=== PATIENT | male | born 1970 | race Caucasian/White ===

== ENCOUNTER 2020-01-19 15:29 | Outpatient (CLI) | payer OTHER, SELFPAY | END 2020-01-19 15:30 | disposition home or self-care (01) | LOC: CHSLAB 15:35 | PROVIDERS: PCP Internal Medicine; Visit Provider Specialist | DX: L01.00 Impetigo, unspecified (principal) | CPT/HCPCS: 87070; 87075; 87077; 87186; 87205 ==

== ENCOUNTER 2021-04-04 08:35 | Outpatient (CLI) | payer OTHER, SELFPAY ==
--- NOTE | ~2021-04-04 | NM_ITS ---
EXAMINATION: NM hepatobiliary w pharm DATE: 04/04/2021 10:43 INDICATION: Right upper quadrant abdominal pain COMPARISON: None. TECHNIQUE: 6 mCi Tc-99m mebrofenin (Choletec) was administered intravenously. Scintigraphic images o f the abdomen were obtained for one hour. 2.16 mcg sincalide (Kinevac) was administered by slow intra venous infusion, and imaging was continued for 30 minutes. Gallbladder ejection fraction was calculat ed by the technologist. FINDINGS: There is normal clearance of radiotracer from the blood pool. There is homogeneous tracer uptake by t he liver. Activity progresses to the gallbladder and bowel. The gallbladder ejection fraction (GBEF) is 7% (normal 10-90%, but most patient with gallbladder dysfunction have GBEF < 35% which does overl ap with the normal range). IMPRESSION: 1. Decreased gallbladder ejection fraction of 7% consistent with gallbladder dysfunction or chronic cholecystitis in the appropriate clinical setting. Reviewed, dictated and finalized at location A. IMPRESSION: 1. Decreased gallbladder ejection fraction of 7% consistent with gallbladder d ysfunction or chronic cholecystitis in the appropriate clinical setting.
== END 2021-04-04 08:36 | disposition home or self-care (01) ==
LOC: CHSIMG 08:36
PROVIDERS: PCP Internal Medicine; Visit Provider Internal Medicine
DX: R10.11 Right upper quadrant pain (principal)
CPT/HCPCS: 78227; A9537; J2805

== ENCOUNTER 2022-01-09 13:28 | Outpatient (CLI) | payer OTHER, SELFPAY ==
--- NOTE | 2022-01-09 13:34 | ECG_ITS ---
Measurements Intervals [place] Rate: 75 P: 41 WA: 171 QRS: -47 QRSD: 106 T: 47 QT: 357 QTc: 399 Interpretive Statements SINUS RHYTHM LEFT ANTERIOR FASCICULAR BLOCK BASELINE ARTIFACT- I, III, AVR, AVL, AVF ABNORMAL ECG Electronically Signed On 01-09-2022 14:13:23 CONSTRUCTION TRADES CONTRACTOR by Myles Hernandez D.O.
[2022-01-09 14:37] LABS: Alanine Aminotransferase 62 U/L (4-50); Albumin Level 4.4 g/dL (3.5-5.1); Alkaline Phosphatase 105 U/L (38-126); Amylase 62 U/L (30-110); Aspartate Amino Transferase 41 U/L (17-59); Bilirubin,Total 0.4 mg/dL (0.2-1.3); Lipase 54 U/L (23-300)
== END 2022-01-09 13:29 | disposition home or self-care (01) ==
PROVIDERS: PCP Internal Medicine; Visit Provider Surgery
DX: K82.8 Other specified diseases of gallbladder (principal); E78.5 Hyperlipidemia, unspecified; Z01.818 Encounter for other preprocedural examination; I44.4 Left anterior fascicular block
CPT/HCPCS: 36415; 80076; 82150; 83690; 86850; 86900; 86901; 93005

== ENCOUNTER 2022-01-12 00:59 | Day surgery (SDC) | payer OTHER, SELFPAY ==
[2022-01-04 11:50] VITALS: BMI 33.5
--- NOTE | 2022-01-04 11:59 | PC.NURSE ---
Report to the Outpatient Waiting Room, entrance under the green pavilion located off [facility], at time 10:00 on date 01/12/22. OR Time: 12:00. - You will be asked a series of questions to screen for COVID 19 for your protection. - A mask is required within the hospital. - No visitors are allowed at this time. Preoperative COVID Testing Requirements: No COVID Test needed if: (proof is required; if not received patient will have Rapid Test prior to entry) - Patient has received COVID Vaccine at least 14 days prior to procedure date or - Patient has positive COVID test result within last 90 days of surgery date. COVID Test needed if above criteria is not met Patients may have clear liquids (water, carbonated beverages, clear teas, apple juice) until 3 hours prior to surgery (9:00) with a maximum of 20 ounces. - No food from midnight until time of surgery Take the following medications with a SIP of water the morning of surgery: NONE Medications to discontinue per physician: VITAMINS/SUPPLEMENTS Date to take last dose: 01/08/22 Please no make-up, nail canadian, hairspray, perfume, deodorant, or body powder the day of surgery. No jewelry (including any body piercings) or valuables the day of surgery, leave them at home. Please take a shower or bath the night before, or the morning of, surgery with an antibacterial soap. Wear comfortable, loose fitting clothing. HIBICLENS SHOWER - Jewelry must be removed prior to entering the operating room. Rings and piercings that are not removed may be cut off. - The hospital will not accept responsibility for valuables. - Please leave all valuables, including medications, at home the day of surgery. If you are going home after surgery, a licensed truck driver heavy must drive you home. - NO public transportation without another adult. - We recommend that an adult stay with you for 24 hours following discharge. - We also recommend that you do not drive, make important decision, drink alcoholic beverages, or take any drugs that were not prescribed by your health care provider for at least 24 hours after your discharge time. Follow any additional instructions given to you from your surgeon. Telephone instructions given to CORONA WAN and asked if any additional questions and then verbalized understanding. Patient advised to call surgeon office or pre surgery nurse liaison [phone] if any additional questions.
[2022-01-12] VITALS (8 sets, daily range): BP systolic 132–154; BP diastolic 63–79; PULSE 60–90; RESP 12–19; TEMP 36.5–36.8; O2SAT 97–100
[2022-01-12] MEDS: LACTATED RINGERS 1,000 ML 30 ML IV CONT ×2 (10:30→13:22)
[2022-01-12] MEDS: ACETAMINOPHEN 500 MG TABLET 1000 MG PO (10:45)
[2022-01-12] MEDS: KETOROLAC 15 MG/ML VIAL (*BKC) IV PUSH (10:46)
--- NOTE | 2022-01-12 11:32 | WPDANESEPPF ---
Anes - Initial Pre Proc Eval Procedure: Operation Date: 01/12/22 12:00 Proposed Procedures p Laparoscopic Cholecystectomy, Possible Open - Quincy Negron DO Date/Time: 01/12/22 11:32 Surgeon: Quincy Negron DO Pre Op Diagnosis: biliary dyskinesia, epigastric abdominal pain Patient Data Age: 51 Gender: M Height: 1.8 m Weight: 108.86 kg Allergies Allergy/AdvReac Type Severity Reaction Status Date / Time No Known Allergies Allergy Verified 01/04/22 11:48 Home Medications Medication Instructions Recorded Confirmed Type atorvastatin 40 mg tablet 40 mg PO DAILY 04/12/21 01/04/22 History multivitamin 1 tablet PO DAILY 01/04/22 01/04/22 History pantoprazole 40 mg PO QAM 01/04/22 01/04/22 History Patient hx anesthesia problems: none Family hx anesthesia problems: none Results Review: All pre-operative results and documents have been reviewed as part of the pre-operative evaluation. 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 Informed Consent: The patient's anesthetic plan and its attendant risks and benefits were discussed with the patient/family/POA. Questions were solicited and answers provided to the satisfaction of the patient/family/POA.
--- NOTE | 2022-01-12 11:43 | WPDHPUPDATE1 ---
History and Physical Update Update Date/Time: 01/12/22 11:43 History and Physical has been reviewed, including an updated exam of the patient. There are NO changes in the patient's condition. Risks, benefits, and alternatives have been discussed and questions answered. Patient agrees to proceed with procedure.
--- NOTE | 2022-01-12 11:43 | PM.IMHP ---
H&P: HPI History of Present Illness Date/Time: 01/12/22 11:43 Chief Complaint: Biliary dyskinesia Narrative: 51 yo man presents for lap aida. He reports no changes since last seen in office. Review of Systems Review of Systems: All systems reviewed & are unremarkable except as noted in HPI and below Constitutional: Constitutional: Denies chills, Denies fever(s), Denies headache(s) and Denies weight loss Eyes: Eyes: Denies change in vision ENT: Denies dizziness, Denies headache(s), Denies neck mass and Denies throat swelling Cardiovascular: Cardiovascular: Denies chest pain, Denies lightheadedness and Denies dyspnea Respiratory: Respiratory: Denies cough, Denies dyspnea and Denies wheezing Gastrointestinal: Gastrointestinal: Denies abdominal pain, Denies change in bowel habits, Denies nausea and Denies vomiting Genitourinary: Genitourinary: Denies hematuria and Denies dysuria Musculoskeletal: Musculoskeletal: Reports as per HPI Integumentary/Breasts: Skin/Breast: Reports as per HPI Neurologic: Denies dizziness and Denies headache(s) Allergic/Immunologic: Allergic/Immunologic: Denies throat swelling and Denies wheezing [facility] Past Medical History Medical History Anxiety Asthma Otto esophagus Hiatal hernia High cholesterol Surgical History Surgical History History of esophagogastroduodenoscopy (EGD) Family History Family History Father Lung cancer Grandparent , age 90 Cerebrovascular accident Social History Social History Smoking status: Never smoker Alcohol intake: current Alcohol use details: VERY RARE Substance use: never Substance use type: does not use Living arrangements: with family 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 Spiritual care concerns: No Meds Home Medications and Allergies Home Medications Medication Instructions Recorded Confirmed Type atorvastatin 40 mg tablet 40 mg PO DAILY 04/12/21 01/12/22 History multivitamin 1 tablet PO DAILY 01/04/22 01/12/22 History pantoprazole 40 mg PO QAM 02/03/22 02/11/22 History Allergies Allergy/AdvReac Type Severity Reaction Status Date / Time No Known Allergies Allergy Verified 01/04/22 11:48 Vital Signs Vital Signs - 24 hr 01/12/22 10:30 Temperature 36.8 C Pulse Rate 72 Respiratory Rate 16 Blood Pressure 154/77 H Pulse Oximetry 98 Exam Const: General: no acute distress and alert Orientation/consciousness: patient oriented x3 HENMT: Head: normocephalic and atraumatic Ears: hearing grossly normal bilaterally General nose exam: Normal nares present Mouth: Yes Normal oral and palatal mucosa present Eyes: Periorbital: periorbital findings normal Sclera: sclerae normal EOM: EOMs intact bilaterally Neck: Neck: normal visual inspection, no lymphadenopathy and trachea midline Chest: Chest palpation & inspection: normal inspection of the chest Resp: Effort & Inspection: normal respiratory effort Auscultation: clear to auscultation bilaterally Cardio: Jugular venous distension: no JVD Rate: regular rate Rhythm: regular rhythm Heart sounds: S1 normal heart sound present and S2 normal heart sound present Peripheral pulses: Peripheral pulses 2+ throughout GI: Inspection: normal to inspection GI Palp: Yes Soft to palpation, No Tenderness to palpation present (GI), No Guarding due to palpation present (GI) and No Rebound tenderness present Percussion: Yes normal to percussion Auscultation: normal bowel sounds : General: Yes no CVA tenderness Back/Spine/Pelvis: Back: no CVA tenderness Neuro: General: patient oriented x3, no focal motor deficits and CN's II-XI intact bilaterally Cognition (Neuro): normal cognition Speech: normal speech Motor
[2022-01-12] MEDS: ceFAZolin 2 GM/D5W 50 ML 2 GM/50 ML BAG IVPB (12:28)
[2022-01-12] MEDS: BUPIVACAINE/EPINEPHRINE 0.5% 30 ML VIAL INFILTRATE (12:51)
--- NOTE | 2022-01-12 13:13 | W.PM.PROC2 ---
Procedure Note - Detailed Date of Procedure 01/12/22 Pre-op Diagnosis biliary dyskinesia, epigastric abdominal pain Post-op Diagnosis other (Cholelithiasis) Procedure Performed Laparoscopic Cholecystectomy Surgeon Quincy Negron DO Anesthesia general and local (0.5% bupivacaine) Indications This is a 51-year-old man who presented with episodes of epigastric abdominal pain that have been ongoing for about 8-10 months. He initially had a gallbladder ultrasound in [place] in March 2021 which was normal. He then had a HIDA scan in April 2021 which showed a decreased gallbladder ejection fraction of 7%. Discussions were made with the patient about his treatment options and decision was made to proceed with laparoscopic cholecystectomy, possible open. Findings Laparoscopic cholecystectomy was performed the patient had a few pericholecystic adhesions but otherwise the gallbladder appeared normal in size. The cystic duct was normal size as well. There was about a 1 cm gallstone within the gallbladder. The gallbladder was removed and sent to lab for pathology. I inspected region on the patient's right upper abdomen that he thought was a possible abdominal hernia. There was no evidence of hernia on the abdominal wall in the right upper quadrant. Description of Procedure Procedure as well as risks, benefits, and alternatives were discussed with patient. Written consent was obtained and placed in chart prior to procedure. The patient was brought back to surgical suite. Patient was placed in supine position on operating table. Time-out was done to confirm patient and procedure. Patient was then intubated by the anesthesia department. Abdomen was prepped and draped in sterile fashion using chlorhexidine prep. 0.5% bupivacaine with epinephrine was infiltrated at each site of incision. A 5 millimeter incision was made near the umbilicus, and a 5 millimeter Optiview trocar was advanced through the abdominal layers under direct visualization. Once inside the abdominal cavity, carbon dioxide was insufflated to create a pneumoperitoneum. The camera was inserted and the abdomen was inspected. No immediate abnormalities were identified. The patient was placed in reverse Trendelenburg position and rotated slightly to the left. An 11 millimeter incision was made in the subxiphoid region, and an 11 millimeter trocar was inserted under direct visualization. Two 5 millimeter incisions were made in the right upper quadrant, and two 5 millimeter trocars were inserted under direct visualization. The gallbladder was identified and grasped at the fundus and retracted superiorly. It was then grasped at the infundibulum retracted laterally. Careful dissection around the neck of the gallbladder was performed using blunt dissection with a [place] grasper and hook electrocautery. The cystic duct was identified, and a window was created behind it. The cystic artery was also identified and a window was created behind it. The critical view of safety was identified, visualizing the cystic duct running directly into the neck of the gallbladder, and the cystic artery running directly into the wall of the gallbladder. A 5 millimeter clip support architect was then used to place 2 clips proximally and 1 clip distally on both the cystic duct and cystic artery. They were then both transected using endoscopic scissors. Once safely away from the jay jay hepatitis, the gallbladder was dissected free from the liver bed using hook electrocautery. Hemostasis was achieved along the way. The gallbladder was removed completely and then removed through the subxiphoid port. The liver bed was then inspected. Hemostasis appeared adequate, and our clips appeared secure. The area was gently irrigated with sterile saline. No other abnormalities were seen. The patient was flattened out in bed, and 1 final inspection was made around the abdominal cavity. The subxiphoid port was removed, and a Arden colunga
[2022-01-12] MEDS: oxyCODONE HCL (*CRX) 5 MG TAB IR PO (14:21)
== END 2022-01-12 15:03 | disposition home or self-care (01) ==
PROVIDERS: PCP Internal Medicine; Visit Provider Surgery
PROC: 0FT44ZZ Resection of Gallbladder, Percutaneous Endoscopic Approach (ICD-10-PCS; CPT 47562; principal; 2022-01-12 12:00)
DX: K80.10 Calculus of gallbladder with chronic cholecystitis without obstruction (principal); E78.00 Pure hypercholesterolemia, unspecified; E66.9 Obesity, unspecified; Z68.33 Body mass index [BMI] 33.0-33.9, adult
CPT/HCPCS: 47562; 36415; 80076; 82150; 83690; 86850; 86900; 86901; 88304; 93005; A9270; J0330; J0690; J1100; J1885; J2250; J2405; J2704; J2710; J3010; J7030; J7120

== ENCOUNTER 2022-09-10 15:02 | Outpatient (CLI) | payer OTHER, SELFPAY ==
--- NOTE | ~2022-09-10 | XR_ITS ---
EXAMINATION:XR_[id number] DATE: 09/10/2022 15:21 INDICATION: Neck pain TECHNIQUE: AP, lateral, and odontoid views of the cervical spine are provided. COMPARISON: None FINDINGS: Alignment is normal. The odontoid is intact. No fracture is identified. The vertebral body heights are normal. There is moderate loss of intervertebral disc space height at C6-7 and C7-T1. Sma ll degenerative osteophytes project from the anterior endplates of multiple vertebral bodies. There i s [id number]-[id number] facet and uncovertebral joint osteoarthritis. Prevertebral soft tissues are normal . IMPRESSION: 1. Mild to moderate cervical spondylosis without acute findings. Reviewed, dictated and finalized at location A.
--- NOTE | ~2022-09-10 | XR_ITS ---
EXAMINATION: XR chest 2V DATE: 09/10/2022 15:21 INDICATION: Chronic cough with both chest pain and dyspnea on exertion. TECHNIQUE: frontal and lateral views of the chest were obtained. COMPARISON: Chest radiograph dated 11/23/2014 FINDINGS: Couple unchanged small calcified nodules in the left upper lung zone. The lungs remain otherwise gigi r with no focal airspace opacities, pulmonary edema, pleural effusion or pneumothorax. The cardiomedi astinal silhouette is normal. Mild thoracolumbar spondylosis. Cholecystectomy clips in the right uppe r quadrant. IMPRESSION: 1. No acute cardiopulmonary disease. Reviewed, dictated and finalized at location B.
== END 2022-09-10 15:03 | disposition home or self-care (01) ==
LOC: CHSIMG 15:05
PROVIDERS: PCP Internal Medicine; Visit Provider Internal Medicine
DX: M54.2 Cervicalgia (principal); R05.3 Chronic cough; R13.10 Dysphagia, unspecified; E01.0 Iodine-deficiency related diffuse (endemic) goiter
CPT/HCPCS: 71046; 72040

== ENCOUNTER 2022-09-18 13:37 | Outpatient (CLI) | payer OTHER, SELFPAY ==
--- NOTE | ~2022-09-18 | US_ITS ---
EXAMINATION: US soft tissue head and neck DATE: 09/18/2022 15:16 INDICATION: Neck pain. Thyromegaly. Dysphagia. TECHNIQUE: Multiple ultrasound images of the thyroid were obtained. COMPARISON: None. FINDINGS: The right thyroid lobe measures 4.5 x 1.6 x 1.9 cm. The left thyroid lobe measures 5.3 x 2.2 x 1.8 c m. In the left thyroid lobe, there is an 11 mm solid, isoechoic, wider than tall nodule with ill-def ined margin without echogenic foci (TI-RADS TR3). There are normal lymph nodes in the neck bilaterall y. IMPRESSION: 1. Small thyroid nodule, likely not clinically significant. No follow-up is needed. Reviewed, dictated and finalized at location B. IMPRESSION: 1. Small thyroid nodule, likely not clinically significant. No follow-up is nee ded.
== END 2022-09-18 13:38 | disposition home or self-care (01) ==
LOC: CHSIMG 13:38
PROVIDERS: PCP Internal Medicine; Visit Provider Internal Medicine
DX: M54.2 Cervicalgia (principal); R13.10 Dysphagia, unspecified; E01.0 Iodine-deficiency related diffuse (endemic) goiter
CPT/HCPCS: 76536

== ENCOUNTER 2022-10-06 06:54 | Outpatient (CLI) | payer OTHER, SELFPAY ==
--- NOTE | ~2022-10-06 | MR_ITS ---
EXAMINATION: MR cervical spine wo con DATE: 10/06/2022 07:47 INDICATION: Cervical radiculopathy. TECHNIQUE: Magnetic resonance imaging (MRI) of the cervical spine was performed without intravenous c ontrast. Sequences included sagittal T2-weighted FSE, sagittal T2-weighted FS FSE, sagittal T1-weight ed FSE, axial MERGE, and axial T2-weighted FSE. COMPARISON: Cervical spine radiographs 09/10/2022 FINDINGS: Bone alignment is normal. Vertebral body heights are normal. There is mildly decreased disc height at C3-C4 and C6-C7. The spinal cord signal intensity is normal. The following disc levels are specifically discussed: C2-C3: The disc does not extend beyond the endplate margin. There is no uncovertebral joint osteoarth ritis. There is no facet joint osteoarthritis. There is no neural foraminal stenosis. There is no neto tral canal stenosis. C3-C4: The disc is bulging. There is mild right and severe left uncovertebral joint osteoarthritis. T here is mild bilateral facet joint osteoarthritis. There is mild right and moderate left neural claudia inal stenosis. There is mild central canal stenosis. C4-C5: The disc does not extend beyond the endplate margin. There is mild right uncovertebral joint o steoarthritis. There is mild bilateral facet joint osteoarthritis. There is mild right neural foramin al stenosis. There is no central canal stenosis. C5-C6: The disc does not extend beyond the endplate margin. There is mild bilateral uncovertebral elvar nt osteoarthritis. There is no facet joint osteoarthritis. There is no neural foraminal stenosis. The re is no central canal stenosis. C6-C7: The disc is bulging. There is severe right and moderate left uncovertebral joint osteoarthriti s. There is no facet joint osteoarthritis. There is moderate right and mild left neural foraminal cm nosis. There is mild central canal stenosis. C7-T1: The disc does not extend beyond the endplate margin. There is no uncovertebral joint osteoarth ritis. There is mild right and severe left facet joint osteoarthritis. There is mild bilateral neural foraminal stenosis. There is no central canal stenosis. IMPRESSION: 1. Moderate cervical spondylosis. Reviewed, dictated and finalized at location A. BERRY GROWER
== END 2022-10-06 06:55 | disposition home or self-care (01) ==
LOC: CHSIMG 06:55
PROVIDERS: PCP Internal Medicine; Visit Provider Internal Medicine
DX: M54.12 Radiculopathy, cervical region (principal)
CPT/HCPCS: 72141

== ENCOUNTER 2022-10-12 10:16 | Outpatient (CLI) | payer OTHER, SELFPAY ==
--- NOTE | 2022-10-12 13:31 | NIOX ---
Niox Report PFT: FeNO Evaluation (NIOX) Start: 10/12/22 13:29 Freq: Status: Active Protocol: Activity Type Activity Date Activity User E-sign Co-sign Detail Recorded Client Recorded Date Recorded By Document 10/12/22 13:29 FRANKLYN [id number] 10/12/22 13:31 FRANKLYN 10/12/22 13:29 NIOX Evaluation [NIOX Measurement] -FeNO Measurement Equals (ppb) 25 [NIOX Evaluation] -Level of Airway Inflammation Intermediate ( 25-50) [Comments] -NIOX Comments Patient followed directions well and completed in one try. [Charges] -NIOX Measurement Charges Yes
== END 2022-10-12 10:17 | disposition home or self-care (01) ==
LOC: CHSCARD 10:18
PROVIDERS: PCP Internal Medicine; Visit Provider Internal Medicine
DX: R05.9 Cough, unspecified (principal); M54.2 Cervicalgia; R13.10 Dysphagia, unspecified; E01.0 Iodine-deficiency related diffuse (endemic) goiter
CPT/HCPCS: 94060; 94726; 94729; 95012

== ENCOUNTER 2022-11-06 15:23 | Outpatient (CLI) | payer OTHER, SELFPAY ==
--- NOTE | ~2022-11-06 | XR_ITS ---
EXAMINATION: XR chest 2V 11/06/2022 15:51 INDICATION: Hemoptysis PROCEDURE: 2 view chest COMPARISON: Comparison to multiple prior studies sequentially, with oldest reviewed study dated 10/02. FINDINGS: The lungs are clear. The cardiomediastinal silhouette is within normal limits. There are no pleural effusions. There is no pneumothorax suspected. IMPRESSION: 1: NO ACUTE CARDIOPULMONARY DISEASE. Reviewed, dictated and finalized at location A. HER LEARNING DISABLED
[2022-11-06 15:48] LABS: Basophils Absolute Auto 0.06 K/mm3 (0.00-0.10); Basophils Percent Auto 0.5 % (0.0-1.0); Eosinophils Percent Auto 1.6 % (1.0-6.0); Hematocrit 43.8 % (40.0-54.0); Hemoglobin 14.7 g/dL (14.0-18.0); Immature Granulocyte Absolute 0.28 K/mm3 (0.00-0.00); Immature Granulocyte Percent A 2.3 % (0.0-0.0); Lymphocytes Absolute Auto 2.95 K/mm3 (1.10-4.50); Lymphocytes Percent Auto 23.8 % (18.0-42.0); Mean Corpuscular HGB Conc 33.6 g/dL (32.0-36.0); Mean Corpuscular Hemoglobin 28.3 pg (27.0-31.0); Mean Corpuscular Volume 84.2 fL (78.0-102.0); Mean Platelet Volume 8.8 fl (8.7-11.0); Monocytes Absolute Auto 0.75 K/mm3 (0.10-0.90); Monocytes Percent Auto 6.1 % (2.0-11.0); Neutrophils Absolute Auto 8.2 K/mm3 (1.7-7.2); Neutrophils Percent Auto 65.7 % (50.0-70.0); Platelet Count Result 442 K/mm3 (150-420); Red Cell Distribution Width 11.7 % (11.6-14.4); White Blood Count 12.4 K/mm3 (4.8-10.8)
[2022-11-06 16:14] LABS: Alanine Aminotransferase 81 U/L (16-63); Albumin Level 3.9 g/dL (3.4-5.0); Alkaline Phosphatase 132 U/L (46-116); Anion Gap 8 mmol/L (8-16); Aspartate Amino Transferase 28 U/L (15-37); Bilirubin,Total 0.5 mg/dL (0.00-1.00); Blood Urea Nitrogen 13 mg/dL (7-18); Carbon Dioxide 31 mmol/L (21-32); Chloride 103 mmol/L (98-108); Estimated Glomerular Filt Rate > 60; Glucose 111 mg/dL (70-99); Osmolality Calculated 295 mOsm/kg (285-295); Potassium 4.2 mmol/L (3.5-5.1); Sodium 142 mmol/L (136-145); Total Protein 7.9 g/dL (6.4-8.2)
== END 2022-11-06 15:24 | disposition home or self-care (01) ==
LOC: CHSLAB 15:25
PROVIDERS: PCP Internal Medicine; Visit Provider Internal Medicine
DX: R05.9 Cough, unspecified (principal)
CPT/HCPCS: 36415; 71046; 80053; 85025

== ENCOUNTER 2022-11-15 15:56 | Outpatient (CLI) | payer OTHER, SELFPAY ==
[2022-11-15 16:44] LABS: Alanine Aminotransferase 108 U/L (16-63); Albumin Level 3.9 g/dL (3.4-5.0); Alkaline Phosphatase 122 U/L (46-116); Anion Gap 7 mmol/L (8-16); Aspartate Amino Transferase 38 U/L (15-37); Bilirubin,Total 0.4 mg/dL (0.00-1.00); Blood Urea Nitrogen 11 mg/dL (7-18); Calcium 8.7 mg/dL (8.5-10.1); Carbon Dioxide 30 mmol/L (21-32); Chloride 103 mmol/L (98-108); Estimated Glomerular Filt Rate > 60; Glucose 93 mg/dL (70-99); Osmolality Calculated 289 mOsm/kg (285-295); Potassium 4.2 mmol/L (3.5-5.1); Sodium 140 mmol/L (136-145)
[2022-11-21 19:33] LABS: Hepatitis A Antibody IgM Nonreactive; Hepatitis B Core Antibody Nonreactive (Nonreactive); Hepatitis B Surface Antigen Nonreactive (Nonreactive); Hepatitis C Signal to Cutoff 0.02 ratio (<1.00); Hepatitis C Virus Antibody Nonreactive (Nonreactive)
== END 2022-11-15 15:57 | disposition home or self-care (01) ==
LOC: CHSLAB 15:58
PROVIDERS: PCP Internal Medicine; Visit Provider Internal Medicine
DX: R94.5 Abnormal results of liver function studies (principal)
CPT/HCPCS: 36415; 80053; 80074

== ENCOUNTER 2022-11-27 07:33 | Outpatient (CLI) | payer OTHER, SELFPAY ==
--- NOTE | ~2022-11-27 | US_ITS ---
Limited Abdominal Sonogram: Real-time sonographic imaging of the right upper quadrant was performed. Clinical History: Elevated liver enzymes Findings: The liver appears mildly heterogeneous/echogenic, no evidence of mass lesion or bile duct dilatation. Main portal vein demonstrates normal direction of flow. The gallbladder is absent, compat ible prior cholecystectomy. The common bile duct measures 4 mm. The pancreas is largely obscured by bowel gas shadowing. Impression: Probable fatty infiltration of liver. Status post cholecystectomy. Reviewed, dictated and finalized at location . 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 Status post cholecystectomy.
== END 2022-11-27 07:34 | disposition home or self-care (01) ==
LOC: CHSIMG 07:35
PROVIDERS: PCP Internal Medicine; Visit Provider Internal Medicine
DX: R74.01 Elevation of levels of liver transaminase levels (principal); Z90.49 Acquired absence of other specified parts of digestive tract
CPT/HCPCS: 76705

== ENCOUNTER 2023-01-30 05:58 | Day surgery (SDC) | payer OTHER, SELFPAY ==
[2022-11-27 11:32] VITALS: BMI 34.4
[2023-01-21 13:23] VITALS: BMI 33.5
--- NOTE | 2023-01-29 15:06 | P.PNAN_ITS ---
Anes - Initial Pre Proc Eval Procedure: Operation Date: 01/30/23 07:30 Proposed Procedures p Screening Colonoscopy - Quincy Negron DO Date/Time: 01/29/23 15:06 Surgeon: Quincy Negron DO Pre Op Diagnosis: Neoplasm Screening Patient Data Age: 52 Gender: M Height: 1.8 m Weight: 109 kg Allergies Allergy/AdvReac Type Severity Reaction Status Date / Time No Known Allergies Allergy Verified 01/30/23 06:27 Home Medications Medication Instructions Recorded Confirmed Type atorvastatin 40 mg tablet 40 mg PO DAILY 04/12/21 01/30/23 History multivitamin 1 tablet PO DAILY 01/04/22 01/30/23 History pantoprazole 40 mg tablet,delayed 40 mg PO QAM 01/04/22 01/30/23 History release Patient hx anesthesia problems: none Family hx anesthesia problems: none Results Review: All pre-operative results and documents have been reviewed as part of the pre- operative evaluation. 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 Informed Consent: The patient's anesthetic plan and its attendant risks and benefits were discussed with the patient/family/POA. Questions were solicited and answers provided to the satisfaction of the patient/family/POA.
[2023-01-30 06:25] VITALS: BP 136/83; PULSE 81; RESP 20; TEMP 36.7; O2SAT 95
[2023-01-30] MEDS: LACTATED RINGERS 1,000 ML 150 ML IV CONT (06:35)
--- NOTE | 2023-01-30 07:26 | PM.IMHP ---
H&P: HPI History of Present Illness Date/Time: 01/30/23 07:26 Chief Complaint: Screening for CRC Narrative: 52 yo man presents for colonoscopy. Denies any bleeding. Grandparent had colon cancer but no first degree relatives. Review of Systems Review of Systems: All systems reviewed & are unremarkable except as noted in HPI and below Constitutional: Constitutional: Denies chills, Denies fever(s), Denies headache(s) and Denies weight loss Eyes: Eyes: Denies change in vision ENT: Denies dizziness, Denies headache(s), Denies neck mass and Denies throat swelling Cardiovascular: Cardiovascular: Denies chest pain, Denies lightheadedness and Denies dyspnea Respiratory: Respiratory: Denies cough, Denies dyspnea and Denies wheezing Gastrointestinal: Gastrointestinal: Denies abdominal pain, Denies change in bowel habits, Denies nausea and Denies vomiting Genitourinary: Genitourinary: Denies hematuria and Denies dysuria Musculoskeletal: Musculoskeletal: Reports as per HPI Integumentary/Breasts: Skin/Breast: Reports as per HPI Neurologic: Denies dizziness and Denies headache(s) Allergic/Immunologic: Allergic/Immunologic: Denies throat swelling and Denies wheezing PMF Past Medical History Medical History Anxiety Asthma Otto esophagus Hiatal hernia High cholesterol Surgical History Surgical History History of esophagogastroduodenoscopy (EGD) Family History Family History Father Lung cancer Grandparent , age 90 Cerebrovascular accident Social History Social History Smoking status: Never smoker Alcohol intake: current Alcohol use details: VERY RARE Substance use: never Substance use type: does not use Living arrangements: with family Occupation/Education: occupation 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 Spiritual care concerns: No Meds Home Medications and Allergies Home Medications Medication Instructions Recorded Confirmed Type atorvastatin 40 mg tablet 40 mg PO DAILY 04/12/21 01/30/23 History multivitamin 1 tablet PO DAILY 01/04/22 01/30/23 History pantoprazole 40 mg tablet,delayed 40 mg PO QA 01/04/22 01/30/23 History release Allergies Allergy/AdvReac Type Severity Reaction Status Date / Time No Known Allergies Allergy Verified 01/30/23 06:27 Vital Signs Vital Signs - 24 hr 01/30/23 06:25 Temperature 36.7 C Pulse Rate 81 Respiratory Rate 20 Blood Pressure 136/83 Pulse Oximetry 95 Oxygen Delivery Room Air Exam Const: General: no acute distress and alert Orientation/consciousness: patient oriented x3 HENMT: Head: normocephalic and atraumatic Ears: hearing grossly normal bilaterally Face/Nose/Sinus: Normal nares present Mouth: Yes Normal oral and palatal mucosa present Eyes: Periorbital: periorbital findings normal Sclera: sclerae normal EOM: EOMs intact bilaterally Neck: Neck: normal visual inspection, no lymphadenopathy and trachea midline Chest: Chest palpation & inspection: normal inspection of the chest Resp: Effort & Inspection: normal respiratory effort Auscultation: clear to auscultation bilaterally Cardio: Jugular venous distension: no JVD Rate: regular rate Rhythm: regular rhythm Heart sounds: S1 normal heart sound present and S2 normal heart sound present Peripheral pulses: Peripheral pulses 2+ throughout GI: Inspection: normal to inspection GI Palp: Yes Soft to palpation, No Tenderness to palpation present (GI), No Guarding due to palpation present (GI) and No Rebound tenderness present Percussion: Yes normal to percussion Auscultation: normal bowel sounds : General: Yes no CVA tenderness Back/Spine/Pelvis: Back: no CVA tenderness Neuro: General: patient o
[2023-01-30 07:53] VITALS: BP 109/70; PULSE 71; RESP 17
[2023-01-30 08:03] VITALS: BP 120/74; PULSE 68; RESP 17; O2SAT 96
--- NOTE | 2023-01-30 11:37 | WPDANESPN ---
Anes - Prog Note Post-Op Date/Time: 01/30/23 11:37 Cardiovascular status: normal Respiratory status: normal Airway patency: baseline Mental status: baseline Post-Op hydration status: normal Vital Signs: Last Vital Signs Temp 36.7 C 01/30/23 06:25 Pulse 68 01/30/23 08:03 Resp 17 01/30/23 08:03 BP 120/74 01/30/23 08:03 Pulse Ox 96 01/30/23 08:03 O2 Del Method Room Air 01/30/23 08:03 Pain Score (VAS): 0 I/O: Intake & Output 01/29/23 01/30/23 01/30/23 23:59 07:59 15:59 Intake Total 300 Balance 300 Post-procedural complaints: none Patient Feedback: Patient satisfied with anesthetic care. Other Findings: Patient vital signs back to baseline. Patient denies nausea and vomiting. Patient's pain under control. Patient OK for discharge.
== END 2023-01-30 08:25 | disposition home or self-care (01) ==
PROVIDERS: PCP Internal Medicine; Visit Provider Surgery
PROC: 0DJD8ZZ Inspection of Lower Intestinal Tract, Via Natural or Artificial Opening Endoscopic (ICD-10-PCS; CPT 45378; principal; 2023-01-30 07:30)
DX: Z12.11 Encounter for screening for malignant neoplasm of colon (principal)
CPT/HCPCS: 45385

== ENCOUNTER 2023-01-30 09:00 | Outpatient (NON) | payer OTHER, SELFPAY | END 2023-01-30 09:01 | disposition home or self-care (01) | LOC: ANHLAB 01-31 09:24 | PROVIDERS: PCP Internal Medicine; Visit Provider Surgery | DX: Z12.11 Encounter for screening for malignant neoplasm of colon (principal) | CPT/HCPCS: 88305 ==

== ENCOUNTER 2023-11-15 11:39 | Outpatient (CLI) | payer OTHER, SELFPAY ==
--- NOTE | ~2023-11-15 | XR_ITS ---
EXAMINATION: XR ribs RT 2V INDICATION: Right rib pain TECHNIQUE: 3 views of the right ribs were obtained. COMPARISON: 11/06/2022 FINDINGS: The visualized lungs are clear. No pleural effusion or pneumothorax. The cardiomediastinal silhouette is normal. Surgical clips in the right upper quadrant are likely from prior cholecystectom y. No displaced rib fracture is identified. IMPRESSION: 1. No acute cardiopulmonary abnormality or evidence of displaced rib fracture. Reviewed, dictated and finalized at location B. [employer]
== END 2023-11-15 11:40 | disposition home or self-care (01) ==
LOC: CHSIMG 11:42
PROVIDERS: PCP Internal Medicine; Visit Provider Internal Medicine
DX: R07.81 Pleurodynia (principal)
CPT/HCPCS: 71100

== ENCOUNTER 2024-07-17 14:24 | Outpatient (CLI) | payer OTHER, SELFPAY ==
--- NOTE | ~2024-07-17 | XR_ITS ---
XR shoulder RT min 2V Ordering provider: Amaury Bonner MD History: . Boxing injury, Rt. shoulder pain x1 mo . Comparison: None. FINDINGS: BONES: No acute fracture or dislocation. JOINT SPACES: The acromioclavicular joint is normal. The glenohumeral joint is normal. SOFT TISSUES: Normal. IMPRESSION: No acute osseous abnormality right shoulder. Reviewed, dictated and finalized at location A.
== END 2024-07-17 14:25 | disposition home or self-care (01) ==
LOC: CHSIMG 14:25
PROVIDERS: PCP Internal Medicine; Visit Provider Internal Medicine
DX: M25.511 Pain in right shoulder (principal)
CPT/HCPCS: 73030

== ENCOUNTER 2024-07-23 08:25 | Outpatient (CLI) | payer OTHER, SELFPAY ==
--- NOTE | ~2024-07-23 | MR_ITS ---
EXAMINATION: MR shoulder RT wo con DATE: 07/23/2024 09:15 INDICATION: Right shoulder pain TECHNIQUE: Magnetic resonance imaging (MRI) of the right shoulder was performed without intravenous c ontrast. Sequences included axial PD-weighted FS FSE, coronal oblique PD-weighted FS FSE, coronal obl ique T2-weighted FS FSE, sagittal PD-weighted FS FSE, and sagittal T1-weighted SE. COMPARISON: None. FINDINGS: Coracoacromial arch: The acromion undersurface is curved in morphology (type II). The coracoacromial ligament is normal. M ild acromioclavicular osteoarthritis. Rotator cuff: Mild supraspinatus and infraspinatus tendinopathy. There is a severe articular sided near full-thickn ess tear which extends 1.5 cm AP along the articular side of the superior facet footplate of the supr aspinatus tendon. A small portion the tear extends to near the bursal surface of the tendon. Teres mi nor and subscapularis tendons are normal. Normal rotator cuff muscle bulk and signal. Biceps tendon, glenoid labrum and glenohumeral cartilage: Long head of the biceps tendon is normal. Glenoid labrum is normal. Glenohumeral cartilage is normal. Fluid: Physiologic amount of fluid in the glenohumeral joint and biceps tendon sheath. No loose osteochondr al bodies. Small amount of fluid in the subacromial/subdeltoid bursa consistent with mild bursitis. Bones: Normal marrow signal with no edema, fracture or abnormal marrow replacing process. IMPRESSION: 1. Mild supraspinatus infraspinatus tendinopathy with articular sided tear along the superior facet f ootplate of the distal supraspinatus tendon, a small portion of which appears near full thickness. 2. Mild subacromial/subdeltoid bursitis. Reviewed, dictated and finalized at location A. IMPRESSION: 1. Mild supraspinatus infraspinatus tendinopathy with articular sided tear tiara g the superior facet footplate of the distal supraspinatus tendon, a small port ion of which appears near full thickness. 2. Mild subacromial/subdeltoid bursitis.
== END 2024-07-23 08:26 | disposition home or self-care (01) ==
LOC: CHSIMG 08:26
PROVIDERS: PCP Internal Medicine; Visit Provider Internal Medicine
DX: M25.511 Pain in right shoulder (principal); S46.811A Strain of other muscles, fascia and tendons at shoulder and upper arm level, right arm, initial encounter; M75.51 Bursitis of right shoulder
CPT/HCPCS: 73221

== ENCOUNTER 2024-10-05 15:52 | Outpatient (RCR) | payer OTHER, SELFPAY ==
--- NOTE | 2024-10-05 17:08 | PTOPEVAL1 ---
Assessment and note entered by David Merino Evaluation Information Assessment Status Evaluation Diagnosis s/p Onset 09/29/24 Subjective Information Pt. reports that he underwent surgery on 09/29/24. He initially injured the right shoulder exercising on a heavy bag. He states that he has been giving exercise to perform at home. He is using a TENS unit at home to relieve pain. He states that sleep is difficult and he has to sleep with pillow stacked. He states that he is taking pain medication only at night to sleep. He reports that he is right hand dominant. He states that he works at [employer] and will transfer therapy there once cleared to drive. He states that his goal is to gain normal use of the right u.e. Reported Pain Level Pain Score 4: Self Report Assessment PT Clinical Summary Pt. is a 54 year old male who enters the clinic 5 days s/p right shoulder arthroscopy with biceps tenodesis. He is currently limited to passive movement at the shoulder and elbow on this date. He currently presents with generalized u.e. weakness and right shoulder stiffness. Continued skilled PT is indicated in order to improve these areas to allow for normal right u.e. use. Anticipate pt. transferring his care upon returning to driving to a facility next to his work. Plan of Care Interventions Electrical Stimulation,Hot Pack/Cold Pack,Manual Therapy,Neuro Re-education,Patient/Caregiver Educati,Therapeutic Activities,Therapeutic Exercise PT Services Indicated Yes Treatment Frequency and 1-2x/week x 6 visits Duration These treatments will address the objective and functional deficits as defined above. The patient will be advanced safely and appropriately in order for the patient to progress towards his/her prior level of function. Additional exercises will be introduced and as well as a comprehensive home exercise program upon discharge, if needed, ?to ensure carryover of functional gains achieved in the clinic. This treatment plan has been reviewed and agreement upon by the patient.
--- NOTE | 2024-10-05 17:09 | OPREHPOC ---
Outpatient Therapy Plan of Care This is a Multidisciplinary Plan of Care that may contain components documented by all disciplines (PT, OT, and ST.) PT Problem 1 PT Problem #1 Knowledge Deficit PT Goal 1 Goal / Goal Update Pt. and will be independent with a HEP addressing mobility gnosticism. Target Visit 2 PT Problem 2 PT Problem #2 Impaired Range of Motion PT Goal 1 Goal / Goal Update Pt. will present with 150 degrees passive right shoulder flexion, 80 degrees passive right shoulder ER and 70 degrees passive right shoulder IR Target Visit 6 PT Problem 3 PT Problem #3 Impaired Strength PT Goal 1 Goal / Goal Update Pt. will be appropriate to advance to active ROM and demonstrate 3/5 gross right u.e. strength Pt. will be appropriate to return to driving. Target Visit 6
[2024-10-22 13:00] VITALS: BP_SYST 100
--- NOTE | 2024-10-22 13:56 | OPREHPOC ---
Outpatient Therapy Plan of Care This is a Multidisciplinary Plan of Care that may contain components documented by all disciplines (PT, OT, and ST.) PT Problem 1 PT Problem #1 Knowledge Deficit PT Goal 1 Goal / Goal Update Pt. and will be independent with a HEP addressing mobility anabaptism. Target Visit 2 Progress Met PT Problem 2 PT Problem #2 Impaired Range of Motion PT Goal 1 Goal / Goal Update Pt. will present with 150 degrees passive right shoulder flexion, 80 degrees passive right shoulder ER and 70 degrees passive right shoulder IR Target Visit 6 Progress Not Met PT Goal 2 Goal / Goal Update Continue Target Visit 8 PT Problem 3 PT Problem #3 Impaired Strength PT Goal 1 Goal / Goal Update Pt. will be appropriate to advance to active ROM and demonstrate 3/5 gross right u.e. strength - not met Pt. will be appropriate to return to driving. - met Target Visit 6 Progress Partially Met PT Goal 2 Goal / Goal Update Continue Target Visit 8
--- NOTE | 2024-10-22 13:56 | PTOPPROG ---
Assessment and note entered by Raiza Rea, PT Evaluation Information Assessment Status Progress Diagnosis s/p R shoulder arthroscopy ICD-10 Condition Codes (PT) M25.511 Other ICD-10 Condition Codes ( Z98.890 PT) Onset 09/29/24 Subjective Information Mp George reports his right shoulder is doing well overall for having surgery 3 weeks ago. He is noting mild pain intermittently. He is trying without sling today for the first time. The patient is planning to transfer his PT care to [facility] because he works there but he is not able to start with them until 11/04/24 so he would like to continue PT here next week. Assessment PT Clinical Summary Mp George has completed 6 skilled PT visits following a right shoulder arthroscopy for a biceps tenodesis performed on 09/29/24. He is reporting trying no sling today for the first time . He plans to transfer his PT care to [facility] where he works but is unable to start with them until 11/04/24 so he would like to continue with us next week. He is demonstrating improved right shoulder PROM. He continues to have limitations in right shoulder active assisted and active ROM and strength training has not been initiated yet due to his post op status. He will continue to benefit from skilled PT to continue to address these limitations until he can transfer his care closer to his work. Plan of Care Interventions Electrical Stimulation,Hot Pack/Cold Pack,Patient/ Caregiver Educati,Therapeutic Exercise PT Services Indicated Yes Treatment Frequency and 2 times a week for 2 visits Duration These treatments will address the objective and functional deficits as defined above. The patient will be advanced safely and appropriately in order for the patient to progress towards his/her prior level of function. Additional exercises will be introduced and as well as a comprehensive home exercise program upon discharge, if needed, ?to ensure carryover of functional gains achieved in the clinic. This treatment plan has been reviewed and agreement upon by the patient.
--- NOTE | 2024-10-28 13:53 | OPREHPOC ---
Outpatient Therapy Plan of Care This is a Multidisciplinary Plan of Care that may contain components documented by all disciplines (PT, OT, and ST.) PT Problem 1 PT Problem #1 Knowledge Deficit PT Goal 1 Goal / Goal Update Pt. and will be independent with a HEP addressing mobility quaker. Target Visit 2 Progress Met PT Problem 2 PT Problem #2 Impaired Range of Motion PT Goal 1 Goal / Goal Update Pt. will present with 150 degrees passive right shoulder flexion, 80 degrees passive right shoulder ER and 70 degrees passive right shoulder IR Target Visit 6 Progress Not Met PT Goal 2 Goal / Goal Update Continue Target Visit 8 Progress Partially Met PT Problem 3 PT Problem #3 Impaired Strength PT Goal 1 Goal / Goal Update Pt. will be appropriate to advance to active ROM and demonstrate 3/5 gross right u.e. strength - met Pt. will be appropriate to return to driving. - met Target Visit 6 Progress Met PT Goal 2 Goal / Goal Update Continue Target Visit 8 Progress Met
--- NOTE | 2024-10-28 13:53 | PTOPDC ---
Assessment and note entered by Raiza Rea, PT Evaluation Information Assessment Status Discharge Diagnosis s/p R shoulder arthroscopy ICD-10 Condition Codes (PT) M25.511 Other ICD-10 Condition Codes ( Z98.890 PT) Onset 09/29/24 Subjective Information Mp George reports his right shoulder is doing well. He notes minimal pain most of the time . He is planning to switch his PT care to [facility], where he works, next week. Reported Pain Level Pain Score 2: Self Report Pain Score 3: Self Report Assessment PT Clinical Summary Mp George has completed 8 skilled PT visits following a right shoulder arthroscopy performed on 09/29/24. He is reporting minimal pain but still is avoiding use of the right UE. He has been able to return to driving without difficulty and transitioned out of the sling last week. He was progressed to active assisted and active ROM last week as well. He is not able to perform strengthening at this time. He demonstrates improved right shoulder active and passive ROM. He continues to have deficits in AROM and strength of the right shoulder leading to decreased ability to perform ADLs and lifting with the right UE. He will be discharged from skilled PT at this facility and is transferring his care to his place of employment. Plan of Care PT Services Indicated No
== END 2024-10-28 14:04 | disposition home or self-care (01) ==
LOC: CHSPT 15:52
PROVIDERS: Visit Provider Orthopaedic Surgery
DX: Z98.890 Other specified postprocedural states (principal); M25.511 Pain in right shoulder
CPT/HCPCS: 97014; 97110; 97161; G0283

== ENCOUNTER 2024-11-16 09:14 | Outpatient (CLI) | payer OTHER, SELFPAY ==
--- NOTE | 2024-11-16 09:24 | EST_ITS ---
Patient Info Name: Mp George Age: 54 years : 1970 Gender: Male Ht: 71 in Wt: 240 lbs BSA: 2.37 m2 HR: 77 bpm BP: 119 / 88 mmHg Heart Rhythm: Sinus Rhythm Technical Quality: Good Exam Date: 11/16/2024 10:47 AM Exam Location: Echo Lab Patient Status: Outpatient Admit Date: 11/16/2024 Staff Ordering Physician: Amaury Bonner MD Attending Provider: Amaury Bonner MD Exam Type: CA stress test treadmill w NM Study Info A treadmill exercise stress test was performed. History/Risk Factors Dyslipidemia: Yes Summary 1. 1. Negative Anthony exercise stress test for ischemic ST changes by ECG criteria. 2. 2. Good functional capacity, achieving 10 METs of workload. 3. 3. Hypertensive response to exercise. 4. 4. Appropriate HR response to exercise. 5. 5. Appropriate HR recovery at 1 minute post exercise. 6. 6. Nuclear scan to follow and will be reported separately. Please correlate with it. Protocol: Anthony Stress ECG Details Stage: REST Duration (min): 1 min : 36 sec Speed (mph): 0.0 Grade (%): 0 HR (bpm): 76 SBP (mmHg): 119 DBP (mmHg): 88 METS: --- Stage: REST Duration (min): 6 min : 2 sec Speed (mph): 0.0 Grade (%): 0 HR (bpm): 76 SBP (mmHg): 119 DBP (mmHg): 88 METS: --- Stage: STAGE 1 Duration (min): 1 min : 0 sec Speed (mph): 1.7 Grade (%): 10 HR (bpm): 96 SBP (mmHg): 119 DBP (mmHg): 88 METS: --- Stage: STAGE 1 Duration (min): 2 min : 0 sec Speed (mph): 1.7 Grade (%): 10 HR (bpm): 98 SBP (mmHg): 119 DBP (mmHg): 88 METS: --- Stage: STAGE 1 Duration (min): 3 min : 0 sec Speed (mph): 1.7 Grade (%): 10 HR (bpm): 100 SBP (mmHg): 159 DBP (mmHg): 63 METS: --- Stage: STAGE 2 Duration (min): 1 min : 0 sec Speed (mph): 2.5 Grade (%): 12 HR (bpm): 112 SBP (mmHg): 159 DBP (mmHg): 63 METS: --- Stage: STAGE 2 Duration (min): 2 min : 0 sec Speed (mph): 2.5 Grade (%): 12 HR (bpm): 115 SBP (mmHg): 159 DBP (mmHg): 63 METS: --- Stage: STAGE 2 Duration (min): 3 min : 0 sec Speed (mph): 2.5 Grade (%): 12 HR (bpm): 116 SBP (mmHg): 177 DBP (mmHg): 65 METS: --- Stage: STAGE 3 Duration (min): 1 min : 0 sec Speed (mph): 3.4 Grade (%): 14 HR (bpm): 136 SBP (mmHg): 177 DBP (mmHg): 65 METS: --- Stage: STAGE 3 Duration (min): 2 min : 0 sec Speed (mph): 3.4 Grade (%): 14 HR (bpm): 144 SBP (mmHg): 177 DBP (mmHg): 65 METS: --- Stage: STAGE 3 Duration (min): 3 min : 0 sec Speed (mph): 3.4 Grade (%): 14 HR (bpm): 149 SBP (mmHg): 214 DBP (mmHg): 79 METS: --- Stage: STAGE 3 Duration (min): 3 min : 30 sec Speed (mph): 3.4 Grade (%): 14 HR (bpm): 150 SBP (mmHg): 214 DBP (mmHg): 79 METS: --- Stage: RECOVERY Duration (min): 0 min : 29 sec Speed (mph): 1.5 Grade (%): 0 HR (bpm): 135 SBP (mmHg): 214 DBP (mmHg): 79 METS: --- Stage: RECOVERY Duration (min): 1 min : 29 sec Speed (mph): 0.0 Grade (%): 0 HR (bpm): 102 SBP (mmHg): 214 DBP (mmHg): 79 METS: --- Stage: RECOVERY Duration (min): 2 min : 29 sec Speed (mph): 0.0 Grade (%): 0 HR (bpm): 99 SBP (mmHg): 188 DBP (mmHg): 63 METS: --- Stage: RECOVERY Duration (min): 3 min : 29 sec Speed (mph): 0.0 Grade (%): 0 HR (bpm): 92 SBP (mmHg): 188 DBP (mmHg): 63 METS: --- Stage: RECOVERY Duration (min): 4 min : 29 sec Speed (mph): 0.0 Grade (%): 0 HR (bpm): 99 SBP (mmHg): 166 DBP (mmHg): 62 METS: --- Stage: RECOVERY Duration (min): 5 min : 29 sec Speed (mph): 0.0 Grade (%): 0 HR (bpm): 98 SBP (mmHg): 166 DBP (mmHg): 62 METS: --- Stage: RECOVERY Duration (min): 5 min : 43 sec Speed (mph): 0.0 Grade (%): 0 HR (bpm): 96 SBP (mmHg): 166 DBP (mmHg): 62 METS: --- Rest HR: 76 bpm Peak HR: 151 bpm Rest Sys BP: 119 mmHg Peak Sys BP: 214 mmHg Max Pred HR: 167 bpm % Max Pred HR: 90 % Target HR: 142 bpm Max RPP: 32,314 bpm*mmHg Ken Score: 1 Target HR Summary: Patient's target heart rate was achieved BP Response: Patient exhibited a hypertensive response with stress Termination Reason: Fatigue Cardiac Symptoms: None Max ST Seg Deviation: 2 mm Total Time: 9 min : 30 sec Rest Garcia BP: 88 mmHg Peak Garcia BP: 79 mmHg Angina Score: None Total METS: 10.3 Resting ECG Sinus rhythm with left anterior fascicular block. Stress ECG No abnormal ST/T wave changes with exercise. Arrhythmias Frequent PVCs. Report Signatures
--- NOTE | 2024-11-16 14:20 | WPDCARIOSTRE ---
Nuclear Stress Test INDICATIONS Indications: Abnormal EKG PROCEDURE Procedure Performed: Myocardial Perf Spect-Multi Procedure: Patient exercised on a standard Anthony protocol and at peak HR was injected with 32.9 mCi of cardiolyte. Multiple tomographic images were obtained. These are of suboptimal quality. There is evidence of large size, severe apical perfusion defect, moderate size, moderate severity septal and inferior perfusion defects with stress imaging. A separate resting images were obtained after patient was injected with 10.1 mCi of cardiolyte. Multiple tomographic images were obtained. These are of suboptimal quality. There is evidence of large size, severe apical perfusion defect, moderate size, moderate severity septal and inferior perfusion defects with rest imaging. CONCLUSION Conclusion: 1. Myocardial perfusion imaging demonstrating a fixed large size apical, moderate size septal and inferior perfusion defects suggestive of diaphragmatic and attenuation perfusion defects. 2. No evidence of reversible ischemia. 3. Left ventriculogram demonstrates normal measured ejection fraction of 57% with no wall motion abnormalities. 4. TID score 0.84 is normal.
--- OUTSIDE RECORDS SUMMARY | 2024-11-23 03:06 | XMS_ITS | Encounter Summary ---
Author Organization [facility] Address [address] [place] [address]. [place], [place] [id number] [place] [id number] Care Team Providers Care Quality Process Engineer Name Role Phone Amaury Bonner MD Primary Care Provider Reason for Referral * (Routine) - Closed Specialty Diagnoses / Procedures Referred By Jaquelin frazier Referred To Contact Procedures FOREIGN BODY REMOVAL Gomez Avina DO Phone: tel: fax: Referral ID Status Reason Start Date Expiration Date Visits Re quested Visits Authorized [id number] Closed 04/16/2022 05/17/2023 1 1 Reason for Visit * Reason Comments Fish Hook Removal Encounter Details Date Type Department Care Team (Late st Contact Info) Description 04/13/2022 8:18 PM CDT - 04/13/2022 9:38 PM CDT Emergency [facility] [address] [place] [address] [place] [address] Gomez Avina DO [address] [place] [address] Fish Hook Removal Discharge Disposition: Home or Self Care (Routine Discharge) Social History Tobacco Use Types Packs/Day Years Used Date Smoking Tobacco: Never Smokeless Tobacco: Never Alcohol Use Standard Drinks/Week Comments Yes 0 (1 standard drink = 0.6 oz pur e alcohol) rarely Sex and Gender Information Value Date Recorded Sex Assigned at Not on file 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 No / Unsure 04/13/2022 8:21 PM CDT documented as of this encounter Last Filed Vital Signs Vital Sign Reading Time Taken Comments Blood Pressure 149/72 04/13/2022 8:22 PM CDT Pulse 81 04/13/2022 8:22 PM CDT Temperature 36.7 ??C (98.1 ??F) 04/13/2022 8:22 PM CD T Respiratory Rate 16 04/13/2022 8:22 PM CDT Oxygen Saturation 100% 04/13/2022 8:22 PM CDT Inhaled Oxygen Concentration - - Weight 104.3 kg (230 lb) 04/13/2022 8:22 PM CDT Height 180.3 cm (5' 11 ) 04/13/2022 8:22 PM CDT Body Mass Index 32.08 04/13/2022 8:22 PM CDT documented in this encounter Functional Status * RETIRED Are you deaf or do you have serious difficulty hearing Answer Date of Assessment Author Status No 03/22/2021 4:13 AM CDT Activ e * RETIRED Are you blind or do you have serious difficulty seeing, even when wearing glasses? Answer Date of Assessment Author Status No 03/22/2021 4:13 AM CDT Activ e * Do you have serious difficulty walking or climbing stairs? Answer Date of Assessment Author Status No 03/22/2021 4:13 AM CDT Michaelle Martinez RN Active * Do you have difficulty dressing or bathing? Answer Date of Assessment Author Status No 03/22/2021 4:13 AM CDT Michaelle Martinez RN Active * Because of a physical, mental, or emotional condition, do you have difficulty doing errands alone such as visiting a doctor's office or shopping? Answer Date of Assessment Author Status No 03/22/2021 4:13 AM CDT Michaelle Martinez RN Active documented as of this encounter Mental Status * Because of a physical, mental, or emotional condition, do you have serious difficulty concentrating, remembering, or making decisions? Answer Entry Date Author Status No 03/22/2021 4:13 AM CDT Michaelle Martinez RN Active documented in this encounter Discharge Instructions * Discharge Instructions* Gomez Avina DO - 04/13/2022 9:31 PM CDT Remove bandages when you go to bed tonight. Return to the emergency department or follow-up with your primary care physician if the area begins to turn red, has pus drainage, or becomes swollen. * Attachments The following attachments cannot be sent through Care Everywhere. 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 tdap greater than 10 years * Gomez Avina DO - 04/13/2022 8:17 PM CDTAssociated Order(s): Foreign Body Chief Complaint Chief Complaint Patient presents with ??? Fish Hook Removal History of Present Illness 51-year-old male presents emergency department complaining of a catching a fishhook in his right knee. Patient states that he had been fishing and accidentally caught both ends of a double treble hook in the skin of his right knee. Patient reports that his last tetanus shot was greater than 10 years ago. 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 Asthma ??? Otto esophagus ??? HLD (hyperlipidemia) ??? Plaque psoriasis PAST SURGICAL HISTORY: Past Surgical History: Procedure Laterality Date ??? NONE FAMILY HISTORY: Family History Problem Relation Name Age of Onset ??? Lung Cancer Father ??? Cancer Brother bone ??? Alzheimers Maternal Grandmother ??? Cancer Maternal Grandmother rectal ??? Cancer Paternal Uncle bone SOCIAL HISTORY: Social History Tobacco Use ??? Smoking status: Never Smoker ??? Smokeless tobacco: Never Used Substance Use Topics ??? Alcohol use: Yes Comment: rarely ??? Drug use: Not Currently Review of Systems Review of Systems All other systems reviewed and are negative. Physical Exam Filed Vitals: 04/13/222021 BP: (!) 149/72 Pulse: 81 Resp: 16 Temp: 98.1 ??F (36.7 ??C) TempSrc: Oral SpO2: 100% Weight: 104.3 kg (230 lb) Height: 5' 11 (1.803 m) Physical Exam Vitals and nursing note reviewed. Constitutional: General: He is not in acute distress. Appearance: He is well-developed. He is not diaphoretic. HENT: Head: Normocephalic and atraumatic. Eyes: Conjunctiva/sclera: Conjunctivae normal. Pulmonary: Effort: Pulmonary effort is normal. No respiratory distress. Breath sounds: Normal breath sounds. Skin: Comments: Single barbs of 2 treble hooks at either end of the lower embedded in the skin overlying the right patella Neurological: Mental Status: He is alert and oriented to person, place, and time. Psychiatric: Behavior: Behavior normal. Thought Content: Thought content normal. Judgment: Judgment normal. Diagnostic Studies / Procedures ELECTROCARDIOGRAMS: No results found for this visit on 04/13/22. LABORATORY STUDIES: No results found for this visit on 04/13/22. IMAGING STUDIES No orders to display Foreign Body Date/Time: 04/16/2022 6:33 AM Performed by: Gomez Avina DO Authorized by: Gomez Avina DO Consent: Consent obtained: Verbal Consent given by: Patient Risks discussed: Bleeding, pain, incomplete removal and poor cosmetic result Alternatives discussed: No treatment Location: Location: Leg Leg location: R knee Depth: Intradermal Tendon involvement: None Pre-procedure details: Imaging: None Neurovascular status: intact Anesthesia (see MAR for exact dosages): Anesthesia method: Local infiltration Local anesthetic: Lidocaine 2% WITH epi Procedure type: Procedure complexity: Simple Procedure details: Scalpel size: 11 Incision length: 0.5 Localization method: Visualized Dissection of underlying tissues: no Bloodless field: yes Removal mechanism: Forceps Foreign bodies recovered: 2 Description: 2 treble hooks Intact foreign body removal: yes Post-procedure details: Neurovascular status: intact Confirmation: No additional foreign bodies on visualization Skin closure: None Dressing: Antibiotic ointment and non-adherent dressing Patient tolerance of procedure: Tolerated well, no immediate complications ED Course / Medical Decision Making MDM Number of Diagnoses or Management Options Fish hook in knee: new and does not require workup Risk of Complications, Morbidity, and/or Mortality Presenting problems: moderate Diagnostic procedures: minimal Management options: minimal Patient Progress Patient progress: improved Clinical Impression Fish hook in knee (Primary) Disposition: Discharge Gomez Avina DO 04/16/22 0635 documented in this encounter Plan of Treatment Not on file documented as of this encounter Procedures Procedure Name Priority Date/Time Associated Diagnosis Comments FOREIGN BODY REMOVAL Routine 04/16/2022 6:33 AM CDT documented in this encounter Results * Foreign Body (04/16/2022 6:33 AM CDT) Narrative Gomez Avina DO - 04/16/2022 6:33 AM CDT Gomez Avina DO ? 04/16/2022 ??6:35 AM Foreign Body Date/Time: 04/16/2022 6:33 AM Performed by: Gomez Avina DO Authorized by: Gomez Avina DO Consent: ??Consent obtained: ??Verbal ??Consent given by: ??Patient ??Risks discussed: ??Bleeding, pain, incomplete removal and poor cosmetic result ??Alternatives discussed: ??No treatment Location: ??Location: ??Leg ??Leg location: ??R knee ??Depth: ??Intradermal ??Tendon involvement: ??None Pre-procedure details: ??Imaging: ??None ??Neurovascular status: intact ?? Anesthesia (see MAR for exact dosages): ??Anesthesia method: ??Local infiltration ??Local anesthetic: ??Lidocaine 2% WITH epi Procedure type: ??Procedure complexity: ??Simple Procedure details: ??Scalpel size: ??11 ??Incision length: ??0.5 ??Localization method: ??Visualized ??Dissection of underlying tissues: no ?Bloodless field: yes ?Removal mechanism: ??Forceps ??Foreign bodies recovered: ??2 ??Description: ??2 treble hooks ??Intact foreign body removal: yes ?? Post-procedure details: ??Neurovascular status: intact ?Confirmation: ??No additional foreign bodies on visualization ??Skin closure: ??None ??Dressing: ??Antibiotic ointment and non-adherent dressing ??Patient tolerance of procedure: ??Tolerated well, no immediate complications Gomez Avina DO PROCEDURE/MINOR SURGICAL ORDERAB LES Final Result documented in this encounter Visit Diagnoses Diagnosis Fish hook in knee- Primary documented in this encounter Administered Medications Inactive Administered Medications - up to 3 most recent administrations Medication Order MAR Action Action Date Dose Rate Site lidocaine-EPINEPHrine 2 %-1:[id number] injection 20 mL 20 mL, Intradermal, Once, 1 dose, On Sat04/13/22 at 2044 Given 04/13/2022 9:37 PM CDT 20 mLs Right Knee documented in this encounter Active and Recently Administered Medications Times are shown in CDT. Scheduled Medication Order 04/11/2022 04/12/2022 04/13/2022 lidocaine-EPINEPHrine 2 %-1:[id number] injection 20 mL (COMPLETED) 20 mL, Intradermal, Once, 1 dose, On Sat04/13/22 at 2044 2136 (Given - Provid er: Vi Carrero RN) documented in this encounter Care Teams Quality Process Engineer Relationship Specialty Start Date End Date Amaury Bonner MD [address] [place] [address] PCP - General INTERNAL MEDICINE 03/22/21 documented as of this encounter
--- OUTSIDE RECORDS SUMMARY | 2024-11-23 03:06 | XMS_ITS | Encounter Summary ---
Author Organization [facility] Address [address] [place] [address]. 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 Name Role Phone Eryn Tellez MD Primary Care Provider [phone] Reason for Referral * Imaging (Routine) - Closed Specialty Diagnoses / Procedures Referred By Contac t Referred To Contact RADIOLOGY Diagnoses Right upper quadrant abdominal pain Procedures US ABD LIMITED Parul Talley ANP-BC [facility] [place] [address] Phone: tel: fax: Referral ID Status Reason Start Date Expiration Date Visits Re quested Visits Authorized [id number] Closed 03/22/2021 04/21/2022 1 1 * (Routine) - Closed Specialty Diagnoses / Procedures Referred By Jaquelin t Referred To Contact Procedures Treadmill Only Stress Test Parul Talley ANP-BC [address] [place] [address] Phone: tel: fax: Referral ID Status Reason Start Date Expiration Date Visits Re quested Visits Authorized [id number] Closed 03/22/2021 04/21/2022 1 1 Reason for Visit * Reason Comments Chest Pain Abdominal Pain * Auth/Cert Specialty Diagnoses / Procedures Referred By Contac t Referred To Contact Diagnoses Unstable angina (CMS/HCC HHS/HCC) Angina at rest (CMS/HCC) Chest pain in adult Unstable angina (CMS/HCC) Referral ID Status Reason Start Date Expiration Date Visits Re quested Visits Authorized [id number] 1 1 Encounter Details Date Type Department Care Team (Late st Contact Info) Description 03/22/2021 12:50 AM CDT - 03/22/2021 1:30 PM CDT [facility] [address] [place] [address] Zeinab Woodson MD [address] [id number] Anitra Jalloh MD [address] [place] [address] Chest Pain; Abdominal Pain Discharge Disposition: Home or Self Care (Routine Discharge) Social History Tobacco Use Types Packs/Day Years Used Date Smoking Tobacco: Never Smokeless Tobacco: Never Alcohol Use Standard Drinks/Week Comments Yes 0 (1 standard drink = 0.6 oz pur e alcohol) rarely Sex and Gender Information Value Date Recorded Sex Assigned at Not on file Legal Sex Male 11:12 PM COUNTER FORMER Gender Identity Not on file Sexual Orientation Not on file 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 No / Unsure 03/22/2021 12:46 AM CDT documented as of this encounter Last Filed Vital Signs Vital Sign Reading Time Taken Comments Blood Pressure 134/77 03/22/2021 3:57 AM CDT Pulse 68 03/22/2021 3:57 AM CDT Temperature 36.3 ??C (97.4 ??F) 03/22/2021 3:57 AM CD T Respiratory Rate 20 03/22/2021 3:57 AM CDT Oxygen Saturation 99% 03/22/2021 3:57 AM CDT Inhaled Oxygen Concentration - - Weight 108 kg (238 lb 3.2 oz) 03/22/2021 3:57 AM CDT Height 180.3 cm (5' 11 ) 03/22/2021 3:57 AM CDT Body Mass Index 33.22 03/22/2021 3:57 AM CDT documented in this encounter Functional Status * Question Answer Date of Assessment Author Status Do you have serious difficulty walking or climbing stairs? No 03/22/2021 4:13 AM Michaelle Torres RN Active * Question Answer Date of Assessment Author Status Do you have difficulty dressing or bathing? No 03/22/2021 4:13 AM Alexsander Torres RN Active Because of a physical, mental, or emotional condition, do you have difficulty doing errands alone such as visiting a doctor's office or shopping? No 03/22/2021 4:13 AM Michaelle Torres RN Active * RETIRED Are you deaf or do you have serious difficulty hearing Answer Date of Assessment Author Status No 03/22/2021 4:13 AM JOCET Activ e * RETIRED Are you blind or do you have serious difficulty seeing, even when wearing glasses? Answer Date of Assessment Author Status No 03/22/2021 4:13 AM JC Activ e * Do you have serious difficulty walking or climbing stairs? Answer Date of Assessment Author Status No 03/22/2021 4:13 AM Michaelle Torres RN Active * Do you have difficulty dressing or bathing? Answer Date of Assessment Author Status No 03/22/2021 4:13 AM Michaelle Torres RN Active * Because of a physical, mental, or emotional condition, do you have difficulty doing errands alone such as visiting a doctor's office or shopping? Answer Date of Assessment Author Status No 03/22/2021 4:13 AM Michaelle Torres RN Active documented as of this encounter Mental Status * Question Answer Entry Date Author Status Because of a physical, mental, or emotional condition, do you have serious difficulty concentrating, remembering, or making decisions? No 03/22/2021 4:13 AM Alexsander Torres RN Active * Because of a physical, mental, or emotional condition, do you have serious difficulty concentrating, remembering, or making decisions? Answer Entry Date Author Status No 03/22/2021 4:13 AM Michaelle Torres RN Active documented in this encounter Discharge Summaries * CARLIE Parr-TABATHA - 03/22/2021 12:55 PM CDT Physician Discharge Summary Patient ID: Mp Wan. male. 1970. Admit date: 03/22/2021 12:50 AM Discharge date and time: 03/22/21 Admitting Physician: Anitra Jalloh MD Primary Care Physician: ERYN TELLEZ MD Attending Provider: Anitra Jalloh MD Discharge Physician: Dr. Jalloh/PARUL TALLEY [facility]- Primary Diagnoses: Abdominal pain Secondary Diagnosis: Admission Condition: good Discharged Condition: Stable Code Status: Full Code Indication for Admission: Chief Complaint Patient presents with ??? Chest Pain ??? Abdominal Pain Reason for hospitalization: chest pain r/o Hospital Course: Mp Wan was admitted on 03/22/2021 12:50 AM for complaints of upper abdominal pain associated with vomiting last night. He came to the ER for further evaluation. Cardiac enzymes were negative x3 sets. He underwent a regular treadmill test which was negative for ischemia, no ST changes, anddid reach maximum heart rate. Would plan for an outpatient right upper quadrant ultrasound to follow any gallbladder issues despite normal liver enzymes and pancreatic enzymes. Patient did not have any further pain after 2 AM this morning and is ready for discharge Consults: none Significant Diagnostic Studies: Radiology Results (Last 30 days) 03/22/21 0144 XR CHEST PORTABLE Final result Impression: IMPRESSION: No radiographic evidence of active disease of the chest. Referred By: ZEINAB WOODSON Interpreted By: Oscar Melendrez MD, 03/22/2021 1:45 AM Vital Signs at Discharge: Filed Vitals: 03/22/21 0058 03/22/21 0131 03/22/21 0145 03/22/21 0357 BP: 104/83 (!) 136/99 (!) 154/112 134/77 Pulse: 107 82 78 68 Resp: 18 15 20 Temp: 98.2 ??F (36.8 ??C) 97.4 ??F (36.3 ??C) TempSrc: Temporal Tympanic SpO2: 100% 100% 99% 99% Weight: 104.3 kg (230 lb) 108 kg (238 lb 3.2 oz) Height: 5' 10 (1.778 m) 5' 11 (1.803 m) Last labs past 24 hours: Recent Results (from the past 24 hour(s)) CBC W/DIFF AUTOMATED Collection Time: 03/22/21 1:42 AM Result Value Ref Range WBC 12.0 (H) 4.5 - 10.8 x10'3/uL RBC 5.42 4.50 - 6.10 x10'6/uL HGB 14.9 13.0 - 18.0 G/DL HCT 46.4 37.0 - 52.0 % MCV 85.6 78.0 - 100.0 FL MCH 27.5 27.0 - 31.0 PG MCHC 32.1 (L) 33.0 - 36.0 G/DL RDW 12.7 11.5 - 14.5 % PLT 378 (H) 150 - 350 x10'3/uL MPV 10.2 7.4 - 10.4 FL Differential Comment NORMAL REFERENCE RANGE NOT ESTABLISHED FOR THE PROPORTIONAL LEUKOCYTE DIFFERENTIAL. SEG NEUTROPHILS 70.1 % LYMPHOCYTES 19.3 % MONOCYTES 6.2 % EOSINOPHILS 2.8 % BASOPHILS 0.7 % IMMATURE GRANS 0.9 % NRBC 0.0 % ABS. NEUTROPHILS 8.43 (H) 1.60 - 8.30 x10'3/uL ABS. LYMPHOCYTES 2.32 0.80 - 4.70 x10'3/uL ABS. MONOCYTES 0.74 0.00 - 1.50 x10'3/uL ABS. EOSINOPHILS 0.34 0.00 - 0.40 x10'3/uL ABS. BASOPHILS 0.09 0.00 - 0.20 x10'3/uL ABS. IMMATURE GRANULOCYTES 0.11 (H) 0.00 - 0.03 x10'3/uL ABS. NUCLEATED RBC'S 0.00 0.00 x10'3/uL PROTIME/INR, VENOUS Collection Time: 03/22/21 1:42 AM Result Value Ref Range Protime 12.6 (H) 9.4 - 12.5 SEC INR 1.1 0.9 - 1.1 D-DIMER, QUANTITATIVE Collection Time: 03/22/21 1:42 AM Result Value Ref Range D-DIMER <215 0 - 500 ng[FEU]/mL COMPREHENSIVE METABOLIC PANEL Collection Time: 03/22/21 1:42 AM Result Value Ref Range SODIUM 139 136 - 145 MMOL/L POTASSIUM 4.2 3.5 - 5.1 MMOL/L CHLORIDE S/P/B 105 98 - 107 MMOL/L CO2 28.8 21.0 - 32.0 MMOL/L GLUCOSE 135 (H) 70 - 99 MG/DL BUN 15 6 - 24 MG/DL CREATININE S/P/B 1.22 0.70 - 1.30 MG/DL CALCIUM 9.3 8.4 - 10.5 MG/DL BILIRUBIN TOTAL S/P/B 0.2 0.2 - 1.0 MG/DL ALKALINE PHOSPHATASE S/P/B 90 45 - 115 U/L AST 22 15 - 37 U/L ALT 49 16 - 63 U/L TOTAL PROTEIN S/P/B 7.2 6.4 - 8.2 G/DL ALBUMIN S/P/B 3.7 3.4 - 5.0 G/DL ANION GAP 5.2 5.0 - 15.0 MMOL/L OSMOLALITY (CALC) 291 MOSM/KG eGFR Non-Afr. Amer. 69 (L) >89 ML/MIN/1.73 M2 eGFR Afr. Amer. 80 (L) >89 ML/MIN/1.73 M2 GFR NOTES GFR REFERENCES: TROPONIN, QUANT Collection Time: 03/22/21 1:42 AM Result Value Ref Range TROPONIN I <0.017 0.000 - 0.056 ng/mL. CKMB,(MB FRACTION ONLY) Collection Time: 03/22/21 1:42 AM Result Value Ref Range CK-MB 1.8 0.0 - 3.6 NG/ML LIPASE Collection Time: 03/22/21 1:42 AM Result Value Ref Range LIPASE 109 73 - 393 UNITS/L AMYLASE Collection Time: 03/22/21 1:42 AM Result Value Ref Range AMYLASE S/P/B 41 25 - 115 UNITS/L MAGNESIUM Collection Time: 03/22/21 1:42 AM Result Value Ref Range MAGNESIUM 2.1 1.8 - 2.4 MG/DL C-REACTIVE PROTEIN Collection Time: 03/22/21 1:42 AM Result Value Ref Range C-REACTIVE PROTEIN 0.17 <0.30 mg/dL PRO-BRAIN NATRIURETIC PEPTIDE Collection Time: 03/22/21 1:42 AM Result Value Ref Range Pro-B TYPE NATRIURETIC PEPTIDE 5 <125 PG/ML TROPONIN, QUANT Collection Time: 03/22/21 4:05 AM Result Value Ref Range TROPONIN I <0.017 0.000 - 0.056 ng/mL. TROPONIN, QUANT Collection Time: 03/22/21 9:25 AM Result Value Ref Range TROPONIN I <0.017 0.000 - 0.056 ng/mL. Discharge Medications: Medication List You have not been prescribed any medications. Medications Discontinued during this hospitalization: Disposition: discharged to home Durable Medical Equipment Needed: Patient Instructions: Activity: activity as tolerated Diet: regular diet Wound Care: none needed Follow-up appointments: Follow-up with PCP in 1 week Findings that require further workup: Jose pain Followup Lab Orders: RUQ Time Spent on Discharge Less than 30 minutes Signed: KENYA PARR Cosigned by Anitra Jalloh MD at 03/24/2021 8:18 AM CDT Associated attestation - Anitra Jalloh MD - 03/24/2021 8:18 AM CDT I, ANITRA JALLOH MD, performed an examination of the patient on the day of discharge and discussed the discharge plans and disposition with the Advanced Practice Provider (BAM). I reviewed the BAM's note and agree with the findings and discharge plan of care, except as I have documented. documented in this encounter Discharge Instructions * Discharge Instructions* Nereyda Phelps RN - 03/22/2021 1:00 PM CDT Images from the original note were not included. Patient Education Angina Discharge Instructions About this topic Angina happens when the heart muscle does not get the right amount of oxygen- rich blood, most oftendue to blood vessels in your heart being blocked. Angina is a sign of heart disease. It most often does not cause long lasting damage to your heart muscle. Angina can cause chest pain that may feel like tightness and pressure. You may also have pain or pressure in your arm, shoulder, back, or jaw. Women often have more pain in the upper body than men. Some people do not have any pain at all, but feel short of breath, weak, sweaty, or sick. The signs often ease with rest. What care is needed at home? ?? Ask your doctor what you need to do when you go home. Make sure you ask questions if you do not understand what the doctor says. This way you will know what you need to do. ?? If you smoke or use tobacco, stop. ?? Rest when you feel pain. ?? Learn to manage stress in your life. ?? Talk with your doctor about a safe exercise program. ?? If you have high blood pressure you may want to buy a blood pressure monitor. This allows you tocheck your blood pressure at home. Ask your doctor or pharmacist about which monitor to buy. Keep arecord of the readings. Ask for help if you need it to learn how to use the monitor. ?? Know the signs of your angina. Stop your activity when you have signs. ?? Talk with your doctor about when you can go back to your normal activities like work or sex. What follow-up care is needed? ?? Your doctor may ask you to make visits to the office to check on your progress. Be sure to keep these visits. ?? Your doctor may order a heart rehab program for you after you leave the hospital. This is an important part of your care. Share your discharge information with the rehab staff so they can plan a program to help you recover. Let your doctor know if you need help finding a program. What drugs may be needed? ?? Your doctor may start you on drugs, such as: ? Nitroglycerin patches that you will take each day ? Nitroglycerin pills to carry with you to take when you have angina ? Long-acting nitroglycerin pills ? Blood thinners ? Beta-blockers or calcium channel blockers, which slow your heart and help protect it from angina. ?? If you are to take nitroglycerin pills with angina, place one pill under your tongue and rest. If the pain has not eased in 5 minutes, take one more pill under your tongue and call emergency services. If the pain does not ease after another 3 to 5 minutes, take a third pill under your tongue. Drink a sip of water to wet your mouth if it is too dry to let the pills break down. ?? If nitroglycerin pills have been ordered, always carry some with you and make sure they are not out of date. They need to be replaced 6 to 12 months after opening the bottle. Keep them in their original bottle and at room temperature. The pill should burn or tingle when you put it under your tongue. If it does not, it may need to be replaced. ?? Talk with your doctor about taking an aspirin each day. Aspirin can help thin the blood and prevent a clot from forming. ?? Talk with your doctor about drugs that will help control other health problems like high blood sugar, high blood pressure, or high cholesterol. ?? Do not take drugs like sildenafil, tadalafil, vardenafil, and some herbals if you are taking anyform of nitroglycerin. They may cause a very low drop in your blood pressure. ?? Check with your doctor before you take drugs like ibuprofen, naproxen, vitamins, or hormone replacement therapy. ?? Take all drugs as ordered by your doctor. If a drug makes you sick, talk with your doctor beforestopping it. What changes to diet are needed? ?? Eat a healthy diet. ?? Limit salt in your diet. ?? If you weigh too much, talk to your doctor or dietitian about changing your diet to lose weight. What problems could happen? If not treated, some types of angina may lead to a heart attack or other serious heart problems. What can be done to prevent this health problem? ?? Eat smaller meals more often. Eat healthy meals. ?? Stay active. Rest often during exercise. ?? Keep a healthy weight. ?? Avoid stress. ?? Avoid doing things that cause your angina. ?? Stop smoking. When do I need to call the doctor? Activate the emergency medical system right away if you have signs of a heart attack. Call 911 in the [place] or [place]. The sooner treatment begins, the better your chances for recovery. Call for emergency help right away if you have: ?? Signs of heart attack: ? Chest pain ? Trouble breathing ? Fast heartbeat ? Feeling dizzy ?? Change in the pattern of your signs, such as pain more often, pain when at rest, pain lasts longer ?? Taken nitroglycerin and still have pain Call your doctor if you have: ?? Feeling very weak ?? Feelings of passing out ?? Very bad headache ?? Upset stomach or throwing up ?? Numbness in your arm ?? Swelling in your ankles that does not go away ?? Problems with any of the drugs you are taking Teach Back: Helping You Understand The Teach Back Method helps you understand the information we are giving you. After you talk with the staff, tell them in your own words what you learned. This helps to make sure the staff has described each thing clearly. It also helps to explain things that may have been confusing. Before going home, make sure you can do these: ?? I can tell you about my condition. ?? I can tell you when I can go back to my normal activities. ?? I can tell you what I will do if I have signs of a heart attack. Where can I learn more? [employer] https://familydoctor.org/condition/angina/ NHS Choices http://www.nhs.uk/conditions/angina/pages/introduction.aspx Last Reviewed Date 2020-07-19 Consumer Information Use and Disclaimer This information is not specific medical advice and does not replace information you receive from your health care provider. This is only a brief summary of general information. It does NOT include all information about conditions, illnesses, injuries, tests, procedures, treatments, therapies, discharge instructions or life-style choices that may apply to you. You must talk with your health care provider for complete information about your health and treatment options. This information should not be used to decide whether or not to accept your health care provider???s advice, instructions or recommendations. Only your health care provider has the knowledge and training to provide advice that is right for you. Copyright Copyright ?? 2020 [employer]. and its affiliates and/or licensors. All rights reserved. documented in this encounter Progress Notes * Melody Mary - 03/22/2021 12:08 PM CDT Patient was present in the room with his . Patient will return home at discharge. He is independent at home. He does not use any DME's. He is able to care for himself. He will discharge later today. His will transport home. No discharge needs at this time. SW will continue to follow. 03/22/21 1207 Referral Data Referral Reason Discharge Planning Source of Information Patient Patient Information Primary Caregiver Self Baseline ADL's Functional Status Independent Living Arrangements Spouse/significant other Type of Residence Private residence Ambulation Assistance No Bathing/Grooming Assistance No Dressing Assistance No Behavior Oriented;Cooperative Communication Talks;Understands speaking;Understands [place] Socioeconomic Needs Caregiver Needed No At Risk of Abuse or Neglect No Adequate Resources Yes Psychological Needs: Mental health concerns No Suspected Drug or Alcohol Abuse No Inappropriate Patient/Family Behaviors No Difficult Adjustment to Diagnosis No Recent Hospitalization Recent Hospitalization within 30 days No Anticipated Discharge Needs Change in Living Arrangements No In-Home Care or Equipment No Vocational and/or Role Loss No Inability to Complete ADL's No Anticipated DC Plan Living Arrangements Spouse/significant other Support Systems Spouse/significant other Type of Residence Private residence Assistance Needed No Patient expects to be discharged to: Home Psychosocial Needs With Indication for Social Work Consult Diagnosis/prognosis resulting in poor adjustment or coping with illness No Diagnosis/prognosis with anticipated outcome of major lifestyle changes, including change in senior care living environment No Family concerns/conflicts No Inadequate social and/or financial supports No Abuse and/or neglect of elder, adult or child No Psychiatric and/or substance abuse issues affecting current hospitalization No Homelessness with lack of safe discharge environment No Need for guardianship petition No [place] Only - Criminal Background check [place] only - Is patient going to long-term? No * Michaelle Martinez RN - 03/22/2021 5:29 AM CDT No complaints of pain. documented in this encounter H&P Notes * CARLIE Parr-BC - 03/22/2021 8:56 AM CDT Admission History and Physical History Primary Care Provider: ERYN TELLEZ MD Admitting Provider: Anitra Jalloh MD Attending Provider: Anitra Jalloh MD Admission date: 03/22/2021 12:50 AM Mp Wan is a 50-year-old male with a history of Otto's esophagus and hyperlipidemia who presented to the ER with complaints of upper abdominal pain. He states pain started when he was sitting on the couch at home in his upper abdomen and radiated to his back. Pain persisted for approximately 2 hours and he decided to come to the ER for further evaluation. He felt like his back was being crushed he did vomit on 2 different occasions last night. He denies any shortness of breath or chest discomfort associated with episode. He was given nitroglycerin which did not improve his pain. He did not have any other radiation symptoms into his neck, back, jaw, or arms. Pain resolved approximately 2 AM and has not returned. He currently denies any nausea. He did have a bowel movement yesterday which was typical of color and consistency. He did noteat any foods he normally does not eat but may have had more junk food than usual yesterday. Past Medical History: Diagnosis Date ??? Asthma ??? Otto esophagus ??? HLD (hyperlipidemia) ??? Plaque psoriasis Past Surgical History: Procedure Laterality Date ??? NONE Social History Tobacco Use ??? Smoking status: Never Smoker ??? Smokeless tobacco: Never Used Substance Use Topics ??? Alcohol use: Yes Comment: rarely ??? Drug use: Not Currently Family History Problem Relation Name Age of Onset ??? Lung Cancer Father ??? Cancer Brother bone ??? Alzheimers Maternal Grandmother ??? Cancer Maternal Grandmother rectal ??? Cancer Paternal Uncle bone Prior to Admission medications Not on File acetaminophen No Known Allergies ROS 10 point ROS negative except otherwise specified in HPI Physical Exam Filed Vitals: 03/22/21 0058 03/22/21 0131 03/22/21 0145 03/22/21 0357 BP: 104/83 (!) 136/99 (!) 154/112 134/77 Pulse: 107 82 78 68 Resp: 18 15 20 Temp: 98.2 ??F (36.8 ??C) 97.4 ??F (36.3 ??C) TempSrc: Temporal Tympanic SpO2: 100% 100% 99% 99% Weight: 104.3 kg (230 lb) 108 kg (238 lb 3.2 oz) Height: 5' 10 (1.778 m) 5' 11 (1.803 m) Physical Exam Recent Labs Lab 03/22/21 0142 WBC 12.0* RBC 5.42 HGB 14.9 HCT 46.4 MCV 85.6 MCH 27.5 MCHC 32.1* PLT 378* RDW 12.7 MPV 10.2 NEUC 8.43* LYMC 2.32 MONOC 0.74 EOSC 0.34 BASOC 0.09 Recent Labs Lab 03/22/21 014 NA 139 K 4.2 CL 105 CO2 28.8 AGAP 5.2 BUN 15 CR 1.22 GFRNON 69* GFR 80* GLU 135* CA 9.3 TP 7.2 ALB 3.7 TBIL 0.2 ALKP 90 AST 22 ALT 49 Recent Labs Lab 03/22/21 014 INR 1.1 Recent Labs Lab 03/22/21 0142 03/22/21 0405 TROP <0.017 <0.017 Recent Labs Lab 03/22/21141 NA 139 K 4.2 CL 105 CO2 28.8 BUN 15 CR 1.22 CA 9.3 GLU 135* AGAP 5.2 TP 7.2 ALB 3.7 ALT 49 WBC 12.0* HGB 14.9 PLT 378* No results found for this or any previous visit. No results found for this visit on 03/22/21 (from the past 840 hour(s)). No results found for this visit on 03/22/21 (from the past 840 hour(s)). No results found. Assessment Principal Problem: Unstable angina (CMS/HCC) SNOMED CT(R): PREINFARCTION SYNDROME Active Problems: Abdominal pain SNOMED CT(R): ABDOMINAL PAIN Nausea & vomiting SNOMED CT(R): NAUSEA AND VOMITING Plan #Upper abdominal pain ?? EKG unremarkable for any acute issues ?? Troponin negative x2, third set to be drawn at 10 AM ?? Atypical symptoms ?? No family history or personal history of hypertension or coronary artery disease ?? We will schedule regular treadmill test today ?? Nitroglycerin did not help symptoms #Nausea/vomiting ?? Amylase/lipase/liver enzymes normal ?? Symptoms have resolved ?? Unsure of cause possibly food related KENYA PARR Cosigned by Anitra Jalloh MD at 03/22/2021 10:35 AM CDT Associated attestation - Anitra Jalloh MD - 03/22/2021 10:35 AM CDT I, ANITRA JALLOH MD, performed a History and Physical examination of the patient and discussed the management with the Advanced Practice Provider (BAM). I reviewed the BAM's note and agree with the findings and plan of care, except as I have documented. documented in this encounter ED Notes * Jie Velez RN - 03/22/2021 3:47 AM CDT Report called to terri Maxwell going to room 304 * Zeinab Woodson MD - 03/22/2021 1:24 AM CDT Chief Complaint Chief Complaint Patient presents with ??? Chest Pain ??? Abdominal Pain History of Present Illness This is a 50-year-old male without significant history who is states 2 hours ago he started with a left-sided chest pain, that seems to be moving to the back and felt like a knot in the back. No shortness of breath. He took some [id number]-[id number] pain medications that did not change the symptoms. Hedenies similar complaints in the past. He denies radiation of the chest pain to the upper extremities. Or to the neck. Medical History ALLERGIES: No Known Allergies MEDICATIONS: Prior to Admission medications Not on File PAST MEDICAL HISTORY: Past Medical History: Diagnosis Date ??? Otto esophagus ??? HLD (hyperlipidemia) PAST SURGICAL HISTORY: History reviewed. No pertinent surgical history. FAMILY HISTORY: No family history on file. SOCIAL HISTORY: Social History Tobacco Use ??? Smoking status: Never Smoker ??? Smokeless tobacco: Never Used Substance Use Topics ??? Alcohol use: Yes Comment: rarely ??? Drug use: Not Currently Review of Systems Review of Systems All other systems reviewed and are negative. Physical Exam Filed Vitals: 03/22/21 0058 03/22/21 0131 03/22/21 0145 BP: 104/83 (!) 136/99 (!) 154/112 Pulse: 107 82 78 Resp: 18 15 Temp: 98.2 ??F (36.8 ??C) TempSrc: Temporal SpO2: 100% 100% 99% Weight: 104.3 kg (230 lb) Height: 5' 10 (1.778 m) Physical Exam Vitals signs and nursing note reviewed. Constitutional: Appearance: Normal appearance. HENT: Head: Normocephalic and atraumatic. Nose: Nose normal. Eyes: Pupils: Pupils are equal, round, and reactive to light. Neck: Musculoskeletal: Normal range of motion and neck supple. Cardiovascular: Rate and Rhythm: Normal rate and regular rhythm. Pulses: Normal pulses. Heart sounds: Normal heart sounds. Pulmonary: Effort: Pulmonary effort is normal. Breath sounds: Normal breath sounds. Abdominal: General: Abdomen is flat. Bowel sounds are normal. Palpations: Abdomen is soft. Musculoskeletal: Normal range of motion. Skin: General: Skin is warm. Neurological: General: No focal deficit present. Mental Status: He is alert and oriented to person, place, and time. Mental status is at baseline. Psychiatric: Mood and Affect: Mood normal. Diagnostic Studies / Procedures ELECTROCARDIOGRAMS: No results found for this visit on 03/22/21. LABORATORY STUDIES: Results for orders placed or performed during the hospital encounter of 03/22/21 CBC W/DIFF AUTOMATED Result Value Ref Range WBC 12.0 (H) 4.5 - 10.8 x10'3/uL RBC 5.42 4.50 - 6.10 x10'6/uL HGB 14.9 13.0 - 18.0 G/DL HCT 46.4 37.0 - 52.0 % MCV 85.6 78.0 - 100.0 FL MCH 27.5 27.0 - 31.0 PG MCHC 32.1 (L) 33.0 - 36.0 G/DL RDW 12.7 11.5 - 14.5 % PLT 378 (H) 150 - 350 x10'3/uL MPV 10.2 7.4 - 10.4 FL Differential Comment NORMAL REFERENCE RANGE NOT ESTABLISHED FOR THE PROPORTIONAL LEUKOCYTE DIFFERENTIAL. SEG NEUTROPHILS 70.1 % LYMPHOCYTES 19.3 % MONOCYTES 6.2 % EOSINOPHILS 2.8 % BASOPHILS 0.7 % IMMATURE GRANS 0.9 % NRBC 0.0 % ABS. NEUTROPHILS 8.43 (H) 1.60 - 8.30 x10'3/uL ABS. LYMPHOCYTES 2.32 0.80 - 4.70 x10'3/uL ABS. MONOCYTES 0.74 0.00 - 1.50 x10'3/uL ABS. EOSINOPHILS 0.34 0.00 - 0.40 x10'3/uL ABS. BASOPHILS 0.09 0.00 - 0.20 x10'3/uL ABS. IMMATURE GRANULOCYTES 0.11 (H) 0.00 - 0.03 x10'3/uL ABS. NUCLEATED RBC'S 0.00 0.00 x10'3/uL PROTIME/INR, VENOUS Result Value Ref Range Protime 12.6 (H) 9.4 - 12.5 SEC INR 1.1 0.9 - 1.1 D-DIMER, QUANTITATIVE Result Value Ref Range D-DIMER <215 0 - 500 ng[FEU]/mL COMPREHENSIVE METABOLIC PANEL Result Value Ref Range SODIUM 139 136 - 145 MMOL/L POTASSIUM 4.2 3.5 - 5.1 MMOL/L CHLORIDE S/P/B 105 98 - 107 MMOL/L CO2 28.8 21.0 - 32.0 MMOL/L GLUCOSE 135 (H) 70 - 99 MG/DL BUN 15 6 - 24 MG/DL CREATININE S/P/B 1.22 0.70 - 1.30 MG/DL CALCIUM 9.3 8.4 - 10.5 MG/DL BILIRUBIN TOTAL S/P/B 0.2 0.2 - 1.0 MG/DL ALKALINE PHOSPHATASE S/P/B 90 45 - 115 U/L AST 22 15 - 37 U/L ALT 49 16 - 63 U/L TOTAL PROTEIN S/P/B 7.2 6.4 - 8.2 G/DL ALBUMIN S/P/B 3.7 3.4 - 5.0 G/DL ANION GAP 5.2 5.0 - 15.0 MMOL/L OSMOLALITY (CALC) 291 MOSM/KG eGFR Non-Afr. Amer. 69 (L) >89 ML/MIN/1.73 M2 eGFR Afr. Amer. 80 (L) >89 ML/MIN/1.73 M2 GFR NOTES GFR REFERENCES: TROPONIN, QUANT Result Value Ref Range TROPONIN I <0.017 0.000 - 0.056 ng/mL. CKMB,(MB FRACTION ONLY) Result Value Ref Range CK-MB 1.8 0.0 - 3.6 NG/ML LIPASE Result Value Ref Range LIPASE 109 73 - 393 UNITS/L AMYLASE Result Value Ref Range AMYLASE S/P/B 41 25 - 115 UNITS/L MAGNESIUM Result Value Ref Range MAGNESIUM 2.1 1.8 - 2.4 MG/DL C-REACTIVE PROTEIN Result Value Ref Range C-REACTIVE PROTEIN 0.17 <0.30 mg/dL PRO-BRAIN NATRIURETIC PEPTIDE Result Value Ref Range Pro-B TYPE NATRIURETIC PEPTIDE 5 <125 PG/ML IMAGING STUDIES XR CHEST PORTABLE Final Result by User, [id number] (03/22 014) Examination: Chest radiograph Exam time: 03/22/2021 1:33 AM Clinical history: Chest pain Comparison: None Technique: One view of the chest obtained. Findings: Lungs are adequately inflated and clear. No pneumothorax or pleural effusions evident. The cardiac silhouette, mediastinal contours, and pulmonary vessels appear within normal limits. No acute osseous abnormality. IMPRESSION: No radiographic evidence of active disease of the chest. Referred By: ZEINAB WOODSON Interpreted By: Oscar Melendrez MD, 03/22/2021 1:45 AM ED Course / Medical Decision Making MDM Number of Diagnoses or Management Options Angina at rest (CMS/HCC): Chest pain in adult: Diagnosis management comments: 50-year-old male who came with midsternal chest pain radiated to hisback, no reproducible not atypical. Had first troponin negative. Resolved chest pain after putting nitro patch. The patient is chest pain-free at this moment,, however it is concerning his symptoms of 50 typical chest pain. Patient will be admitted on observation to rule out acute OH and possible may have a stress test in the morning. The patient was agreeable and the case was discussed with Dr. Jalloh. Clinical Impression Chest pain in adult (Primary) Angina at rest (CMS/HCC) Disposition: Admit Zeinab Woodson MD 03/22/21 0336 documented in this encounter Plan of Treatment Not on file documented as of this encounter Procedures Procedure Name Priority Date/Time Associated Diagnosis Comments TROPONIN, QUANT TIMED 03/22/2021 9:25 AM CDT STRESS TEST ONLY, EXERCISE Routine 03/22/2021 8:42 AM CDT TROPONIN, QUANT TIMED 03/22/2021 4:05 AM CDT XR CHEST PORTABLE STAT 03/22/2021 1:4 4 AM CDT PRO-BRAIN NATRIURETIC PEPTIDE STAT 03/22/2021 1:42 AM CDT PROTHROMBIN TIME, VENOUS STAT 03/22/2021 1:42 AM CDT COMPREHENSIVE METABOLIC PANEL STAT 03/22/2021 1:42 AM CDT D-DIMER, QUANTITATIVE STAT 03/22/2021 1:42 AM CDT CKMB(MB FRACTION ONLY) STAT 1:42 AM CDT C-REACTIVE PROTEIN STAT 03/22/2021 1: 42 AM CDT CBC W/DIFF AUTOMATED STAT 03/22/2021 1:42 AM CDT TROPONIN, QUANT STAT 03/22/2021 1:42 AM CDT AMYLASE STAT 03/22/2021 1:42 AM CDT MAGNESIUM STAT 03/22/2021 1:42 AM CDT LIPASE STAT 03/22/2021 1:42 AM CDT ECG 12-LEAD STAT 03/22/2021 12:55 AM CDT documented in this encounter Results * US ABD LIMITED (03/28/2021 7:47 AM CDT) Anatomical Region Laterality Modality Abdomen Ultrasound 03/28/2021 10:3 8 AM CDT Impressions 03/28/2021 10:42 AM CDT IMPRESSION: Borderline thickening of the gallbladder wall and slight dilatation of the proximal common bile duct. No evidence of cholelithiasis. Possible slight fatty infiltration of the liver. Referred By: PARUL TALLEY Interpreted By: Peng Mancia MD, 03/28/2021 10:38 AM Narrative 03/28/2021 10:42 AM CDT 03/28/2021, 7:03 AM. HISTORY: Abdominal pain and vomiting. EXAM: Ultrasound imaging of the gallbladder and right upper quadrant of the abdomen utilizing grayscale and color Doppler spectral analysis imaging techniques. No comparison. FINDINGS: Gallbladder is well demonstrated. No echogenic material within the gallbladder and no evidence of cholelithiasis. The gallbladder wall measures 2.7 mm in thickness, borderline thickening. No pericholecystic fluid collection. Common hepatic to common bile duct measures 7 mm in diameter, suggesting slight dilatation. No echogenic material in the imaged portion of the common bile duct. No dilatation of the intrahepatic biliary radicals. No mass or enlargement of the liver. The liver and may have slightly increased parenchymal echogenic pattern compared to the upper pole the right kidney which may indicate mild fatty infiltration of the liver. Normal direction blood flow in nondistended hepatic and portal veins on Doppler color imaging. Imaged portion of the right kidney appears normal. Procedure Note Peng Mnacia MD - 03/28/2021 03/28/2021, 7:03 AM. HISTORY: Abdominal pain and vomiting. EXAM: Ultrasound imaging of the gallbladder and right upper quadrant ofthe abdomen utilizing grayscale and color Doppler spectral analysis imaging techniques. No comparison. FINDINGS: Gallbladder is well demonstrated. No echogenic material within the gallbladder and no evidence of cholelithiasis. The gallbladder wall measures 2.7 mm in thickness, borderline thickening. No pericholecystic fluid collection. Common hepatic to common bile duct measures 7 mm in diameter, suggesting slight dilatation. No echogenic material in theimaged portion of the common bile duct. No dilatation of the intrahepaticbiliary radicals. No mass or enlargement of the liver. The liver and may have slightly increased parenchymal echogenic pattern compared to the upperpole the right kidney which may indicate mild fatty infiltration of theliver. Normal direction blood flow in nondistended hepatic and portal veins on Doppler color imaging. Imaged portion of the right kidney appearsnormal. IMPRESSION: Borderline thickening of the gallbladder wall and slight dilatation ofthe proximal common bile duct. No evidence of cholelithiasis. Possibleslight fatty infiltration of the liver. Referred By: PARUL TALLEY Interpreted By: Peng Mancia MD, 03/28/2021 10:38 AM Parul Talley [facility]- ULTRASOUND Final Res ult * TROPONIN, QUANT (03/22/2021 9:25 AM CDT) TROPONIN I <0.017 0.000 - 0.056 ng/mL. 03/22/2021 9:50 AM CDT [facility] Comment: ALTHOUGH VALUES OVER 0.056 ARE CONSIDERED ABNORMAL AND REPRESENT MYOCARDIAL DAMAGE,A CUTOFF OF 0.600 HAS BEEN RECOMMENDED REPRESENTING ACUTE MYOCARDIAL INFARCTION. 03/22/2021 9:25 AM CDT Zeinab Woodson MD LABORATORY Final Result Performing Organization Address City/[facility]/ZIP Co de Phone Number [facility] [address] [place] [address], [place] [phone] * TROPONIN, QUANT (03/22/2021 4:05 AM CDT) TROPONIN I <0.017 0.000 - 0.056 ng/mL. 03/22/2021 4:35 AM CDT [facility] Comment: ALTHOUGH VALUES OVER 0.056 ARE CONSIDERED ABNORMAL AND REPRESENT MYOCARDIAL DAMAGE,A CUTOFF OF 0.600 HAS BEEN RECOMMENDED REPRESENTING ACUTE MYOCARDIAL INFARCTION. 03/22/2021 4:05 AM CDT us Zeinab Woodson MD LABORATORY Final Result Performing Organization Address City/[facility]/ZIP Co de Phone Number [facility] [address] [place] [phone], * XR CHEST PORTABLE (03/22/2021 1:44 AM CDT) Anatomical Region Laterality Modality Chest Radiographic Fany ging 03/22/2021 1:45 AM CDT Impressions 03/22/2021 1:45 AM CDT IMPRESSION: No radiographic evidence of active disease of the chest. Referred By: ZEINAB WOODSON Interpreted By: Oscar Melendrez MD, 03/22/2021 1:45 AM Narrative 03/22/2021 1:45 AM CDT Examination: Chest radiograph Exam time: 03/22/2021 1:33 AM Clinical history: Chest pain Comparison: None Technique: ??One view of the chest obtained. Findings: Lungs are adequately inflated and clear. No pneumothorax or pleural effusions evident. The cardiac silhouette, mediastinal contours, and pulmonary vessels appear within normal limits. No acute osseous abnormality. ?? Procedure Note Oscar Melendrez MD - 03/22/2021 Examination: Chest radiograph Exam time: 03/22/2021 1:33 AM Clinical history: Chest pain Comparison: None Technique: One view of the chest obtained. Findings: Lungs are adequately inflated and clear. No pneumothorax or pleural effusions evident. The cardiac silhouette, mediastinal contours, and pulmonary vessels appear within normal limits. No acute osseous abnormality. IMPRESSION: No radiographic evidence of active disease of the chest. Referred By: ZEINAB WOODSON Interpreted By: Oscar Melendrez MD, 03/22/2021 1:45 AM Zeinab Woodson MD GENERAL IMAGING Final Result * PRO-BRAIN NATRIURETIC PEPTIDE (03/22/2021 1:42 AM CDT) PRO-B TYPE NATRIURETIC PEPTIDE 5 <125 PG/ML 03/22/2021 2:13 AM CDT [facility] Comment: CUT POINTS ESTABLISHED BY INTERNATIONAL COLL[employer] ON NT PROBNP (ICON) STUDY (2006). AGE INDEPENDENT: <300 PG/ML HAS A 99% NEGATIVE PREDICTIVE VALUE FOR EXCLUDING ACUTE CHF <50 YEARS: >450 PG/ML IS CONSISTENT WITH ACUTE CHF 50-75 YEARS: >900 PG/ML IS CONSISTENT WITH ACUTE CHF >75 YEARS: >1800 PG/ML IS CONSISTENT WITH ACUTE CHF IN PATIENTS WITH RENAL INSUFFICIENCY (GFR <60), >1200 PG/ML YIELDS A DIAGNOSTIC SENSITIVITY AND SPECIFICITY OF 89% AND 72% FOR ACUTE CHF. 03/22/2021 1:42 AM CDT us Zeinab Woodson MD LABORATORY Final Result [facility] [address] [place] [address], * C-REACTIVE PROTEIN (03/22/2021 1:42 AM CDT) C-REACTIVE PROTEIN 0.17 <0.30 mg/dL 03/22/2021 2:13 AM CDT [facility] 03/22/2021 1:42 AM CDT us Zeinab Woodson MD LABORATORY Final Result Performing Organization Address City/[facility]/ZIP Co de Phone Number [facility] [address] [place] [address], * MAGNESIUM (03/22/2021 1:42 AM CDT) MAGNESIUM 2.1 1.8 - 2.4 MG/DL 03/22/2021 2:13 AM CDT [facility] 03/22/2021 1:42 AM CDT us Zeinab Woodson MD LABORATORY Final Result Performing Organization Address City/[facility]/ZIP Co de Phone Number [facility] [address] [place] [phone], * AMYLASE (03/22/2021 1:42 AM CDT) AMYLASE S/P/B 41 25 - 115 UNITS/L 03/22/2021 2:13 AM CDT [facility] 03/22/2021 1:42 AM CDT us Zeinab Woodson MD LABORATORY Final Result Performing Organization Address City/[facility]/ZIP Co de Phone Number [facility] [address] [place] [address], * LIPASE (03/22/2021 1:42 AM CDT) LIPASE 109 73 - 393 UNITS/L 03/22/2021 2:13 AM CDT [facility] 03/22/2021 1:42 AM CDT us Zeinab Woodson MD LABORATORY Final Result Performing Organization Address [facility] Co de Phone Number [facility] [address] [place] [phone], * CKMB,(MB FRACTION ONLY) (03/22/2021 1:42 AM CDT) CK-MB 1.8 0.0 - 3.6 NG/ML 03/22/2021 2:16 AM CDT [facility] 03/22/2021 1:42 AM CDT us Zeinab Woodson MD LABORATORY Final Result Performing Organization Address City/[facility]/ZIP Co de Phone Number [facility] [address] [place] [address], * TROPONIN, QUANT (03/22/2021 1:42 AM CDT) TROPONIN I <0.017 0.000 - 0.056 ng/mL. 03/22/2021 2:13 AM CDT [facility] Comment: ALTHOUGH VALUES OVER 0.056 ARE CONSIDERED ABNORMAL AND REPRESENT MYOCARDIAL DAMAGE,A CUTOFF OF 0.600 HAS BEEN RECOMMENDED REPRESENTING ACUTE MYOCARDIAL INFARCTION. 03/22/2021 1:42 AM CDT Zeinab Woodson MD LABORATORY Final Result [facility] [address] [place] [address], * (ABNORMAL) COMPREHENSIVE METABOLIC PANEL (03/22/2021 1:42 AM CDT) SODIUM S/P/B 139 136 - 145 MMOL/L 03/22/2021 2:13 AM CDT [facility] POTASSIUM S/P/B 4.2 3.5 - 5.1 MMOL/L 03/22/2021 2:13 AM CDT [facility] CHLORIDE S/P/B 105 98 - 107 MMOL/L 03/22/2021 2:13 AM CDT [facility] CO2 28.8 21.0 - 32.0 MMOL/L 03/22/2021 2:13 AM CDT [facility] GLUCOSE 135(H) 70 - 99 MG/DL 03/22/2021 2:13 AM CDT [facility] Comment: FASTING GLUCOSE 100 TO 125 MG/DL IS CONSISTENT WITH IMPAIRED FASTING GLUCOSE. FASTING GLUCOSE >125 MG/DL IS CONSISTENT WITH DIABETES. RANDOM GLUCOSE >200 MG/DL WITH HYPERGLYCEMIC SYMPTOMS IS CONSISTENT WITH DIABETES. PER ADA GUIDELINES BUN 15 6 - 24 MG/DL 03/22/2021 2:13 AM CDT [facility] CREATININE S/P/B 1.22 0.70 - 1.30 MG/DL 03/22/2021 2:13 AM CDT [facility] CALCIUM S/P/B 9.3 8.4 - 10.5 MG/DL 03/22/2021 2:13 AM CDT [facility] BILIRUBIN TOTAL S/P/B 0.2 0.2 - 1.0 MG/DL 03/22/2021 2:13 AM CDT [facility] Comment: THIS ASSAY IS NOT RECOMMENDED FOR PATIENTS UNDERGOING TREATMENT WITH ELTROMBOPAG DUE TO THE POTENTIAL FOR FALSELY ELEVATED RESULTS. ALKALINE PHOSPHATASE S/P/B 90 45 - 115 U/L 03/22/2021 2:13 AM CDT [facility] AST 22 15 - 37 U/L 03/22/2021 2:13 AM CDT [facility] ALT 49 16 - 63 U/L 03/22/2021 2:13 AM CDT [facility] TOTAL PROTEIN S/P/B 7.2 6.4 - 8.2 G/DL 03/22/2021 2:13 AM CDT [facility] ALBUMIN S/P/B 3.7 3.4 - 5.0 G/DL 03/22/2021 2:13 AM CDT [facility] ANION GAP 5.2 5.0 - 15.0 MMOL/L 03/22/2021 2:13 AM CDT [facility] OSMOLALITY (CALC) 291 MOSM/KG 021 2:13 AM T [facility] Comment:REFERENCE RANGE NOT ESTABLISHED EGFR NON-AFR. AMER. 69(L) >89 ML/MIN/1. 73 M2 03/22/2021 2:13 AM T [facility] EGFR AFR. AMER. 80(L) >89 ML/MIN/1. 73 M2 03/22/2021 2:13 AM T [facility] GFR NOTES GFR REFERENCE S: 03/22/2021 2:13 AM T [facility] Comment: THE ESTIMATED GFR IS CALCULATED USING THE 2009 CKD-EPI EQUATION. THE FOLLOWING CATEGORIES FOR GRADING RENAL FUNCTION ARE RECOMMENDED BY THE INTERNATIONAL SOCIETY OF NEPHROLOGY (KDIGO 2012 CLINICAL PRACTICE GUIDELINE). G1,NORMAL OR HIGH: >89 ml/min/1.73 m2 G2,MILDLY DECREASED: 60-89 ml/min/1.73 m2 G3A,MILDLY TO MODERATELY DECREASED: 45-59 ml/min/1.73 m2 G3B,MODERATELY TO SEVERELY DECREASED: 30-44 ml/min/1.73 m2 G4,SEVERELY DECREASED: 15-29 ml/min/1.73 m2 G5,KIDNEY FAILURE: <15 ml/min/1.73 m2 03/22/2021 1:42 AM CDT us Zeinab Woodson MD LABORATORY Final Result Performing Organization Address City/[facility]/ZIP Co de Phone Number [facility] [address] [place] [address], * D-DIMER, QUANTITATIVE (03/22/2021 1:42 AM CDT) D-DIMER <215 0 - 500 ng{FEU}/mL 03/22/2021 2:00 AM CDT [facility] Comment: D-Dimer values less than or equal to 500 ng/mL FEU have a negative predictive value of >95% for exclusion of deep vein thrombosis and pulmonary embolism. In patients over 50 (who tend to have higher normal baseline D-Dimer values), recent studies suggest age-adjusted D-Dimer cutoff values (calculated as: age [years] x 10 ng/mL) result in equivalent outcomes and no additional false negative findings. 03/22/2021 1:42 AM CDT Zeinab Woodson MD LABORATORY Final Result Performing Organization Address [facility]/ZIP Co de Phone Number [facility] [place] [address], * (ABNORMAL) PROTIME/INR, VENOUS (03/22/2021 1:42 AM CDT) PROTIME 12.6(H) 9.4 - 12.5 SEC 03/22/2021 2:00 AM CDT [facility] INR 1.1 0.9 - 1.1 03/22/2021 2:00 AM CDT [facility] 03/22/2021 1:42 AM CDT us Zeinab Woodson MD LABORATORY Final Result [facility] [address] [place] [address], * (ABNORMAL) CBC W/DIFF AUTOMATED (03/22/2021 1:42 AM CDT) WBC 12.0(H) 4.5 - 10.8 x10'3/uL 03/22/2021 1:49 AM CDT [facility] RBC 5.42 4.50 - 6.10 x10'6/uL 03/22/2021 1:49 AM CDT [facility] HGB 14.9 13.0 - 18.0 G/DL 03/22/2021 1:49 AM CDT [facility] HCT 46.4 37.0 - 52.0 % 03/22/2021 1:49 AM CDT [facility] MCV 85.6 78.0 - 100.0 FL 03/22/2021 1:49 AM CDT [facility] MCH 27.5 27.0 - 31.0 PG 03/22/2021 1:49 AM CDT [facility] MCHC 32.1(L) 33.0 - 36.0 G/DL 03/22/2021 1:49 AM CDT [facility] RDW 12.7 11.5 - 14.5 % 03/22/2021 1:49 AM CDT [facility] PLT 378(H) 150 - 350 x10'3/uL 03/22/2021 1:49 AM CDT [facility] MPV 10.2 7.4 - 10.4 FL 03/22/2021 1:49 AM CDT [facility] DIFFERENTIAL COMMENT NORMAL REFERENCE RANGE NOT ESTABLISHED FOR THE PROPORTIONAL LEUKOCYTE DIFFERENTIAL. 03/22/2021 1:49 AM CDT [facility] SEG NEUTROPHILS 70.1 % 1:49 AM CDT [facility] LYMPHOCYTES 19.3 % 03/22/2021 1:49 AM CDT [facility] MONOCYTES 6.2 % 03/22/2021 1:49 AM CDT [facility] EOSINOPHILS 2.8 % 03/22/2021 1:49 AM CDT [facility] BASOPHILS 0.7 % 03/22/2021 1:49 AM CDT [facility] IMMATURE GRANS % 0.9 % 03/22/20 1:49 AM CDT [facility] NRBC 0.0 % 03/22/2021 1:49 AM CDT [facility] ABS. NEUTROPHILS 8.43(H) 1.60 - 8.30 x10'3/uL 03/22/2021 1:49 AM CDT [facility] ABS. LYMPHOCYTES 2.32 0.80 - 4.70 x10'3/uL 03/22/2021 1:49 AM CDT [facility] ABS. MONOCYTES 0.74 0.00 - 1.50 x10'3/uL 03/22/2021 1:49 AM CDT [facility] ABS. EOSINOPHILS 0.34 0.00 - 0.40 x10'3/uL 03/22/2021 1:49 AM CDT [facility] ABS. BASOPHILS 0.09 0.00 - 0.20 x10'3/uL 03/22/2021 1:49 AM CDT [facility] ABS. IMMATURE GRANULOCYTES 0.11(H) 0.00 - 0.03 x10'3/uL 03/22/2021 1:49 AM CDT [facility] ABS. NUCLEATED RBC'S 0.00 0.00 x10'3/uL 03/22/2021 1:49 AM CDT [facility] 03/22/2021 1:42 AM CDT Zeinab Woodson MD LABORATORY Final Result [facility] [address] [place] [address], * ECG 12 lead (03/22/2021 12:55 AM CDT) 03/22/2021 12:5 5 AM CDT Narrative [facility] - 03/23/2021 4:16 PM CDT ? [facility] ?[address] [place], [place] ??[address] ? Test Date: ?2021-03-22 Pat Name: ? MP WAN ?Department: ? Room: ? 304 Gender: ? Male ? [employer]: ?? : ?1970 ? Requested By: ZEINAB WOODSON Order Number: [id number] ? Reading MD: ?? Vanesa Perkins ? Measurements Intervals ?[place] ? Rate: ? 75 ? P: ?40 ME: ? 174 ?QRS: ?-44 QRSD: ? 109 ?T: ?43 QT: ? 369 ? QTc: ?414 ? Interpretive Statements SINUS RHYTHM LEFT AXIS DEVIATION ??[QRS AXIS < -30] Procedure Note Vanesa Perkins MD - 03/23/[address] [place] [address] Test Date: 2021-03-22 Pat Name: MP WAN Department: Room: [facility] Gender: Male [employer]: : 1970 Requested By: ZEINAB WOODSON Order Number: [id number] Reading MD: Vanesa Perkins Measurements Intervals [place] Rate: 75 P: 40 ME: 174 QRS: -44 QRSD: 109 T: 43 QT: 369 QTc: 414 Interpretive Statements SINUS RHYTHM LEFT AXIS DEVIATION [QRS AXIS < -30] Zeinab Woodson MD ECG ORDERABLES Final Result [facility] documented in this encounter Visit Diagnoses Diagnosis Unstable angina (CMS/HCC HHS/HCC)- Primary Intermediate coronary syndrome Chest pain in adult Angina at rest (CMS/HCC) Other and unspecified angina pectoris Right upper quadrant abdominal pain Abdominal pain, right upper quadrant Abdominal pain Abdominal pain, unspecified site Nausea & vomiting Nausea with vomiting Right upper quadrant abdominal pain Abdominal pain, right upper quadrant documented in this encounter Admitting Diagnoses Diagnosis Unstable angina (CMS/HCC HHS/HCC) Intermediate coronary syndrome documented in this encounter Administered Medications Inactive Administered Medications - up to 3 most recent administrations Medication Order MAR Action Action Date Dose Rate Site acetaminophen (TYLENOL) tablet 650 mg 650 mg, Oral, Every 4 hours PRN, Mild pain (Scale 1 - 3), Starting on Sat03/22/21 at 0854, Until Sat03/22/21 at 1636, Maximum dose of acetaminophen is 4000 mg from all sources in 24 hours. Given 03/22/2021 9:07 AM CDT 650 mg aspirin chewable tablet 324 mg 324 mg, Oral, Once, 1 dose, On Sat03/22/21 at 0115 Given 03/22/2021 1:30 AM CDT 324 mg ketorolac (TORADOL) injection 30 mg 30 mg, Intravenous, Once, 1 dose, On Sat03/22/21 at 0215, For IV administration, give over 15 seconds. Given 03/22/2021 2:24 AM CDT 30 mg nitroglycerin (NITRO-BID) 2 % ointment OINT 1 inch 1 inch, Topical, Administer over 6 Hours, Once, 1 dose, On Sat03/22/21 at 0200 Patch Applied 03/22/2021 2:23 AM CDT 1 inch nitroglycerin (NITROSTAT) SL tablet 0.4 mg 0.4 mg, Sublingual, Once, 1 dose, On Sat03/22/21 at 0115 Given 03/22/2021 1:42 AM CDT 0.4 mg sodium chloride 0.9% bolus infusion SOLN 1,000 mL 1,000 mL, Intravenous, Administer over 15 Minutes, Once, 1 dose, On Sat03/22/21 at 0200 New Bag 03/22/2021 2:24 AM CDT 1,000 mLs documented in this encounter Active and Recently Administered Medications Times are shown in CDT. Scheduled Medication Order 03/20/2021 03/21/2021 03/22/2021 aspirin chewable tablet 324 mg (COMPLETED) 324 mg, Oral, Once, 1 dose, On Sat03/22/21 at 0115 0130 (Given - Provid er: Latasha Hernandez RN) ketorolac (TORADOL) injection 30 mg (COMPLETED) 30 mg, Intravenous, Once, 1 dose, On Sat03/22/21 at 0215, For IV administration, give over 15 seconds. 0224 (Given - Provid er: Latasha Hernandez RN) nitroglycerin (NITRO-BID) 2 % ointment OINT 1 inch (COMPLETED) 1 inch, Topical, Administer over 6 Hours, Once, 1 dose, On Sat03/22/21 at 0200 0223 (Patch Applied - Provider: Latasha Hernandez RN)0830 (Patch Removed - Provider: Nereyda Phelps RN) nitroglycerin (NITROSTAT) SL tablet 0.4 mg (COMPLETED) 0.4 mg, Sublingual, Once, 1 dose, On Sat03/22/21 at 0115 0142 (Given - Provid er: Latasha Hernandez RN) sodium chloride 0.9% bolus infusion SOLN 1,000 mL (COMPLETED) 1,000 mL, Intravenous, Administer over 15 Minutes, Once, 1 dose, On Sat03/22/21 at 0200 0224 (New Bag - Prov ider: Latasha Hernandez RN)0340 (Infusion Stop Time - Provider: Latasha Hernandez RN) PRN Medication Order 03/20/2021 03/21/2021 03/22/2021 acetaminophen (TYLENOL) tablet 650 mg 650 mg, Oral, Every 4 hours PRN, Mild pain (Scale 1 - 3), Starting on Sat03/22/21 at 0854, Until Sat03/22/21 at 1636, Maximum dose of acetaminophen is 4000 mg from all sources in 24 hours. 0907 (Given - Provid er: Nereyda Phelps RN) documented in this encounter Care Teams Manufacturing Engineer Assembly Relationship Specialty Start Date End Date Eryn Tellez MD [address] [place] [address] PCP - General INTERNAL MEDICINE 03/22/21 documented as of this encounter
--- OUTSIDE RECORDS SUMMARY | 2024-11-23 03:06 | XMS_ITS | Encounter Summary ---
Author Organization [facility] Address [address] [place] [address]. [place] [address] [place] [address] Care Team Providers Care Dial Lathe Operator Name Role Phone Unavailable Primary Care Provider Unavailabl e Encounter Details Date Type Department Care Team (Late st Contact Info) Description 07/08/2015 Abstract [facility] Multis[facility]ty [facility] - [place] [address] [place] [id number] Shaina Cristina MD [address] [facility] [address] [place] [address] Social History Tobacco Use Types Packs/Day Years Used Date Smoking Tobacco: Never Assessed Sex and Gender Information Value Date Recorded Sex Assigned at Not on file 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
--- OUTSIDE RECORDS SUMMARY | 2024-11-23 03:06 | XMS_ITS | Encounter Summary ---
Author Organization [facility] Address [address] [place] [address]. 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 No / Unsure 04/13/2022 8:21 PM CDT documented as of this encounter Functional Status * RETIRED Are [...] Torres RN Active documented in this encounter Plan of Treatment Not on file documented as of this encounter Visit Diagnoses Not on filedocumented in this encounter Care Teams Profile Trimmer Relationship Specialty Start Date End Date Amaury Bonner MD [address] [place] [address] PCP - General INTERNAL MEDICINE 03/22/21 documented as of this encounter
--- OUTSIDE RECORDS SUMMARY | 2024-11-23 03:06 | XMS_ITS | Encounter Summary ---
Author Organization [facility] Address [address] [place] [address]. [place], [place] [address] [place] [address] Care Team Providers Care Sharepoint Analyst Name Role Phone Amaury Bonner MD Primary Care Provider [phone] Reason for Referral * Imaging (Routine) - Closed Specialty Diagnoses / Procedures Referred By Contac t Referred To Contact RADIOLOGY Diagnoses Right upper quadrant abdominal pain Procedures US ABD LIMITED Parul Ramirez ANP-BC [facility] [place] [address] Phone: tel: fax: Referral ID Status Reason Start Date Expiration Date Visits Re quested Visits Authorized [id number] Closed 03/22/2021 04/21/2022 1 1 Reason for Visit * Imaging (Routine) - Closed Specialty Diagnoses / Procedures Referred By Contac t Referred To Contact RADIOLOGY Diagnoses Right upper quadrant abdominal pain Procedures US ABD LIMITED Parul Ramirez ANP-BC [facility] [place] [address] Phone: tel: fax: Referral ID Status Reason Start Date Expiration Date Visits Re quested Visits Authorized [id number] Closed 03/22/2021 04/21/2022 1 1 Encounter Details Date Type Department Care Team (Late st Contact Info) Description 03/28/2021 6:42 AM CDT - 03/28/2021 11:59 PM CDT Hospital Encounter 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 No / Unsure 03/28/2021 6:40 AM CDT documented as of this encounter Functional [...] Date Author Status No 03/22/2021 4:13 AM JOCET Michaelle Martinez RN Active documented in this encounter Plan of Treatment Not on file documented as of this encounter Procedures Procedure Name Priority Date/Time Associated Diagnosis Comments US ABD LIMITED Routine 03/28/2021 7:47 AM CDT Right upper quadrant abdominal pain documented in this encounter Results * US ABD LIMITED (03/28/2021 7:47 AM CDT) Anatomical Region Laterality Modality Abdomen Ultrasound 03/28/2021 10:3 8 AM CDT Impressions 03/28/2021 10:42 AM CDT IMPRESSION: Borderline thickening of the gallbladder wall and slight dilatation of the proximal common bile duct. No evidence of cholelithiasis. Possible slight fatty infiltration of the liver. Referred By: PARUL RAMIREZ Interpreted By: Peng Mancia MD, 03/28/2021 10:38 [...] right kidney appears normal. Procedure Note Peng Mancia MD - 03/28/2021 03/28/2021, 7:03 AM. HISTORY: [...] infiltration of the liver. Referred By: PARUL RAMIREZ Interpreted By: Peng Mancia MD, 03/28/2021 10:38 AM us Parul Ramirez ANP- ULTRASOUND Final Res ult documented in this encounter Visit Diagnoses Diagnosis Right upper quadrant abdominal pain Abdominal pain, right upper quadrant documented in this encounter Care Teams Sharepoint Analyst Relationship Specialty Start Date End Date Amaury Bonner MD [address] [place] [phone] PCP - General INTERNAL MEDICINE 03/22/21 documented as of this encounter
--- OUTSIDE RECORDS SUMMARY | 2024-11-23 03:06 | XMS_ITS | Encounter Summary ---
Author Organization [facility] Address [address] [place] [address]. 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
--- OUTSIDE RECORDS SUMMARY | 2024-11-23 03:06 | XMS_ITS | Clinical Summary ---
Author Organization [facility] Address [address] [place] [address]. [place], [place] [address] [place] [address] Care Team Providers Care Xray Tech Name Role Phone Amaury Bonner MD Primary Care Provider [phone] Allergies No known active allergies Medications No known medications Active Problems No known active problems Resolved Problems Problem Noted Date Diagnosed Date Resolved Date Unstable angina ([facility]) 03/22/2021 03/22/2021 Abdominal pain 03/22/2021 03/22/2021 Nausea & vomiting 03/22/2021 03/22/2021 Immunizations Name Administration Dates Next Due Tdap (Boostrix) 04/13/2022 Family History Medical History Relation Comments Cancer Brother bone Lung Cancer Father Alzheimers Maternal Grandmother Cancer Maternal Grandmother rectal Cancer Paternal Uncle bone Relation Status Comments Brother Father Alive Maternal Grandmother Mother Alive Paternal Uncle Social History Tobacco Use Types Packs/Day Years Used Date Smoking Tobacco: Never Smokeless Tobacco: Never Alcohol Use Standard Drinks/Week Comments Yes 0 (1 standard drink = 0.6 oz pur e alcohol) rarely Sex and Gender Information Value Date Recorded Sex Assigned at Not on file 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 Gender Identity Not on file Sexual Orientation Not on file 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 on file Last Filed Vital Signs Vital Sign Reading [...] Mass Index 32.08 04/13/2022 8:22 PM CDT Plan of Treatment Health Maintenance Due Date Last Done Comments Colorectal Cancer Screening Colonoscopy (10 Years) 1971 Annual Physical 1974 Hepatitis C 1989 Hepatitis B Vaccines (1 of 3 - 19+ 3-dose series) 1990 Zoster Vaccines (1 of 2) 2021 COVID-19 Vaccine (2 - 2023-2 5 season) 2024 02/24/2021 Influenza Adult (#1) 2024 DTaP, Tdap and Td Vaccines ( 2 - Td or Tdap) 04/13/2032 04/13/2022 Meningococcal Vaccine Aged Out No mandeep yfn eligible based on patient's age to complete this topic Pneumococcal Vaccine: Pediat rics (0 to 5 Years) and At-Risk Patients (6 to 64 Years) Aged Out No longer eligi ble based on patient's age to complete this topic RSV Immunizations Under 20 Months Aged Out No longer eligible based on patient's age to complete this topic Insurance [facility] Advance Directives * Full Code (Latest Code Status on File) Date Activated Date Inactivated Comments 03/22/2021 3:59 AM 03/22/2021 4:36 PM Care Teams Xray Tech Relationship Specialty Start Date End Date Amaury Bonner MD [address] [place] [address] PCP - General INTERNAL MEDICINE 03/22/21
--- OUTSIDE RECORDS SUMMARY | 2024-11-23 03:06 | XMS_ITS | Encounter Summary ---
Author Organization [facility] Address [address] [place] [address]. 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 No 03/22/2021 4:13 AM CDT Michaelle Martinez RN Active * Question Answer Date of Assessment Author Status Do you have difficulty dressing or bathing? No 03/22/2021 4:13 AM JOCET Alexsander Martinez RN Active Because of a physical, mental, or emotional condition, do you have difficulty doing errands alone such as visiting a doctor's office or shopping? No 03/22/2021 4:13 AM JOCET Michaelle Martinez RN Active * RETIRED Are you deaf [...] Author Status No 03/22/2021 4:13 AM Michaelle oTrres RN Active * Because of a physical, [...] on filedocumented in this encounter Care Teams Special Delivery Messenger Relationship Specialty Start Date End Date Amaury Bonner MD [address] [place] [address] PCP - General INTERNAL MEDICINE 03/22/21 documented as of this encounter
--- OUTSIDE RECORDS SUMMARY | 2024-11-23 03:06 | XMS_ITS | Encounter Summary ---
Author Organization [facility] Address [address] [place] [address]. [place] [address] [place] [address] Care Team Providers Care Instruments Sales Representative Name Role Phone Unavailable Primary Care Provider Unavailabl e Encounter Details Date Type Department Care Team (Late st Contact Info) Description 12/22/2013 Abstract [facility] Neurology [address] [place] [address] Julian Aguero MD [address] [facility] [place], [place] [id number] Armando Wheeler MD [address] [facility] [address] [place] [address] Social History Tobacco Use Types Packs/Day Years Used Date Smoking Tobacco: Never Assessed Sex and Gender Information Value Date Recorded Sex Assigned at Not on file 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
--- OUTSIDE RECORDS SUMMARY | 2024-11-23 03:09 | XMS_ITS | Encounter Summary ---
Author Organization [facility] Address [address] [place] [address] Phone Care Team Providers Care Account Supervisor Name Role Phone Amaury Bonner MD Primary Care Provider [phone] Cady Urena Unavailable [phone] Reason for Visit * Reason Comments PT Treatment * Consultation (Routine) - Authorized Specialty Diagnoses / Procedures Referred By Contjames t Referred To Contact Physical Therapy Diagnoses S/P right rotator cuff repair Right shoulder pain, unspecified chronicity Cady Urena PA [address] [place] [address] Phone: tel: fax: [facility] (All Locations) Referral ID Status Reason Start Date Expiration Date Visits Requested Visits Authorized [id number] Authorized Evaluate and Treat 10/19/2024 10/19/2025 24 24 Encounter Details Date Type Department Care Team (Late st Contact Info) Description 11/11/2024 8:30 AM SEAFOOD AND SERVICE MEAT MANAGER Therapy [facility] Physical Therapy [address] [facility] 1st Floor [address] [place] [address] Sadi Caba, DPZain [address] [address] [address] [place] [address] S/P right rotator cuff repair (Primary Dx); Right shoulder pain, unspecified chronicity Social History Tobacco Use Types Packs/Day Years Used Date Smoking Tobacco: Never Smokeless Tobacco: Never Alcohol Use Standard Drinks/Week Comments Yes 0 (1 standard drink = 0.6 oz pur e alcohol) rarely AUDIT-C Answer Date Recorded Q1: How often do you have a drink containing alc ohol? Monthly or less 09/29/2024 Q2: How many drinks containi ng alcohol do you have on a typical day when you are drinking? 1 or 2 09/29/2024 Frequency of Binge Drinking Not on file 09/02 Personal Safety Answer Date Recorded Have you ever been in or are you currently in a harmful physical or emotional relationship or is someone making you feel afraid or unsafe? Denies 09/29/2024 Sex and Gender Information Value Date Recorded Sex Assigned at Not on file Legal Sex Male 7:48 PM SEAFOOD AND SERVICE MEAT MANAGER Gender Identity Male 06/02/2024 7:40 AM CDT Sexual Orientation Straight 06/02/2024 7: 40 AM CDT documented as of this encounter Progress Notes * aSdi Caba, DPT - 11/11/2024 8:30 AM CST Physical Therapy Visit PT Daily Treatment Note 11/11/2024 [facility] 1970 ICD-10-CM 1. S/P right rotator cuff repair Z98.890 2. Right shoulder pain, unspecified chronicity M25.511 @PTVISITINFO@ Last PT Progress note: Patient was pre-screened in [facility] prior to entering clinic space and passed. Passed screening determines patient has no current fever, cough, SOB, loss of sense of taste or sense of smell, body aches, or sore throat. Patient has not been exposed to anyone suspected of having COVID-19 in the past 14days. Subjective: He states on Saturday night he was walking down the steps and slipped. He reached to grab the banister with the R arm and went down two steps. He did not feel any pop in the R shoulder. Pain is 4/10.He will see his MD tomorrow. He states he has been trying to do his exercises and has a little morepain and less ROM. He is using the TENs machine daily. Pain:4/10 in Pain 3/10 out HEP compliance Objective: Involved Side: right Dominant Side: right Date of surgery: 09/29/2025 Type of surgery: R RC repair supraspinatus, biceps tenodesis Precautions: limited duty, only computer work, no lifting, wean out of sling Right shoulder arthroscopy distal claviculectomy including distal articular surface, decompression of subacromial space with partial acromioplasty with coracoacromial release, rotator cuff repair andbiceps tenodesis ADDITIONAL INSTRUCTIONS: EXERCISES: Active range of motion elbow, wrist, and hand Furniture Servicer strengthening Shoulder pendulums PHASE II: (Weeks 1-6) GOALS: Early passive range of motion SLING: Discontinue abduction pillow at 5 weeks post-op Discontinue sling at 6 weeks post-op Delayed Protocol extend an additional 2 weeks EXERCISES: Education on scapular postion and posture PASSIVE range of motion shoulder ONLY, keep arm at or above midline Pendulums Supine elevation in the scapular plane = 140?? ER to tolerance with the arm at the side = 40?? ABD = max 60-80?? without rotation NO IR/behind the back Furniture Servicer strengthening NO CARLEY/Canes until week 6 No resisted motions of the shoulder until 8 weeks post-op Heat before PT and ice after PT PHASE III: (Weeks 6-12) GOALS: Progress to AROM Initiate strengthening EXERCISES: Initiate IR AAROM progressing to AROM as tolerated PROM lightly at end ranges Initiate scapular strengthening, PRE's for large muscle groups (pecs, lats), rhythmic stabiliations Begin strengthening/resisted motions at 8 weeks (Progress SLOWLY) Initiate rotator cuff isometrics submax with the arm at side at 8 weeks (progress to light resistance bands and light resisted movement) UBE Heat before PT and ice after PT Treatment Provided: Gentle PROM shoulder flexion, abduction, ER Gentle inferior glides gr. II oscillatory Review HEP Pendulum exercises Continue with AAROM as tolerated. HEP to include ice to R shoulder. Assessment: Pt presents with good response to therapy overall. He is sore in the R shoulder in the supraspinatus region and superior lateral shoulder. He tweaked the R arm significantly with a slip down 2 steps.I do not see a noticeable Angelo deformity or bruising today. He denies feeling any pop in the joint at time of injury or any noticeable swelling. He did well today with PROM of R shoulder without any flare of pain. He will see MD tomorrow for further assessment. His previous PT in [place] was a little more aggressive with exercises and had started him on shoulder pulleys. He appears to overall be doing well but he is worried after the fall on the steps that occurred 4 days ago. Plan:Continue PT per POC to progress toward goals per patient tolerance Time-Based Code Calculator Minutes for Manual Therapy (67669):: 30 minutes Minutes for Neuro Re-Ed (70295): : 10 minutes Timed Code Treatment Minutes:: 40 minutes Total treatment time 40 min. (8:30-9:10 am) Sadi Caba DPT, COMT OOD AND SERVICE MEAT MANAGER documented in this encounter Plan of Treatment Not on file documented as of this encounter Visit Diagnoses Diagnosis S/P right rotator cuff repair- Primary Right shoulder pain, unspecified chronicity documented in this encounter Care Teams Account Supervisor Relationship Specialty Start Date End Date Amaury Bonner MD [address] [place] [address] PCP - General 02/27/08 Cady Urena PA [address] [place] [address] DR JAMES [address] [place] [address] Physician Cap Machine Operator Orthopedic Surgery 09/29/24 documented as of this encounter
--- OUTSIDE RECORDS SUMMARY | 2024-11-23 03:09 | XMS_ITS | Encounter Summary ---
Author Organization [facility] Address [address] [place] [address] Phone Care Team Providers Care Beef Cattle Farm Manager Name Role Phone Amaury Bonner MD Primary Care Provider [phone] Cady Urena Unavailable [phone] Encounter Details Date Type Department Care Team (Late st Contact Info) Description 11/05/2024 Plan of Care Documentation [facility] Physical Therapy [address] [facility] 1st [address] [place] [address] Social History Tobacco Use Types Packs/Day Years [...] on file Legal Sex Male 7:48 PM HAIR STYLIST Gender Identity Male 06/02/2024 7:40 AM CDT Sexual Orientation Straight 06/02/2024 7: 40 AM CDT documented as of this encounter Plan of Treatment Not on file documented as of this encounter Visit Diagnoses Not on filedocumented in this encounter Care Teams Beef Cattle Farm Manager Relationship Specialty Start Date End Date Amaury Bonner MD [address] [place] [address] PCP - General 02/27/08 Cady Urena PA [address] [place] [address] [address], [place] [address] Physician Roper Operator Orthopedic Surgery 09/29/24 documented as of this encounter
--- OUTSIDE RECORDS SUMMARY | 2024-11-23 03:09 | XMS_ITS | Encounter Summary ---
Author Organization [facility] Address [address] [place] [address] Phone Care Team Providers Care Rod Buster Helper Name Role Phone Amaury Bonner MD Primary Care Provider + [phone] Cady Urena Unavailable Reason for Visit * Reason Comments PT Treatment * Consultation (Routine) - Authorized Specialty Diagnoses / Procedures Referred By Contjames t Referred To Contact Physical Therapy Diagnoses S/P right rotator cuff repair Right shoulder pain, unspecified chronicity Cady Urena PA [address] [place] [address] Phone: tel: fax: [facility] (All Locations) Referral ID Status Reason Start Date Expiration Date Visits Requested Visits Authorized [id number] Authorized Evaluate and Treat 10/19/2024 10/19/2025 24 24 Encounter Details Date Type Department Care Team (Late st Contact Info) Description 11/13/2024 11:00 AM SECURITIES AND REAL ESTATE DIRECTOR Therapy 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 S/P right rotator cuff repair Z98.890 2. Right shoulder pain, unspecified chronicity M25.511 @PTVISITINFO@ Last PT Progress note: Patient was pre-screened in [facility] prior to entering clinic space and passed. Passed screening determines patient has no current fever, cough, SOB, loss of sense of taste or sense of smell, body aches, or sore throat. Patient has not been exposed to anyone suspected of having COVID-19 in the past 14days. Subjective: Pt saw his referring provider yesterday. Based on the exam, an MRI is being scheduled (currently hasn't been scheduled) to determine if there's a bicep and/or rotator cuff tear. Due to this, pt states that he is discouraged. He was informed that referring provider approved performing cane exercises, AAROM and AROM exercises, etc unilt the MRI is scheduled and further information is acquired Pain:0/10 in Pain 0/10 out HEP compliance Objective: Involved Side: right [...] range of motion elbow, wrist, and hand Voip Network Engineer strengthening Shoulder pendulums PHASE II: (Weeks 1-6) [...] 60-80?? without rotation NO IR/behind the back Voip Network Engineer strengthening NO CARLEY/Canes until week 6 No [...] PT and ice after PT Treatment Provided: Done Today HEP Activity Parameters Comments X x Supine AAROM shoulder flexion with wand Mild/moderate discomfort, 5 sec hold, 2x10 reps 2x/day X x Supine AAROM shoulder LR (40 deg abd) Mild/moderate discomfort, 5 sec hold, 2x10 reps 2x/day x Pulleys flexion and scaption 15-20 repetitions, 2x/day x PROM shoulder flexion x PROM shoulder scaption x PROM shoulder LR (40 deg abd) PROM shoulder MR (40 deg abd) Gentle PROM shoulder flexion, abduction, ER Gentle inferior glides gr. II oscillatory Review HEP Pendulum exercises Continue with AAROM as tolerated. HEP to include ice to R shoulder. Assessment: Pt presents with good response to therapy overall. Continuied with PROM/AAROM exercises due to updates from patient on potential involvement for injury to the supraspinatus and biceps musculature/tendons. Will reach out to referring provider to determine appropriate course of Physical Therapy in subsequent session. Pt tolerated PROM/AAROM exercises well, with no increases in pain. Will reassess upon subsequent visit. Plan:Continue PT per POC to progress toward goals per patient tolerance Time-Based Code Calculator Minutes for Ther Ex/Ther Procedure (89278):: 25 minutes Minutes for Manual Therapy (92706):: 15 minutes Timed Code Treatment Minutes:: 40 minutes Total Treatment Time: 45 Visit Start Time: 1100 Visit Stop Time: 114 Ryland Farris DPT RITIES AND REAL ESTATE DIRECTOR documented in this encounter Plan of Treatment Not on file documented as of this encounter Visit Diagnoses Diagnosis S/P right rotator cuff repair- Primary Right shoulder pain, unspecified chronicity documented in this encounter Care Teams Rod Buster Helper Relationship Specialty Start Date End Date Amaury Bonner MD [address] [place] [address] PCP - General 02/27/08 Cady Urena PA [address] [place] [address] [address], [place] [address] Physician Retail Key Holder Orthopedic Surgery 09/29/24 documented as of this encounter
--- OUTSIDE RECORDS SUMMARY | 2024-11-23 03:09 | XMS_ITS | Encounter Summary ---
Author Organization [facility] Healthcare Address [address] [place] [address] Care Team Providers Care Laboratory Sampler Name Role Phone Amaury Bonner MD Primary Care Provider + [phone] Cady Urena Unavailable [phone] Encounter Details Date Type Department Care Team (Late st Contact Info) Description 11/13/2024 Telephone [facility] Medical Group Orthopedic and Sports Medicine [address] [place] [phone] Cady Urena PA [address] [place] [address] [address] [place] [address] Social History Tobacco Use Types Packs/Day Years [...] on file 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 Patient stated he is going to keep his appointment with beck E TEACHER documented in this encounter Plan of Treatment Not on file documented as of this encounter Visit Diagnoses Not on filedocumented in this encounter Care Teams Laboratory Sampler Relationship Specialty Start Date End Date Amaury Bonner MD [address] [place] [address] PCP - General 02/27/08 Cady Urena PA [address] [place] [address] DR [address] [place] [address] Physician Supervisor Diagnostic Orthopedic Surgery 09/29/24 documented as of this encounter
--- OUTSIDE RECORDS SUMMARY | 2024-11-23 03:09 | XMS_ITS | Encounter Summary ---
Author Organization [facility] Address [address] [place] [address] Care Team Providers Care Car Ferry Captain Name Role Phone Amaury Bonner MD Primary Care Provider + [phone] Cady Urena Unavailable [phone] Reason for Referral * Diagnostic Imaging (Routine) - Authorized Specialty Diagnoses / Procedures Referred By Jaquelin frazier Referred To Contact Diagnoses Traumatic complete tear of right rotator cuff, initial encounter S/P right rotator cuff repair Procedures Injection Shoulder Right Arthro Only Cady Urena PA [address] [facility] [place] [address] Phone: tel: fax: External Order Referral ID Status Reason Start Date Expiration Date V isits Requested Visits Authorized [id number] Authorized 11/13/2024 12/13/2025 1 1 [facility] COORDINATOR * MRI/CAT/PET Scan (Routine) - Authorized Specialty Diagnoses / Procedures Referred By Jaquelin frazier Referred To Contact Diagnoses Traumatic complete tear of right rotator cuff, initial encounter S/P right rotator cuff repair Procedures MRI Shoulder Arthrogram Right W Contrast Cady Urena PA [address] [facility] [place] [address] Phone: tel: fax: External Order Referral ID Status Reason Start Date Expiration Date V isits Requested Visits Authorized [id number] Authorized 11/13/2024 12/13/2025 1 1 [facility] CENTER COORDINATOR Encounter Details Date Type Department Care Team (Late st Contact Info) Description 11/13/2024 Orders Only [facility] Medical Group Orthopedic and Sports Medicine [address] [place] [id number] Cady Urena PA [address] [place] [address] [address] [place] [address] Traumatic complete tear of right rotator cuff, initial encounter (Primary Dx); S/P right rotator cuff repair Social History Tobacco Use Types Packs/Day Years [...] on file Legal Sex Male 7:48 PM COMMUNITY CENTER COORDINATOR Gender Identity Male 06/02/2024 7:40 AM CDT Sexual Orientation Straight 06/02/2024 7: 40 AM CDT documented as of this encounter Plan of Treatment Scheduled Orders Name Type Priority Associated Diagnoses Orde r Schedule MRI Shoulder Arthrogram Right W Contrast Imaging Schedule Routine, Read Routine (OP Routine) Traumatic complete tear of right rotator cuff, initial encounter S/P right rotator cuff repair Expected: 11/13/2024, Expires: 11/13/2025 Injection Shoulder Right Arthro Only Imaging Schedule Routine, Read Routine (OP Routine) Traumatic complete tear of right rotator cuff, initial encounter S/P right rotator cuff repair Expected: 11/13/2024, Expires: 11/13/2025 documented as of this encounter Visit Diagnoses Diagnosis Traumatic complete tear of right rotator cuff, initial encounter- Primary S/P right rotator cuff repair documented in this encounter Care Teams Car Ferry Captain Relationship Specialty Start Date End Date Amaury Bonner MD [address] [place] [address] PCP - General 02/27/08 Cady Urena PA [address] [place] [address] DR [address] [place] [address] Physician Evp Head Of [employer] Experience Strategy Orthopedic Surgery 09/29/24 documented as of this encounter
--- OUTSIDE RECORDS SUMMARY | 2024-11-23 03:09 | XMS_ITS | Encounter Summary ---
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 Gender Identity Male 06/02/2024 7:40 AM CDT Sexual Orientation Straight 06/02/2024 7: 40 AM CDT documented as of this encounter Plan of Treatment Not on file documented as of this encounter Procedures Procedure Name Priority Date/Time Associated Diagnosis Comments SCAN - OTHER ORDERS 11/13/2024 documented in this encounter Results * SCAN - OTHER ORDERS (11/13/2024) us Provider Scanning Final Result documented in this encounter Visit Diagnoses Not on filedocumented in this encounter Care Teams Security Tester Relationship Specialty Start Date End Date Amaury Bonner MD [address] [place] [address] PCP - General 02/27/08 Cady Urena PA [address] [place] [address] [address] [place] [address] Physician Languages And Literature Instructor Orthopedic Surgery 09/29/24 documented as of this encounter
--- OUTSIDE RECORDS SUMMARY | 2024-11-23 03:09 | XMS_ITS | Encounter Summary ---
Author Organization [facility] Address [address] [place] [address] Phone Care Team Providers Care Pot Room Tapper Name Role Phone Amaury Bonner MD Primary Care Provider [phone] Cady Urena Unavailable [phone] Reason for Visit * Reason Onset Date Comments Scheduling 11/16/2024 Encounter Details Date Type Department Care Team (Late st Contact Info) Description 11/16/[address] 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 Higuera. He is dealing with a possible torn rotator cuff s/p surgery (repeat) and has a f/u appt with his surgeon coming up. He will let us know what he decides to do. He also states that he is due for a screening colonoscopy and will have his report faxed over from his last procedure for our records. He will call back with how he wishes to proceed. ----- Message from Nurse Jemima Shukla sent at 11/02/2024 7:56 AM FARM MANAGER ----- Regarding: FW: Repeat egd 3 years VK ----- Message ----- From: Jemima Hinkle RN Sent: 11/02/2024 12:00 AM FARM MANAGER To: [facility] Pool Subject: Repeat egd 3 years VK Derick Higuera MD Reyes Genere, Juan Pablo, MD; Jemima Hinkle RN Cc: Ashlee Naranjo RN Thanks, Repeat egd 3 years MANAGER MANAGER documented in this encounter Plan of Treatment Not on file documented as of this encounter Visit Diagnoses Not on filedocumented in this encounter Care Teams Pot Room Tapper Relationship Specialty Start Date End Date Amaury Bonner MD [address] [place] [address] PCP - General 02/27/08 Cady Urena PA [address] [place] [address] [place] [address] Physician Hack Saw Operator Orthopedic Surgery 09/29/24 documented as of this encounter
--- OUTSIDE RECORDS SUMMARY | 2024-11-23 03:09 | XMS_ITS | Encounter Summary ---
Author Organization [facility] Healthcare Address [address] [place] [address] Care Team Providers Care Stage Producer Name Role Phone Amaury Bonner MD Primary Care Provider + [phone] Cady Urena Unavailable [phone] Encounter Details Date Type Department Care Team (Late st Contact Info) Description 11/12/2024 9:40 AM LABOR RELATIONS OFFICER Ancillary Procedure [facility] Medical Group Imaging at [address] [address] Social History Tobacco Use Types Packs/Day Years [...] on file Legal Sex Male 7:48 PM LABOR RELATIONS OFFICER Gender Identity Male 06/02/2024 7:40 AM CDT Sexual Orientation Straight 06/02/2024 7: 40 AM CDT documented as of this encounter Plan of Treatment Not on file documented as of this encounter Procedures Procedure Name Priority Date/Time Associated Diagnosis Comments XR SHOULDER RIGHT 2 OR MORE VIEWS Schedule Routine, Read Routine (OP Routine) 11/12/2024 9:46 AM LABOR RELATIONS OFFICER Traumatic complete tear of right rotator cuff, initial encounter S/P right rotator cuff repair documented in this encounter Results * XR Shoulder Right 4 Views (11/12/2024 9:46 AM LABOR RELATIONS OFFICER) Anatomical Region Laterality Modality Upper Extremities, Shoulder Right Digi misbah Radiography Narrative 11/17/2024 8:59 AM LABOR RELATIONS OFFICER X-rays of the right shoulder are viewed and interpreted in clinic today and demonstrate no fracture, subluxation or destructive lesions. ??Status post subacromial decompression and distal clavicle excision changes noted. [facility] IM[facility] XR PROCEDURES Final Result documented in this encounter Visit Diagnoses Not on filedocumented in this encounter Care Teams Stage Producer Relationship Specialty Start Date End Date Amaury Bonner MD [address] [place] [address] PCP - General 02/27/08 Cady Urena PA [address] [place] [address] [address], [place] [address] Physician Director Of Engineering Orthopedic Surgery 09/29/24 documented as of this encounter
--- OUTSIDE RECORDS SUMMARY | 2024-11-23 03:09 | XMS_ITS | Referral Summary ---
Author Organization [facility] [address] Address [address] [place] [address] Care Team Providers Care Hand Candle Dipper Name Role Phone Amaury Bonner MD Primary Care Provider + [phone] Cady Urena Unavailable [phone] Encounters Date Type Department Care Team Description 11/20/2024 11:00 AM MOLDER MACHINE Therapy [facility] Physical Therapy [address] 1st [address] [place] [address] Ryland Farris DPT S/P right rotator cuff repair (Primary Dx); Right shoulder pain, unspecified chronicity 11/16/2024 Telephone [facility] Gastroenterology [address] [place] [address] Medical Office Building [address], [address] [place] [address] Jemima Hinkle RN Scheduling 11/13/2024 Telephone [facility] Orthopedic and Sports Medicine [address] [place] [phone] Cady Urena PA 11/13/2024 Orders Only [facility] Health Information Management [address] [place] [address] Scanning, Provider 11/13/2024 Orders Only [facility] Medical [facility] Orthopedic and Sports Medicine [address] [place] [phone] Cady Urena PA Traumatic complete tear of right rotator cuff, initial encounter (Primary Dx); S/P right rotator cuff repair 11/13/2024 11:00 AM MOLDER MACHINE Therapy [facility] Physical Therapy [address] [place] [address] Floor [address] [place] [phone] Ryland Farris DPT S/P right rotator cuff repair (Primary Dx); Right shoulder pain, unspecified chronicity 11/12/2024 9:40 AM MOLDER MACHINE Ancillary Procedure [facility] at [address] [phone] 11/12/2024 8:45 AM MOLDER MACHINE Office Visit [facility] Orthopedic and Sports Medicine [address] [place] [phone] Cady Urena PA Traumatic complete tear of right rotator cuff, initial encounter (Primary Dx); S/P right rotator cuff repair 11/11/2024 8:30 AM MOLDER MACHINE Therapy [facility] Physical [address] Floor [address] [place] [phone] Sadi Caba DPT S/P right rotator cuff repair (Primary Dx); Right shoulder pain, unspecified chronicity 11/05/2024 Plan of Care Documentation [facility] Physical Therapy [address] [place] [address] Floor [address] [place] [phone] 11/04/2024 8:30 AM MOLDER MACHINE Therapy [facility] Physical [address] Floor [address] [place] [phone] Sadi Caba DPT S/P right rotator cuff repair (Primary Dx); Right shoulder pain, unspecified chronicity 10/28/2024 Telephone [facility] Orthopedics and Sports Medicine [address] [place] [phone] Marilou Reagan MA 10/19/2024 Orders Only [facility] Orthopedics and Sports Medicine [address] [place] [phone] Cady Urena PA S/P right rotator cuff repair (Primary Dx); Right shoulder pain, unspecified chronicity 10/15/2024 Orders Only [facility] Orthopedics and Sports Medicine [address] [place] [address] [address] [place] [address] Alexander Burden MD S/P right rotator cuff repair (Primary Dx) 10/15/2024 Telephone [facility] Orthopedics and Sports Medicine [address] [place] [address] [address] [place] [address] Alexander Burden MD 10/13/2024 9:15 AM MOLDER MACHINE Office Visit [facility] Orthopedic and Sports Medicine [address] [place] [phone] Cady Urena PA S/P right rotator cuff repair (Primary Dx) 10/02/2024 Telephone [facility] Orthopedics and Sports Medicine [address] [place] [address] [address] [place] [address] Alexander Burden MD RTW Note 09/30/2024 Telephone [facility] Orthopedics and Sports Medicine [address] [place] [address] [address] [place] [address] Haider Burrows, ATC 09/29/2024 10:40 AM CDT - 09/29/2024 12:50 PM CDT Surgery [facility] Operating Room [address] [place] [address] Alexander Burden MD Right shoulder arthroscopy distal claviculectomy including distal articular surface, decompression of subacromial space with partial acromioplasty with coracoacromial release, rotator cuff repair and biceps tenodesis 09/29/2024 10:12 AM CDT Anesthesia Event [facility] [address] [place] [address] Diego Vela MD 09/29/2024 8:03 AM CDT - 09/29/2024 3:24 PM CDT Hospital Encounter [facility] Operating [facility] [address] [place] [address] Alexander Burden MD Biceps tendinitis on right (Primary Dx); Arthritis of right acromioclavicular joint; Traumatic tear of right rotator cuff, initial encounter Discharge Disposition: Discharge to home or self care 09/24/2024 Orders Only [facility] Orthopedics and Sports Medicine [address] [facility] [address] [place] [address] Alexander Burden MD Traumatic complete tear of right rotator cuff, initial encounter (Primary Dx); Arthritis of right acromioclavicular joint; Biceps tendinitis of right upper extremity 09/18/2024 Telephone [facility] Orthopedic and Sports Medicine [address] [place] [phone] Alexander Burden MD Surgical Clearance 09/18/2024 8:50 AM CDT Ancillary Procedure [facility] at [address] [phone] Right shoulder pain, unspecified chronicity 09/18/2024 Orders Only [facility] Orthopedic [facility] Sports Medicine [address] [place] [phone] Alexander Burden MD Right shoulder pain, unspecified chronicity (Primary Dx); S/P arthroscopy of right shoulder 09/18/2024 8:45 AM CDT Office Visit [facility] Orthopedic and Sports Medicine [address] [place] [phone] Alexander Burden MD Traumatic complete tear of right rotator cuff, initial encounter (Primary Dx); Right shoulder pain, unspecified chronicity; Arthritis of right acromioclavicular joint; Biceps tendinitis of right upper extremity from Last 3 Months Allergies No known active allergies Medications atorvastatin (LIPITOR) 40 mg tablet Take 1 tablet (40 mg total) by mouth daily [address] (PROTONIX) 40 mg EC tablet TAKE 1 TABLET (40 MG TOTAL) BY MOUTH DAILY 90 tablet 3 3 Active clonazePAM (KlonoPIN) 1 mg tablet Take 1 tablet (1 mg total) by mouth nightly 4 Active ascorbic acid (VITAMIN C) 500 mg tablet,chewable Take 1 tablet/chew tab (500 mg total) by mouth 2 (two) times a day 60 tablet/chew tab 4 Active cholecalciferol (VITAMIN D-3) 2000 unit capsule Take 1 capsule (2,000 Units total) by mouth daily 30 capsule 4 Active ondansetron (ZOFRAN) 4 mg tabletIndicatio ns:Prevention of Post-Operative Nausea and Vomiting Take 1 tablet (4 mg total) by mouth every 6 (six) hours as needed for nausea or vomiting 30 tablet 1 4 Active oxyCODONE-aceta minophen (PERCOCET) 5-325 mg per tabletIndicatio ns:Pain Take 1-2 tablets by mouth every 4 (four) hours as needed for pain 33 tablet 4 Active senna-docusate (PERICOLACE) 8.6-50 mg Take 1 tablet by mouth 2 (two) times a day as needed for constipation 30 tablet 1 4 Active Active Problems Problem Noted Date Diagnosed Date Traumatic tear of right rotator cuff, initial en counter 09/23/2024 Arthritis of right acromioclavicular joint 09/23 Biceps tendinitis on right 09/23/2024 Anxiety disorder 05/26/2024 Overview (06/09/2024): To help me and be able to sleep when my is at work. Assessment & Plan (06/24/2024 2:24 PM CDT): Pt will decrease his symptoms of anxiety by at least 50 percent and improve his relationship with others by learning at least 3-4 new CBT and DBT skills by the end of the 16 sessions or sooner. Assessment & Plan (06/09/2024 5:13 PM CDT): Pt will decrease his symptoms of anxiety by at least 50 percent and improve his relationship with others by learning at least 3-4 new CBT and DBT skills by the end of the 16 sessions or sooner. Dysphagia 12/05/2021 Overview (12/05/2021): Added automatically from request for surgery [id number] Gastroesophageal reflux disease without esophagi tis 09/01/2019 Overview (09/01/2019): Added automatically from request for surgery [id number] Gastroesophageal reflux disease 10/13/2013 Otto's esophagus 10/13/2013 Social History Tobacco Use Types Packs/Day Years [...] on file Legal Sex Male 7:48 PM MOLDER MACHINE Gender Identity Male 06/02/2024 7:40 AM CDT Sexual Orientation Straight 06/02/2024 7: 40 AM CDT Last Filed Vital Signs Vital Sign Reading Time Taken Comments Blood Pressure 125/84 11/12/2024 8:50 AM MOLDER MACHINE Pulse 56 11/12/2024 8:50 AM MOLDER MACHINE Temperature 36.2 ??C (97.1 ??F) 09/29/2024 3:09 PM CD T Respiratory Rate 16 09/29/2024 3:09 PM CDT Oxygen Saturation 98% 09/29/2024 3:09 PM CDT Inhaled Oxygen Concentration - - Weight 109.3 kg (241 lb) 11/12/2024 8:50 AM MOLDER MACHINE Height 180.3 cm (5' 11 ) 11/12/2024 8:50 AM MOLDER MACHINE Body Mass Index 33.61 11/12/2024 8:50 AM MOLDER MACHINE Plan of Treatment Not on file Medical Devices Implanted Type Area Bar Pointer Device Identifier Shelf Expiration Date Model / Serial / Lot [employer] Suture [place] Double Loaded Knotless Fibertak 2.6mm Ar-[id number] - [id number] Implanted:Qty : 1 on 09/29/2024 by Alexander Burden MD at [facility] Right: Shoulder [employer] [id number] 05/31/2028 AR-[id number] / / [id number] [employer] Swivelock C 4.75mm 19.1mm Closed Eyelet Vent [place] Suture Ar-2324bcc - [id number] Implanted:Qty : 1 on 09/29/2024 by Alexander Burden MD at [facility] Right: Shoulder [employer] 05/31/2028 AR-[id number] / / [id number] [employer] Swivelock C 4.75mm 19.1mm Closed Eyelet Vent [place] Suture Ar-2324bcc - [id number] Implanted:Qty : 1 on 09/29/2024 by Alexander Burden MD at [facility] Right: Shoulder [employer] 03/31/2028 AR-[id number] / / [id number] Procedures Procedure Name Priority Date/Time Associated Diagnosis Comments SCAN - OTHER ORDERS 11/13/2024 XR SHOULDER RIGHT 2 OR MORE VIEWS Schedule Routine, Read Routine (OP Routine) 11/12/2024 9:46 AM MOLDER MACHINE Traumatic complete tear of right rotator cuff, initial encounter S/P right rotator cuff repair [place] AN ELECTIVE ENDOTRACHEAL AIRWAY Routine 09/29/2024 10:41 AM CDT ARTHROSCOPY SHOULDER 09/29/2024 9:52 AM CDT Traumatic tear of right rotator cuff, initial encounter Arthritis of right acromioclavicular joint Biceps tendinitis on right Special Needs on q pain pump, tenodesis--arthroscopy equipment, Daniel/Nephew vapor, Breg Sling Shot 2 Sling with abduction pillow, NMES, Daniel/Nephew anchors, Spider, Arthrex anchors, beach chair, polar care, biceps tenodesis set Arthrex on hold, Arthroflex graft on h old ANESTHESIA PERIPHERAL BLOCK Routine 09/29/2024 9:24 AM CDT XR SHOULDER RIGHT 2 OR MORE VIEWS Schedule Routine, Read Routine (OP Routine) 09/18/2024 8:49 AM CDT Right shoulder pain, unspecified chronicity from Last 3 Months Results * SCAN - OTHER ORDERS (11/13/2024) us Provider Scanning Final Result * XR Shoulder Right 4 Views (11/12/2024 9:46 AM MOLDER MACHINE) Anatomical Region Laterality Modality Upper Extremities, Shoulder Right Digi misbah Radiography Narrative 11/17/2024 8:59 AM MOLDER MACHINE X-rays of the right shoulder are viewed and interpreted in clinic today and demonstrate no fracture, subluxation or destructive lesions. ??Status post subacromial decompression and distal clavicle excision changes noted. Cady FOX IMG XR PROCEDURES Final Result * [place] AN ELECTIVE ENDOTRACHEAL AIRWAY (09/29/2024 10:41 AM CDT) Narrative Rosa Braun CRNA - 09/29/2024 10:41 AM CDT Rosa Braun CRNA ? 09/29/2024 10:41 AM Airway Patient location: OR Urgency: elective Indications for airway management: anesthesia Difficult airway: no Staff: Placed by: TOUR COUNSELOR: Rosa Braun CRNA Emergent airway documentation: Risks and benefits discussed: yes Consent obtained: yes Consent given by: patient Airway prep: Preoxygenated: yes Mask difficulty assessment: 1 - vent by mask Spontaneous ventilation during airway: absent Sedation level during airway: GA Final airway details: Final airway type: endotracheal airway Tube type: ETT ETT size: 7.0 mm Cuffed: yes Technique used for successful ETT placement: direct laryngoscopy Insertion site: oral Blade type: Valdez Blade size: 2 Cormack-Lehane (direct): grade I - full view of glottis Cuff volume: 6 mL Cuff inflated with: air ETT to lips: 22 cm Placement verified by: auscultation and CO2 detection Airway secured with: silk tape Number of attempts: 1 us Diego Vela MD ANESTHESIA ORDERABLES Daija l Result * BW IP ANE LDA PERIPHERAL NERVE CATHETER (09/29/2024 9:24 AM CDT) Narrative Diego Vela MD - 09/29/2024 9:24 AM CDT Diego Vela MD ? 09/29/2024 ??9:27 AM Peripheral Block Patient location during procedure: block room End time: 09/29/2024 9:15 AM Reason for block: post-op pain management per surgeon request Ultrasound image in chart or stored: yes Block type: catheter continuous infusion Laterality: right Block type: brachial plexus - interscalene Staff: Placed by: Anesthesiologist: Diego Vela MD Procedure prep: Preprocedure checklist: patient identified, procedure contraindications assessed, site marked, procedure consent, surgical consent, IV checked, risks, benefits and alternatives discussed, monitors and equipment checked and timeout performed Patient position: sitting Procedure performed while patient: sedate with meaningful contact Monitoring: ECG, oximetry and blood pressure Supplemental O2: nasal cannula Prep solution: chlorhexidine/alcohol PPE: provider hat/mask, sterile gloves, sterile drape and sterile probe cover and gel Skin infiltrated with lidocaine 1%: yes Peripheral nerve block: Technique: ultrasound guided Needle type: insulated and Tuohy Needle gauge: 18 G Needle length: 100 mm Injection assessment: injection made incrementally with constant monitoring, local visualized surrounding nerve on ultrasound, negative aspiration for heme, no paresthesias noted and see flowsheet for medication details Catheter: Catheter type: 20g non-stimulating catheter Needle depth at target: 6 cm Catheter depth at skin: 6 cm Catheter placement details: catheter position confirmed by ultrasound, no aspiration of heme, steri-strips, dermal adhesive and occlusive dressing applied Assessment: Block success: complete Events: patient tolerated procedure well with no complications Additional comments: 20 ml of 0.5% Bupivacaine with epi injected in divided doses through the needle and catheter around right brachial plexus in the inter scalene space. Diego Vela MD ANESTHESIA ORDERABLES Daija l Result * XR Shoulder Right 2 or More Views (09/18/2024 8:49 AM CDT) Anatomical Region Laterality Modality Upper Extremities, Shoulder Right Digi misbah Radiography Narrative 09/18/2024 9:09 AM CDT Fur view shoulder shows no fracture subluxation dislocation mild AC arthritis mild type 2 acromionX-ray of the shoulder are viewed and interpreted in clinic today. Axillary view demonstrate no fracture subluxation or dislocation. Alexander Burden MD IMG XR PROCEDURES Final Resu lt from Last 3 Months [id number] [employer] [id number] [place] [address] [place] [address] Advance Directives For more information, please contact: [phone] * Full Code (Latest Code Status on File) Date Activated Date Inactivated Comments 10/02/2019 12:10 PM 10/02/2019 5:23 PM Care Teams Hand Candle Dipper Relationship Specialty Start Date End Date Amaury Bonner MD [address] [place] [address] PCP - General 02/27/08 Cady Urena PA [address] [place] [address] DR JAMES [address] [place] [id number] Physician Director Acute Orthopedic Surgery 09/29/24
--- OUTSIDE RECORDS SUMMARY | 2024-11-23 03:09 | XMS_ITS | Clinical Summary ---
Author Organization [facility] Medical [facility] 2 Address [address] [facility] [place] [address] Care Team Providers Care Claims Adjuster Supervisor Name Role Phone Amaury Bonner MD Primary Care Provider + [phone] Cady Urena Unavailable [phone] Allergies No known active allergies Medications atorvastatin [...] hours as needed for pain 33 tablet Active senna-docusate (PERICOLACE) 8.6-50 mg Take 1 tablet by mouth 2 (two) times a day as needed for constipation 30 tablet 1 Active Active Problems Problem Noted Date Diagnosed [...] (12/05/2021): Added automatically from request for surgery [id number] Gastroesophageal reflux disease without esophagi tis 09/01/2019 Overview (09/01/2019): Added automatically from request for surgery [id number] Gastroesophageal reflux disease 10/13/2013 Otto's esophagus 10/13/2013 Encounters Date Type Department Care Team Description 11/20/2024 11:00 AM CO FOUNDER AND CTO Therapy [facility] Physical Therapy [address] Floor [address] [facility] [place] [address] Ryland Farris, DPT S/P right rotator cuff repair (Primary Dx); Right shoulder pain, unspecified chronicity 11/16/2024 Telephone [facility] Gastroenterology [address] [facility] Medical Office Building 4, [address] [place] [address] Jemima Hinkle, RN Scheduling 11/13/2024 11:00 AM CO FOUNDER AND CTO Therapy [facility] Physical Therapy [address] [facility] 1st Floor [address] [place] [phone] Ryland Farris, CARITOT S/P right rotator cuff repair (Primary Dx); Right shoulder pain, unspecified chronicity 11/13/2024 Telephone [facility] Orthopedic and Sports Medicine [address] [place] [phone] Cady Urena PA 11/13/2024 Orders Only [facility] Health Information Management 1 [place] [address] Scanning, Provider 11/13/2024 Orders Only [facility] Orthopedic and Sports Medicine [address] [place] [phone] Cady Urena PA Traumatic complete tear of right rotator cuff, initial encounter (Primary Dx); S/P right rotator cuff repair 11/12/2024 9:40 AM CO FOUNDER AND CTO Ancillary Procedure [facility] Imaging at [address] [address] 11/12/2024 8:45 AM CO FOUNDER AND CTO Office Visit [facility] Orthopedic [facility] Sports Medicine [address] [place] [phone] Cady Urena PA Traumatic complete tear of right rotator cuff, initial encounter (Primary Dx); S/P right rotator cuff repair 11/11/2024 8:30 AM CO FOUNDER AND CTO Therapy [facility] Physical Therapy [address] [facility] 1st Floor [address] [place] [phone] Sadi Caba DPT S/P right rotator cuff repair (Primary Dx); Right shoulder pain, unspecified chronicity 11/05/2024 Plan of Care Documentation [facility] Physical Therapy [address] [place] [address] 1st Floor [address] [place] [address] 11/04/2024 8:30 AM CO FOUNDER AND CTO Therapy [facility] Physical Therapy [address] [place] [address] Sadi Caba DPT S/P right rotator cuff repair (Primary Dx); Right shoulder pain, unspecified chronicity 10/28/2024 Telephone [facility] Orthopedics and Sports Medicine [address] [place] [address] [address] [place] [phone] Marilou Reagan MA 10/19/2024 Orders Only [facility] Orthopedics and Sports Medicine [address] [place] [address] [address] [place] [phone] Cady Urena PA S/P right rotator cuff repair (Primary Dx); Right shoulder pain, unspecified chronicity 10/15/2024 Orders Only [facility] Orthopedics and Sports Medicine [address] [place] [address] [address] [place] [phone] Alexander Burden MD S/P right rotator cuff repair (Primary Dx) 10/15/2024 Telephone [facility] and Sports Medicine [address] [place] [address] [address] [place] [address] Alexander Burden MD 10/13/2024 9:15 AM CO FOUNDER AND CTO Office Visit [facility] Orthopedic and Sports Medicine [address] [place] [phone] Cady Urena PA S/P right rotator cuff repair (Primary Dx) 10/02/2024 Telephone [facility] Sports Medicine [address] [place] [address] [address] [place] [address] Alexander uBrden MD RTW Note 09/30/2024 Telephone [facility] Sports Medicine [address] [place] [address] [address] [place] [phone] Haider Burrows, ATC 09/29/2024 10:40 AM CDT - 09/29/2024 12:50 PM CDT Surgery [facility] Operating Room 1 [place] [address] Alexander Burden MD Right shoulder arthroscopy distal claviculectomy including distal articular surface, decompression of subacromial space with partial acromioplasty with coracoacromial release, rotator cuff repair and biceps tenodesis 09/29/2024 10:12 AM CDT Anesthesia Event [facility] Operating Room 1 [place] [address] Diego Vela MD 09/29/2024 8:03 AM CDT - 09/29/2024 3:24 PM CDT Hospital Encounter [facility] Operating Room 1 [place] [address] Alexander Burden MD Biceps tendinitis on right (Primary Dx); Arthritis of right acromioclavicular joint; Traumatic tear of right rotator cuff, initial encounter Discharge Disposition: Discharge to home or self care 09/24/2024 Orders Only [facility] Orth[facility]ics and Sports Medicine [address] [facility] [address] [place] [address] Alexander Burden MD Traumatic complete tear of right rotator cuff, initial encounter (Primary Dx); Arthritis of right acromioclavicular joint; Biceps tendinitis of right upper extremity 09/18/2024 8:50 AM CDT Ancillary Procedure [facility] Medical [facility] Imaging at [address] [phone] Right shoulder pain, unspecified chronicity 09/18/2024 8:45 AM CDT Office Visit [facility] Orthopedic [facility] Sports Medicine [address] [place] [phone] Alexander Burden MD Traumatic complete tear of right rotator cuff, initial encounter (Primary Dx); Right shoulder pain, unspecified chronicity; Arthritis of right acromioclavicular joint; Biceps tendinitis of right upper extremity 09/18/2024 Telephone [facility] Medicine [address] [place] [phone] Alexander Burden MD Surgical Clearance 09/18/2024 Orders Only [facility] Medical [facility] Orthopedic and Sports Medicine [address] [place] [phone] Alexander Burden MD Right shoulder pain, unspecified chronicity (Primary Dx); S/P arthroscopy of right shoulder from Last 3 Months Surgical History Surgery Date Site/Laterality Comments TOOTH EXTRACTION CHOLECYSTECTOMY Medical History Medical History Date Comments HTN (hypertension) Eczema Asthma GERD (gastroesophageal reflux disease) HLD (hyperlipidemia) RLS (restless legs syndrome) Social History Tobacco Use Types Packs/Day Years [...] on file Legal Sex Male 7:48 PM CO FOUNDER AND CTO Gender Identity Male 06/02/2024 7:40 AM CDT Sexual Orientation Straight 06/02/2024 7: 40 AM CDT Obstetrics History Last Filed Vital Signs Vital Sign Reading Time Taken Comments Blood Pressure 125/84 11/12/2024 8:50 AM CO FOUNDER AND CTO Pulse 56 11/12/2024 8:50 AM CO FOUNDER AND CTO Temperature 36.2 ??C (97.1 ??F) 09/29/2024 3:09 PM CD T Respiratory Rate 16 09/29/2024 3:09 PM CDT Oxygen Saturation 98% 09/29/2024 3:09 PM CDT Inhaled Oxygen Concentration - - Weight 109.3 kg (241 lb) 11/12/2024 8:50 AM CO FOUNDER AND CTO Height 180.3 cm (5' 11 ) 11/12/2024 8:50 AM CO FOUNDER AND CTO Body Mass Index 33.61 11/12/2024 8:50 AM CO FOUNDER AND CTO Plan of Treatment Health Maintenance Due Date Last Done Comments Colon Cancer Screening-Colonoscopy 1971 Depression Screening 1971 Hepatitis C Screening 1971 Prostate Cancer Screening-PSA 1971 Hepatitis B Screening 1989 Regular Well Visit/Exam 18-64 1989 Covid-19 Vaccine (3 - 2023-2 5 season) 2024 03/24/2021, 02/24/2021 DTaP/Tdap/Td Vaccine (4 - Td or Tdap) 04/13/2032 04/13/2022, 12/01/2018, 09/22/2007 Pneumococcal vaccine <65 Aged Out 12/21/2021 No longer eligible based on patient's age to complete this topic Zoster Vaccine Completed 07/10/2022, 12/21/2021 Influenza Vaccine Completed 09/18/2024, 08/14/2017 Medical Devices Implanted Type Area Equipment Maintenance Tech Device Identifier Shelf Expiration Date Model / Serial / Lot [employer] Suture Esmond Double Loaded Knotless Fibertak 2.6mm Ar-3632sp - [id number] Implanted:Qty : 1 on 09/29/2024 by Alexander Burden MD at [facility] Right: Shoulder [employer] [id number] 05/31/2028 AR-[id number] / / [id number] [employer] Swivelock C 4.75mm 19.1mm Closed Eyelet Vent Esmond Suture Ar-2324bcc - [id number] Implanted:Qty : 1 on 09/29/2024 by Alexander Burden MD at [facility] Right: Shoulder [employer] 05/31/2028 AR-[id number] / / [id number] [employer] Swivelock C 4.75mm 19.1mm Closed Eyelet Vent Esmond Suture Ar-2324bcc - [id number] Implanted:Qty : 1 on 09/29/2024 by Alexander Burden MD at [facility] Right: Shoulder [employer] 03/31/2028 AR-2324BCC / / [id number] Procedures Procedure Name Priority Date/Time Associated Diagnosis Comments SCAN - OTHER ORDERS 11/13/2024 XR SHOULDER RIGHT 2 OR MORE VIEWS Schedule Routine, Read Routine (OP Routine) 11/12/2024 9:46 AM CO FOUNDER AND CTO Traumatic complete tear of right rotator cuff, initial encounter S/P right rotator cuff repair MI AN ELECTIVE ENDOTRACHEAL AIRWAY Routine 09/29/2024 10:41 [...] Results * SCAN - OTHER ORDERS (11/13/2024) Provider Scanning Final Result * XR Shoulder Right 4 Views (11/12/2024 9:46 AM CO FOUNDER AND CTO) Anatomical Region Laterality Modality Upper Extremities, Shoulder Right Digi misbah Radiography Narrative 11/17/2024 8:59 AM CO FOUNDER AND CTO X-rays of the right shoulder are viewed and interpreted in clinic today and demonstrate no fracture, subluxation or destructive lesions. ??Status post subacromial decompression and distal clavicle excision changes noted. Cady FOX IMG XR PROCEDURES Final Result * MI AN ELECTIVE ENDOTRACHEAL AIRWAY (09/29/2024 10:41 AM CDT) Narrative Rosa Braun CRNA - 09/29/2024 10:41 AM CDT Rosa Braun CRNA ? 09/29/2024 10:41 AM Airway Patient location: OR Urgency: elective Indications for airway management: anesthesia Difficult airway: no Staff: Placed by: DEGREASING SOLUTION RECLAIMER: Rosa Braun CRNA Emergent airway documentation: Risks [...] Resu lt from Last 3 Months Insurance [id number] [place] [address] EMPLOYEES [employer] CHOICE PLUS [employer] Advance Directives For more information, please contact: [phone] * Full Code (Latest Code Status on File) Date Activated Date Inactivated Comments 10/02/2019 12:10 PM 10/02/2019 5:23 PM Care Teams Claims Adjuster Supervisor Relationship Specialty Start Date End Date Amaury Bonner MD [address] [place] [address] PCP - General 02/27/08 Cady Urena PA [address] [place] [address] [place] [address] Physician Manufacturing Management Associate Orthopedic Surgery 09/29/24
--- OUTSIDE RECORDS SUMMARY | 2024-11-23 03:09 | XMS_ITS | Encounter Summary ---
Author Organization [facility] Healthcare Address [address] [place] [address] Care Team Providers Care Floor Tech Name Role Phone Amaury Bonner MD Primary Care Provider + [phone] Cady Urena Unavailable [phone] Reason for Visit * Reason Comments Post-op Encounter Details Date Type Department Care Team (Late st Contact Info) Description 11/12/2024 8:45 AM REGIONAL SALES ENGINEER Office Visit [facility] Orthopedic and Sports Medicine [address] [place] [phone] Cady Urena PA [address] [place] [address] [address] [place] [address] Traumatic complete tear of right rotator cuff, [...] on file Legal Sex Male 7:48 PM REGIONAL SALES ENGINEER Gender Identity Male 06/02/2024 7:40 AM CDT Sexual Orientation Straight 06/02/2024 7: 40 AM CDT documented as of this encounter Last Filed Vital Signs Vital Sign Reading Time Taken Comments Blood Pressure 125/84 11/12/2024 8:50 AM REGIONAL SALES ENGINEER Pulse 56 11/12/2024 8:50 AM REGIONAL SALES ENGINEER Temperature - - Respiratory Rate - - Oxygen Saturation - - Inhaled Oxygen Concentration - - Weight 109.3 kg (241 lb) 11/12/2024 8:50 AM REGIONAL SALES ENGINEER Height 180.3 cm (5' 11 ) 11/12/2024 8:50 AM REGIONAL SALES ENGINEER Body Mass Index 33.61 11/12/2024 8:50 AM REGIONAL SALES ENGINEER documented in this encounter Progress Notes * Cady Urena PA - 11/12/2024 8:45 AM CST Images from the original note were not included. Post-Op Visit Note HPI: Patient is 6 weeks s/p right shoulder arthroscopy with subacromial decompression, distal clavicle excision, biceps tenodesis, and full thickness rotator cuff repair. Pain is well controlled. Patient is currently taking OTC prn for pain. They report compliance with sling and HEP/activity recommendati ons. Patient notes he was doing well, until he recently slipped and fell down the steps. Notes he fell on the right side and had tweaked the arm when this happened, however this has since been improving. Of note, His PT was unfortunately accelerated early on. His initial therapy location did not receive the updated protocol, which had noted that there was a full-thickness repair done, secondary to intraoperative finding of full- thickness rotator cuff tear. Patient states he had expressed this to his treating therapist, but they had advised him to go ahead and discontinue his sling at 3 weeks, which he did. Vital signs: height is 180.3 cm (5' 11 ) and weight is 109.3 kg (241 lb). His blood pressure is 125/84 and his pulse is 56. Exam: Well approximated healing post operative portal holes. No erythema, draining, or signs of infection present. Neurovascular status is intact. Full AROM of elbow, wrist and hand. AROM: 80 flexion/scaption with compensation Angelo deformity noted right biceps. XR Shoulder Right 4 Views X-rays of the right shoulder are viewed and interpreted in clinic today and demonstrate no fracture, subluxation or destructive lesions. Status post subacromial decompression and distal clavicle excision changes noted. Assessment: Diagnosis Plan 1. Traumatic complete tear of right rotator cuff, initial encounter XR Shoulder Right 4 Views 2. S/P right rotator cuff repair XR Shoulder Right 4 Views Plan: Procedure, medications and post operative expectations reviewed with patient I discussed and reviewed with the patient in detail. In his more recent episode of falling, he had has obvious clinical signs of rupture of his tenodesis and I am also concerned about his rotator cuff. I am getting an MR arthrogram for confirmation. As far as his PT, We can go ahead and progress to the next phase to see if his strength and function improves. If he only partially tore his repair, we will likely continue with physical therapy for awhile to see what kind of strength and function we can achieve. We will follow up upon completion of the MR arthrogram. If repeat tear is noted I will have him seeDrEmory Burden. Questions were answered. Patient expressed full understanding and agreement of plan. Cady Urena PA-C Cosigned by Alexander Burden MD at 11/17/2024 11:17 AM REGIONAL SALES ENGINEER ONAL SALES ENGINEER ONAL SALES ENGINEER documented in this encounter Plan of Treatment Not on file documented as of this encounter Procedures Procedure Name Priority Date/Time Associated Diagnosis Comments XR SHOULDER RIGHT 2 OR MORE VIEWS Schedule Routine, Read Routine (OP Routine) 11/12/2024 9:46 AM REGIONAL SALES ENGINEER Traumatic complete tear of right rotator cuff, initial encounter S/P right rotator cuff repair documented in this encounter Results * XR Shoulder Right 4 Views (11/12/2024 9:46 AM REGIONAL SALES ENGINEER) Anatomical Region Laterality Modality Upper Extremities, Shoulder Right Digi misbah Radiography Narrative 11/17/2024 8:59 AM REGIONAL SALES ENGINEER X-rays of the right shoulder are viewed and interpreted in clinic today and demonstrate no fracture, subluxation or destructive lesions. ??Status post subacromial decompression and distal clavicle excision changes noted. Cady FOX IMG XR PROCEDURES Final Result documented in this encounter Visit Diagnoses Diagnosis Traumatic complete tear of right rotator cuff, initial encounter- Primary S/P right rotator cuff repair documented in this encounter Care Teams Floor Tech Relationship Specialty Start Date End Date Amaury Bonner MD [address] [place] [address] PCP - General 02/27/08 Cady Urena PA [address] [place] [address] DR JAMES [address] [place] [address] Physician Ld Teacher Orthopedic Surgery 09/29/24 documented as of this encounter
--- OUTSIDE RECORDS SUMMARY | 2024-11-23 03:10 | XMS_ITS | Encounter Summary ---
Author Organization [facility] Healthcare Address [address] [place] [address] Care Team Providers Care Auction Block Clerk Name Role Phone Amaury Bonner MD Primary Care Provider + [phone] Cady Urena PA Unavailable [phone] Reason for Referral * Consultation (Routine) - Canceled Specialty Diagnoses / Procedures Referred By Contac t Referred To Contact Physical Therapy Diagnoses S/P right rotator cuff repair Alexander Burden MD [address] [place] [address] DR MARY Power [address] [address] Phone: tel: fax: [facility] (All Locations) Referral ID Status Reason Start Date Expiration Date V isits Requested Visits Authorized [id number] Canceled Evaluate and Treat 10/15/2024 11/14/2025 24 24 Question Answer PTRFR PT Evaluate and Treat Therapy options discussed with patient? Yes Location provided for therapy services is: Patient requested/Patient preferred Please select the performing region: [facility] (All Locations) [[id number]] # of visits: 24 Comments [facility] Physical Therapy-[address] [facility] ROTATOR CUFF REPAIR REHABILITATION PROTOCOL Procedure details: Surgery Date: 09/29/2024 2-3 times per week for 6-12 weeks; Please call patient to schedule start date the week of 10/26/24 Please evaluate and treat according to the following protocol: ADDITIONAL INSTRUCTIONS: For all PT reports that require a signature-please fax to [phone] PHASE I: (Weeks 0-1) GOALS: Protect rotator cuff repair Control pain and swelling SLING: Sling immobilization with abduction pillow at all times except for bathing and exercises WEIGHT BEARING: Non-weight bearing EXERCISES: Active range of motion elbow, wrist, and hand Building Supervisor strengthening Shoulder pendulums PHASE II: (Weeks 1-6) [...] 60-80?? without rotation NO IR/behind the back Building Supervisor strengthening NO CARLEY/Canes until week 6 No [...] before PT and ice after PT PHASE IV: (Mos 3- Month 12) GOALS: Progress strengthening Return to sport progression EXERCISES: Advance to full ROM as tolerated with passive stretching at end ranges Advance strengthening as tolerated Resistance bands - light weights (1-5 lbs.)8-12 reps/2-3 sets for rotator cuff, deltoid, and scapular stabilizers May advance scapular strength, biceps, triceps and initiate close chain activities Limit strengthening to 3x/week to avoid cuff tendinitis Begin eccentrically resisted motions, plyometrics (weighted ball toss), and proprioception (body blade) Begin sports related rehab at 4 1/2 months, including advanced conditioning Return to throwing at 6 months Collision sports at 9 months Maximal medical improvement is usually at 10 to 12 months Alexander Burden MD RTISING TRAFFIC MANAGER Encounter Details Date Type Department Care Team (Late st Contact Info) Description 10/15/[address] [facility] Medical Group Orthopedics and Sports Medicine [address] [facility] [address] [place] [phone] Alexander Burden MD [address] [place] [address] [address] [place] [address] S/P right rotator cuff repair (Primary Dx) Social History Tobacco Use Types Packs/Day Years [...] on file Legal Sex Male 7:48 PM ADVERTISING TRAFFIC MANAGER Gender Identity Male 06/02/2024 7:40 AM CDT Sexual Orientation Straight 06/02/2024 7: 40 AM CDT documented as of this encounter Plan of Treatment Scheduled Referrals Name Type Priority Associated Diagnoses Order Schedule Ambulatory referral order to Physical Therapy - Outpatient Referral Routine S/P right rotator cuff repair Expected: 10/29/2024 (Approximate), Expires: 10/15/2025 documented as of this encounter Visit Diagnoses Diagnosis S/P right rotator cuff repair- Primary documented in this encounter Care Teams Auction Block Clerk Relationship Specialty Start Date End Date Amaury Bonner MD [address] [place] [address] PCP - General 02/27/08 Cady Urena PA [address] [facility] [address] [place] [address] Physician Roustabout Hand Orthopedic Surgery 09/29/24 documented as of this encounter
--- OUTSIDE RECORDS SUMMARY | 2024-11-23 03:10 | XMS_ITS | Encounter Summary ---
Author Organization [facility] Healthcare Address [address] [place] [address] Care Team Providers Care Pharmacognosy Teacher Name Role Phone Amaury Bonner MD Primary Care Provider [phone] Reason for Referral * Consultation (Routine) - Pending Review Specialty Diagnoses / Procedures Referred By Jaquelin t Referred To Contact Physical Therapy Diagnoses S/P arthroscopy of right shoulder Alexander Burden MD [address] [place] [address] DR MARY Power [address] [address] Phone: tel: fax: [facility] [address] [place] [phone] Phone: tel: fax: Referral ID Status Reason Start Date Expiration Date Visits Requested Visits Authorized [id number] Pending Review Evaluate and Treat 10/18/2025 18 18 Question Answer PTRFR PT Evaluate and Treat Therapy options discussed with patient? Yes Location provided for therapy services is: Patient requested/Patient preferred Please select the performing region: External Order [171] To loc/pos [facility] [[id number]] # of visits: 18 Comments [facility]. Mp George 1970 DOS: 09/29/2024 2-3 times per week for 6 weeks Please call patient to schedule first post-op appointment for 5-7 days after surgery. Additional Notes: For first 2 weeks, please progress Shoulder PROM as tolerated during initial phase. Patient may progress through AAROM and AROM following first 2 weeks post-operative at therapist discretion and as patient can tolerate. BICEPS TENODESIS PROTOCOL Phase I - Passive Range of Motion Phase (starts approximately post op weeks 1-2) Goals: Minimize shoulder pain and inflammatory response Achieve gradual orthodoxy of passive range of motion (PROM) Enhance/ensure adequate scapular function Precautions/Patient Education: No active range of motion (AROM) of the elbow No excessive external rotation range of motion (ROM) / stretching. Stop when you feel the first end feel. Use of a sling to minimize activity of biceps Andrea wrap upper forearm as needed for swelling control No lifting of objects with operative shoulder Keep incisions clean and dry No friction massage to the proximal biceps tendon / tenodesis site Patient education regarding limited use of upper extremity despite the potential lack of or minimal pain or other symptoms Activity: Shoulder pendulum hang exercise PROM elbow flexion/extension and forearm supination/pronation AROM wrist/hand Begin shoulder PROM all planes to tolerance / do not force any painful motion Scapular retraction and clock exrcises for scapula mobility progressed to scapular isometric exercises Ball squeezes Sleep with sling as needed supporting operative shoulder, place a towel under the elbow to prevent shoulder hyperextension Frequent cryotherapy for pain and inflammation Patient education regarding postural awareness, joint protection, positioning, hygiene, etc. 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 Phase II - Active Range of Motion Phase (starts approximately post op week 4) Goals: Minimize shoulder pain and inflammatory response Achieve gradual orthodoxy of AROM Begin light waist level functional activities Wean out of sling by the end of the 2-3 postoperative week Precautions: One pound (1lb) weight restriction with upper extremity No friction massage to the proximal biceps tendon / tenodesis site Activity: Progress shoulder PROM to active assisted range of motion (AAROM) and AROM all planes to tolerance Active elbow flexion/extension and forearm supination/pronation (no resistance) Cross body adduction stretch Side lying internal rotation stretch (sleeper stretch) Continued Cryotherapy for pain and inflammation Continued patient education: posture, joint protection, positioning, hygiene, etc. Phase III - Strengthening Phase (starts approximately post op week 6-8) Goals: Normalize strength, endurance, neuromuscular control Return to chest level full functional activities Precautions: Five pound (5lb) weight restriction with upper extremity Do not perform strengthening or functional activities in a given plane until the patient has near full ROM and strength in that plane of movement Activity: Continue A/PROM of shoulder and elbow as needed/indicated Initiate biceps curls with light resistance, progress as tolerated Initiate resisted supination/pronation Begin rhythmic stabilization drills External rotation (ER) / internal rotation (IR) in the scapular plane Flexion/extension and abduction/adduction at various angles of elevation Initiate balanced strengthening program Exercises should be progressive in terms of muscle demand / intensity, shoulder elevation, and stress on the anterior joint capsule Initiate full can scapular plan raises with good mechanics Initiate IR/ER strengthening using exercise tubing at 30 degrees of abduction (use towel roll) Initiate prone rowing Push up plus (wall, counter, knees on the floor, floor) Cross body diagonals with resistive tubing Continued cryotherapy for pain and inflammation as needed Phase IV - Advanced Strengthening Phase (starts approximately post op week 10) Goals: Continue stretching and PROM as needed/indicated Maintain full non-painful AROM Return to full strenuous work activities Return to full recreational activities Precautions: Avoid excessive anterior capsule stress With weight lifting, avoid press and wide powder compounder bench press Activity: Continue all exercises listed above Progress isotonic strengthening if patient demonstrates no compensatory strategies, is not painful, and has no residual soreness Strengthening overhead if ROM and strength below 90 degree elevation is good Continue shoulder stretching and strengthening at least four times per week Progressive return to upper extremity weight lifting program emphasizing the larger, primary upper extremity muscles (deltoid, latissimus dorsi, pectoralis major) May initiate pre injury level activities / vigorous sports if appropriate / cleared by MD Encounter Details Date Type Department Care Team (Late st Contact Info) Description 09/18/2024 Orders Only [facility] Medical Group Orthopedic and Sports Medicine [address] [place] [phone] Alexander Burden MD [address] [place] [address] DR [address]NA[address] [address] Right shoulder pain, unspecified chronicity (Primary Dx); S/P arthroscopy of right shoulder Social History Tobacco Use Types Packs/Day Years Used Date Smoking Tobacco: Never Smokeless Tobacco: Never Alcohol Use Standard Drinks/Week Comments Yes 0 (1 standard drink = 0.6 oz pur e alcohol) rarely AUDIT-C Answer Date Recorded Q1: How often do you have a drink containing alc ohol? Monthly or less 12/26/2021 Q2: How many drinks containi ng alcohol do you have on a typical day when you are drinking? 1 or 2 12/26/2021 Q3: How often do you have si x or more drinks on one occasion? 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 Gender Identity Male 06/02/2024 7:40 AM CDT Sexual Orientation Straight 06/02/2024 7: 40 AM CDT documented as of this encounter Plan of Treatment Scheduled Referrals Name Type Priority Associated Diagnoses Orde r Schedule Ambulatory referral order to Physical Therapy - Outpatient Referral Routine S/P arthroscopy of right shoulder Expected: 10/02/2024 (Approximate), Expires: 09/18/2025 documented as of this encounter Visit Diagnoses Diagnosis Right shoulder pain, unspecified chronicity- Primary S/P arthroscopy of right shoulder documented in this encounter Care Teams Pharmacognosy Teacher Relationship Specialty Start Date End Date Amaury Bonner MD [address] [place] [address] PCP - General 02/27/08 documented as of this encounter
--- OUTSIDE RECORDS SUMMARY | 2024-11-23 03:10 | XMS_ITS | Encounter Summary ---
Author Organization [facility] Healthcare Address [address] [place] [address] Care Team Providers Care Inspector And Hand Packager Name Role Phone Amaury Bonner MD Primary Care Provider + [phone] Cady Urena Unavailable [phone] Reason for Visit * Reason Onset Date Comments RTW Note 10/02/2024 Encounter Details Date Type Department Care Team (Late st Contact Info) Description 10/02/2024 Telephone [facility] Medical Group Orthopedics and Sports Medicine [address] [facility] [address] [place] [address] Alexander Burden MD [address] [place] [address] [facility] [address] [place] [address] RTW Note Social History Tobacco Use Types Packs/Day Years [...] on file 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 D CARE GIVER * Telephone Encounter - Sugar Giang - 10/06/2024 9:16 AM CST Patient called to say that his work note needs the date of 10/05/24 and that he can work 4 hrs at a time. D CARE GIVER * Telephone Encounter - Wendy Lomax ATC - 10/02/2024 2:06 PM CDT Letter generated and made available via [employer]. Pt informed via [employer]. 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 He said he spoke with Dr Burden about it & would like to go back to work. Please call patient when letter is completed. He would like to RtW next week, if possible. [phone] documented in this encounter Plan of Treatment Not on file documented as of this encounter Visit Diagnoses Not on filedocumented in this encounter Care Teams Inspector And Hand Packager Relationship Specialty Start Date End Date Amaury Bonner MD [address] [place] [address] PCP - General 02/27/08 Cady Urena PA [address] [place] [address] DR JAMES [address] [place], [place] [address], [place] [address] Physician [facility] [employer] [facility] Orthopedic Surgery 09/29/24 documented as of this encounter
--- OUTSIDE RECORDS SUMMARY | 2024-11-23 03:10 | XMS_ITS | Encounter Summary ---
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 Gender Identity Male 06/02/2024 7:40 AM CDT Sexual Orientation Straight 06/02/2024 7: 40 AM CDT documented as of this encounter Plan of Treatment Not on file documented as of this encounter Procedures Procedure Name Priority Date/Time Associated Diagnosis Comments XR SHOULDER RIGHT 2 OR MORE VIEWS Schedule Routine, Read Routine (OP Routine) 09/18/2024 8:49 AM CDT Right shoulder pain, unspecified chronicity documented in this encounter Results * XR Shoulder Right 2 or More [...] MD IMG XR PROCEDURES Final Resu lt documented in this encounter Visit Diagnoses Diagnosis Right shoulder pain, unspecified chronicity documented in this encounter Care Teams Account Classification Clerk Relationship Specialty Start Date End Date Amaury Bonner MD [address] [place] [address] PCP - General 02/27/08 documented as of this encounter
--- OUTSIDE RECORDS SUMMARY | 2024-11-23 03:10 | XMS_ITS | Encounter Summary ---
Author Organization [facility] Healthcare Address [address] [place] [address] Care Team Providers Care Houseperson Name Role Phone Amaury Bonner MD Primary Care Provider + [phone] Cady Urena Unavailable [phone] Encounter Details Date Type Department Care Team (Late st Contact Info) Description 10/28/[address] [facility] Medical Group Orthopedics and Sports Medicine [address] [address] Marilou Reagan MA Social History Tobacco Use Types Packs/Day Years [...] on file Legal Sex Male 7:48 PM RDA Gender Identity Male 06/02/2024 7:40 AM CDT Sexual Orientation Straight 06/02/2024 7: 40 AM CDT documented as of this encounter Miscellaneous Notes * Telephone Encounter - Brooklyn Rodriguez MA - 10/28/2024 12:48 PM CST This has been sent through my chart * Telephone Encounter - Marilou Reagan MA - 10/28/2024 12:13 PM CST Patient called stating he needs work note to be in his my chart to retrieve. Thank you documented in this encounter Plan of Treatment Not on file documented as of this encounter Visit Diagnoses Not on filedocumented in this encounter Care Teams Houseperson Relationship Specialty Start Date End Date Amaury Bonner MD [address] [place] [address] PCP - General 02/27/08 Cady Urena PA [address] [place] [address] DR JAMES [address] [place] [address] Physician Heel Wheeler Orthopedic Surgery 09/29/24 documented as of this encounter
--- OUTSIDE RECORDS SUMMARY | 2024-11-23 03:10 | XMS_ITS | Encounter Summary ---
Author Organization [facility] Healthcare Address [address] [place] [address] Care Team Providers Care Commercial Sales Specialist Name Role Phone Amaury Bonner MD Primary Care Provider + [phone] Reason for Visit * Reason Comments Pain Encounter Details Date Type Department Care Team (Latest Contact Info) Description 09/18/2024 8:45 AM CDT Office Visit [facility] Medical Group Orthopedic and Sports Medicine [address] [place] [phone] Alexander Burden MD [address] [place] [address] DR HERNANDEZ [place] [id number] Traumatic complete tear of right rotator cuff, initial encounter (Primary Dx); Right shoulder pain, unspecified chronicity; Arthritis of right acromioclavicular joint; Biceps tendinitis of right upper extremity Social History Tobacco Use Types Packs/Day Years [...] on file 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 Gender Identity Male 06/02/2024 7:40 AM CDT Sexual Orientation Straight 06/02/2024 7: 40 AM CDT documented as of this encounter Last Filed Vital Signs Vital Sign Reading Time Taken Comments Blood Pressure 134/89 09/18/2024 8:48 AM CDT Pulse 79 09/18/2024 8:48 AM CDT Temperature - - Respiratory Rate - - Oxygen Saturation - - Inhaled Oxygen Concentration - - Weight 110.5 kg (243 lb 9.6 oz) 09/18/2024 8:48 AM CDT Height 184.2 cm (6' 0.5 ) 09/18/2024 8:48 AM CDT Body Mass Index 32.58 09/18/2024 8:48 AM CDT documented in this encounter Patient Instructions * Patient Instructions* Belle Cline MA - 09/18/2024 8:45 AM CDT Thank you for coming in today. Thomas , and I are thankful you have trusted us with your care,and hope that you receive EXCELLENT care today! Please do not hesitate to call if you have any questions or concerns at [phone] or send us a message via [employer]. You may receive a phone call or text asking about your care today and we would love to hear your input. We hope your visit was as exc ellent as possible and we look forward to continuing to provide you with excellent care. documented in this encounter Progress Notes * Alexander Burden MD - 09/18/2024 8:45 AM CDT Images from the original note were not included. NEW PATIENT VISIT Subjective CHIEF COMPLAINT He had concerns including Pain of the Right Shoulder. 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 . His pain is sharp and moderate. Bending his arm and lifting over shoulder makes it worse nothing makes it better his pain is unpredictable he has had exercise but no formal physical therapy had chiropractic ultrasound anti-inflammatories and a sling with no improvement his primary care physician ordered an MRI which showed a supraspinatus tendon tear he is here for surgical consultation Visitor Services Assistant completed by using M*Modal Fluency Direct speaking software, therefore, transcriptionvariances may occur. Pain Assessment Pain Assessment: 0-10 Pain Score: 6 Pain Location: Shoulder Pain Orientation: Right PAST MEDCIAL HISTORY He Past Medical History: Diagnosis Date Asthma Eczema GERD (gastroesophageal reflux disease) HTN (hypertension) PAST SURGICAL HISTORY He has a past surgical history that includes Tooth extraction. MEDICATIONS He has a current medication list which includes the following prescription(s): atorvastatin and pantoprazole ALLERGIES He has no known allergies. SOCIAL HISTORY He reports that he has never smoked. He has never used smokeless tobacco. He reports that he does not use drugs. Patient reports consuming alcoholic drinks monthly or less, with a daily consumption of drinks. Patient denies daily consumption of 6 or more alcoholic drinks at one occasion. FAMILY HISTORY His family history is not on file. REVIEW OF SYSTEMS Review of Systems Constitutional: Negative for activity change, appetite change, chills, fever and unexpected weight change. HENT: Negative for congestion, dental problem, ear pain, hearing loss, nosebleeds, tinnitus and voice change. Eyes: Negative for pain and visual disturbance. Respiratory: Negative for apnea, cough, chest tightness and shortness of breath. Cardiovascular: Negative for chest pain, palpitations and leg swelling. Gastrointestinal: Negative for blood in stool, constipation, diarrhea, nausea and vomiting. Endocrine: Negative for cold intolerance and heat intolerance. Genitourinary: Negative for difficulty urinating, hematuria and urgency. Skin: Negative for color change, rash and wound. Allergic/Immunologic: Negative for environmental allergies. Neurological: Negative for dizziness, syncope, numbness and headaches. Hematological: Negative for adenopathy. Does not bruise/bleed easily. Psychiatric/Behavioral: Negative for confusion. The patient is not nervous/anxious and is not hyperactive. Objective PHYSICAL EXAM BP 134/89 (BP Location: Right arm, Patient Position: Sitting) Pulse 79 Ht 184.2 cm (6' 0.5 ) Wt 110.5 kg (243 lb 9.6 oz) BMI 32.58 kg/m?? Right shoulder Inspection Erythema: absent Swelling: absent Skin temperature: normal AC joint deformity: present Surgical scar/wound: absent. Palpation Tenderness is present. The patient has tenderness in the lateral shoulder, acromioclavicular joint and biceps tendon area(s). Range of motion The patient has normal range of motion of the right shoulder. The patient has pain with range of motion of the right shoulder. Strength The patient has 5/5 strength throughout with exceptions as noted below. External rotation 4/5 Supraspinatus: 3/5 and painful Neurovascular The patient has normal vascular on the right side of his body. He has normal sensation on the right side of his body. Tests Belly press: negative Cross arm: positive Hawkin's test: positive Impingement signs: positive Amor's: positive Neer's: positive Speed's: positive Left shoulder The patient has normal inspection, palpation, range of motion, strength, and stability of the left shoulder. REVIEW OF X-RAYS/STUDIES/LABS XR Shoulder Right 2 or More Views Fur view shoulder shows no fracture subluxation dislocation mild AC arthritis mild type 2 acromionX-ray of the shoulder are viewed and interpreted in clinic today. Axillary view demonstrate no fracture subluxation or dislocation. Assessment/Plan Mp Cruz was seen today for pain. Diagnoses and all orders for this visit: Traumatic complete tear of right rotator cuff, initial encounter Right shoulder pain, unspecified chronicity - XR Shoulder Right 2 or More Views; Future Arthritis of right acromioclavicular joint Biceps tendinitis of right upper extremity Procedures PLAN I discussed the nature of the patient's condition in the clinic today. Patient demonstrates atrophyand weakness of the upper extremity and would benefit from home E stim device. We discussed arthroscopic rototor cuff repair, distal clavicle excision, with subacromial decompression, biceps tenodesis. Risks and benefits of the procedure were discussed the patient to include bleeding, infection, damage to surrounding structures including nerves and vessels, persistent stiffness, retear, and possible fracture. The patient understood these risks and agreed to proceed with surgery as described above and informed consent was established in the office today. ARTURO Santillan MD documented in this encounter Plan of Treatment Not on file documented as of this encounter Results * XR Shoulder Right [...] view demonstrate no fracture subluxation or dislocation. us Alexander Burden MD IMG XR PROCEDURES Final Resu lt documented in this encounter Visit Diagnoses Diagnosis Traumatic complete tear of right rotator cuff, initial encounter- Primary Right shoulder pain, unspecified chronicity Arthritis of right acromioclavicular joint Biceps tendinitis of right upper extremity Right shoulder pain, unspecified chronicity documented in this encounter Care Teams Commercial Sales Specialist Relationship Specialty Start Date End Date Amaury Bonner MD [address] [place] [address] PCP - General 02/27/08 documented as of this encounter
--- OUTSIDE RECORDS SUMMARY | 2024-11-23 03:10 | XMS_ITS | Encounter Summary ---
Author Organization [facility] Address [address] [place] [address] Phone Care Team Providers Care Correctional Classification Counselor Name Role Phone Amaury Bonner MD Primary Care Provider + [phone] Reason for Visit * Reason Comments Follow-up Psychotherapy Encounter Details Date Type Department Care Team (Late st Contact Info) Description 06/09/2024 12:00 PM CDT Telemedicine [facility] Department of Psychiatry 600 [facility] [address] [place] [address] Darlyn Blackwood LPC [address] [facility] [address] [place], [place] [id number] Anxiety disorder, unspecified type (Primary Dx) Social History Tobacco Use Types [...] on file 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 male who presented for a scheduled Bi-Weekly therapy session for anxiety related to his relationship. This is the patient's 2nd psychotherapy visit with the provider. This was a telemedicine visit with Mp George alone which took place via Real-time video connection ([employer], Zoom or similar). During the visit, I was located at home and the patient was located at home in the state [facility]. The patient visit started at 11:59 am and ended at 12:56 pm. The Patient has been informed that the visit may not be secure and acknowledged the information. After being given an opportunity to ask questions about and discuss this type of visit, they verbally consented to proceeding with the telephone/video visit and understand that this service replaces an office visit. Patient may also be referred to as Pt throughout this note. S:Patient Report/Update and Recent Stressors: Pt stated, Alright. We had one incident that sent me for a loop. Pt stated his aunt sent a drunken text to his but he didn't know who it was at the time. Pt stated the text said to meet at this bar. Pt reported his said she didn't know who it was. Pt reported he didn't believe her at first. Pt reported he had thoughts that his met someone. Pt stated, It just seemed like it was too close to home to be random. Pt reported it all goes back to his cheating on her with his co-worker that he kissed. Pt stated he now feels like his has reason to cheat on him and it seeking revenge . Pt stated he cheated due to lacking the support he needed at the time in the marriage. Pt st ated, It was almost like part of me wanted more attention. Pt reported his was home with [facility]. Pt stated he did have feelings for this other woman but he doesn't anymore. Pt stated he knewit wasn't what he had with his . Pt stated he has not gone to events that this co-worker will be at due to his not wanting him to. He stated now he wishes his would not go out with her f riends to bars or be out late due to his concerns. Pt stated his says she would never cheat onhim and that even if he dies she won't find anyone else. Pt stated it is hard for him to believe that. Mental Status Exam Orientation: appropriate for age, person, date, situation, and place General appearance and behavior: appears stated age, normal psychomotor activity, good eye contact,and cooperative Speech: appropriate for age and intelligible Flow of Thought: logical, sequential, and goal-directed Content of Thought: no auditory hallucinations, no visual hallucinations, no delusions, and no homicidal ideation, some ruminations related to his Mood: Anxious Affect: mood congruent and anxious Attention/Concentration: normal based on conversation/exam Memory: normal based on conversation/exam Insight: good Judgment: good Eye Contact: Maintained Eye Contact SI/HI: No SI/HI Interventions Provided During This Session: Therapist reviewed Pt's homework with him to write down any negative thoughts he had related to hiswife and what triggered it. Therapist provided empathetic listening. Therapist showed Pt how to complete a CBT thought record to challenge his negative thoughts. Therapist and Pt explored the underlying feelings of guilt that are associated with Pt's negative thoughts. Therapist encouraged Pt to practice the thought records. Plans for Homework and Next Session: Homework: practice thought records and complete questions related to guilt and forgiveness Next Session: two weeks Patient Response to Treatment: The patient's symptoms are unchanged since last session. Diagnosis Diagnosis Plan 1. Anxiety disorder, unspecified type Problem List Anxiety disorder - Primary Overview To help me and be able to sleep when my is at work. Current Assessment & Plan Pt will decrease his symptoms of anxiety by at least 50 percent and improve his relationship with others by learning at least 3-4 new CBT and DBT skills by the end of the 16 sessions or sooner. Date of Service: 06/09/2024 Start time: 11:59 am Stop time: 12:56 pm Total time: 57 minutes Darlyn Blackwood LPC documented in this encounter Miscellaneous Notes * Assessment & Plan Note - Darlyn Blackwood LPC - 06/09/2024 5:13 PM CDT Associated Problem(s): Anxiety disorder Pt will decrease his symptoms of anxiety by at least 50 percent and improve his relationship with others by learning at least 3-4 new CBT and DBT skills by the end of the 16 sessions or sooner. documented in this encounter Plan of Treatment Not on file documented as of this encounter Visit Diagnoses Diagnosis Anxiety disorder, unspecified type- Primary documented in this encounter Care Teams Correctional Classification Counselor Relationship Specialty Start Date End Date Amaury Bonner MD [address] [place] [address] PCP - General 02/27/08 documented as of this encounter
--- OUTSIDE RECORDS SUMMARY | 2024-11-23 03:10 | XMS_ITS | Encounter Summary ---
Author Organization [facility] Address [address] [place] [address] Phone Care Team Providers Care Spindle Carver Name Role Phone Amaury Bonner MD Primary Care Provider [phone] Reason for Visit * Reason Comments Initial Psychiatric Evaluation * Consultation (Routine) - Closed Specialty Diagnoses / Procedures Referred By Contac t Referred To Contact Diagnoses Therapy Referral, Self [facility] Department of Psychiatry [address] [address] Phone: tel: fax: Referral ID Status Reason Start Date Expiration Date V isits Requested Visits Authorized [id number] Closed Specialty Services Required 05/21/2024 11/20/2025 1 1 Encounter Details Date Type Department Care Team (Late st Contact Info) Description 05/26/2024 12:00 PM CDT Telemedicine [facility] Department of Psychiatry 600 [facility] [address] [place] [address] Darlyn Blackwood LPC [address] [facility] [address] [place] [address] Anxiety disorder, unspecified type (Primary Dx); Therapy Social History Tobacco Use Types Packs/Day Years [...] on file 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 male who presented for initial psychosocial diagnostic interview. Presenting Concerns Chief Complaint Patient presents with Initial Psychiatric Evaluation This was a telemedicine visit with Mp George alone which took place via Real-time video connection ([employer], [employer] or similar). During the visit, I was located at home and the patient was located at work in the state [facility]. The patient visit started at 12:18 pm and ended at 01:02 pm. The patient has been informed that the visit may not be secure and acknowledged the information. After being given an opportunity to ask questions about and discuss this type of visit, they verbally consented to proceeding with the telephone/video visit and understand that this service replaces an office visit. Patient presents for initial intake assessment reporting seeking services because, I have a huge trust issue and there was a situation coming up on Saturday that I had a hug problem with and it caused a rift with my and I. 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 He stated it started an emotional affair with her with a lot of texting and lunch dates. Pt reported the co-worker's found the texts and called Pt and it all came out. Pt reported he still works with this person. Pt reported he doesn't have any feelings for this woman anymore. Pt reported he worries about everything. He stated was so worried about mountain lions when he went hiking in [place] he carried a heavy stick. He stated he is over-prepared for everything. Pt reported he has been like this for a long time. Pt reported he worries when his is late that something bad happened to her. Pt reported his thinks he is trying to control her and she just chooses whatshe wants to do. Pt reported he didn't want her to go to a recent concert with her friends but she did anyway. He stated he didn't want her out late. He stated he doesn't trust her despite her not having cheated on him before. Pt stated, I don't think I trust anyone since Alexa (his ex-girlfriend). Pt reported he worries about his that travels a lot for work. Pt reported he worries about his daughter in college. He stated it affects his sleep. Pt reported he gets about 7 hours a sleep. He stated he wakes up around midnight a lot. Pt reported he was recently taking medication they gave him for sleep but he stopped taking it due to some side-effects. Pt reported his energy is good. Ptreported he works out and has lost 30 lbs recently. Pt reported he has an active job. Pt reported his appetite is good. Pt reported irritability. Pt reported his worry is hard to control and he pacesa lot. Pt reported a possible panic attack once at work a long time ago. Pt denied thoughts of worthlessness and hopelessness. Pt denied SI and HI. Mental Status Exam Appearance: within normal limits and well groomed Eye contact: within normal limits Orientation: person, place, date, and situation Psychomotor Activity: within normal limits Behavior: cooperative Affect: appropriate to topic Mood: anxious Speech:intelligible Verbal Expression: organized/goal oriented Thought Process: logical Thought Content: appropriate for age Hallucinations: none noted Attention/Concentration: appropriate for age Judgement: within normal limits for age Memory:within normal limits for age Insight: within normal limits for age Suicidal Ideation: denied Self-Harm Behaviors: denied Homicidal Ideation: denied Psychiatric History Pt reported he has never seen a therapist before. Pt reported he was put on Prozac through his PCP about 13 years ago when his grandmother passed. Pt denied psychiatric hospitalizations, denied suicide attempts, and denied self harm. Substance Use ETOH: denied current use, Marijuana: denied , and Nicotine: denied Medical History According to medical records, Mp's history is significant for: Patient Active Problem List Diagnosis Gastroesophageal reflux disease Otto's esophagus Gastroesophageal reflux disease without esophagitis Dysphagia Anxiety disorder Past Medical History: Diagnosis Date Asthma Eczema GERD (gastroesophageal reflux disease) HTN (hypertension) Current Outpatient Medications Medication Sig Dispense Refill atorvastatin (LIPITOR) [address] (PROTONIX) 40 mg EC tablet TAKE 1 TABLET (40 MG TOTAL) BY MOUTH DAILY 90 tablet 3 No current facility-administered medications for this visit. Social/Family History Social History Tobacco Use Smoking status: Never Smokeless tobacco: Never Substance and Sexual Activity Drug use: Never Sexual activity: Defer Alcohol Use: Not At Risk (12/26/2021) AUDIT-C Frequency of Alcohol Consumption: Monthly or less Average Number of Drinks: 1 or 2 Frequency of Binge Drinking: Never No family history on file. Living situation/Family Relationships Pt reported he was born and raised in [place]. He stated he has a younger brother by 2 years. Pt reported his brother lives in [place]. He stated the relationship is alright . Pt reported they go camping together sometimes. Pt reported his mom is living. Pt reported his dad two years ago due to lung cancer. He stated they had a good relationship. Pt reported he and his mom have a pretty good relationship. Pt reported she reaches out to him a lot to take care of her household tasks. Pt reported he is and has been for 28 years. Pt reported he lives in [place]. Pt reported he has 3 kids ages 20, 15, and 13. Pt reported the oldest daughter is in college in [place]. Family Mental Health History Pt denied. Education/Career Pt reported he was a C student and didn't care much. Pt reported he graduated high school and then went to a [employer] trade school for a couple years. 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 Hobbies/Social support Pt reported he likes to camp, fish, and travel. Pt reported they just got a camper. Pt reported he has a good friend that he used to work with. Pt reported he mostly spends time with his family. Trauma Pt reported a girlfriend of two years spent the night with someone else the night they broke up. Hestated it has caused him trust issues with his current . Spirituality Pt reported he is Anabaptist, but he is not practicing. Questionnaire Results: N/A Therapy Goals: Pt stated, To help me and be able to sleep when my is at work. Diagnosis Diagnosis Plan 1. Anxiety disorder, unspecified type 2. Therapy Ambulatory referral to Psychology Clinical Impressions/Recommendations Mp George is a 53 y.o. male who presented today for a diagnostic interview with symptoms ofAnxiety disorder, unspecified type. Pt is experiencing a lot of worry and distrust, especially withhis . This therapist recommends Pt return in two weeks for psychotherapy and begin writing downhis negative distrustful thoughts and what event triggered them. Psychotherapy Start/Stop Time Start time: 1218 Stop time: 1302 Total time: 44 Darlyn Blackwood LPC documented in this encounter Plan of Treatment Not on file documented as of this encounter Visit Diagnoses Diagnosis Anxiety disorder, unspecified type- Primary Therapy Unspecified rehabilitation procedure documented in this encounter Orders Outpatient Referral Count Last Ordered Date Fir st Ordered Date AMB REFERRAL TO PSYCHOLOGY 1 05/26/2024 documented in this encounter Care Teams Spindle Carver Relationship Specialty Start Date End Date Amaury Bonner MD [address] [place] [address] PCP - General 02/27/08 documented as of this encounter
--- OUTSIDE RECORDS SUMMARY | 2024-11-23 03:10 | XMS_ITS | Encounter Summary ---
Author Organization [facility] Healthcare Address [address] [place] [address] Care Team Providers Care Executive Administrative Asst Name Role Phone Amaury Bonner MD Primary Care Provider + [phone] Reason for Visit * Reason Onset Date Comments Scheduling Appointments 08/12/2024 Encounter Details Date Type Department Care Team (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 Burden to a sooner date. I attempted to contact patient and had to lvm. * Telephone Encounter - AdinCady clements - 08/17/2024 10:06 AM CDT Called patient left message to call the office to schedule * Telephone Encounter - Cady Oakley - 08/17/2024 8:08 AM CDT Mri uploaded, please review and advise scheduling. * Telephone Encounter - Laura Sin - 08/14/2024 3:20 PM CDT Called patient to inform him to send report over. Pt said if the doctor sent over a referral shouldn't we have that already. I told him that the ATC looked and could not find it. Please check the [place] office to see if we have the report/referral faxed there. PT said he would also contact and get the report faxed over * Telephone Encounter - Wendy Lomax ATC - 08/14/2024 11:19 AM CDT Disc uploaded. No report attached. Please contact pt to get report faxed to the office prior to review, unless I am missing it in the pt's chart. Thank you. * Telephone Encounter - Laura Sin - 08/13/2024 4:31 PM CDT Mri disc dropped off in edw placed in ortho foldler * Telephone Encounter - Sugar Giang - 08/12/2024 9:09 AM CDT Patient left voicemail stating he had a referral to be seen in ortho. I called him 08/12 9:00 am and pt stated that he has been dealing with rotator cuff pain for a whileand PCP ordered MRI. Pt has a tear in his right rotator cuff. He stated he can do his work without much difficulty, however, when his arm is bent for extended period of time, such as playing a video game, that is the most painful. Patient has a golf tournament he has waited all year for and a canoe trip at the end of the month. He wants to know if he is going to do more damage by participating in these activities while awaiting being seen. He had imaging done in [place] & will bring disk 08/13 to be uploaded & please forward to Dr uBrden's team for review. documented in this encounter Plan of Treatment Not on file documented as of this encounter Visit Diagnoses Not on filedocumented in this encounter Care Teams Executive Administrative Asst Relationship Specialty Start Date End Date Amaury Bonner MD [address] [place] [address] PCP - General 02/27/08 documented as of this encounter
--- OUTSIDE RECORDS SUMMARY | 2024-11-23 03:10 | XMS_ITS | Encounter Summary ---
Author Organization [facility] Healthcare Address [address] [place] [address] Care Team Providers Care Sales Associate Name Role Phone Amaury Bonner MD Primary Care Provider + [phone] Cady Urena Unavailable [phone] Reason for Referral * Consultation (Routine) - Authorized Specialty Diagnoses / Procedures Referred By Contac t Referred To Contact Physical Therapy Diagnoses S/P right rotator cuff repair Right shoulder pain, unspecified chronicity Cady Urena PA [address] [place] [address] [address] [place] [address] Phone: tel: fax: [facility] (All Locations) Referral ID Status Reason Start Date Expiration Date Visits Requested Visits Authorized [id number] Authorized Evaluate and Treat 10/19/2024 10/19/2025 24 24 Question Answer PTRFR PT Evaluate and Treat Therapy options discussed with patient? Yes Location provided for therapy services is: Patient requested/Patient preferred Please select the performing region: [facility] (All Locations) [167] # of visits: 24 Comments [facility] Physical Therapy-[id number] [facility] ROTATOR CUFF REPAIR REHABILITATION PROTOCOL Procedure details: Surgery Date: 09/29/2024 2-3 times per week for 6-12 weeks; Please call patient to schedule first post-op appointment for 5-7 days after surgery. Please evaluate and treat according to the following protocol: ADDITIONAL INSTRUCTIONS: For all PT reports that require a signature-please fax to [phone] PHASE I: (Weeks 0-1) GOALS: Protect rotator cuff repair Control pain and swelling SLING: Sling immobilization with abduction pillow at all times except for bathing and exercises WEIGHT BEARING: Non-weight bearing EXERCISES: Active range of motion elbow, wrist, and hand Chrome Polisher strengthening Shoulder pendulums PHASE II: (Weeks 1-6) [...] 60-80?? 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 Gender Identity Male 06/02/2024 7:40 AM CDT Sexual Orientation Straight 06/02/2024 7: 40 AM CDT documented as of this encounter Plan of Treatment Scheduled Referrals Name Type Priority Associated Diagnoses Orde r Schedule Ambulatory referral order to Physical Therapy - Outpatient Referral Routine S/P right rotator cuff repair Right shoulder pain, unspecified chronicity Expected: 11/02/2024 (Approximate), Expires: 10/19/2025 documented as of this encounter Visit Diagnoses Diagnosis S/P right rotator cuff repair- Primary Right shoulder pain, unspecified chronicity documented in this encounter Care Teams Sales Associate Relationship Specialty Start Date End Date Amaury Bonner MD [address] [place] [address] PCP - General 02/27/08 Cady Urena PA [address] [facility] [address], [place] [address] Physician Hydraulic Lift Driver Orthopedic Surgery 09/29/24 documented as of this encounter
--- OUTSIDE RECORDS SUMMARY | 2024-11-23 03:10 | XMS_ITS | Encounter Summary ---
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 He did say that he has been taking the Percocet as prescribed and was reminded to stay aheadof the pain and take the Percocet as directed. He reported his pain as rating 4/10 and reported he has been using the ice regularly. He was reminded of his post op appointment on 10/13/24 and reported he will be doing his PT at [facility]. He did not have any additional concerns or questions and was reminded if he did to contact our office. documented in this encounter Plan of Treatment Not on file documented as of this encounter Visit Diagnoses Not on filedocumented in this encounter Care Teams Licensed Electrician Relationship Specialty Start Date End Date Amaury Bonner MD [address] [place] [address] PCP - General 02/27/08 Cady Urena PA [address] [place] [address] [address] [place] [address] Physician Datapower Consultant Orthopedic Surgery 09/29/24 documented as of this encounter
--- OUTSIDE RECORDS SUMMARY | 2024-11-23 03:10 | XMS_ITS | Encounter Summary ---
Author Organization [facility] Address [address] [place] [address] Care Team Providers Care Control Room Supervisor Name Role Phone Amaury Bonner MD Primary Care Provider + [phone] Cady Urena Unavailable [phone] Reason for Visit * Auth/Cert (Routine) Specialty Diagnoses / Procedures Referred By Jaquelin t Referred To Contact Diagnoses Traumatic tear of right rotator cuff, initial encounter Arthritis of right acromioclavicular joint Biceps tendinitis on right Traumatic tear of right rotator cuff, initial encounter [S46.011A] Arthritis of right acromioclavicular joint [M19.011] Biceps tendinitis on right [M75.21] Procedures CO SURGICAL ARTHROSCOPY SHOULDER DSTL CLAVICULC CO SURGICAL ARTHROSCOPY HANNAH W/CORACOACRM LIGM RLS CO SURGICAL ARTHROSCOPY SHOULDER W/ROTATOR CUFF RPR CO SURGICAL ARTHROSCOPY SHOULDER BICEPS TENODESIS Right shoulder arthroscopy distal claviculectomy including distal articular surface, decompression of subacromial space with partial acromioplasty with coracoacromial release, rotator cuff repair and biceps tenodesis--arthroscopy equipment, Daniel/Nephew vapor, Breg Sling Shot 2 Sling with abduction pillow, NMES, Daniel/Nephew anchors, Spider, Arthrex anchors, beach chair, polar care, biceps tenodesis set Arthrex on hold, Arthroflex graft on hold Referral ID Status Reason Start Date Expiration Date Visits Re quested Visits Authorized [id number] 1 1 Encounter Details Date Type Department Care Team (Late st Contact Info) Description 09/29/2024 10:40 AM CDT - 09/29/2024 12:50 PM CDT Surgery [facility] Operating Room [address] [place] [address] Alexander Burden MD [address] [place] [address] DR HERNANDEZ B JAC[address] [place] [address] Right shoulder arthroscopy distal claviculectomy including distal articular surface, decompression of subacromial space with partial acromioplasty with coracoacromial release, rotator cuff repair and biceps tenodesis Surgery Details Date/Time Status Location OR Service Patient Class Case Class Case Type Trauma Case? 09/29/2024 10:40 AM Posted [facility] OPERATING [facility] OR Orthopaedics Outpatient Elective Panel 1 Procedure LRB Anes Op Region Wound Class Comments Right shoulder arthroscopy distal claviculectomy including distal articular surface, decompression of subacromial space with partial acromioplasty with coracoacromial release, rotator cuff repair and biceps tenodesis Right General with other Regional Shoulder Class I - Clean on q pain pump, tenodesis--arthros copy equipment, Daniel/Nephew vapor, Breg Sling Shot 2 Sling with abduction pillow, NMES, Daniel/Nephew anchors, Spider, Arthrex anchors, beach chair, polar care, biceps tenodesis set Arthrex on hold, Arthroflex graft on hold Surgeon Surgeon Role Service Panel Alexander Burden MD Primary Orthopaedics 1 Special Needs on q pain pump, tenodesis--arthroscopy equipment, Daniel/Nephew vapor, Breg Sling Shot 2 Sling with abduction pillow, NMES, Daniel/Nephew anchors, Spider, Arthrex anchors, beach chair, polar care, biceps tenodesis set Arthrex on hold, Arthroflex graft on h old documented in this encounter Social History Tobacco Use Types Packs/Day Years [...] on file 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 Gender Identity Male 06/02/2024 7:40 AM CDT Sexual Orientation Straight 06/02/2024 7: 40 AM CDT documented as of this encounter Last Filed Vital Signs Vital Sign Reading Time Taken Comments Blood Pressure 138/71 09/29/2024 12:50 PM CDT Pulse 80 09/29/2024 12:50 PM CDT Temperature 36.4 ??C (97.6 ??F) 09/29/2024 1 2:30 PM CDT Respiratory Rate 18 09/29/2024 12:5 0 PM CDT Oxygen Saturation 92% 09/29/2024 12: 50 PM CDT Inhaled Oxygen Concentration - - Weight 108.7 kg (239 lb 10.2 oz) 09/29/2024 8:16 AM CDT Height 180.3 cm (5' 11 ) 09/29/2024 8:16 AM CDT Body Mass Index 33.42 09/29/2024 8:16 AM CDT documented in this encounter Discharge Instructions * Attachments The following attachments cannot be sent through Care Everywhere. * General Anesthesia (Discharge Care) (Brazilian) * Peripheral Nerve Block (Discharge Care) (Brazilian) * Ascorbic Acid (Vitamin C) (By mouth) (Brazilian) * Cholecalciferol (By mouth) (Brazilian) * Ondansetron (By mouth, Into the mouth) (Brazilian) * Oxycodone/Acetaminophen (By mouth) (Brazilian) * Senna (By mouth) (Brazilian) documented in this encounter Medications at Time of Discharge ascorbic acid (VITAMIN C) 500 mg tablet,chewable Take 1 tablet/chew tab (500 mg total) by mouth 2 (two) times a day 60 tablet/chew tab 09/29/2024 atorvastatin (LIPITOR) 40 mg tablet Take 1 tablet (40 mg total) by mouth daily 12/19/2021 cholecalciferol (VITAMIN D-3) 2000 unit capsule Take 1 capsule (2,000 Units total) by mouth daily 30 capsule 09/29/2024 clonazePAM (KlonoPIN) 1 mg tablet Take 1 tablet (1 mg total) by mouth nightly 09/01/2024 ondansetron (ZOFRAN) 4 mg tabletIndication s:Prevention of Post-Operative Nausea and Vomiting Take 1 tablet (4 mg total) by mouth every 6 (six) hours as needed for nausea or vomiting 30 tablet 1 09/29/2024 oxyCODONE-acetam inophen (PERCOCET) 5-325 mg per tabletIndication s:Pain Take 1-2 tablets by mouth every 4 (four) hours as needed for pain 33 tablet 09/29/[address] (PROTONIX) 40 mg EC tablet TAKE 1 TABLET (40 MG TOTAL) BY MOUTH DAILY 90 tablet 3 10/30/2023 senna-docusate (PERICOLACE) 8.6-50 mg Take 1 tablet by mouth 2 (two) times a day as needed for constipation 30 tablet 1 09/29/2024 documented as of this encounter Ordered Prescriptions Prescription Sig Dispense Quantity Refills Last Filled Start Date End Date senna-docusate (PERICOLACE) 8.6-50 mg Take 1 tablet by mouth 2 (two) times a day as needed for constipation 30 tablet 1 09/29/2024 oxyCODONE-acetami nophen (PERCOCET) 5-325 mg per tabletIndications :Pain Take 1-2 tablets by mouth every 4 (four) hours as needed for pain 33 tablet 09/29/2024 ondansetron (ZOFRAN) 4 mg tabletIndications :Prevention of Post-Operative Nausea and Vomiting Take 1 tablet (4 mg total) by mouth every 6 (six) hours as needed for nausea or vomiting 30 tablet 1 09/29/2024 cholecalciferol (VITAMIN D-3) 2000 unit capsule Take 1 capsule (2,000 Units total) by mouth daily 30 capsule 09/29/2024 ascorbic acid (VITAMIN C) 500 mg tablet,chewable Take 1 tablet/chew tab (500 mg total) by mouth 2 (two) times a day 60 tablet/chew tab 09/29/2024 documented in this encounter Discharge Disposition Disposition Code Departure Means Destination Comment s Discharge to home or self care documented in this encounter H&P Notes * Alexander Burden MD - 09/29/2024 9:14 AM CDT I have reviewed the H&P, examined the patient, and endorse the findings as written. Plan of Care : Based on the above findings, I consider Mp George to be an acceptable risk for : Procedure(s): Right shoulder arthroscopy distal claviculectomy including distal articular surface, decompression of subacromial space with partial acromioplasty with coracoacromial release, rotator cuff repair andbiceps tenodesis--arthroscopy equipment, Daniel/Nephew vapor, Breg Sling Shot 2 Sling with abductionpillow, NMES, Daniel/Nephew anchors, Spider, Arthrex anchors, beach chair, polar care, biceps tenodesis set Arthrex on hold, Arthroflex graft on hold Source Note - Alexander Burden MD - 09/18/2024 8:45 AM [...] tear he is here for surgical consultation Latin Dancer completed by using M*Modal Fluency Direct speaking [...] includes the following prescription(s): atorvastatin and pantoprazole dr. BELLE He has no known allergies. SOCIAL HISTORY [...] ARTURO Santillan MD documented in this encounter Miscellaneous Notes * Op Note - Alexander Burden MD - 09/29/2024 11:03 AM CDT Images from the original note were not included. Operative Report SURGEON: Alexander Burden MD Campaign Manager: Irina Saldana RN Physician Director Biostatistics: German Pacheco PA Scrub: Jorge Duran RN Orientsabino Campaign Manager: Estephania Gaxiola RN FLOAT: Carri Valentine RN SURGICAL TEAM: Surgeons and Role: * Alexander Burden MD - Primary DATE OF SURGERY : 09/29/2024 PREOPERATIVE DIAGNOSIS: See preoperative H and P POSTOPERATIVE DIAGNOSIS: Post-op Diagnosis * Traumatic tear of right rotator cuff, initial encounter [S46.011A] * Arthritis of right acromioclavicular joint [M19.011] * Biceps tendinitis on right [M75.21] PROCEDURE: Right shoulder arthroscopy distal claviculectomy including distal articular surface, decompression of subacromial space with partial acromioplasty with coracoacromial release, rotator cuff repair andbiceps tenodesis (R) ANESTHESIA: General with other Regional IMPLANTS: Implant Name Type Inv. Item Serial No. Wireline Operator Lot No. LRB No. Used Action [employer] Suture [place] Double Loaded Knotless Fibertak 2.6mm [id number] - [id number] [employer]uture [place] Double Loaded Knotless Fibertak 2.6mm AR- 3632SP [employer] [id number] Right 1 Implanted [employer] Swivelock C 4.75mm 19.1mm Closed Eyelet Vent [place] Suture AR- [id number] - [id number] [employer] Swivelock C 4.75mm 19.1mm Closed Eyelet Vent [place] Suture [id number] [employer] [id number] Right 1 Implanted [employer] Swivelock C 4.75mm 19.1mm Closed Eyelet Vent [place] Suture AR- [id number] - [id number] [employer] Swivelock C 4.75mm 19.1mm Closed Eyelet Vent [place] Suture [id number] [employer] [id number] Right 1 Implanted Estimated Blood Loss: 10 mL Operation in detail: Patient taken the OR general anesthetic was performed. Patient placed in beach chair position alternatives well-padded arm placed in spider arm cabrera. the shoulder was cleaned prepped and draped in standard sterile technique standard time-out was performed operative strength about also marked properly. After time-out was performed bony landmarks were marked posterior capsule subacromial space injected with lidocaine with epi/ Diagnostic arthroscopy was performed using outside in technique anterior portals placed debrided the unstable labral tissue. Full-thickness rotator cuff tear was noted. Biceps was tenodesed patient cannula anteriorly 2 spinal needles shuttled a suture tape through thePDS cut the biceps debride the stump of the labrum went to subacromial space and tied this down complete the biceps tenodesis entered the subacromial space using outside in technique posterior lateral and lateral portals wereplaced debride the subacromial subdeltoid bursal tissue released the coracoacromial ligament and remove the soft tissue off the distal clavicle using standard cutting block technique converted the type 2 acromion to a type 1 acromion then excised approximately 10 mm distal clavicle . Prepared the greater tuberosity with the shaver and vapor placed 2 cannulas placed the arm at man's angle with an accessory portal a anchor was placed. 2 mattress sutures were placed in the supraspinatus tendon these were tied down and then 2 knotless lateral row anchor were used laterally fora double row rotator cuff repair. The arm was taken through range of motion the cuff and humerus moved as one unit. appropriate repair was obtained portals were closed in standard fashion needle counts sponge counts instrument countswere correct in the case Portals were closed in standard fashion dressings were placed and a sling and abduction pillow was placed. Patient will follow standard rotator cuff repair protocol. Latin Dancer completed by using [employer]*studdex Direct speaking software, therefore, transcriptionvariances may occur. Complications: None Condition on Discharge from the operating room was stable Alexander Burden MD Date: 09/29/2024 Time: 1:23 PM * Pre-Procedure Instructions - Kelly Steele RN - 09/23/2024 11:40 AM CDT We are pleased that you and your doctor have chosen [facility] for your surgery. We hope that the following information will help make your visit a pleasant one. Surgery Date: 09/29/2024 Surgery Department will call you on Saturday09-28-24 after 3 pm with your arrival time. Before your surgery: Notify your doctor of ANY change in your health such as a cold, sore throat, fever, any infection or a change in the problem for which you are having your surgery. Follow any instructions given to you by your doctor or surgeon. Check with your doctor if you need to STOP taking: Aspirin (ordered by your doctor) Plavix Coumadin One week before surgery STOP taking: All herbal supplements Aspirin (not ordered by your doctor) Aleve, Advil, Motrin, Ibuprofen, or other similar medications (Tylenol is okay). 24 hours before your surgery: No smoking or alcoholic drinks. Night before your surgery: Do not eat or drink anything after midnight. Follow surgeon's instructions for anti-bacterial shower night before and morning of surgery. Day of surgery: Do not swallow any water when you brush your teeth. ONLY take these pills with a tiny sip of water. Pre-Surgery Instructions: Medication Instructions atorvastatin (LIPITOR) 40 mg tablet Take morning of surgery clonazePAM (KlonoPIN) 1 mg tablet Take as prescribed pantoprazole DR (PROTONIX) 40 mg EC tablet Take morning of surgery Use no make-up, nail bengali, lotions, oils or powders on your skin. Wear comfortable clothes that will not be tight in the area of your surgery. Leave all valuables and jewelry (including all body piercing jewelry) at home. Please bring your a photo ID and insurance cards with you. Check in at the Registration Desk downstairs in the Ambulatory Surgery Department. You will come inthe main entrance and go down the wills until you see the [employer]/coffee shop, there will be elevators to the right, take those down to LL1. You will exist the elevators to the right and go down thehall and you will pass Medical Imaging on the left and we will be the next department on the right,you will see the sign above that says Ambulatory Surgery Department check-in. After your Outpatient Surgery: You must have a responsible adult to drive you home, you will not be allowed to drive or take a cabhome. We recommend you have someone stay with you for 24 hours after your surgery. What to bring if you are spending the night with us: Bring toiletry items such as: robe, slippers, toothbrush, toothpaste, brush or comb. Bring contact lens, hearing aids, glass cases and denture container if you use any of these items. The hospital will provide you with a gown. Questions or concerns: If you have any questions or concerns regarding your procedure, contact your surgeon as soon as possible. If you have questions regarding your Pre-Admission Testing, please call us. We can be reached at the number posted at the top of the page. documented in this encounter Plan of Treatment Not on file documented as of this encounter Procedures Procedure Name Priority Date/Time Associated Diagnosis Comments ARTHROSCOPY SHOULDER 09/29/2024 9:52 AM CDT Traumatic tear of right rotator cuff, initial encounter Arthritis of right acromioclavicular joint Biceps tendinitis on right Special Needs on q pain pump, tenodesis--arthroscopy equipment, Daniel/Nephew vapor, Breg Sling Shot 2 Sling with abduction pillow, NMES, Daniel/Nephew anchors, Spider, Arthrex anchors, beach chair, polar care, biceps tenodesis set Arthrex on hold, Arthroflex graft on h old documented in this encounter Visit Diagnoses Diagnosis Biceps tendinitis on right- Primary Biceps tendinitis on right Arthritis of right acromioclavicular joint Traumatic tear of right rotator cuff, initial encounter Traumatic tear of right rotator cuff, initial encounter Arthritis of right acromioclavicular joint Traumatic tear of right rotator cuff, initial encounter Arthritis of right acromioclavicular joint Biceps tendinitis on right documented in this encounter Admitting Diagnoses Diagnosis Traumatic tear of right rotator cuff, initial encounter Arthritis of right acromioclavicular joint Biceps tendinitis on right documented in this encounter Administered Medications Inactive Administered Medications - up to 3 most recent administrations Medication Order MAR Action Action Date Dose Rate Site acetaminophen (TYLENOL) tablet 1,000 mg 1,000 mg, oral, Once, On Sat09/29/24 at 0845, For 1 dose, Pre-Op, Indications: Pre-Emptive AnalgesiaIndications:Pre- Emptive Analgesia Given 09/29/2024 8:20 AM CDT 1,000 mg benzoyl peroxide 5 % external liquid topical, Once, On Sat09/29/24 at 0845, For 1 dose, Pre-Op, Apply to affected area: shoulder, Laterality: Right, Indications: Acne VulgarisIndications:Acne Vulgaris Given 09/29/2024 8:20 AM CDT BUPivacaine (PF) 0.125% (MARCAINE) in On-Q reservoir 640 mL 6 mL/hr, perineural, Continuous, Starting on Sat09/29/24 at 1330, Pre-Op, Do NOT squeeze the On-Q pump. Make sure tubing clamp is open. If the tubing appears kinked/crimped, massage area of tubing to facilitate flow. Make sure the dressing over the catheter site remains clean and dry. Do NOT remove remove dressing as this may dislodge the catheter. If wound drainage is present and/or dressing is not secure, reinforce and call MD. Do NOT tape over the in-line filter. This can affect flow rate. Do NOT use cold therapy or ice around the infuser. To be started during procedure., Catheter Site: Interscalene, Catheter Side: Right, Indications: Postoperative PainIndications:Postopera tive Pain New Bag 09/29/2024 1:32 PM CDT 6 mL/hr 6 mL/hr celecoxib (CeleBREX) capsule 200 mg 200 mg, oral, Once, On Sat09/29/24 at 0845, For 1 dose, Pre-Op, Indications: Pre-Emptive PainIndications:Pre-Empti ve Pain Given 09/29/2024 8:20 AM CDT 200 mg clindamycin (CLEOCIN) 900 mg/50 mL in dextrose 5% (premix) 900 mg 900 mg, intravenous, Once, On Sat09/29/24 at 0845, For 1 dose, Pre-Op, Indications: Prophylaxis, SurgicalIndications:Proph ylaxis, Surgical New Bag 09/29/2024 8:20 AM CDT 900 mg EPINEPHrine 3 mg in Lactated Ringer's (LR) 3,000 mL irrigation solution irrigation, Once, On Sat09/29/24 at 0845, For 1 dose, Intra-Op, Bag #1 Given 09/29/2024 11:05 AM CDT 3,000 mL Surgical Site EPINEPHrine 3 mg in Lactated Ringer's (LR) 3,000 mL irrigation solution irrigation, Once, On Sat09/29/24 at 0845, For 1 dose, Intra-Op, Bag #2 Given 09/29/2024 11:05 AM CDT 3,000 mL Surgical Site fat emulsion (INTRALIPID,LIPOSYN) 20 % infusion 100 mL 100 mL, intravenous, at 1,000 mL/hr, Administer over 6 Minutes, Once as needed, toxicity, Starting on Sat09/29/24 at 1400, For 1 dose, Phase I & Post-op Floor, Notify provider for signs of intravascular local anesthetic toxicity: metallic taste in mouth, ringing in ears, mouth/lip numbness or tingling, seizures, or cardiac arrhythmias. Administer per MD direction. Use 1.2 micron filter. fat emulsion (INTRALIPID,LIPOSYN) 20 % infusion 250 mL 250 mL, intravenous, at 750 mL/hr, Administer over 20 Minutes, Once as needed, toxicity, Starting on Sat09/29/24 at 1400, For 1 dose, Phase I & Post-op Floor, Administer per MD direction. Use 1.2 micron filter. Lactated Ringer's (LR) infusion 30 mL/hr, intravenous, Continuous, Starting on Sat09/29/24 at 0900, Pre-Op New Bag 09/29/2024 8:20 AM CDT 30 mL/hr 30 mL/hr Lactated Ringer's (LR) irrigation As needed, Starting on Sat09/29/24 at 1129, Intra-Op Given 09/29/2024 11:29 AM CDT 3,000 mL Surgical Site lidocaine EPINEPHrine (XYLOCAINE with EPI) 0.5 %-1:200,000 injection As needed, Starting on Sat09/29/24 at 1104, Intra-Op, Indications: Administration of Local AnesthesiaIndications:Adm inistration of Local Anesthesia Given 09/29/2024 11:04 AM CDT 19 mL Surgical Site oxyCODONE-acetaminophen (PERCOCET) 5-325 mg per tablet 1 tablet 1 tablet, oral, Once, On Sat09/29/24 at 1445, For 1 dose, Indications: PainIndications:Pain Given 09/29/2024 2:06 PM CDT 1 tablet documented in this encounter Historical Medications * This list may reflect changes made after this encounter. clonazePAM (KlonoPIN) 1 mg tablet Take 1 tablet (1 mg total) by mouth nightly 09/01/2024 added in this encounter Active and Recently Administered Medications Times are shown in CDT. Scheduled Medication Order 09/27/2024 09/28/2024 09/29/2024 acetaminophen (TYLENOL) tablet 1,000 mg (COMPLETED) 1,000 mg, oral, Once, On Sat09/29/24 at 0845, For 1 dose, Pre-Op, Indications: Pre-Emptive Analgesia 0820 (Given - Provid er: Seda Ferguson RN) benzoyl peroxide 5 % external liquid (COMPLETED) topical, Once, On Sat09/29/24 at 0845, For 1 dose, Pre-Op, Apply to affected area: shoulder, Laterality: Right, Indications: Acne Vulgaris 0820 (Given - Provid er: Seda Ferguson RN) ceFAZolin (ANCEF) 2,000 mg/20 mL in sterile water (premix) 2,000 mg (COMPLETED) 2,000 mg, intravenous, at 400 mL/hr, Administer over 3 Minutes, Once, On Sat09/29/24 at 0845, For 1 dose, Pre-Op, Administer within 60 minutes of incision., Indications: Prophylaxis, Surgical 1037 (Given - Provid er: Rosa Braun CRNA) celecoxib (CeleBREX) capsule 200 mg (COMPLETED) 200 mg, oral, Once, On Sat09/29/24 at 0845, For 1 dose, Pre-Op, Indications: Pre-Emptive Pain 0820 (Given - Provid er: Seda Ferguson RN) clindamycin (CLEOCIN) 900 mg/50 mL in dextrose 5% (premix) 900 mg (COMPLETED) 900 mg, intravenous, Once, On Sat09/29/24 at 0845, For 1 dose, Pre-Op, Indications: Prophylaxis, Surgical 0820 (New Bag - Prov ider: Seda Ferguson RN) EPINEPHrine 3 mg in Lactated Ringer's (LR) 3,000 mL irrigation solution (COMPLETED) irrigation, Once, On Sat09/29/24 at 0845, For 1 dose, Intra-Op, Bag #1 0845 (Due)1105 (Give n - Provider: Alexander Burden MD) EPINEPHrine 3 mg in Lactated Ringer's (LR) 3,000 mL irrigation solution (COMPLETED) irrigation, Once, On Sat09/29/24 at 0845, For 1 dose, Intra-Op, Bag #2 0845 (Due)1105 (Give n - Provider: Alexander Burden MD) oxyCODONE-acetaminophen (PERCOCET) 5-325 mg per tablet 1 tablet (COMPLETED) 1 tablet, oral, Once, On Sat09/29/24 at 1445, For 1 dose, Indications: Pain 1406 (Given - Provid er: Hanna Miranda RN) tranexamic acid (CYKLOKAPRON) 2,000 mg in sodium chloride 0.9% 100 mL (COMPLETED) 2,000 mg (rounded from 1,657.5 mg = 15 mg/kg ? 110.5 kg), intravenous, Once, On Sat09/29/24 at 0845, For 1 dose, Intra-Op, Administer at time of incision, Indications: Prophylaxis, Surgical 1031 (New Bag - Prov ider: Rosa Braun CRNA) Continuous Medication Order 09/27/2024 09/28/2024 09/29/2024 BUPivacaine (PF) 0.125% (MARCAINE) in On-Q reservoir 640 mL 6 mL/hr, perineural, Continuous, Starting on Sat09/29/24 at 1330, Pre-Op, Do NOT squeeze the On-Q pump. Make sure tubing clamp is open. If the tubing appears kinked/crimped, massage area of tubing to facilitate flow. Make sure the dressing over the catheter site remains clean and dry. Do NOT remove remove dressing as this may dislodge the catheter. If wound drainage is present and/or dressing is not secure, reinforce and call MD. Do NOT tape over the in-line filter. This can affect flow rate. Do NOT use cold therapy or ice around the infuser. To be started during procedure., Catheter Site: Interscalene, Catheter Side: Right, Indications: Postoperative Pain 1332 (New Bag - Prov ider: Juan Lindquist RN)1923 (Due: Stopped) Lactated Ringer's (LR) infusion 30 mL/hr, intravenous, Continuous, Starting on Sat09/29/24 at 0900, Pre-Op 0820 (New Bag - Prov ider: Seda Ferguson RN)1923 (Due: Stopped) PRN Medication Order 09/27/2024 09/28/2024 09/29/2024 fat emulsion (INTRALIPID,LIPOSYN) 20 % infusion 100 mL(Linked Group 1) 100 mL, intravenous, at 1,000 mL/hr, Administer over 6 Minutes, Once as needed, toxicity, Starting on Sat09/29/24 at 1400, For 1 dose, Phase I & Post-op Floor, Notify provider for signs of intravascular local anesthetic toxicity: metallic taste in mouth, ringing in ears, mouth/lip numbness or tingling, seizures, or cardiac arrhythmias. Administer per MD direction. Use 1.2 micron filter. fat emulsion (INTRALIPID,LIPOSYN) 20 % infusion 250 mL(Linked Group 1) 250 mL, intravenous, at 750 mL/hr, Administer over 20 Minutes, Once as needed, toxicity, Starting on Sat09/29/24 at 1400, For 1 dose, Phase I & Post-op Floor, Administer per MD direction. Use 1.2 micron filter. Lactated Ringer's (LR) irrigation (CANCELED) As needed, Starting on Sat09/29/24 at 1129, Intra-Op 1129 (Given - Provid er: Alexander Burden MD) lidocaine EPINEPHrine (XYLOCAINE with EPI) 0.5 %-1:200,000 injection (CANCELED) As needed, Starting on Sat09/29/24 at 1104, Intra-Op, Indications: Administration of Local Anesthesia 1104 (Given - Provid er: Alexander Burden MD) Linked Groups Order Group 1: fat emulsion (INTRALIPID,LIPOSYN) 20 % infusion 100 mLJump to med 100 mL, intravenous, at 1,000 mL/hr, Administer over 6 Minutes, Once as needed, toxicity, Starting on Sat09/29/24 at 1400, For 1 dose, Phase I & Post-op Floor, Notify provider for signs of intravascular local anesthetic toxicity: metallic taste in mouth, ringing in ears, mouth/lip numbness or tingling, seizures, or cardiac arrhythmias. Administer per MD direction. Use 1.2 micron filter. And fat emulsion (INTRALIPID,LIPOSYN) 20 % infusion 250 mLJump to med 250 mL, intravenous, at 750 mL/hr, Administer over 20 Minutes, Once as needed, toxicity, Starting on Sat09/29/24 at 1400, For 1 dose, Phase I & Post-op Floor, Administer per MD direction. Use 1.2 micron filter. documented in this encounter Orders Medications Ordered That Robles ht Not Have Been Administered Count Last Ordered Date First Ordered Date amisulpride (BARHEMSYS) injection 10 mg 1 1 BUPivacaine-EPINEPHrine (MAR JORGE with EPI) 0.5 %-1:200,000 preservative free injection - ADS Override Pull 1 09/29/2024 ceFAZolin (ANCEF) 2,000 mg/2 0 mL in sterile water (premix) 2,000 mg 1 09/29/2024 fat emulsion (INTRALIPID,LIP OSYN) 20 % infusion 100 mL 1 09/29/2024 fat emulsion (INTRALIPID,LIP OSYN) 20 % infusion 250 mL 1 09/29/2024 fentaNYL (SUBLIMAZE) 50 mcg/ mL preservative free injection - ADS Override Pull 1 09/29/2024 midazolam (VERSED) 2 mg/2 mL preservative free injection - ADS Override Pull 1 09/29/2024 naloxone (NARCAN) 0.4 mg/mL injection 0.04-0.4 mg 1 09/29/2024 tranexamic acid (CYKLOKAPRON ) 2,000 mg in sodium chloride 0.9% 100 mL 1 09/29/2024 Diet Count Last Ordered Date First Orde red Date ADULT DISCHARGE DIET 1 09/29/2024 Nursing Count Last Ordered Date First Orde red Date DISCHARGE ACTIVITY 5 09/29/2024 DISCHARGE CALL PROVIDER 5 09/29/2024 DISCHARGE DRESSING 2 09/29/2024 DISCHARGE INSTRUCTIONS 2 09/29/2024 FOLLOW UP WITH ESTABLISHED PROVIDER 1 09/29 Discharge Count Last Ordered Date First Orde red Date DISCHARGE PATIENT 1 09/29/2024 documented in this encounter Care Teams Control Room Supervisor Relationship Specialty Start Date End Date Amaury Bonner MD [address] [place] [address] PCP - General 02/27/08 Cady Urena PA [address] [place] [address] DR JAMES [address] [place] [address] Physician Director Biostatistics Orthopedic Surgery 09/29/24 documented as of this encounter
--- OUTSIDE RECORDS SUMMARY | 2024-11-23 03:10 | XMS_ITS | Encounter Summary ---
Author Organization [facility] Address [address] [place] [address] Phone Care Team Providers Care Chief Concierge Name Role Phone Amaury Bonner MD Primary Care Provider + [phone] Reason for Visit * Reason Comments Follow-up Psychotherapy Encounter Details Date Type Department Care Team (Late st Contact Info) Description 06/24/2024 1:00 PM CDT Telemedicine [facility] Department of Psychiatry [address] [facility] [address] [place] [address] Darlyn Blackwood LPC [address] [facility] [address] [place], [place] [id number] Anxiety disorder, unspecified type (Primary Dx) Social [...] on file 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 male who presented for a scheduled Bi-Weekly therapy session for anxiety and relationship issues. This is the patient's 3rd psychotherapy visit with the provider. This was a telemedicine visit with Mp George alone which took place via Real-time video connection ([employer], [email or web address] or similar). During the visit, I was located at home and the patient was located at home in the state [facility]. The patient visit started at 01:01 pm and ended at 02:02 pm. The Patient has been informed that [...] note. S:Patient Report/Update and Recent Stressors: Pt reported they got a puppy so he has been busy. He stated being busy helps him. Pt stated he did answer the questions sent about guilt. Pt stated anytime he has idle time and has time to think or if there is something on a TV show where someone is cheating he feels guilty. Pt reported when he is busy he doesn't feel guilty. Pt reported if guilt were trying to tell him something it would tell him he is a bad person. Pt reported it is an oppressive message. He stated it puts him down. Pt statedhe thinks the woman he kissed still has feelings for him. Pt stated guilt is mostly a negative feeling to him. Pt stated the other woman kissed him and that is all it took. He stated it wasn't pre-med itated. Pt reported he worries the same thing will happen with his . Pt reported the guilt makes him try to see what he is doing through her eyes. Pt stated his should be able to go out withother people, but he struggles to trust her. Pt stated he recognizes that the control pushes her away. He stated then he feels guilty about trying to control her and then he does a bunch of nice things for her. Mental Status Exam Orientation: appropriate for age, person, date, situation, and place General appearance and behavior: appears stated age, normal psychomotor activity, good eye contact,and cooperative Speech: appropriate for age and intelligible Flow of Thought: logical, sequential, and goal-directed Content of Thought: no auditory hallucinations, no visual hallucinations, no delusions, and no homicidal ideation Mood: Anxious Affect: mood congruent and anxious Attention/Concentration: normal based on conversation/exam Memory: normal based on conversation/exam Insight: good Judgment: good Eye Contact: Maintained Eye Contact SI/HI: No SI/HI Interventions Provided During This Session: Therapist reviewed the writing prompts sent on guilt. Therapist pointed out the illogic of his guilt and how the guilt is not doing much for him. Therapist stated some of the guilt he is feeling thatis in turn causing him to do nice things may be reinforcing for the relationship in some ways. Therapist encouraged Pt to call himself out every time he feels like he wants to control his and not let her go out and tell his . Therapist encouraged open dialogues with his where he says he is uncomfortable but will still try to deal with it. Plans for Homework and Next Session: Homework: tell his when he feels uncomfortable and let her go out anyway Next Session: three weeks Patient Response to Treatment: The patient's [...] 16 sessions or sooner. Date of Service: 06/24/2024 Patient visit Start time: 1301 and Stop time: 1402. Darlyn Blackwood LPC Staff Therapist [facility] Department of Psychiatry [facility] [address] [place] [address] documented in this encounter Miscellaneous Notes * Assessment & Plan Note - Darlyn Blackwood LPC - 06/24/2024 2:24 PM CDT Associated Problem(s): Anxiety disorder Pt [...] Primary documented in this encounter Care Teams Chief Concierge Relationship Specialty Start Date End Date Amaury Bonner MD [address] [place] [address] PCP - General 02/27/08 documented as of this encounter
--- OUTSIDE RECORDS SUMMARY | 2024-11-23 03:10 | XMS_ITS | Encounter Summary ---
Author Organization [facility] Address [address] [place] [address] Phone Care Team Providers Care System Administrator Name Role Phone Amaury Bonner MD Primary Care Provider + [phone] Cady Urena Unavailable [phone] Reason for Visit * Reason Comments PT Initial Eval * Consultation (Routine) - Authorized Specialty Diagnoses / Procedures Referred By Contjames t Referred To Contact Physical Therapy Diagnoses S/P right rotator cuff repair Right shoulder pain, unspecified chronicity Cady Urena PA [address] [place] [address] Phone: tel: fax: [facility] (All Locations) Referral ID Status Reason Start Date Expiration Date Visits Requested Visits Authorized [id number] Authorized Evaluate and Treat 10/19/2024 10/19/2025 24 24 Encounter Details Date Type Department Care Team (Late st Contact Info) Description 11/04/2024 8:30 AM HYDROBLASTER Therapy [facility] Physical Therapy [address] 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 male Cady Urena PA [address] [place] [address] DR JAMES [address] [place] [address] ICD-10-CM 1. S/P right rotator cuff repair Z98.890 Ambulatory referral order to Physical Therapy - 2. Right shoulder pain, unspecified chronicity M25.511 Ambulatory referral order to Physical Therapy - Date of Service: 11/04/2024 Subjective Involved Side: right Dominant Side: right Date [...] range of motion elbow, wrist, and hand Workforce Investment Act Career Manager strengthening Shoulder pendulums PHASE II: (Weeks 1-6) [...] 60-80?? without rotation NO IR/behind the back Workforce Investment Act Career Manager strengthening NO CARLEY/Canes until week 6 No [...] Heat before PT and ice after PT History of current complaint: He states that he injured the R shoulder with boxing. He has been doing the Videofropperet to box and then got into doing work on the heavy bag. He has lost 30lbs boxing andworking out and he has gained 10 lbs back since he stopped. He struck the heavy bag and did a R hook and felt an immediate snap with severe pain. He knew instantly that he severely injured the shoudler. He injured on May 23. He tried to manage with rest and with medication for the pain. He did not have surgery until 09/29/2024. He is now 5 weeks out. He is light duty at work. He is a side sleeper. He is sleeping well. He has been doing therapy with another PT group in [place]. He said that they told him that he could be out of the sling and do shoulder pulleys. 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 Now light duty. Living situation: Patient lives with family in a multiple story home with stairs to enter. Sports/Leisure/Fitness activities: boxing for exercise, walking, Goal(s): decrease pain, return to sport, improve ADL performance, return to work / improve functionat work, prevent recurrence, and avoid surgery Objective Appearance: downward rot, abducted, scapulae anterior tilt Scar Location Appearance Mobility Hypersensitive Comments Incisions healing well Normal Mild loss of motion noted at posterior incision No Healing well Edema: none Location: Palpation: NA Range of Motion Active Right Left Flexion 75 145 Abduction 60 155 Scaption Passive Right Left Flexion 130 150 Abduction 80 155 Scaption Lateral Rotation (90 abd) Lateral Rotation 40 50 Medial Rotation (90 abd) Medial Rotation Joint Mobility Right Left Posterior glide Anterior glide Inferior glide Long arm traction Patient-Reported Questionnaires: Quick DASH: Treatment Provided: Done Today HEP Activity Parameters Comments x Supine AAROM shoulder flexion Mild/moderate discomfort, 5 sec hold, 10 reps 2x/day x Supine AAROM shoulder LR (40 deg abd) Mild/moderate discomfort, 5 sec hold, 10 reps 2x/day x Pulleys flexion and scaption 15-20 repetitions, 2x/day x PROM shoulder flexion x PROM shoulder scaption x PROM shoulder LR (40 deg abd) PROM shoulder MR (40 deg abd) Patient was educated about the following activities: Arm support, Desk ergonomics, Direction susceptible to movement and movement correction, Home Exercise Program, Ice/cold as needed, Joint protection/support, Lifting, Pain relieving positions, Posture, Precautions, Sling, and Tissue stress reduction and support Assessment/Plan: Chief Complaint PT Initial Eval Patient is a 54 y.o. male with primary c/o R shoulder pain . Demonstrates R shoulder tissue impairment stage 1, s/p R RC repair and R biceps tenodesis. Contributing factors include post surgical, limited middle trap strength, lengthened mid traps, postural faults, scapula IR, scapulae DR and abduction, . Will benefit from PT for patient education, strengthening, stretching, ROM, HEP, taping PRN, modalities PRN, joint mobilizations, and functional mobility training. Excellent prognosis. Patient consented to treatment and plan. Short Term Goals: (2 weeks) Goal Description New Ongoing Partially Met Met Deferred The patient will be independent with current HEP. X The patient demonstrate AAROM shoulder flexion to 140 degrees.. X The patient will demonstrate demonstrate AAROM shoulder scaption to 140 degrees. X The patient will demonstrate AAROM shoulder LR (40 deg abd) to 70 degrees. X The patient will report pain at worst to 2/10.. X Tool And Production Planner Goals: (6 weeks) Goal Description New Ongoing Partially Met Met Deferred The patient will demonstrate R=L AROM shoulder flexion and abduction. X The patient will demonstrate shoulder LR (90 deg abd) to 90 degrees X The patient will report sleeping through the night. X The patient will increase strength of shoulder to (grossly) at least 3+/5. X The patient will report pain at worst to 2/10. X The patient be independent with final HEP needed for sustained correction of movement impairments. X Time-Based Code Calculator Minutes for Manual Therapy (76134):: 25 minutes Minutes for Neuro Re-Ed (28285): : 15 minutes Timed Code Treatment Minutes:: 40 minutes Frequency/Duration: 1 x 6 weeks Total treatment time: 60 min (8:30-9:30 am) Sadi Caba DPT OBLASTER documented in this encounter Plan of Treatment Not on file documented as of this encounter Visit Diagnoses Diagnosis S/P right rotator cuff repair- Primary Right shoulder pain, unspecified chronicity documented in this encounter Orders Outpatient Referral Count Last Ordered Date Fir st Ordered Date AMB REFERRAL ORDER TO PHYSICAL THERAPY 1 documented in this encounter Care Teams System Administrator Relationship Specialty Start Date End Date Amaury Bonner MD [address] [place] [address] PCP - General 02/27/08 Cady Urena PA [address] [facility] [address] [place] [address] Physician Field Tax Auditor Orthopedic Surgery 09/29/24 documented as of this encounter
--- OUTSIDE RECORDS SUMMARY | 2024-11-23 03:10 | XMS_ITS | Encounter Summary ---
Author Organization [facility] Address [address] [place] [address] Care Team Providers Care Field Service Coordinator Name Role Phone Amaury Bonner MD Primary Care Provider + [phone] Reason for Visit * Reason Onset Date Comments Surgical Clearance 09/18/2024 Encounter Details Date Type Department Care Team ([facility] st Contact Info) Description 09/18/[address] [facility] Orthopedic and Sports Medicine [address] [place] [phone] Alexander Burden MD [address] [place] [address] [address] [address] Surgical Clearance Social History Tobacco Use Types Packs/Day Years Used Date Smoking Tobacco: Never Smokeless Tobacco: Never Alcohol Use Standard Drinks/Week Comments Yes 0 (1 standard drink = 0.6 oz pur e alcohol) rarely AUDIT-C Answer Date Recorded Q1: How often do you have a drink containing alc ohol? Monthly or less 09/23/2024 Q2: How many drinks containi ng alcohol do you have on a typical day when you are drinking? 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 * Telephone Encounter - Jaclyn Ferrer MA - 09/21/2024 9:24 AM CDT Noted and updated. * Telephone Encounter - Belle Cline MA - 09/18/2024 1:07 PM CDT Procedure: Right Shoulder Arthroscopy DOS: 09/29/2024 Surgery Clearance Checklist: [x] PCP: Amaury Bonner [] Cardiology: [] Endocrinology: [] Pulmonology: [] Neurology: [] Other: Blood Thinner: [] Yes Name of medication: [x] No Is patient a Diabetic: [] Yes [x] No Preferred Outpatient Physical Therapy location: [facility] Reviewed with patient surgery clearance requirements that forms must be returned to our office no later than 72 hours prior to surgery. Later than 72 hours may cause patients surgery to be cancelled and/or rescheduled. Reviewed with patient that appointments with the above provider should be scheduled in a timely manner, and recommend appointments be made no later than 3 weeks prior to surgery. For Total Arthoplasty Surgery: Reviewed with patient labs to be completed prior to surgery, advisedthese must be completed no more than 30 days prior to surgery. Patient was advised to completely these early on in the 30 day window to allow time to address abnormal results if they arise. Labs are to be completed at: Medications to be discontinued prior to surgery were reviewed with patient, and hand out provided listing when to stop prior to surgery. Patient instructed to contact PCP and/or prescribing provider with questions about when to discontinue prior to surgery. For blood thinners, patient was instructed to speak with prescribing provider about when to discontinue and was advised our office needs documentation on when to stop prior to surgery. This can be completed on the form provided for the patient. Reviewed with patient use of surgical soap prior to surgery. Patient was instructed to use the evening before and the morning of surgery. Advised to not wash hair, face, genital, or rectal area. Patient expressed full understanding of the above in preparation for surgery. Patient was advised to contact our office if any questions or concerns arise prior to surgery. MA/ANCELMO Name: Belle/ARTURO documented in this encounter Plan of Treatment Not on file documented as of this encounter Visit Diagnoses Not on filedocumented in this encounter Care Teams Field Service Coordinator Relationship Specialty Start Date End Date Amaury Bonner MD [address] [place] [address] PCP - General 02/27/08 documented as of this encounter
--- OUTSIDE RECORDS SUMMARY | 2024-11-23 03:10 | XMS_ITS | Encounter Summary ---
Author Organization [facility] Address [address] [place] [address] Care Team Providers Care Embedded Software Manager Name Role Phone Amaury Bonner MD Primary Care Provider + [phone] Cady Urena Unavailable [phone] Reason for Visit * Auth/Cert (Routine) Specialty Diagnoses / Procedures Referred By Jaquelin t Referred To Contact Diagnoses Traumatic tear of right rotator cuff, initial encounter Arthritis of right acromioclavicular joint Biceps tendinitis on right Traumatic tear of right rotator cuff, initial encounter [S46.011A] Arthritis of right acromioclavicular joint [M19.011] Biceps tendinitis on right [M75.21] Procedures [place] SURGICAL ARTHROSCOPY SHOULDER DSTL CLAVICULC [place] SURGICAL ARTHROSCOPY HANNAH W/CORACOACRM LIGM RLS [place] SURGICAL ARTHROSCOPY SHOULDER W/ROTATOR CUFF RPR [place] SURGICAL ARTHROSCOPY SHOULDER BICEPS TENODESIS Right shoulder [...] Expiration Date Visits Re quested Visits Authorized [id number] 1 1 Encounter Details Date Type Department Care Team (Late st Contact Info) Description 09/29/2024 10:12 AM CDT Anesthesia Event [facility] Operating Room [address] [place] [address] [place] [id number] [address] Anesthesia Record Procedure Summary Procedure Name Responsible Anesthesiologist Anesthesia Start Time Anesthesia Stop Time Right shoulder arthroscopy distal claviculectomy including distal articular surface, decompression of subacromial space with partial acromioplasty with coracoacromial release, rotator cuff repair and biceps tenodesis (Right: Shoulder) Diego Vela MD 09/29/24 1012 09/29/24 1220 Events Date Time Event Comment 09/29/2024 0828 1012 In Room 1012 An Start 1012 An Start Data 1014 An Induction The patient was reevaluated immediately before moderate or deep sedation use and before anesthesia induction. 1014 An Intubation 1014 Anesthesia Ready 1102 Proc Start 1103 Incision Start 1207 An Extubation 1209 Proc Fin 1211 Out of Room 1212 an stop data 1219 Handoff to RN I completed my handoff to the receiving nurse during which we: 1. Patient identified 2. Responsible provider identified 3. Pertinent medical history reviewed 4. Procedure type and surgical course discussed 5. Intraoperative anesthetic management and any significant issues discussed 6. Expectations and concerns for postop period discussed 7. Questions solicited from receiving nurse 8. Patient disposition at the time of handoff: PACU 1220 An Stop Meds Name Total midazolam 2 mg fentaNYL 100 mcg propofol 200 mg lidocaine (cardiac) syringe 2 % 100 mg succinylcholine 100 mg phenylephrine 0.5 mg/5 mL (100 mcg/mL) v ial 100 mcg tranexamic acid (CYKLOKAPRON) 2,000 mg i n sodium chloride 0.9% 100 mL 2,000 mg ceFAZolin (ANCEF) 2,000 mg/20 mL in ster ile water (premix) 2,000 mg 2,000 mg esmolol 50 mg lidocaine (GLYDO) jelly 2 % 1 Applicatio n dexAMETHasone 10 mg/mL 10 mg ondansetron 4 mg diphenhydrAMINE 25 mg phenylephrine (SCOTT-SYNEPHRIN E) 10 mg in sodium chloride 0.9% 100 mL solution 2.1 mg LR 800 mL * Agents Name O2% N2O O2 N2O Air Sevoflurane Inspired Sevoflurane * Blood No blood administrations on file. Lines, Drains, and Airways Type Details Placement Removal PNB catheter Placement Date: 09/02 08/25; Placement Time: 926 (created via procedure documentation); Inserted by: Diego Vela MD; Pt Tolerance: brachial plexus - interscalene; Removal Date: Injectable, Topical, None; Removal Time: Tolerated well 09/29/24926 by Diego Vela MD Wound 09/29/24; 1108; Inci ilan; Shoulder; Right 09/29/24 110 by Estephania Gaxiola RN Peripheral IV Placement Date: 09/02 08/25; Placement Time: 823; Catheter Size: 20 G; Orientation: Left, Posterior; Location: Wrist; Site Prep: Chlorhexidine; Technique: Anatomical landmarks; Inserted by: madelin SMITH; Insertion Attempts: 1; Removal Date: 09/29/24; Removal Time: 15109/29/24823 by Seda Ferguson RN 09/29/241511 by Hanna Miranda RN ETT Placement Date: 09/02 08/25; Placement Time: 104 (created via procedure documentation); Mask Ventilation: 1; Technique: Direct laryngoscopy; Type: ETT - single; Single Lumen Tube Size: 7 mm; Cuffed: Yes; Laryngoscope: Valdez; Blade Size: 2; Location: Oral; Grade View: Grade I; Insertion Attempts: 1; Placement Verification: Auscultation, Capnometry; Removal Date: 09/29/24; Removal Time: 1207 09/29/24 1041 by Rosa Braun CRNA 09/29/24 1207 by Rosa Braun CRNA documented in this encounter Social History Tobacco [...] on file 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 Gender Identity Male 06/02/2024 7:40 AM CDT Sexual Orientation Straight 06/02/2024 7: 40 AM CDT documented as of this encounter OR Notes * Anesthesia Postprocedure Evaluation - Diego Vela MD - 09/29/2024 2:10 PM CDT Patient: Mp George Procedure Summary Date: 09/29/24 Room / Location: [facility] OR [address] [place] [address] OPERATING ROOM Anesthesia Start: 1012 Anesthesia Stop: 1220 Procedure: Right shoulder arthroscopy distal claviculectomy including distal articular surface, decompression of subacromial space with partial acromioplasty with coracoacromial release, rotator cuffrepair and biceps tenodesis (Right: Shoulder) Diagnosis: Traumatic tear of right rotator cuff, initial encounter Arthritis of right acromioclavicular joint Biceps tendinitis on right (Traumatic tear of right rotator cuff, initial encounter [S46.011A]) (Arthritis of right acromioclavicular joint [M19.011]) (Biceps tendinitis on right [M75.21]) Providers: Alexander Burden MD Responsible Provider: Diego Vela MD Anesthesia Type: general, PNB - continuous catheter ASA Status: 3 Anesthesia Type: general, PNB - continuous catheter Last vitals BP 150/87 Pulse 80 Temp 36.2 ??C (97.2 ??F) (Temporal) Resp 16 SpO2 97% Anesthesia Post Evaluation Patient location during evaluation: PACU Patient participation: complete - patient participated Level of consciousness: fully awake Pain score: 0 Pain management: adequate Airway patency: adequate Evidence of recall: no Cardiovascular status: acceptable Respiratory status: acceptable Hydration status: acceptable Pt is: normothermic Nausea/Vomiting status: none No notable events documented. * Anesthesia Procedure Notes - Rosa Braun CRNA - 09/29/2024 10:41 AM CDTAssociated Order(s): Airway Airway Patient location: OR Urgency: elective Indications for airway management: anesthesia Difficult airway: no Staff: Placed by: BRASS CHASER: Rosa Braun CRNA Emergent airway documentation: Risks [...] with: silk tape Number of attempts: 1 * Anesthesia Procedure Notes - Diego Vela MD - 09/29/2024 9:24 AM CDT Associated Order(s): Peripheral Block Peripheral Block Patient location during procedure: block [...] brachial plexus in the inter scalene space. * Anesthesia Preprocedure Evaluation - Diego Vela MD - 09/24/2024 9:48 AM CDT Images from the original note were not included. Anesthesia Evaluation Mp George is a 54 y.o. male Right shoulder arthroscopy distal claviculectomy including distal articular surface, decompression of subacromial space with partial acromioplasty with coracoacromial release, rotator cuff repair andbiceps tenodesis--arthroscopy equipment, Daniel/Nephew vapor, Breg Sling Shot 2 Sling with abductionpillow, NMES, Daniel/Nephew anchors, Spider, Arthrex anchors, beach chair, polar care, biceps tenodesis set Arthrex on hold, Arthroflex graft on hold (Right: Shoulder) Pre-Op Diagnosis Codes: * Traumatic tear of right rotator cuff, initial encounter [S46.011A] * Arthritis of right acromioclavicular joint [M19.011] * Biceps tendinitis on right [M75.21] HISTORY Past Medical History Information obtained from: patient and chart. Information obtained during: In Person Neurological + Psychiatric history - anxiety Cardiovascular + Hypertension + Hyperlipidemia Respiratory + Asthma (mild) Dyspnea frequency: never. Rescue inhaler use: never. Hepatic / Heme Hepatic/Heme system: negative Gastrointestinal + GERD (Otto's) - on daily therapy. Renal / Renal/ system: negative Musculoskeletal/Pain Musculoskeletal/Pain system: negative Endocrine / Other + Obesity (BMI >30) Functional Capacity Functional capacity: 6-10 METs Review of Systems + dysphagia Patient Active Problem List Diagnosis Date Noted Traumatic tear of right rotator cuff, initial encounter 09/23/2024 Arthritis of right acromioclavicular joint 09/23/2024 Biceps tendinitis on right 09/23/2024 Anxiety disorder 05/26/2024 Dysphagia 12/05/2021 Gastroesophageal reflux disease without esophagitis 09/01/2019 Gastroesophageal reflux disease 10/13/2013 Otto's esophagus 10/13/2013 Past Medical History: Diagnosis Date Asthma Eczema GERD (gastroesophageal reflux disease) HLD (hyperlipidemia) HTN (hypertension) RLS (restless legs syndrome) Past Surgical History: Procedure Laterality Date CHOLECYSTECTOMY TOOTH EXTRACTION No Known Allergies Med List Status: Nurse Complete Set By: Kelly Steele RN at 09/23/2024 11:40 AM Taking? Last Dose Start Date End Date Provider atorvastatin (LIPITOR) 40 mg tablet -- 12/19/21 -- ProviderNanda MD clonazePAM (KlonoPIN) 1 mg tablet -- 09/01/24 -- ProviderNanda MD pantoprazole DR (PROTONIX) 40 mg EC tablet -- 10/30/23 -- Derick Higuera MD TAKE 1 TABLET (40 MG TOTAL) BY MOUTH DAILY No current facility-administered medications for this encounter. Current Outpatient Medications: atorvastatin (LIPITOR) 40 mg tablet clonazePAM (KlonoPIN) [address] (PROTONIX) 40 mg EC tablet Social History Tobacco Use Smoking Status Never Smokeless Tobacco Never Alcohol Use: Unknown (09/23/2024) AUDIT-C Frequency of Alcohol Consumption: Monthly or less Average Number of Drinks: 1 or 2 Frequency of Binge Drinking: Not on file Substance and Sexual Activity Drug Use Never No family history on file. There were no vitals filed for this visit. PT: No results found for requested labs within last 30 days. INR: No results found for requested labs within last 30 days. APTT: No results found for requested labs within last 30 days. Hgb A1C: No results found for requested labs within last 30 days. CBC RBC: No results found for requested labs within last 30 days. RDW: No results found for requested labs within last 30 days. MCHC: No results found for requested labs within last 30 days. MCH: No results found for requested labs within last 30 days. MCV: No results found for requested labs within last 30 days. Hct: No results found for requested labs within last 30 days. Hgb: No results found for requested labs within last 30 days. WBC: No results found for requested labs within last 30 days. MPV: No results found for requested labs within last 30 days. Platelets: No results found for requested labs within last 30 days. RDW CV: No results found for requested labs within last 30 days. RDW Sd: No results found for requested labs within last 30 days. BMP Glucose: No results found for requested labs within last 30 days. Calcium: No results found for requested labs within last 30 days. Sodium: No results found for requested labs within last 30 days. Potassium: No results found for requested labs within last 30 days. CO2: No results found for requested labs within last 30 days. Chloride: No results found for requested labs within last 30 days. BUN: No results found for requested labs within last 30 days. Creatinine: No results found for requested labs within last 30 days. STOP-Bang Total Score: 2 DOS Physical Exam Medical history, medications, and allergies reviewed. Attestation: I endorse the findings of the anesthesia pre-evaluation assessment dated: 09/29/2024. Airway Exam: Mallampati: I Cervical ROM: FROM TM distance: >4 Cardiovascular Exam: Rate: regular Rhythm: regular Pulmonary Exam: LCTA, bilat EENT Exam: trachea midline Dental Exam: Appears intact Skin Exam: Skin is warm. Current state: Patient's current state is cooperative. Anesthesia Plan ASA 3 Planned anesthesia: General and PNB - continuous catheter Team communication plan: oral ET tube Upper extremity: brachial plexus - interscalene Induction: Induction: intravenous. Postoperative Plan: Postoperative administration opioids intended. No postoperative mechanical ventilation intended. Patient's planned disposition post procedure is Outpatient. Informed Consent: Discussed plan with attending and BRASS CHASER. Anesthesia plan and risks discussed with patient. Consent and Attending signature: I and/or my designee have discussed the anesthesia plan, benefits, possible alternatives, parental presence at time of induction (if indicated), and clinically relevant risks that may include dental injury, unintentional awareness, and/or other complications. The patient and/or parent/legal guardian understand, and agree to proceed. All questions answered. documented in this encounter Plan of Treatment Not on file documented as of this encounter Procedures Procedure Name Priority Date/Time Associated Diagnosis Comments [place] AN ELECTIVE ENDOTRACHEAL AIRWAY Routine 09/29/2024 10:41 AM CDT ANESTHESIA PERIPHERAL BLOCK Routine 09/29/2024 9:24 AM CDT documented in this encounter Results * [place] AN ELECTIVE ENDOTRACHEAL AIRWAY (09/29/2024 10:41 AM CDT) Narrative Rosa Braun CRNA - 09/29/2024 10:41 AM CDT Rosa Braun CRNA ? 09/29/2024 10:41 AM Airway Patient location: OR Urgency: elective Indications for airway management: anesthesia Difficult airway: no Staff: Placed by: BRASS CHASER: Rosa Braun CRNA Emergent airway documentation: Risks [...] space. Diego Vela MD ANESTHESIA ORDERABLES Daija tijerina Result documented in this encounter Visit Diagnoses Not on filedocumented in this encounter Administered Medications Inactive Administered Medications - up to 3 most recent administrations Medication Order MAR Action Action Date Dose Rate Site ceFAZolin (ANCEF) 2,000 mg/20 mL in sterile water (premix) 2,000 mg 2,000 mg, intravenous, at 400 mL/hr, Administer over 3 Minutes, Once, On Sat09/29/24 at 0845, For 1 dose, Pre-Op, Administer within 60 minutes of incision., Indications: Prophylaxis, SurgicalIndications:Pr ophylaxis, Surgical Given 09/29/2024 10:37 AM CDT 2,000 mg dexAMETHasone (DECADRON) injection solution intravenous, Administer over 2 Minutes, As needed, Starting on Sat09/29/24 at 1044, Anesthesia Intra-op Given 09/29/2024 10:44 AM CDT 10 mg diphenhydrAMINE (BENADRYL) 50 mg/mL injection intravenous, Administer over 2 Minutes, As needed, Starting on Sat09/29/24 at 1046, Anesthesia Intra-op Given 09/29/2024 10:46 AM CDT 25 mg esmoloL (BREVIBLOC) injection intravenous, Administer over 1 Minutes, As needed, Starting on Sat09/29/24 at 1014, Anesthesia Intra-op Given 09/29/2024 10:14 AM CDT 50 mg fentaNYL (SUBLIMAZE) preservative free injection intravenous, As needed, Starting on Sat09/29/24 at 0900, Anesthesia Intra-op Given 09/29/2024 9:00 AM CDT 100 mcg Lactated Ringer's (LR) infusion intravenous, Continuous PRN, Starting on Sat09/29/24 at 1012, Anesthesia Intra-op New Bag 09/29/2024 10:12 AM CDT lidocaine (GLYDO) 2 % jelly topical, As needed, Starting on Sat09/29/24 at 1014, Anesthesia Intra-op Given 09/29/2024 10:14 AM CDT 1 Application lidocaine (PF) (XYLOCAINE) 20 mg/mL (2 %) preservative free injection intravenous, As needed, Starting on Sat09/29/24 at 1014, Anesthesia Intra-op Given 09/29/2024 10:14 AM CDT 100 mg midazolam (VERSED) 1 mg/mL preservative free injection intravenous, Administer over 2 Minutes, As needed, Starting on Sat09/29/24 at 0900, Anesthesia Intra-op Given 09/29/2024 9:00 AM CDT 2 mg ondansetron (ZOFRAN) injection intravenous, Administer over 2 Minutes, As needed, Starting on Sat09/29/24 at 1045, Anesthesia Intra-op Given 09/29/2024 10:45 AM CDT 4 mg phenylephrine (BIORPHEN) 0.5 mg/5 mL (100 mcg/mL) injection intravenous, As needed, Starting on Sat09/29/24 at 1026, Anesthesia Intra-op Given 09/29/2024 10:26 AM CDT 100 mcg phenylephrine (SCOTT-SYNEPHRINE) 10 mg in sodium chloride 0.9% 100 mL solution intravenous, Continuous PRN, Starting on Sat09/29/24 at 1035, Anesthesia Intra-op Rate/Dose Change 09/29/2024 11:37 AM CDT 0.3 mcg/kg/min 19.566 mL/hr Rate/Dose Change 09/29/2024 11:25 AM CDT 0.2 mcg/kg/min 13 .044 mL/hr Rate/Dose Change 09/29/2024 11:22 AM CDT 0.3 mcg/kg/min 19 .566 mL/hr propofoL (DIPRIVAN) 10 mg/mL IV intravenous, As needed, Starting on Sat09/29/24 at 1014, Anesthesia Intra-op Given 09/29/2024 10:14 AM CDT 200 m g succinylcholine syringe intravenous, As needed, Starting on Sat09/29/24 at 1014, Anesthesia Intra-op Given 09/29/2024 10:14 AM CDT 100 m g tranexamic acid (CYKLOKAPRON) 2,000 mg in sodium chloride 0.9% 100 mL 2,000 mg (rounded from 1,657.5 mg = 15 mg/kg ? 110.5 kg), intravenous, Once, On Sat09/29/24 at 0845, For 1 dose, Intra-Op, Administer at time of incision, Indications: Prophylaxis, SurgicalIndications:Prophylaxis, Surgical New Bag 09/29/2024 10:31 AM CDT 2,000 mg documented in this encounter Care Teams Embedded Software Manager Relationship Specialty Start Date End Date Amaury Bonner MD [address] [place] [address] PCP - General 02/27/08 Cady Urena PA [address] JAMES [address] [place] [id number] Physician Audio Narrator Orthopedic Surgery 09/29/24 documented as of this encounter
--- OUTSIDE RECORDS SUMMARY | 2024-11-23 03:10 | XMS_ITS | Encounter Summary ---
Author Organization [facility] Healthcare Address [address] [place] [address] Care Team Providers Care Rate Inserter Name Role Phone Amaury Bonner MD Primary Care Provider + [phone] Encounter Details Date Type Department Care Team (Late st Contact Info) Description 09/24/2024 Orders Only [facility] Medical Group Orthopedics and Sports Medicine [address] [place] [address] [address] [place] [address] Alexander Burden MD [address] [place] [address] [facility] [address] [place] [address] Traumatic complete tear of right rotator [...] on file 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 Gender Identity Male 06/02/2024 7:40 AM CDT Sexual Orientation Straight 06/02/2024 7: 40 AM CDT documented as of this encounter Plan of Treatment Not on file documented as of this encounter Visit Diagnoses Diagnosis Traumatic complete tear of right rotator cuff, initial encounter- Primary Arthritis of right acromioclavicular joint Biceps tendinitis of right upper extremity documented in this encounter Orders General Supply Count Last Ordered Date First Or dered Date NEUROMUSCULAR ELECTRICAL STI MULATION (NMES) 1 09/24/2024 documented in this encounter Care Teams Rate Inserter Relationship Specialty Start Date End Date Amaury Bonner MD [address] [place] [address] PCP - General 02/27/08 documented as of this encounter
--- OUTSIDE RECORDS SUMMARY | 2024-11-23 03:10 | XMS_ITS | Encounter Summary ---
Author Organization [facility] Healthcare Address [address] [place] [address] Care Team Providers Care Herb Counselor Name Role Phone Amaury Bonner MD Primary Care Provider + [phone] Cady Urena Unavailable [phone] Encounter Details Date Type Department Care Team (Late st Contact Info) Description 10/15/2024 Telephone [facility] Medical Group Orthopedics and Sports Medicine [address] [facility] [address] [place] [address] Alexander Burden MD [address] [place] [address] [facility] [address] [place] [address] Social History Tobacco Use Types Packs/Day Years [...] on file 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 Thanks. IFF'S SERGEANT * Telephone Encounter - Halina Ramirez - 10/28/2024 11:11 AM CST Patient LVM wanting to return to work next week for 8 hours a day. Patient has current restriction of 4 hours per day. 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 Please call patient @ [phone] IFF'S SERGEANT * Telephone Encounter - Halina Ramirez - 10/26/2024 1:49 PM CST Patient called in and LVM stating he would like a call back to discuss post op questions. Please call patient @ [phone]. Thank you IFF'S SERGEANT * Telephone Encounter - Trinh Carlson MA - 10/19/2024 8:56 AM CST Updated order created and faxed. IFF'S SERGEANT * Telephone Encounter - Leeanna Iraheta - 10/16/2024 3:53 PM CST [facility] need the PT order that was sent yesterday 10/15 to have a different diagnosis or DX code due to not being able to bill Z codes. And still needs signed by provider. Please update and fax IFF'S SERGEANT * Telephone Encounter - Trinh Carlson MA - 10/15/2024 3:53 PM CST Order created and faxed. IFF'S SERGEANT * Telephone Encounter - Meri York - 10/15/2024 1:11 PM CST Patient called and is needing his PT orders sent to a new place. He is getting ready to go back to work and would like to go to PT by him employer. He would like to start the week of 10/26 at [facility] in the [facility]. Their phone number is [phone] IFF'S SERGEANT documented in this encounter Plan of Treatment Not on file documented as of this encounter Visit Diagnoses Not on filedocumented in this encounter Care Teams Herb Counselor Relationship Specialty Start Date End Date Amaury Bonner MD [address] [place] [address] PCP - General 02/27/08 Cady Urena PA [address] [place] [address] DR JAMES [address] [place] [address] Physician Director Of Employee Development Orthopedic Surgery 09/29/24 documented as of this encounter
--- OUTSIDE RECORDS SUMMARY | 2024-11-23 03:10 | XMS_ITS | Encounter Summary ---
Author Organization [facility] Address [address] [place] [address] Care Team Providers Care General Ledger Accountant Name Role Phone Amaury Bonner MD Primary Care Provider + [phone] Cady Urena Unavailable [phone] Reason for Referral * Physical Therapy (Routine) - Pending Review Specialty Diagnoses / Procedures Referred By Contjames t Referred To Contact Physical Therapy Diagnoses S/P right rotator cuff repair Cady Urena PA [address] [place] [address] [address] Phone: tel: fax: [address] [address] Phone: tel: fax: Referral ID Status Reason Start Date Expiration Date Visits Requested Visits Authorized [id number] Pending Review Specialty Services Required 4 11/12/2025 24 24 Question Answer PTRFR PT Evaluate and Treat Therapy options discussed with patient? Yes Location provided for therapy services is: Patient requested/Patient preferred Please select the performing region: External Order [171] To loc/pos [facility] [[id number]] # of visits: 24 Comments TO REPLACE PRIOR SENT PROTOCOL-PATIENT HAD FULL THICKNESS RTCR WITH SURGERY ROTATOR CUFF REPAIR REHABILITATION PROTOCOL Procedure details: s/p right rotator cuff repair (full thickness) with subacromial decompression, distal clavicle excision and biceps tenodesis Surgery Date: 09/29/24 2-3 times per week for 6-12 weeks; Please call patient to schedule first post-op appointment for 5-7 days after surgery. Please evaluate and treat according to the following protocol: For all PT reports that require a signature-please fax to [phone] PHASE I: (Weeks 0-1) GOALS: Protect rotator cuff repair Control pain and swelling SLING: Sling immobilization with abduction pillow at all times except for bathing and exercises WEIGHT BEARING: Non-weight bearing EXERCISES: Active range of motion elbow, wrist, and hand Film Editor strengthening Shoulder pendulums PHASE II: (Weeks 1-6) [...] 60-80?? without rotation NO IR/behind the back Film Editor strengthening NO CARLEY/Canes until week 6 No [...] at 10 to 12 months DOMINIQUE Kumar T MANUFACTURING SUPERVISOR Reason for Visit * Reason Comments Post-op Encounter Details Date Type Department Care Team (Late st Contact Info) Description 10/13/2024 9:15 AM SHEET MANUFACTURING SUPERVISOR Office Visit [facility] Orthopedic and Sports Medicine [address] [place] [phone] Cady Urena PA [address] [place] [address] [address] [place] [address] S/P right rotator cuff repair (Primary Dx) [...] on file Legal Sex Male 7:48 PM SHEET MANUFACTURING SUPERVISOR Gender Identity Male 06/02/2024 7:40 AM CDT Sexual Orientation Straight 06/02/2024 7: 40 AM CDT documented as of this encounter Last Filed Vital Signs Vital Sign Reading Time Taken Comments Blood Pressure 132/79 10/13/2024 9:06 AM SHEET MANUFACTURING SUPERVISOR Pulse 78 10/13/2024 9:06 AM SHEET MANUFACTURING SUPERVISOR Temperature - - Respiratory Rate - - Oxygen Saturation - - Inhaled Oxygen Concentration - - Weight 109.4 kg (241 lb 3.2 oz) 10/13/2024 9:06 AM SHEET MANUFACTURING SUPERVISOR Height 180.3 cm (5' 11 ) 10/13/2024 9:06 AM SHEET MANUFACTURING SUPERVISOR Body Mass Index 33.64 10/13/2024 9:06 AM SHEET MANUFACTURING SUPERVISOR documented in this encounter Progress Notes * Cady Urena PA - 10/13/2024 9:15 AM CST Images from the original note were not included. Post-Op Visit Note HPI: Patient is 2 weeks s/p right shoulder arthroscopy with subacromial decompression, distal clavicle excision, biceps tenodesis, and full thickness rotator cuff repair. Pain is well controlled. Patient is currently taking OTC prn for pain. They report compliance with sling and HEP/activity recommendati ons. Vital signs: height is 180.3 cm (5' 11 ) and weight is 109.4 kg (241 lb 3.2 oz). His blood pressure is 132/79 and his pulse is 78. Exam: Well approximated healing post operative portal holes. No erythema, draining, or signs of infection present. Neurovascular status is intact. Full AROM of elbow, wrist and hand. PROM: 80 flexion/scaption Assessment: Diagnosis Plan 1. S/P right rotator cuff repair Ambulatory referral order to Physical Therapy - Plan: Procedure, medications and post operative expectations reviewed with patient Continue sling Will continue outpatient PT; protocol adjusted to RTCR HEP reviewed as were activity restrictions/recommendations Follow up in 4 weeks time Patient demonstrates atrophy and weakness of right shoulder and would benefit from home E stim device. Questions were answered. Patient expressed full understanding and agreement of plan. Cady Urena PA-C T MANUFACTURING SUPERVISOR documented in this encounter Plan of Treatment Scheduled Referrals Name Type Priority Associated Diagnoses Order Schedule Ambulatory referral order to Physical Therapy - Outpatient Referral Routine S/P right rotator cuff repair Expected: 10/27/2024 (Approximate), Expires: 10/13/2025 documented as of this encounter Visit Diagnoses Diagnosis S/P right rotator cuff repair- Primary documented in this encounter Care Teams General Ledger Accountant Relationship Specialty Start Date End Date Amaury Bonner MD [address] [place] [address] PCP - General 02/27/08 Cady Urena PA [address] [address] Physician Loan Teller Orthopedic Surgery 09/29/24 documented as of this encounter
--- OUTSIDE RECORDS SUMMARY | 2024-11-23 03:10 | XMS_ITS | Encounter Summary ---
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 us Not In File Miscellaneous IMG MRI PROCEDURES Fin al Result [facility] documented in this encounter Visit Diagnoses Not on filedocumented in this encounter Care Teams Analytics Lead Relationship Specialty Start Date End Date Amaury Bonner MD [address] [place], [place] [id number] PCP - General 02/27/08 documented as of this encounter
--- OUTSIDE RECORDS SUMMARY | 2024-11-23 03:10 | XMS_ITS | Encounter Summary ---
Author Organization [facility] Address [address] [place] [address] Care Team Providers Care Supervisor Baking Name Role Phone Amaury Bonner MD Primary Care Provider + [phone] Cady Urena Unavailable [phone] Reason for Visit * Auth/Cert (Routine) Specialty Diagnoses / Procedures Referred By Contjames t Referred To Contact Diagnoses Traumatic tear of right rotator cuff, initial encounter Arthritis of right acromioclavicular joint Biceps tendinitis on right Traumatic tear of right rotator cuff, initial encounter [S46.011A] Arthritis of right acromioclavicular joint [M19.011] Biceps tendinitis on right [M75.21] Procedures [place] [facility] ARTHROS[facility] SHOULDER DSTL CLAVICULC [place] [facility] ARTHROSCOPY HANNAH W/CORACOACRM LIGM RLS [place] [facility] AR[facility]ROS[place] SHOULDER W/ROTATOR CUFF RPR [place] [facility] ARTHROSCOPY SHOULDER BICEPS TENODESIS Right shoulder [...] Expiration Date Visits Re quested Visits Authorized [id number] 1 1 Encounter Details Date Type Department Care Team (Latest Contact Info) Description 09/29/2024 8:03 AM CDT - 09/29/2024 3:24 PM CDT Hospital Encounter [facility] Operating Room [address] [place] [address] Alexander Burden MD [address] [place] [address] [address] HERNAN[address]Z [address] [place] [address] Biceps tendinitis on right (Primary Dx); Arthritis of right acromioclavicular joint; Traumatic tear of right rotator cuff, initial encounter Discharge Disposition: Discharge to home or self care Social History Tobacco Use Types Packs/Day Years [...] on file Legal Sex Male 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 * General Anesthesia (Discharge Care) (Grenadian) * Peripheral Nerve Block (Discharge Care) (Grenadian) * Ascorbic Acid (Vitamin C) (By mouth) (Grenadian) * Cholecalciferol (By mouth) (Grenadian) * Ondansetron (By mouth, Into the mouth) (Grenadian) * Oxycodone/Acetaminophen (By mouth) (Grenadian) * Senna (By mouth) (Grenadian) documented in this encounter Medications at Time [...] tear he is here for surgical consultation Printing Table Hand completed by using M*Modal Fluency Direct speaking [...] included. Operative Report SURGEON: Alexander Burden MD Emergency Medical Tech: Irina Saldana RN Physician Starch Treating Assistant: German Pacheco PA Scrub: Jorge Duran RN Orientee Emergency Medical Tech: Estephania Gaxiola RN FLOAT: Carri Valentine RN [...] Implant Name Type Inv. Item Serial No. Airport Operations Manager Lot No. LRB No. Used Action [employer] Suture [place] Double Loaded Knotless Fibertak 2.6mm AR-[id number] - [id number] [employer] INCSuture [place] Double Loaded Knotless Fibertak 2.6mm AR- 3632SP [employer] [id number] Right 1 Implanted [employer] Swivelock C 4.75mm 19.1mm Closed Eyelet Vent [place] Suture AR- 2324BCC - [id number] [employer] Swivelock C 4.75mm 19.1mm Closed Eyelet Vent [place] Suture [id number]-[id number] [employer] [id number] Right 1 Implanted [employer] Swivelock C 4.75mm 19.1mm Closed Eyelet Vent [place] Suture AR- 2324BCC - [id number] [employer] Swivelock C 4.75mm 19.1mm Closed Eyelet Vent [place] Suture [id number] [employer] [id number] Right 1 Implanted Estimated Blood Loss: 10 [...] will follow standard rotator cuff repair protocol. Printing Table Hand completed by using M*Modal Fluency Direct speaking software, therefore, transcriptionvariances may occur. Complications: None Condition on Discharge from the operating room was stable Alexander Burden MD Date: 09/29/2024 Time: 1:23 PM * Pre-Procedure Instructions - Kelly Steele RN - 09/23/2024 11:40 AM CDT We are pleased that you and your doctor have chosen [facility] for your surgery. We hope that the [...] morning of surgery Use no make-up, nail indonesian, lotions, oils or powders on your skin. [...] down the wills until you see the [email or web address] shop, there will be elevators to the [...] initial encounter Arthritis of right acromioclavicular joint documented in this encounter Admitting Diagnoses Diagnosis [...] 0845, For 1 dose, Pre-Op, Indications: Pre-Emptive AnalgesiaIndications:Pre-Empt daniel Analgesia Given 09/29/2024 8:20 AM CDT 1,000 [...] Site: Interscalene, Catheter Side: Right, Indications: Postoperative PainIndications:Postoperative Pain New Bag 09/29/2024 1:32 PM CDT 6 mL/hr 6 mL/hr celecoxib (CeleBREX) capsule 200 mg 200 mg, oral, Once, On Sat09/29/24 at 0845, For 1 dose, Pre-Op, Indications: Pre-Emptive PainIndications:Pre-Emptive Pain Given 09/29/2024 8:20 AM CDT 200 mg clindamycin (CLEOCIN) 900 mg/50 mL in dextrose 5% (premix) 900 mg 900 mg, intravenous, Once, On Sat09/29/24 at 0845, For 1 dose, Pre-Op, Indications: Prophylaxis, SurgicalIndications:Prophylax is, Surgical New Bag 09/29/2024 8:20 AM CDT 900 mg fat emulsion (INTRALIPID,LIPOSYN) 20 % infusion 100 [...] 09/29/2024 8:20 AM CDT 30 mL/hr 30 mL/ hr oxyCODONE-acetaminophen (PERCOCET) 5-325 mg per tablet 1 [...] Date amisulpride (BARHEMSYS) injection 10 mg 1 BUPivacaine-EPINEPHrine (MAR JORGE with EPI) 0.5 %-1:200,000 preservative free injection - ADS Override Pull 1 09/29/2024 ceFAZolin (ANCEF) 2,000 mg/2 0 mL in sterile water (premix) 2,000 mg 1 09/29/2024 EPINEPHrine 3 mg in Lactated Ringer's (LR) 3,000 mL irrigation solution 2 09/29/2024 fat emulsion (INTRALIPID,LIP OSYN) 20 % infusion 100 mL 1 09/29/2024 fat emulsion (INTRALIPID,LIP OSYN) 20 % infusion 250 mL 1 09/29/2024 fentaNYL (SUBLIMAZE) 50 mcg/ mL preservative free injection - ADS Override Pull 1 09/29/2024 Lactated Ringer's (LR) irrigation 1 024 lidocaine EPINEPHrine (XYLOC YAZ with EPI) 0.5 %-1:200,000 injection 1 09/29/2024 midazolam (VERSED) 2 mg/2 mL [...] 09/29/2024 documented in this encounter Care Teams Supervisor Baking Relationship Specialty Start Date End Date Amaury Bonner MD [address] [place] [address] PCP - General 02/27/08 Cady Urena PA [address] [place] [address] DR JAMES [address] [place] [id number] Physician Starch Treating Assistant Orthopedic Surgery 09/29/24 documented as of this encounter
--- OUTSIDE RECORDS SUMMARY | 2024-11-23 03:11 | XMS_ITS | Encounter Summary ---
Author Organization [facility] Address [address] [place] [address] Phone Care Team Providers Care Cash Analyst Name Role Phone Amaury Bonner MD Primary Care Provider + [phone] Reason for Visit * Reason Onset Date Comments add on colon 12/21/2021 Encounter Details Date Type Department Care Team (Late st Contact Info) Description 12/21/2021 Telephone [facility] Gastroenterology [address] [facility] Medical Office [address] [place] [address] Samira Gibson RN add on colon Social History Tobacco Use Types Packs/Day Years Used Date Smoking Tobacco: Never Smokeless Tobacco: Never Alcohol Use Standard Drinks/Week Comments Yes 0 (1 standard drink = 0.6 oz pur e alcohol) rarely Sex and Gender Information Value Date Recorded Sex Assigned at Not on file Legal Sex Male 7:48 PM CORPORATE TAX MANAGER Gender Identity Male 06/02/2024 7:40 AM CDT Sexual Orientation Straight 06/02/2024 7: 40 AM CDT documented as of this encounter Miscellaneous Notes * Telephone Encounter - Samira Gibson RN - 12/21/2021 3:40 PM CORPORATE TAX MANAGER Patient called and stated due to his age, his PCP recommended a colonoscopy at the time of his EGD with Dr. Higuera on 12.26.2021. I reviewed patient will need referral sent to [phone]. He will have PCP send referral. I reviewed either Jemima or I would clal patient back to either add colonoscopy or reschedule for later time. Patient verbalized understanding. ORATE TAX MANAGER documented in this encounter Plan of Treatment Not on file documented as of this encounter Visit Diagnoses Not on filedocumented in this encounter Care Teams Cash Analyst Relationship Specialty Start Date End Date Amaury Bonner MD [address] [place] [address] PCP - General 02/27/08 documented as of this encounter
--- OUTSIDE RECORDS SUMMARY | 2024-11-23 03:11 | XMS_ITS | Encounter Summary ---
Author Organization [facility] Address [address] [place] [address] Phone Care Team Providers Care Client Representative Name Role Phone Amaury Bonner MD Primary Care Provider [phone] Encounter Details Date Type Department Care Team (Late st Contact Info) Description 09/10/2022 Telephone [facility] Gastroenterology [address] [place] [address] Medical Office Building [address], [address] [place] [address] Jemima Hinkle RN Social History Tobacco Use Types Packs/Day Years [...] more drinks on one occasion? 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 He is at his PCP's office with a sore throat and wanted to make sure we faxed copies of his last procedure reports to Dr. Bonner. I re-faxed them now. The patient will callwith any other questions or concerns. documented in this encounter Plan of Treatment Not on file documented as of this encounter Visit Diagnoses Not on filedocumented in this encounter Care Teams Client Representative Relationship Specialty Start Date End Date Amaury Bonner MD [address] [place] [id number] PCP - General 02/27/08 documented as of this encounter
--- OUTSIDE RECORDS SUMMARY | 2024-11-23 03:11 | XMS_ITS | Encounter Summary ---
Author Organization [facility] Address [address] [place] [address] Phone Care Team Providers Care Carbon Rod Inserter Name Role Phone Amaury Bonner MD Primary Care Provider [phone] Encounter Details Date Type Department Care Team (Late st Contact Info) Description 10/24/2021 Telephone [facility] Gastroenterology [address] [facility] Medical Office [address] [place] [address] Jemima Hinkle RN Social History Tobacco Use Types Packs/Day Years Used Date Smoking Tobacco: Never Smokeless Tobacco: Never Alcohol Use Standard Drinks/Week Comments Yes 0 (1 standard drink = 0.6 oz pur e alcohol) rarely Sex and Gender Information Value Date Recorded Sex Assigned at Not on file Legal Sex Male 7:48 PM FROZEN FOODS MANAGER Gender Identity Male 06/02/2024 7:40 AM CDT Sexual Orientation Straight 06/02/2024 7: 40 AM CDT documented as of this encounter Ordered Prescriptions Prescription Sig Dispense Quantity Refills Last Filled Start Date End Date pantoprazole DR (PROTONIX) 40 mg EC tablet Take 1 tablet (40 mg total) by mouth daily 90 tablet 3 10/24/2021 09/24/2022 documented in this encounter Miscellaneous Notes * Telephone Encounter - Jemima Hinkle RN - 10/24/2021 11:45 AM CST Spoke with the patient and notified him that he is not due until 2021 for his 3 year f/u EGD and refills have been sent per his request. The patient verbalized understanding. ----- Message from Kehinde Kowalski sent at 10/24/2021 11:40 AM FROZEN FOODS MANAGER ----- Regarding: Callback Requested Good morning! This patient called in for refill on prescription, Protonix, that Dr. Higuera has prescribed for them in the past. Needs refill but also had question about whether or not it was time for another EGD.Will you give this patient a call back to discuss? The best number to reach them: [phone] Thanks! EN FOODS MANAGER EN FOODS MANAGER documented in this encounter Plan of Treatment Not on file documented as of this encounter Visit Diagnoses Not on filedocumented in this encounter Discontinued Medications Medication Sig Discontinue Reason Start Date End Da te pantoprazole DR (PROTONIX) 40 mg EC tablet Take 40 mg by mouth daily Reorder 10/24/2021 documented as of this encounter Care Teams Carbon Rod Inserter Relationship Specialty Start Date End Date Amaury Bonner MD [address] [place] [address] PCP - General 02/27/08 documented as of this encounter
--- OUTSIDE RECORDS SUMMARY | 2024-11-23 03:11 | XMS_ITS | Encounter Summary ---
Author Organization [facility] Healthcare Address [address] [place] [address] Care Team Providers Care Vamp Maker Name Role Phone Amaury Bonner MD Primary Care Provider + [phone] Encounter Details Date Type Department Care Team ([facility] st Contact Info) Description 10/02/2019 12:20 PM CDT Anesthesia Event [facility] Endoscopy [id number] [place] [address] Roger White MD [address] [facility] [address] [place] [address] Anesthesia Record Procedure Summary Procedure Name Responsible Anesthesiologist Anesthesia Start Time Anesthesia Stop Time ESOPHAGOGASTRODUODENOSCOPY BIOPSY Roger White MD 10/02/19 1220 10/02/19 1239 Events Date Time Event Comment 10/02/2019 1215 AN Equip Check 1218 1220 An Start 1220 An Start Data 1221 In Room 1224 Patient Positioned Laterally 1224 An Induction The patient was reevaluated immediately before moderate or deep sedation use and before anesthesia induction. 1224 Anesthesia Ready 1226 Proc Start 1229 Proc Fin 1235 Out of Room 1238 an stop data 1239 An Stop 1239 Handoff to RN I completed my handoff [...] disposition at the time of handoff: PACU Meds Name Total propofol 230 mg lidocaine 2 % 5 mL sodium chloride 0.9% infusion 300 mL * Agents Name O2 Air * Blood No blood administrations on file. Lines, Drains, and Airways Type Details Placement Removal Peripheral IV Placement Date: 12/20; Placement Time: 1214; Catheter Size: 22 G; Orientation: Right; Location: Forearm; Inserted by: SARAH Mchugh; Insertion Attempts: 1; Removal Date: 10/02/19; Removal Time: 1305 10/02/19 1214 by Maura Loredo RN 10/02/19 1305 by Lida Carlson RN documented in this encounter Social History Tobacco Use Types Packs/Day Years Used Date Smoking Tobacco: Never Smokeless Tobacco: Never Alcohol Use Standard Drinks/Week Comments Yes 0 (1 standard drink = 0.6 oz pur e alcohol) rarely Sex and Gender Information Value Date Recorded Sex Assigned at Not on file 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 ENDOSCOPY Anesthesia Start: 1220 Anesthesia Stop: 1239 Procedure: ESOPHAGOGASTRODUODENOSCOPY BIOPSY (N/A ) Diagnosis: Gastroesophageal reflux disease without esophagitis (Gastroesophageal reflux disease without esophagitis [K21.9]) Provider: Derick Higuera MD Responsible Provider: Roegr White MD Anesthesia Type: general ASA Status: 2 Anesthesia Type: general Last vitals BP 121/79 Pulse 68 Temp 36.4 ??C (97.5 ??F) Resp 18 SpO2 96% Anesthesia Post Evaluation Patient location during evaluation: PACU Patient participation: complete - patient participated Level of consciousness: fully awake Pain score: 0 Pain management: adequate Airway patency: adequate Evidence of recall: no Anesthetic complications: no Cardiovascular status: hemodynamically stable and acceptable Respiratory status: acceptable and room air Hydration status: acceptable Pt is: normothermic Nausea/Vomiting status: none * Anesthesia Preprocedure Evaluation - Roger White MD - 10/02/2019 12:11 PM CDT Images from the original note were not included. Anesthesia Evaluation Mp George is a 49 y.o. male Procedure(s): EGD Pre-Op Diagnosis Codes: * Gastroesophageal reflux disease without esophagitis [K21.9] Patient Active Problem List Diagnosis ??? Gastroesophageal reflux disease ??? Otto's esophagus ??? Gastroesophageal reflux disease without esophagitis Past Medical History: Diagnosis Date ??? Asthma ??? Eczema ??? HTN (hypertension) Past Surgical History: Procedure Laterality Date ??? TOOTH EXTRACTION No Known Allergies Taking? Last Dose Start Date End Date Provider pantoprazole DR (PROTONIX) 40 mg EC tablet -- -- Historical Provider, pravastatin (PRAVACHOL) 20 mg tablet 08/31/19 -- Historical Provider, Current Facility-Administered Medications: ??? sodium chloride 0.9% flush 0.5-20 mL, 0.5-20 mL, intra-catheter, PRN ??? sodium chloride 0.9% infusion, 30 mL/hr, intravenous, Continuous Social History Tobacco Use Smoking Status Never Smoker Smokeless Tobacco Never Used Substance and Sexual Activity Alcohol Use Yes Comment: rarely Substance and Sexual Activity Drug Use Never History reviewed. No pertinent family history. PAT Physical Exam Vitals: 10/02/19 1208 BP: 127/86 Pulse: 73 Resp: 18 Temp: 36 ??C (96.8 ??F) SpO2: 98% PT: No results found for requested labs within last 720 hours. INR: No results found for requested labs within last 720 hours. APTT: No results found for requested labs within last 720 hours. Hgb A1C: No results found for requested labs within last 720 hours. CBC RBC: No results found for requested labs within last 720 hours. RDW: No results found for requested labs within last 720 hours. MCHC: No results found for requested labs within last 720 hours. MCH: No results found for requested labs within last 720 hours. MCV: No results found for requested labs within last 720 hours. Hct: No results found for requested labs within last 720 hours. Hgb: No results found for requested labs within last 720 hours. WBC: No results found for requested labs within last 720 hours. MPV: No results found for requested labs within last 720 hours. Platelets: No results found for requested labs within last 720 hours. RDW CV: No results found for requested labs within last 720 hours. RDW Sd: No results found for requested labs within last 720 hours. BMP Glucose: No results found for requested labs within last 720 hours. Calcium: No results found for requested labs within last 720 hours. Sodium: No results found for requested labs within last 720 hours. Potassium: No results found for requested labs within last 720 hours. CO2: No results found for requested labs within last 720 hours. Chloride: No results found for requested labs within last 720 hours. BUN: No results found for requested labs within last 720 hours. Creatinine: No results found for requested labs within last 720 hours. DOS Physical Exam Medical history, medications, and allergies reviewed. Attestation: This PAT evaluation 10/02/2019. Airway Exam: Mallampati: II Cervical ROM: FROM TM distance: 3 Cardiovascular Exam: Rate: regular Rhythm: regular Pulmonary Exam: LCTA, bilat Dental Exam: Appears intact Anesthesia Plan ASA 2 My patient is approved for the Anesthesia Controlled Medication protocol when under care of a RECYCLABLE PRODUCTS SORTER Planned anesthesia: General Informed Consent: Anesthesia plan and risks discussed with patient. [...] MAR Action Action Date Dose Rate Site lidocaine (XYLOCAINE) 20 mg/mL (2 %) injection intravenous, As needed, Starting on Sat10/02/19 at 1224, Anesthesia Intra-op, Indications: Administration of Local AnesthesiaIndications:Administrati on of Local Anesthesia Given 10/02/2019 12:24 PM CDT 5 mL propofol (DIPRIVAN) IV intravenous, As needed, Starting on Sat10/02/19 at 1224, Anesthesia Intra-op Given 10/02/2019 12:28 PM CDT 20 mg Given 10/02/2019 12:27 PM CDT 20 mg Given 10/02/2019 12:26 PM CDT 40 mg sodium chloride 0.9% infusion 30 mL/hr, intravenous, Continuous, Starting on Sat10/02/19 at 1245, Pre-Procedure (GI) Rate/Dose Verify 10/02/2019 12:20 PM CDT New Bag 10/02/2019 12:19 PM CDT 30 mL/hr 30 mL/hr documented in this encounter Care Teams Vamp Maker Relationship Specialty Start Date End Date Amaury Bonner MD [address] [place] [address] PCP - General 02/27/08 documented as of this encounter
--- OUTSIDE RECORDS SUMMARY | 2024-11-23 03:11 | XMS_ITS | Encounter Summary ---
Author Organization [facility] Healthcare Address [address] [place] [address] Care Team Providers Care Spanish Teacher Name Role Phone Amaury Bonner MD Primary Care Provider + [phone] Encounter Details Date Type Department [facility] Team ([facility] Contact Info) Description 12/26/2021 3:20 PM WOOD PILE DRIVER OPERATOR Anesthesia Event [facility] Endoscopy [address] [place] [address] Jose Carlos Munson MD [address] [place], [place] [id number] Mely Osorio, ALYSSA [address] [place] [address] Anesthesia Record Procedure Summary Procedure Name Responsible Anesthesiologist Anesthesia Start Time Anesthesia Stop Time ESOPHAGOGASTRODUODENOSCOPY BALLOON DILATION <30MM Jose Carlos Munson MD 12/26/21 1520 12/26/21 1547 Events Date Time Event Comment 12/26/2021 1403 1458 AN Equip Check 1520 An Start 1520 An Start Data 1521 In Room 1522 Start Supplemental O2 1526 Patient Positioned Laterally 1527 An Induction The patient was reevaluated immediately before moderate or deep sedation use and before anesthesia induction. 1529 Anesthesia Ready 1532 Proc Start 1539 Proc Fin 1542 Out of Room 1547 Handoff to RN I completed my handoff [...] disposition at the time of handoff: PACU 1547 An Stop Meds Name Total propofol 300 mg Lidocaine IV 2 % 4 mL sodium chloride 0.9% infusion 0 mL * Agents Name O2 Sevoflurane Inspired Sevoflurane * Blood No blood administrations on file. 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 Gender Identity Male 06/02/2024 7:40 AM CDT Sexual Orientation Straight 06/02/2024 7: 40 AM CDT documented as of this encounter OR Notes * Anesthesia Postprocedure Evaluation - Jose Carlos Munson MD - 12/26/2021 4:07 PM CST Patient: Mp George Procedure Summary Date: 12/26/21 Room / Location: [facility] ENDOSCOPY ROOM [facility]COPY Anesthesia Start: 1520 Anesthesia Stop: 1547 Procedures: ESOPHAGOGASTRODUODENOSCOPY BALLOON DILATION <30MM (N/A ) ENDO ADD ON ESOPHAGOGASTRODUODENOSCOPY BIOPSY (N/A ) Diagnosis: Dysphagia, unspecified type (Dysphagia, unspecified type [R13.10]) Providers: Mani Meza MD Responsible Provider: Jose Carlos Munson MD Anesthesia Type: general ASA Status: 2 Anesthesia Type: general Last vitals BP 118/63 Pulse 80 Temp 36.3 ??C (97.3 ??F) Resp 18 SpO2 93% Anesthesia Post Evaluation Patient location during evaluation: PACU Patient participation: complete - patient participated Level of consciousness: fully awake Pain score: 0 Pain management: adequate Airway patency: patent Evidence of recall: no Cardiovascular status: acceptable Respiratory status: acceptable Hydration status: acceptable Pt is: normothermic Nausea/Vomiting status: none Comments: Patient to be driven home by significant other No complications documented. PILE DRIVER OPERATOR * Anesthesia Preprocedure Evaluation - Monica Raya MD - 12/26/2021 2:03 PM CST Images from the original note were not included. Anesthesia Evaluation Mp George is a 51 y.o. male Procedure(s): ESOPHAGOGASTRODUODENOSCOPY Pre-Op Diagnosis Codes: * Dysphagia, unspecified type [R13.10] Patient Active Problem List Diagnosis ??? Gastroesophageal reflux disease ??? Otto's esophagus ??? Gastroesophageal reflux disease without esophagitis ??? Dysphagia Past Medical History: Diagnosis Date ??? Asthma ??? Eczema ??? GERD (gastroesophageal reflux disease) ??? HTN (hypertension) Past Surgical History: Procedure Laterality Date ??? TOOTH EXTRACTION No Known Allergies Med List Status: Nurse Complete Set By: Indio Cardenas RN at 12/26/2021 1:57 PM Taking? Last Dose Start Date End Date Provider atorvastatin (LIPITOR) 40 mg tablet 12/26/2021 12/19/21 -- Nanda Quiroz MD pantoprazole DR (PROTONIX) 40 mg EC tablet 12/26/2021 10/24/21 -- Derick Higuera MD Take 1 tablet (40 mg total) by mouth daily Current Facility-Administered Medications: ??? sodium chloride 0.9% infusion, 30 mL/hr, intravenous, Continuous, Last Rate: 30 mL/hr at 12/26/21 1402, 30 mL/hr at 12/26/21 1402 Social History Tobacco Use Smoking Status Never Smoker Smokeless Tobacco Never Used Substance and Sexual Activity Alcohol Use Yes Comment: rarely Substance and Sexual Activity Drug Use Never History reviewed. No pertinent family history. Vitals: 12/26/21 1351 Temp: 36.2 ??C (97.2 ??F) PT: No results found for requested labs [...] and allergies reviewed. Attestation: This PAT evaluation Airway Exam: Mallampati: I Cervical ROM: FROM Cardiovascular Exam: Rate: regular Rhythm: regular Pulmonary Exam: LCTA, bilat Anesthesia Plan ASA 2 My patient is approved for the Anesthesia Controlled Medication protocol when under care of a WOOL BRUSHER Planned anesthesia: General Informed Consent: Anesthesia plan and risks discussed with patient. Plan and Consent Comments: Otto's esophagus, HL, rare asthma Consent and Attending signature: I and/or my designee have discussed the anesthesia plan, benefits, possible alternatives, parental presence at time of induction (if indicated), and clinically relevant risks that may include dental injury, unintentional awareness, and/or other complications. The patient and/or parent/legal guardian understand, and agree to proceed. All questions answered. PILE DRIVER OPERATOR documented in this encounter Plan of Treatment Not on file documented as of this encounter Visit Diagnoses Not on filedocumented in this encounter Administered Medications Inactive Administered Medications - up to 3 most recent administrations Medication Order MAR Action Action Date Dose Rate Site lidocaine (XYLOCAINE) 20 mg/mL (2 %) injection intravenous, As needed, Starting on Sat12/26/21 at 1527, Anesthesia Intra-op, Indications: Administration of Local AnesthesiaIndications:Administratio n of Local Anesthesia Given 12/26/2021 3:27 PM WOOD PILE DRIVER OPERATOR 4 mL propofoL (DIPRIVAN) 10 mg/mL IV intravenous, As needed, Starting on Sat12/26/21 at 1527, Anesthesia Intra-op Given 12/26/2021 3:35 PM WOOD PILE DRIVER OPERATOR 50 mg Given 12/26/2021 3:33 PM WOOD PILE DRIVER OPERATOR 50 mg Given 12/26/2021 3:31 PM WOOD PILE DRIVER OPERATOR 50 mg sodium chloride 0.9% infusion 30 mL/hr, intravenous, Continuous, Starting on Sat12/26/21 at 1345, Pre-Op Rate/Dose Verify 12/26/2021 3:20 PM WOOD PILE DRIVER OPERATOR 30 mL/hr New Bag 12/26/2021 2:02 PM WOOD PILE DRIVER OPERATOR 30 mL/hr 30 mL/hr documented in this encounter Care Teams Spanish Teacher Relationship Specialty Start Date End Date Amaury Bonner MD [address] [place] [address] PCP - General 02/27/08 documented as of this encounter
--- OUTSIDE RECORDS SUMMARY | 2024-11-23 03:11 | XMS_ITS | Encounter Summary ---
Author Organization [facility] Address [address] [place] [address] Phone Care Team Providers Care City Manager Name Role Phone Amaury Bonner MD Primary Care Provider [phone] Reason for Visit * Reason Onset Date Comments GI pre procedure 12.26.2021 12/05/2021 Encounter Details Date Type Department Care Team (Late st Contact Info) Description 12/05/2021 Telephone [facility] Gastroenterology [address] [facility] Medical Office Building [address] [place] [address] Jemima Hinkle RN GI pre procedure 12.26.2021 Social History Tobacco Use Types Packs/Day Years Used Date Smoking Tobacco: Never Smokeless Tobacco: Never Alcohol Use Standard Drinks/Week Comments Yes 0 (1 standard drink = 0.6 oz pur e alcohol) rarely Sex and Gender Information Value Date Recorded Sex Assigned at Not on file 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 Wt Readings from Last 1 Encounters: 12/05/21 104.3 kg (230 lb) [] Patient had GI procedure/CPAP clinic/GI clinic <30 days (if Yes, no medical screening questions needed unless new clinical issues in last 30 days) Medical screening questions: BMI/Weight: NA CARDIOVASCULAR: None RESPIRATORY/LUNG: None RENAL/LIVER/GI: None BLEEDING/CLOTTING: None NEUROLOGICAL: None ENDOCRINE: None PRIOR PROCEDURE ISSUES: None INTERACTIVE GRAPHIC DESIGNER/: NA IMPLANTS.: None Notes: DIABETIC MEDS Y/N: No/NA []Yes- Discuss diabetes medication management with prescribing physician DIALYSIS Y/N: No/NA []HD- Schedule on non-HD day, see protocol []PD- Drain PD fluid AM of procedure, if colonoscopy order AB ppx, see protocol PACEMAKER/ICD Y/N: No/NA Device info: Last documented device check: Any shocks since last cards visit (if yes must see cardiology for procedure clearance): BLOOD THINNERS/ANTICOAG/ANTIPLATELET (BESIDES ASA) Medication: NONE Physician contacted for hold order/date sent: Hold order Method sent: Date hold received: Hold instructions: CONTINUE ASPIRIN INFORMATION REQUESTED []Imaging: []Medical Progress Note/H&P []Medication list []Other: PATIENT OPTIMIZATION []Physician reviewing escalation: []CPAP: Date scheduled: Outcome : [] Location limitations: Scheduling Scheduling location limitations: Bow Tacker needed [x] NA Language: POA [x] NA Name: SPECIAL PROCEDURE INSTRUCTIONS Scheduling Notes Procedure information Date of procedure: 12.26.2021 Time of procedure: 1430 Arrival time: 1330 Location:[facility] Proceduralist:Esvin Higuera MD Instructions Method of instructions: Mailed copy [x]Confirmation of ride/rug cleaner helper [x]Post anesthesia restrictions given [x]NPO Instructions: [x]Diet Instructions: [x]Take non-blood thinner prescription meds that morning [x]Bring med list, photo ID, insurance card, no valuables [x]Bring COVID vaccination card (if vaccinated) Bowel Prep Prep prescribed: NA Method of Bowel Prep (RX): NA ER PLUMBER documented in this encounter Plan of Treatment Not on file documented as of this encounter Visit Diagnoses Not on filedocumented in this encounter Care Teams City Manager Relationship Specialty Start Date End Date Amaury Bonner MD [address] [place] [address] PCP - General 02/27/08 documented as of this encounter
--- OUTSIDE RECORDS SUMMARY | 2024-11-23 03:11 | XMS_ITS | Encounter Summary ---
Author Organization [facility] Address [address] [place] [address] Phone Care Team Providers Care Firer Automatic Stoker Name Role Phone Amaury Bonner MD Primary Care Provider [phone] Encounter Details Date Type Department Care Team (Late st Contact Info) Description 12/05/2021 Documentation [facility] Gastroenterology [address] [facility] Medical Office [address] [place] [address] Jemima Hinkle RN Social History Tobacco Use Types Packs/Day Years Used Date Smoking Tobacco: Never Smokeless Tobacco: Never Alcohol Use Standard Drinks/Week Comments Yes 0 (1 standard drink = 0.6 oz pur e alcohol) rarely Sex and Gender Information Value Date Recorded Sex Assigned at Not on file 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 Gender Identity Male 06/02/2024 7:40 AM CDT Sexual Orientation Straight 06/02/2024 7: 40 AM CDT documented as of this encounter Last Filed Vital Signs Vital Sign Reading Time Taken Comments Blood Pressure - - Pulse - - Temperature - - Respiratory Rate - - Oxygen Saturation - - Inhaled Oxygen Concentration - - Weight 104.3 kg (230 lb) 12/05/2021 2:29 PM MEDICAL INSTRUMENT CABLE FABRICATOR Height 180.3 cm (5' 11 ) 12/05/2021 2:29 PM MEDICAL INSTRUMENT CABLE FABRICATOR Body Mass Index 32.08 12/05/2021 2:29 PM MEDICAL INSTRUMENT CABLE FABRICATOR documented in this encounter Progress Notes * Jemima Hinkle RN - 12/05/2021 2:29 PM CST Ht/weight CAL INSTRUMENT CABLE FABRICATOR documented in this encounter Plan of Treatment Not on file documented as of this encounter Visit Diagnoses Diagnosis Dysphagia, unspecified type- Primary documented in this encounter Orders Case Request Count Last Ordered Date First Orde red Date CASE REQUEST GI 1 12/05/2021 documented in this encounter Care Teams Firer Automatic Stoker Relationship Specialty Start Date End Date Amaury Bonner MD [address] [place] [address] PCP - General 02/27/08 documented as of this encounter
--- OUTSIDE RECORDS SUMMARY | 2024-11-23 03:11 | XMS_ITS | Encounter Summary ---
Author Organization [facility] Healthcare Address [address] [place] [address] Care Team Providers Care Ab Initio Etl Developer Name Role Phone Amaury Bonner MD Primary Care Provider + [phone] Encounter Details Date Type Department Care Team (Latest Contact Info) Description 12/26/2021 1:03 PM 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 - 12/26/2021 4:23 PM 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 Hospital Encounter Endoscopy [id number] [place] [address] Mani Meza MD [address] [address] [place] [address] Derick Higuera MD [address] [facility] [address] [place] [address] Dysphagia, unspecified type Discharge Disposition: Discharge to home or self [...] on file Legal Sex Male 7:48 PM 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 Gender Identity Male 06/02/2024 7:40 AM CDT Sexual Orientation Straight 06/02/2024 7: 40 AM CDT documented as of this encounter Last Filed Vital Signs Vital Sign Reading Time Taken Comments Blood Pressure 115/70 12/26/2021 4:11 PM 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 Pulse 77 12/26/2021 4:10 PM 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 Temperature 36.3 ??C (97.3 ??F) 12/26/2021 3:45 PM CS T Respiratory Rate 20 12/26/2021 4:10 PM 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 Oxygen Saturation 94% 12/26/2021 4:10 PM 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 Inhaled Oxygen Concentration - - Weight 108.9 kg (240 lb) 12/26/2021 1:51 PM 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 Height 180.3 cm (5' 11 ) 12/26/2021 1:51 PM 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 Body Mass Index 33.47 12/26/2021 1:51 PM 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 encounter Discharge Diagnoses Diagnosis Dysphagia, unspecified - DYSPHAGIA, UNSPECIFIED Gastro-esophageal reflux disease with esophagitis, without bleeding - GASTRO-ESOPHAGEAL REFLUX DISEASE WITH ESOPHAGITIS, WITHOUT BLEEDING Essential (primary) hypertension - ESSENTIAL (PRIMARY) HYPERTENSION Unspecified essential hypertension Unspecified asthma, uncomplicated - UNSPECIFIED ASTHMA, UNCOMPLICATED Other retirement (current) drug therapy - 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 * Esophageal Dilation (Discharge Care) (Stateless) * Procedural Sedation (AfterCare(R) Instructions(ER/ED)) (Stateless) documented in this encounter Medications at Time of Discharge atorvastatin (LIPITOR) 40 mg tablet Take 1 tablet (40 mg total) by mouth daily 12/19/[address] (PROTONIX) 40 mg EC tablet Take 1 tablet (40 mg total) by mouth daily 90 tablet 3 10/24/2021 09/24/2022 documented as of this encounter Discharge Disposition Disposition Code Departure Means Destination Discharge to home or self care documented in this encounter H&P Notes * Mani Meza MD - 12/26/2021 2:22 PM CST Pre Endoscopy History and Physical Mp Wan is a 51 y.o. male who is here for Procedure(s): ESOPHAGOGASTRODUODENOSCOPY The indication(s) for the procedure(s): Dysphagia; Otto's esophagus surveillance. Past Medical History: Diagnosis Date ??? Asthma ??? Eczema ??? GERD (gastroesophageal reflux disease) ??? HTN (hypertension) Past Surgical History: Procedure Laterality Date ??? TOOTH EXTRACTION Social History Tobacco Use ??? Smoking status: Never Smoker ??? Smokeless tobacco: Never Used Substance Use Topics ??? Alcohol use: Yes Comment: rarely History reviewed. No pertinent family history. No Known Allergies Prior to Admission medications Medication Sig Start Date End Date Taking? Authorizing Provider atorvastatin (LIPITOR) 40 mg tablet 12/19/21 Yes Provider, MD Nanda pantoprazole DR (PROTONIX) 40 mg EC tablet Take 1 tablet (40 mg total) by mouth daily 10/24/21 Yes Derick Higuera MD Review of Systems A pertinent, focused review of systems was completed and negative, except as noted above. OBJECTIVE: Vitals: Vitals: 12/26/21 1351 12/26/21 1400 BP: 148/82 Pulse: 82 Resp: 16 Temp: 36.2 ??C (97.2 ??F) TempSrc: Temporal SpO2: 95% Weight: 108.9 kg (240 lb) Height: 180.3 cm (5' 11 ) Physical Exam: Airway: No significant abnormality. Cardiac: No significant abnormality. Pulmonary: No significant abnormality. Neurological: No significant abnormality. Gastrointestinal: No significant abnormality. ASA Score: per Anesthesia Sedation/Anesthesia Plan: per Anesthesia The risks and complications of the procedure have been explained to the patient. Informed consent was signed. Impression and plan: Will proceed with the planned procedure for the reasons stated above. 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 Room: [facility] ENDOSCOPY ROOM 05 Note Status: Finalized Procedure: Upper GI endoscopy Indications: Dysphagia, Surveillance for malignancy due to personal history of Otto's esophagus Providers: Mani Cervantes M.D. Referring MD: Amaury Bonner MD, Derick Higuera M.D. Medicines: Monitored Anesthesia Care Complications: No immediate complications. Estimated Blood Loss: Estimated blood loss was minimal. Procedure: Pre-Anesthesia Assessment: - The risks and benefits of the procedure and the sedation options and risks were discussed with the patient. All questions were answered and informed consent was obtained. - Immediately prior to administration of medications, the patient was re-assessed for adequacy to receive sedatives. After obtaining informed consent, the endoscope was passed under direct vision. Throughout the procedure, the patient's blood pressure, pulse, and oxygen saturations were monitored continuously. The [id number] was introduced through the mouth, and advanced to the second part of duodenum. The upper GI endoscopy was accomplished without difficulty. The patient tolerated the procedure well. Findings: The esophagus and gastroesophageal junction were examined with white light and narrow band imaging (NBI) from a forward view and retroflexed position. There was variant mucosal changes in the distal esophagus, but no visual evidence of Otto's esophagus. Biopsies were obtained 2 cm proximal to the GE junction and at the gastroesophageal junction with cold forceps for histology. The exam of the esophagus was otherwise normal. A TTS dilator was passed through the scope. Dilation with an 18-19-20 mm balloon dilator was performed to 18 mm in the esophagus. The stomach was normal. The examined duodenum was normal. Impression: - Normal examination of the esophagus for dysphagia. Empiric dilation performed of the esophagus. - There is no endoscopic evidence of Otto's esophagus. Two biopsies were obtained 2 cm proximal to the GE junction and at the gastroesophageal junction. Recommendation: - Await pathology results from tissue sampling. If you do not receive a call from my office after 5 business days following today's procedure, please call my office at [phone] and speak to my nurse. - Return to referring provider and/or Dr. Higuera's clinic as indicated. - In the unusual situation that you develop abdominal pain, bleeding or other significant problems in the days following this procedure please call my office [phone]). After hours and evenings please call [phone] and speak to the GI fellow plant operations engineer. Please tell the fellow that Dr. Cervantes did your procedure and that you were instructed to have the fellow call me or the physician covering for me to discuss the management of your condition. If you have an urgent problem, please go to the nearest emergency room and have the ER doctor call my office during the day or the GI fellow after hours and weekends to arrange admission or transfer to our facility. Please bring this report with you if you go to the emergency room. Attending Participation: I personally performed the entire procedure. Electronically signed by Mani Cervantes MD Mani Cervantes M.D. 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 When you arrive please come to [facility] hospital entrance. As you enter there will be an information desk-let them know you are here for a procedure, and theywill direct you to the registration area. Once you are registered one of the endoscopy nurses will come to get you ready for your procedure Dress comfortable. Leave any valuables at home, sixto. anthony, jewelry. Due to the anesthesia you will not be able to drive. Please have a ride arranged to and from the hospital with a responsible adult- someone who knows youand can care for you At any entrance to the building you will be screened for Covid symptoms, Covid exposure, and have temp. taken Per [facility] guidelines you are allowed one person to accompany you into the building This person will be screened and required to wear a mask at all times. I want to reassure you all staff are screened as we come in and we do wear mask at all times. If this person(Your commercial truck driver) chooses not to come into the building or will be picking you up after your procedure with anesthesia, for your safety we will confirm your ride home by phone call prior toyour procedure start time. 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 Dysphagia, unspecified type EGD 12/26/2021 3:13 PM DAY 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 encounter Results * Surgical pathology (12/26/2021 3:33 PM DAY 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) Tissue (Esophageal biopsy) 12/26/2021 3:33 PM DAY 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 Tissue (Esophageal biopsy) 12/26/2021 3:34 PM DAY 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 Narrative PATHOLOGY [facility] - 12/27/2021 5:27 PM DAY 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 EPIC results best viewed via link to PDF [facility] [place] [address] Note to Patients: This report may contain a detailed description of human tissue sent by a health care provider to the laboratory for pathologic evaluation. The content of this report is essential for diagnosis and may provide important critical findings. This information may be unfamiliar to patients to review without a medical professional present. It is advised that the patient review this report in the presence of a health care provider who can answer questions and explain the details. SURGICAL PATHOLOGY REPORT FINAL Patient Name: ?? MP WANEmory Gender: ??M : ??1970 (Age: 51) Address: ??[address] [place] [id number] [facility] #: ??[id number] Taken:12/26/2021 Received:12/26/2021 Reported: 12/27/2021 Patient Type: WC SDS Client ?[facility] Service: Gastro Location: [facility] Physician(s): ??MD Amaury Shafer M.D. Diagnosis: A. ??Esophagus, Z-line at 43 cm, endoscopic biopsy ? - Squamous mucosa with no significant histopathologic abnormality - Cardia-type mucosa with chronic inflammation - No acute inflammation, ulcers, or microorganisms - No evidence of Otto's esophagus, with no intestinal metaplasia, dysplasia, or malignancy B. ??Esophagus, distal - 41 cm, endoscopic biopsy ? - Features of reflux esophagitis with mild chronic inflammation, scattered eosinophils, and reactive squamous mucosal changes - Cardia-type mucosa with chronic inflammation - No acute inflammation, ulcers, or microorganisms - No evidence of Otto's esophagus, with no intestinal metaplasia, dysplasia, or malignancy era/12/27/2021 09:11 By this signature, I attest that the above diagnosis is based upon my personal examination of the slides(and/or other material indicated in the diagnosis). Gomez Blake MD Report Electronically Reviewed and Signed Out By ??Gomez Blake MD 12/27/2021 17:27:44 Microscopic Description and Comment: Microscopic examination substantiates the above cited diagnosis. Microscopic slide review and interpretation for this case was performed at [facility], Department of Surgical Pathology, [address] [facility], [id number], [place], [place] ??[address] ?? CLIA # [id number] Dyan Jones M.D. History: The patient is a 51-year-old man presenting with dysphagia, and a history of Otto's esophagus. ??Operative procedure: Upper GI endoscopy with balloon dilation and biopsies. ?? Specimen(s) Received: A: Z line at 43 cm B: Distal esophagus at 41 cm Gross Description: The specimens are received in two formalin filled containers each labeled with the patient's identifiers. ? A. ??Labeled Z line at 43 and consists of multiple irregular elkins-pink fragments of soft tissue measuring 0.7 x 0.6 x 0.2 cm in aggregate. ??Submitted in A1. ??Jar 0. B. ??Labeled distal esophagus at 41 and consists of two irregular elkins-white fragments of soft tissue measuring 0.2 and 0.5 cm each at greatest dimension. ??Submitted in B1. ??Jar 0. sxst/12/26/2021 19:11 PA(s): Viola Saenz By this signature, I attest that the above diagnosis is based upon my personal examination of the slides(and/or other material). Addenda/Procedures The performance characteristics of some immunohistochemical stains, fluorescence in-situ hybridization tests and immunophenotyping by flow cytometry cited in this report (if any) were determined by the Surgical Pathology and Flow Cytometry Departments at [facility] as part of an ongoing type disk quality control supervisor program and in compliance with federally mandated regulations drawn from the Clinical Laboratory Improvement Act of 1988 (CLIA '88). ??Some of these tests rely on the use of analyte specific reagents and are subject to specific labeling requirements by the US Food and Drug Administration. ??Such diagnostic tests may only be performed in a facility that is certified by the Department of Health and Human Services as a high complexity laboratory under CLIA '88. ??The FDA has determined that such clearance or approval is not necessary. ??This test is used for clinical purposes. ??It should not be regarded as investigational or for research. ??Nevertheless, federal rules concerning the medical use of analyte specific reagents require that the following disclaimer be attached to the report: This test was developed and its performance characteristics determined by the Surgical Pathology and Flow Cytometry Departments of [facility]. ??It has not been cleared or approved by the U. S. Food and Drug Administration. 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 Room: [facility] ENDOSCOPY ROOM 05 Note Status: Finalized Procedure: Upper GI endoscopy Indications: Dysphagia, Surveillance for malignancy due topersonal history of Otto's esophagus Providers: Mani Cervantes M.D. Referring MD: Amaury Bonner MD, Derick Higuera M.D. Medicines: Monitored Anesthesia Care Complications: No immediate complications. Estimated Blood Loss: Estimated blood loss was minimal. Procedure: Pre-Anesthesia Assessment: - The risks and benefits of the procedure and the sedation options and risks were discussed with the patient. All questions were answered and informed consent was obtained. - Immediately prior to administration ofmedications, the patient was re-assessed for adequacy to receive sedatives. After obtaining informed consent, the endoscope was passed under direct vision. Throughout theprocedure, the patient's blood pressure, pulse, and oxygen saturations were monitored continuously. The ICD-[id number] was introduced through the mouth,and advanced to the second part of duodenum. The upperGI endoscopy was accomplished without difficulty. The patient tolerated the procedure well. Findings: The esophagus and gastroesophageal junction were examined with white light and narrow band imaging (NBI) from a forward view andretroflexed position. There was variant mucosal changes in the distal esophagus,but no visual evidence of Otto's esophagus. Biopsies were obtained 2cm proximal to the GE junction and at the gastroesophageal junction with cold forceps for histology. The exam of the esophagus was otherwise normal. A TTS dilator was passed through the scope. Dilation with an 18-19-20mm balloon dilator was performed to 18 mm in the esophagus. The stomach was normal. The examined duodenum was normal. Impression: - Normal examination of the esophagus fordysphagia. Empiric dilation performed of the esophagus. - There is no endoscopic evidence of Otto's esophagus. Two biopsies were obtained 2 cm proximalto the GE junction and at the gastroesophagealjunction. Recommendation: - Await pathology results from tissue sampling. Ifyou do not receive a call from my office after 5business days following today's procedure, please call my office at [phone] and speak to my nurse. - Return to referring provider and/or Dr. Higuera's clinic as indicated. - In the unusual situation that you developabdominal pain, bleeding or other significant problems in the days following this procedure please call my office [phone]). After hours and eveningsplease call [phone] and speak to the GI fellow stanley. Please tell the fellow that Dr. Cervantes did your procedure and that you were instructed to have the fellow call me or the physician covering for me to discuss the management of your condition. If youhave an urgent problem, please go to the nearestemergency room and have the ER doctor call my office duringthe day or the GI fellow after hours and weekends to arrange admission or transfer to our facility.Please bring this report with you if you go to theemergency room. Attending Participation: I personally performed the entire procedure. Electronically signed by Mani Cervantes MD Mani Cervantes M.D. 12/26/2021 3:45:29 PM Number of Addenda: 0 Note Initiated On: 12/26/2021 3:13 PM us Mani Cervantes MD ENDOSCOPY PROCEDURES Final Result documented in this encounter Visit Diagnoses Diagnosis Dysphagia, unspecified type documented in this encounter Admitting Diagnoses Diagnosis Dysphagia documented in this encounter Administered Medications Inactive Administered Medications - up to 3 most recent administrations Medication Order MAR Action Action Date Dose Rate Site sodium chloride 0.9% infusion 30 mL/hr, intravenous, Continuous, Starting on Sat12/26/21 at 1345, Pre-Op Rate/Dose Verify 12/26/2021 3:20 PM DAY 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 Continuous Medication Order 12/24/2021 12/25/2021 12/26/2021 sodium chloride 0.9% infusion 30 mL/hr, intravenous, Continuous, Starting on Sat12/26/21 at 1345, Pre-Op 1402 (New Bag - Prov ider: Indio Cardenas, RN)1520 (Rate/Dose Verify - Provider: Yazmin Monae CRNA)1552 (Stopped - Provider: Denisa Mckenna RN) PRN Medication Order 12/24/2021 12/25/2021 12/26/2021 ondansetron (ZOFRAN) injection 4 mg 4 mg, intravenous, Administer over 2 Minutes, Every 30 min PRN, nausea, vomiting, Starting on Sat12/26/21 at 1547, For 2 doses, Recovery (GI), Indications: Nausea and Vomiting documented in this encounter Orders Medications Ordered That Robles ht Not Have Been Administered Count Last Ordered Date First Ordered Date ondansetron (ZOFRAN) injection 4 mg 1 12/26 documented in this encounter Care Teams Ab Initio Etl Developer Relationship Specialty Start Date End Date Amaury Bonner MD [address] [place] [address] PCP - General 02/27/08 documented as of this encounter
--- OUTSIDE RECORDS SUMMARY | 2024-11-23 03:11 | XMS_ITS | Encounter Summary ---
Author Organization [facility] Healthcare Address [address] [place] [address] Care Team Providers Care Muffle Operator Name Role Phone Amaury Bonner MD Primary Care Provider + [phone] Encounter Details Date Type Department Care Team (Latest Contact Info) Description 12/26/2021 3:30 PM TRIMMING INSPECTOR - 12/26/2021 4:00 PM TRIMMING INSPECTOR Surgery [facility] Endoscopy [address] [place] [address] Mani Meza MD 1 [facility] [address] [place] [address] ESOPHAGOGASTRODUODENOSCOPY BALLOON DILATION <30MM Surgery Details Date/Time Status Location OR Service Patient Class Case Class Case Type Trauma Case? 12/26/2021 3:30 PM Posted [facility] ENDOSCOPY Endo 05 Gastroenterology Outpatient Elective Panel 1 Procedure LRB Anes Op Region Wound Class Comments ESOPHAGOGASTRODUODENOSCOPY BALLOON DILATION <30MM N/A Monitor Anesthesia Care N/A ENDO ADD ON ESOPHAGOGASTRODUODENOSCOPY BIOPSY N/A Choice Surgeon Surgeon Role Service Panel Mani Meza MD Primary Gastroentero logy 1 documented in this encounter Social History Tobacco [...] on file Legal Sex Male 7:48 PM TRIMMING INSPECTOR Gender Identity Male 06/02/2024 7:40 AM CDT Sexual Orientation Straight 06/02/2024 7: 40 AM CDT documented as of this encounter Last Filed Vital Signs Vital Sign Reading Time Taken Comments Blood Pressure 118/63 12/26/2021 4:00 PM TRIMMING INSPECTOR Pulse 80 12/26/2021 4:00 PM TRIMMING INSPECTOR Temperature 36.3 ??C (97.3 ??F) 12/26/2021 3:45 PM CS T Respiratory Rate 18 12/26/2021 4:00 PM TRIMMING INSPECTOR Oxygen Saturation 93% 12/26/2021 4:00 PM TRIMMING INSPECTOR Inhaled Oxygen Concentration - - Weight 108.9 kg (240 lb) 12/26/2021 1:51 PM TRIMMING INSPECTOR Height 180.3 cm (5' 11 ) 12/26/2021 1:51 PM TRIMMING INSPECTOR Body Mass Index 33.47 12/26/2021 1:51 PM TRIMMING INSPECTOR documented in this encounter Discharge Instructions * Attachments The following attachments cannot be sent through Care Everywhere. * Esophageal Dilation (Discharge Care) (Martiniquais) * Procedural Sedation (AfterCare(R) Instructions(ER/ED)) (Martiniquais) documented in this encounter Medications at Time [...] planned procedure for the reasons stated above. MING INSPECTOR documented in this encounter Procedure Notes * Mani Meza MD - 12/26/2021 3:13 PM CSTAssociated Order(s): EGD ENDOSCOPY LAB Patient Name: Mp Wan Procedure Date: 12/26/2021 3:13 PM Date of : 1970 Admit Type: Outpatient Age: 51 Gender: Male Attending MD: Mani Cervantes M.D. Room: [facility] ENDOSCOPY ROOM 05 Note Status: Finalized [...] and oxygen saturations were monitored continuously. The [id number] was introduced through the mouth, and advanced [...] today's procedure, please call my office at [phone] and speak to my nurse. - Return to referring provider and/or Dr. Higuera's clinic as indicated. - In the unusual situation that you develop abdominal pain, bleeding or other significant problems in the days following this procedure please call my office [phone]). After hours and evenings please call [phone] and speak to the GI fellow surgeon's assistant. Please tell the fellow that Dr. Cervantes [...] 0 Note Initiated On: 12/26/2021 3:13 PM MING INSPECTOR documented in this encounter Miscellaneous Notes * Perioperative Nursing Note - Denisa Mckenna RN - 12/26/2021 4:23 PM TRIMMING INSPECTOR spoke to patient at bedside. MING INSPECTOR * Pre-Procedure Instructions - Cady Herndon RN - 12/25/2021 4:56 PM TRIMMING INSPECTOR For your procedure we say do not eat or drink after midnight unless there are any medications you may need to take, but please follow any instruction your doctor's office has given you. When you arrive please come to [facility] hospital entrance. As you enter there [...] Covid exposure, and have temp. taken Per [facility] guidelines you are allowed one person to accompany you into the building This person will be screened and required to wear a mask at all times. I want to reassure you all staff are screened as we come in and we do wear mask at all times. If this person(Your special needs bus driver) chooses not to come into the building or will be picking you up after your procedure with anesthesia, for your safety we will confirm your ride home by phone call prior toyour procedure start time. MING INSPECTOR documented in this encounter Plan of Treatment Not on file documented as of this encounter Procedures Procedure Name Priority Date/Time Associated Diagnosis Comments SURGICAL PATHOLOGY Routine 12/26/2021 3:33 PM TRIMMING INSPECTOR Dysphagia, unspecified type ENDO ADD ON ESOPHAGOGASTRODUODENOSCOPY BIOPSY 12/26/2021 3:21 PM TRIMMING INSPECTOR Dysphagia, unspecified type ESOPHAGOGASTRODUODENOSCOPY BALLOON DILATION <30MM 12/26/2021 3:21 PM TRIMMING INSPECTOR Dysphagia, unspecified type EGD 12/26/2021 3:13 PM TRIMMING INSPECTOR documented in this encounter Results * Surgical pathology (12/26/2021 3:33 PM TRIMMING INSPECTOR) Tissue (Esophageal biopsy) 12/26/2021 3:33 PM TRIMMING INSPECTOR Tissue (Esophageal biopsy) 12/26/2021 3:34 PM TRIMMING INSPECTOR Narrative PATHOLOGY [facility] - 12/27/2021 5:27 PM TRIMMING INSPECTOR EPIC results best viewed via link to PDF [facility] [place] [address] Note to Patients: This report may contain [...] PATHOLOGY REPORT FINAL Patient Name: ?? MP WAN Gender: ??M : ??1970 (Age: 51) Address: ??[address] [place] [address] ??[id number] Hospital #: ??[id number] Taken:12/26/2021 Received:12/26/2021 Reported: 12/27/2021 Patient Type: WC SDS Client ?[facility] Service: Gastro Location: [facility] Physician(s): ??MD Amaury Shafer M.D. Diagnosis: A. [...] for this case was performed at [facility], Department of Surgical Pathology, [address], [place] [id number], [place] ??[address] ?? CLIA # [id number] Dyan Jones M.D. History: The patient is [...] Pathology and Flow Cytometry Departments at [facility] as part of an ongoing quality control tech program and in compliance with federally mandated [...] Pathology and Flow Cytometry Departments of [facility]. ??It has not been cleared or approved by the U. S. Food and Drug Administration. IMAGES AND SCANNED DOCUMENTS, IF INCLUDED, ONLY VIEWABLE IN PDF VERSION OF REPORT Mani Cervantes MD LAB PATHOLOGY ORDERAB LES Final Result PATHOLOGY [facility] [phone] * EGD (12/26/2021 3:13 PM TRIMMING INSPECTOR) Anatomical Region Laterality Modality Other Narrative Procedure Note Mani Meza MD - 12/26/2021 3:13 PM CST ENDOSCOPY LAB Patient Name: Mp Wan Procedure Date: 12/26/2021 3:13 PM Date of : 1970 Admit Type: Outpatient Age: 51 Gender: Male Attending MD: Mani Cervantes M.D. Room: [facility] ENDOSCOPY ROOM 05 Note Status: Finalized [...] and oxygen saturations were monitored continuously. The [id number] was introduced through the mouth,and advanced to [...] today's procedure, please call my office at [phone] and speak to my nurse. - Return to referring provider and/or Dr. Higuera's clinic as indicated. - In the unusual situation that you developabdominal pain, bleeding or other significant problems in the days following this procedure please call my office [phone]). After hours and eveningsplease call [phone] and speak to the GI fellow stanley. [...] 0 Note Initiated On: 12/26/2021 3:13 PM Mani Cervantes MD ENDOSCOPY PROCEDURES Final Result documented in this encounter Visit Diagnoses Diagnosis Dysphagia, unspecified type Dysphagia, unspecified type documented in this encounter Admitting Diagnoses Diagnosis Dysphagia documented in this encounter Administered Medications Inactive Administered Medications - up to 3 most recent administrations Medication Order MAR Action Action Date Dose Rate Site sodium chloride 0.9% infusion 30 mL/hr, intravenous, Continuous, Starting on Sat12/26/21 at 1345, Pre-Op Rate/Dose Verify 12/26/2021 3:20 PM TRIMMING INSPECTOR 30 mL/hr New Bag 12/26/2021 2:02 PM TRIMMING INSPECTOR 30 mL/hr 30 mL/hr documented in this [...] Recently Administered Medications Times are shown in TRIMMING INSPECTOR. Continuous Medication Order 12/24/2021 12/25/2021 12/26/2021 sodium chloride 0.9% infusion 30 mL/hr, intravenous, Continuous, Starting on Sat12/26/21 at 1345, Pre-Op 1402 (New Bag - Prov ider: Indio Cardenas, SARAH)1520 (Rate/Dose Verify - Provider: Yazmin Monae CRNA)1552 [...] 12/26 documented in this encounter Care Teams Muffle Operator Relationship Specialty Start Date End Date Amaury Bonner MD [address] [place] [address] PCP - General 02/27/08 documented as of this encounter
--- OUTSIDE RECORDS SUMMARY | 2024-11-23 03:11 | XMS_ITS | Encounter Summary ---
Author Organization [facility] Address [address] [place] [address] Phone Care Team Providers Care Lawyer Name Role Phone Amaury Bonner MD Primary Care Provider [phone] Reason for Visit * Reason Onset Date Comments results and MD recommendations 12/28/2021 Encounter Details Date Type Department Care Team (Late st Contact Info) Description 12/28/2021 Telephone [facility] [address] [facility] Medical Office Building [address] [place] [address] Jemima Hinkle RN results and MD recommendations Social History Tobacco Use Types Packs/Day Years [...] on file Legal Sex Male 7:48 PM INFORMATION SYSTEMS SECURITY MANAGER Gender Identity Male 06/02/2024 7:40 AM CDT Sexual Orientation Straight 06/02/2024 7: 40 AM CDT documented as of this encounter Miscellaneous Notes * Telephone Encounter - Jemima Hinkle RN - 12/28/2021 9:28 AM CST Images from the original note were not included. Spoke with the patient and discussed his bx results and recommendations. He will call if he still c/w with dysphagia. Derick Higuera MD Reyes Genere, Juan Pablo, MD; Jemima Hinkle RN Cc: Ashlee Naranjo RN Thanks, Repeat egd 3 years RMATION SYSTEMS SECURITY MANAGER documented in this encounter Plan of Treatment Not on file documented as of this encounter Visit Diagnoses Not on filedocumented in this encounter Care Teams Lawyer Relationship Specialty Start Date End Date Amaury Bonner MD [address] [place] [address] PCP - General 02/27/08 documented as of this encounter
--- OUTSIDE RECORDS SUMMARY | 2024-11-23 03:11 | XMS_ITS | Encounter Summary ---
Author Organization [facility] Healthcare Address [address] [place] [address] Care Team Providers Care Carbide Grinder Name Role Phone Amaury Bonner MD Primary Care Provider + [phone] Reason for Visit * Reason Onset Date Comments COVID-19 EVALUATION 12/12/2021 Encounter Details Date Type Department Care Team ([facility] st Contact Info) Description 12/12/2021 Telephone [facility] Occupatiuonal Health [address] [place] [address] Room [address] (Third Floor) [place] [address] Mely Villalpando RN COVID-19 EVALUATION Social History Tobacco Use Types Packs/Day Years Used Date Smoking Tobacco: Never Smokeless Tobacco: Never Alcohol Use Standard Drinks/Week Comments Yes 0 (1 standard drink = 0.6 oz pur e alcohol) rarely Sex and Gender Information Value Date Recorded Sex Assigned at Not on file Legal Sex Male 7:48 PM PEST TECHNICIAN Gender Identity Male 06/02/2024 7:40 AM CDT Sexual Orientation Straight 06/02/2024 7: 40 AM CDT documented as of this encounter Miscellaneous Notes * Telephone Encounter - Mely Villalpando RN - 12/12/2021 4:02 PM PEST TECHNICIAN Employee COVID-19 Screening 12/12/2021 Vaccine related call? No Email: [email or web address] Employee/Student ID# [id number] Are you an employee or student? Employee Employer: [employer] Does your work require you to go into patient care areas (hospital or clinic)? Yes Do you enter patient care areas for research purposes only? 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 This email contains the same information and recommendations discussed during your call. You should also forward this information to your operations supervisor chemical cleaning as confirmation. Given your symptoms, you should not come to work and will be referred for combined COVID/Influenza testing. Or, if you have had a COVID infection in the past 3 months, you will be tested for influenza only. ??? If you are at work on site, you must leave work now. Notify your operations supervisor chemical cleaning that you have been directed to do so by the Occupational Health Employee COVID- 19 Call Center. ??? Please go to the employee testing site as directed for your test. They should be expecting you;if there is any confusion, please call us at [phone]. ??? While you are awaiting testing and results, you must remain off work. You should isolate yourself at home, avoid contact with any household members as much as possible, and stay in your home without leaving except for medical care. ??? You should let your operations supervisor chemical cleaning know that you will not be coming to work. Although we will emailyour operations supervisor chemical cleaning to confirm this, it is still your responsibility to notify your operations supervisor chemical cleaning as you would for any other work absence. We will notify you of your test results, which are usually available within 24- 48 hours. Your results will also post to your [facility] My Chart account ([email or web address]). Once yourresults are back, you will receive further instruction from Occupational Health. If you test positive for COVID-19, you must be cleared by Occupational Health ([facility]) before you can return to work. [facility] will notify you and your satellite manager when you can return to work. Should your test result positive, [facility] will work with you to identify any close contacts you may have had at work. OH willthen alert your work contacts directly; you do not have to. Your operations supervisor chemical cleaning should consult with [facility] if they have any questions and before any communication with coworkers about a positive test. [facility] will help ensure that coworkers potentially at risk are notified and given appropriate advice without unnecessary disclosure of personal health information. If you test negative for COVID-19, you may not return to work until you have been fever-free (temperature less than 100??F) for at least 24 hours and your other symptoms are improved. Occupational Health does not currently have the manpower to individually clear each employee with a negative test; once you are notified of a negative test result, you and your operations supervisor chemical cleaning must decide when it is appropriate for you to return to work, using the guidance that will be send with your negative test notification. TECHNICIAN documented in this encounter Plan of Treatment Not on file documented as of this encounter Visit Diagnoses Not on filedocumented in this encounter Care Teams Carbide Grinder Relationship Specialty Start Date End Date Amaury Bonner MD [address] [place], [place] [id number] PCP - General 02/27/08 documented as of this encounter
--- OUTSIDE RECORDS SUMMARY | 2024-11-23 03:12 | XMS_ITS | Encounter Summary ---
Author Organization [facility] Facility Care Team Providers Care Admissions Nurse Name Role Phone Amaury Bonner MD Primary Care Provider + [phone] Encounter Details Date Type Department Care Team (Latest Contact Info) Description 02/25/2019 Travel Social History Tobacco Use Types Packs/Day Years Used Date Smoking Tobacco: Never Smokeless Tobacco: Never Sex and Gender Information Value Date Recorded Sex Assigned at Not on file Legal Sex Male 7:48 PM SLIP FILLER Gender Identity Male 06/02/2024 7:40 AM CDT Sexual Orientation Straight 06/02/2024 7: 40 AM CDT documented as of this encounter Plan of Treatment Not on file documented as of this encounter Visit Diagnoses Not on filedocumented in this encounter Care Teams Admissions Nurse Relationship Specialty Start Date End Date Amaury Bonner MD [address] [place] [address] PCP - General 02/27/08 documented as of this encounter
--- OUTSIDE RECORDS SUMMARY | 2024-11-23 03:12 | XMS_ITS | Encounter Summary ---
Author Organization [facility] Healthcare Address [address] [place] [address] Care Team Providers Care End Frazer Name Role Phone Amaury Bonner MD Primary Care Provider [phone] Encounter Details Date Type Department Care Team (Latest Contact Info) Description 10/02/2019 12:30 PM CDT - 10/02/2019 1:00 PM CDT Surgery [facility] Endoscopy [id number] [place] [address] Derick Higuera MD [address] [place] [address] ESOPHAGOGASTRODUODENOSCOPY BIOPSY Surgery Details Date/Time Status Location OR Service Patient Class Case Class Case Type Trauma Case? 10/02/2019 12:30 PM Posted [facility] ENDOSCOPY ASCGI 01 Gastroenterology Outpatient Elective Panel 1 Procedure LRB Anes Op Region Wound Class Comments ESOPHAGOGASTRODUODENOSCOPY BIOPSY N/A Monitor Anesthesia Care N/A Surgeon Surgeon Role Service Panel Derick Higuera MD Primary Gastroent erology 1 Special Needs last EGD 2015 documented in this encounter Social History Tobacco Use Types Packs/Day Years Used Date Smoking Tobacco: Never Smokeless Tobacco: Never Alcohol Use Standard Drinks/Week Comments Yes 0 (1 standard drink = 0.6 oz pur e alcohol) rarely Sex and Gender Information Value Date Recorded Sex Assigned at Not on file Legal Sex Male 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 Gender Identity Male 06/02/2024 7:40 AM CDT Sexual Orientation Straight 06/02/2024 7: 40 AM CDT documented as of this encounter Last Filed Vital Signs Vital Sign Reading Time Taken Comments Blood Pressure 121/79 10/02/2019 12:55 PM CDT Pulse 68 10/02/2019 12:55 PM CDT Temperature 36.4 ??C (97.5 ??F) 10/02/2019 12:34 PM C DT Respiratory Rate 18 10/02/2019 12:55 PM CDT Oxygen Saturation 96% 10/02/2019 12:55 PM CDT Inhaled Oxygen Concentration - - Weight 108.9 kg (240 lb) 10/02/2019 12:08 PM CDT Height 180.3 cm (5' 11 ) 10/02/2019 12:08 PM CDT Body Mass Index 33.47 10/02/2019 12:08 PM CDT documented in this encounter Discharge Instructions * Discharge Instructions* Derick Higuera MD - 10/02/2019 12:31 PM CDT Please refer to your procedure report and instructions for specific guidance on management of your diet and medications. Specifically, if you are on a blood thinning medication (like coumadin, Plavix, Eliquis, Xarelto, etc) your endoscopy report will include instructions on what to do with these medications in the days after the endoscopy. If you have any questions about your medication regimen, please discuss them with your prescribing physician. documented in this encounter Medications at Time of Discharge pantoprazole DR (PROTONIX) 40 mg EC tablet Take 40 mg by mouth daily 10/24/2021 pravastatin (PRAVACHOL) 20 mg tablet 5 2019 12/25/2021 documented as of this encounter Discharge Disposition Disposition Code Departure Means Destination Discharge to home or self care documented in this encounter Progress Notes * Derick Higuera MD - 10/02/2019 1:17 PM CDT F/u per endo report FILL GAS COLLECTION OPERATOR documented in this encounter H&P Notes * Derick Higuera MD - 10/02/2019 12:30 PM CDT Pre Endoscopy History and Physical Mp Wan is a 49 y.o. male who is here for Procedure(s): EGD The indication(s) for the procedure(s): henson's. Past Medical History: Diagnosis Date ??? Asthma [...] Start Date End Date Taking? Authorizing Provider pantoprazole DR (PROTONIX) 40 mg EC tablet Take 40 mg by mouth daily Yes Historical Provider, pravastatin (PRAVACHOL) 20 mg tablet 08/31/19 Yes Historical Provider, Review of Systems A pertinent, focused review of systems was completed and negative, except as noted above. OBJECTIVE: Vitals: Vitals: 10/01/19 1143 10/02/19 1208 BP: 127/86 BP Location: Right arm Patient Position: Sitting Pulse: 73 Resp: 18 Temp: 36 ??C (96.8 ??F) TempSrc: Temporal SpO2: 98% Weight: 108.9 kg (240 lb) 108.9 kg (240 lb) Height: 180.3 cm (5' 11 ) 180.3 cm (5' 11 ) Physical Exam: [...] planned procedure for the reasons stated above. documented in this encounter Procedure Notes * Derick Higuera MD - 10/02/2019 12:15 PM CDTAssociated Order(s): EGD ENDOSCOPY LAB Patient Name: Mp Wan Procedure Date: 10/02/2019 12:15 PM Date of : 1970 Admit Type: Outpatient Age: 49 Gender: Male Attending MD: Derick Higuera M.D. Room: [place] [address] Note Status: Finalized Procedure: Upper GI endoscopy Indications: Surveillance for malignancy due to personal history of Henson's esophagus Providers: Derikc Higuera M.D. Referring MD: Amaury Bonner MD Medicines: Monitored Anesthesia Care Complications: No immediate complications. Estimated Blood Loss: Estimated blood loss: none. Procedure: Pre-Anesthesia Assessment: - Immediately prior to administration of medications, the patient was re-assessed for adequacy to receive sedatives. After obtaining informed consent, the endoscope was passed under direct vision. Throughout the procedure, the patient's blood pressure, pulse, and oxygen saturations were monitored continuously. The [id number] was introduced through the mouth, and advanced to the second part of duodenum. The upper GI endoscopy was accomplished without difficulty. The patient tolerated the procedure well. Findings: The examined duodenum was normal. A hiatal hernia was found. The proximal extent of the gastric folds (end of tubular esophagus) was 38 cm from the incisors. The hiatal narrowing was 40 cm from the incisors. The exam of the stomach was otherwise normal. The esophagus and gastroesophageal junction were examined with white light and narrow band imaging (NBI) from a forward view and retroflexed position. There were esophageal mucosal changes classified as Henson's stage C0-M0 per Glendale criteria. These changes involved the mucosa extending to the Z-line. Islands of salmon-colored mucosa were present from 36 to 38 cm. Mucosa was biopsied with a cold forceps for histology in a targeted manner in the lower third of the esophagus. One specimen bottle was sent to pathology. The exam of the esophagus was otherwise normal. Impression: - Normal examined duodenum. - Hiatal hernia. - Esophageal mucosal changes classified as Henson's stage C0-M0 per Glendale criteria. Biopsied. Recommendation: - Call my nurses in the GI office at [phone] ([phone]) for your final pathology results in 7 days. - Repeat upper endoscopy in 3 years for surveillance. - Return to primary care physician as previously scheduled. - Continue present medications. Attending Participation: I personally performed the entire procedure. Electronically signed by Derick Higuera MD Derick Higuera M.D. 10/02/2019 12:37:58 PM Number of Addenda: 0 Note Initiated On: 10/02/2019 12:15 PM documented in this encounter Miscellaneous Notes * Perioperative Nursing Note - Lida Carlson RN - 10/02/2019 12:57 PM CDT Discharges instructions reviewed with patient and spouse. Verbalized understanding and no questionsat this time. Copies given. Will continue to monitor and assess. * Pre-Procedure Instructions - Cady Herndon RN - 10/01/2019 11:41 AM CDT Come to [facility] hospital entrance and register at the desk NPO after midnight. Leave jewelry & valuables at home. Please bring ID & insurance card. Wear comfortable clothing. You need to have a courier delivery driver with you to take you home & stay with you for 24 hrs. after surgery. Take the following medications with a sip of water:Pantoprazole, pravastatin documented in this encounter Plan of Treatment Not on file documented as of this encounter Procedures Procedure Name Priority Date/Time Associated Diagnosis Comments SURGICAL PATHOLOGY Routine 10/02/2019 12:28 PM CDT Gastroesophagea l reflux disease without esophagitis ESOPHAGOGASTRODUODENOSCOPY BIOPSY 10/02/2019 12:21 PM CDT Gastroesophagea l reflux disease without esophagitis Special Needs last EGD 2016 EGD 10/02/2019 12:15 PM CDT documented in this encounter Results * Surgical pathology (10/02/2019 12:28 PM CDT) Tissue (Esophageal biopsy) 10/02/2019 12:28 PM CDT Narrative PATHOLOGY [facility] - 10/05/2019 8:34 AM LANDFILL GAS COLLECTION OPERATOR EPIC results best viewed via link to PDF [facility] [place] [address] SURGICAL PATHOLOGY REPORT FINAL Patient Name: ?? MP WANEmory Gender: ??M : ??1970 (Age: 49) Address: ??[address] [place] [address] Hospital #: ??[id number] Taken:10/02/2019 Received:10/02/2019 Reported: 10/05/2019 Patient Type: WC SDS Client ?[facility] Service: Gastro Location: [facility] Physician(s): ??Laquita Luo M.D. Diagnosis: A. ??Esophagus, lower one third, biopsy ? - Squamocolumnar junctional mucosa with chronic inflammation and reactive epithelial changes - No evidence of intestinal metaplasia rls/10/04/2019 16:37 By this signature, I attest that the above diagnosis is based upon my personal examination of the slides(and/or other material indicated in the diagnosis). Addy Brumfield M.D. Report Electronically Reviewed and Signed Out By ??Addy Brumfield M.D. 10/05/2019 08:34:51 Microscopic Description and Comment: Microscopic examination substantiates the above cited diagnosis. Timo Hensley M.D. History: The patient is a 49-year-old man with gastroesophageal reflux disease and Henson's esophagus. ??Operative procedure: EGD. Specimen(s) Received: A: Esophagus lower third bx Gross Description: The specimen is received one formalin filled container labeled with the patient's name and esophagus lower third biopsy. ??It contains multiple irregular pale elkins soft fragments measuring 1.3 x 0.3 x 0.1 cm in aggregate. ??Stained with hematoxylin. Labeled A1. ??Jar 0. cnewho/10/02/2019 14:19 Lucita Araya, [place], CT (ASCP By this signature, I attest that the above diagnosis is based upon my personal examination of the slides(and/or other material). The performance characteristics of some immunohistochemical stains, fluorescence in-situ hybridization tests and immunophenotyping by flow cytometry cited in this report (if any) were determined by the Surgical Pathology Department at [facility] as part of an ongoing quality technician program and in compliance with federally mandated [...] performance characteristics determined by the Surgical Pathology Department of [facility]. ??It has not been cleared or approved by the U. S. Food and Drug Administration. IMAGES AND SCANNED DOCUMENTS, IF INCLUDED, ONLY VIEWABLE IN PDF VERSION OF REPORT Derick Higuera MD LAB PATHOLOGY [place] Final Result PATHOLOGY [facility] [phone] * EGD (10/02/2019 12:15 PM CDT) Anatomical Region Laterality Modality Other Narrative Procedure Note Derick Higuera MD - 10/02/2019 12:15 PM CDT ENDOSCOPY LAB Patient Name: Mp Wan Procedure Date: 10/02/2019 12:15 PM Date of : 1970 Admit Type: Outpatient Age: 49 Gender: Male Attending MD: Derick Higuera M.D. Room: [place] [address] Note Status: Finalized Procedure: Upper GI endoscopy Indications: Surveillance for malignancy due to personal history of Henson's esophagus Providers: Derick Higuera M.D. Referring MD: Amaury Bonner MD Medicines: Monitored Anesthesia Care Complications: No immediate complications. Estimated Blood Loss: Estimated blood loss: none. Procedure: Pre-Anesthesia Assessment: - Immediately prior to administration of medications,the patient was re-assessed for adequacy to receivesedatives. After obtaining informed consent, the endoscope waspassed under direct vision. Throughout the procedure, the patient's blood pressure, pulse, and oxygen saturations were monitored continuously. The [id number] was introduced through the mouth, and advanced to thesecond part of duodenum. The upper GI endoscopy wasaccomplished without difficulty. The patient tolerated the procedure well. Findings: The examined duodenum was normal. A hiatal hernia was found. The proximal extent of the gastric folds(end of tubular esophagus) was 38 cm from the incisors. The hiatalnarrowing was 40 cm from the incisors. The exam of the stomach was otherwise normal. The esophagus and gastroesophageal junction were examined with white light and narrow band imaging (NBI) from a forward view andretroflexed position. There were esophageal mucosal changes classified asBarrett's stage C0-M0 per Glend[place] criteria. These changes involved the mucosa extending to the Z-line. Islands of salmon-colored mucosa werepresent from 36 to 38 cm. Mucosa was biopsied with a cold forceps forhistology in a targeted manner in the lower third of the esophagus. Onespecimen bottle was sent to pathology. The exam of the esophagus was otherwise normal. Impression: - Normal examined duodenum. - Hiatal hernia. - Esophageal mucosal changes classified as Henson'sstage C0-M0 per [place] criteria. Biopsied. Recommendation: - Call my nurses in the GI office at [phone] ([phone]) for your final pathology results in 7days. - Repeat upper endoscopy in 3 years for surveillance. - Return to primary care physician as previouslyscheduled. - Continue present medications. Attending Participation: I personally performed the entire procedure. Electronically signed by Derick Higuera MD Derick Higuera M.D. 10/02/2019 12:37:58 PM Number of Addenda: 0 Note Initiated On: 10/02/2019 12:15 PM Derick Higuera MD ENDOSCOPY PROCEDUR ES Final Result documented in this encounter Visit Diagnoses Diagnosis Gastroesophageal reflux disease without esophagitis- Primary Esophageal reflux Gastroesophageal reflux disease without esophagitis Esophageal reflux documented in this encounter Admitting Diagnoses Diagnosis Gastroesophageal reflux disease without esophagitis Esophageal reflux documented in this encounter Administered Medications Inactive Administered Medications - up to 3 most recent administrations Medication Order MAR Action Action Date Dose Rate Site sodium chloride 0.9% flush 0.5-20 mL 0.5-20 mL, intra-catheter, As needed, line care, Starting on Sat10/02/19 at 1210, Pre-Procedure (GI), Flush volume based on line type and size. Flush before and after each use. , Indications: FlushingIndications:Flushing sodium chloride 0.9% infusion 30 mL/hr, intravenous, Continuous, Starting on Sat10/02/19 at 1245, Pre-Procedure (GI) Rate/Dose Verify 10/02/2019 12:20 PM CDT New Bag 10/02/2019 12:19 PM CDT 30 mL/hr 30 mL/hr documented in this encounter Historical Medications * This list may reflect changes made after this encounter. pantoprazole DR (PROTONIX) 40 mg EC tablet Take 40 mg by mouth daily 10/24/2021 pravastatin (PRAVACHOL) 20 mg tablet 5 2019 12/25/2021 added in this encounter Active and Recently Administered Medications Times are shown in CDT. Continuous Medication Order 09/30/2019 10/01/2019 10/02/2019 sodium chloride 0.9% infusion 30 mL/hr, intravenous, Continuous, Starting on Sat10/02/19 at 1245, Pre-Procedure (GI) 1219 (New Bag - Prov ider: Maura Loredo RN)1220 (Rate/Dose Verify - Provider: Susan Harris CRNA)1229 (Anesthesia Volume Adjustment - Provider: Susan Harris CRNA)1305 (Stopped - Provider: Lida Carlson RN) PRN Medication Order 09/30/2019 10/01/2019 10/02/2019 ondansetron (ZOFRAN) injection 4 mg 4 mg, intravenous, Administer over 2 Minutes, Every 30 min PRN, nausea, vomiting, Starting on Sat10/02/19 at 1231, For 2 doses, Recovery (GI), Indications: Nausea and Vomiting sodium chloride 0.9% flush 0.5-20 mL 0.5-20 mL, intra-catheter, As needed, line care, Starting on Sat10/02/19 at 1210, Pre-Procedure (GI), Flush volume based on line type and size. Flush before and after each use. , Indications: Flushing documented in this encounter Orders Medications Ordered That Robles ht Not Have Been Administered Count Last Ordered Date First Ordered Date ondansetron (ZOFRAN) injection 4 mg 1 10/02 sodium chloride 0.9% flush 0.5-20 mL 1 12/2018 documented in this encounter Care Teams End Frazer Relationship Specialty Start Date End Date Amaury Bonner MD [address] [place] [address] PCP - General 02/27/08 documented as of this encounter
--- OUTSIDE RECORDS SUMMARY | 2024-11-23 03:12 | XMS_ITS | Encounter Summary ---
Author Organization [facility] Facility Care Team Providers Care Scalder Name Role Phone Amaury Bonner MD Primary Care Provider [phone] Encounter Details Date Type Department Care Team (Latest Contact Info) Description 10/02/2019 Travel Social History Tobacco Use Types Packs/Day Years Used Date Smoking Tobacco: Never Smokeless Tobacco: Never Alcohol Use Standard Drinks/Week Comments Yes 0 (1 standard drink = 0.6 oz pur e alcohol) rarely Sex and Gender Information Value Date Recorded Sex Assigned at Not on file Legal Sex Male 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
--- OUTSIDE RECORDS SUMMARY | 2024-11-23 03:12 | XMS_ITS | Encounter Summary ---
Author Organization [facility] Healthcare Address [address] [place] [address] Care Team Providers Care Toll Line Inspector Name Role Phone Amaury Bonner MD Primary Care Provider Encounter Details Date Type Department Care Team (Latest Contact Info) Description 10/02/2019 10:53 AM CDT - 10/02/2019 1:17 PM CDT Hospital Encounter [facility] Endoscopy [address] [place] [address] Derick Higuera MD [address] [place] [address] Gastroesophageal reflux disease without esophagitis Discharge Disposition: Discharge to home or self care Social History Tobacco Use Types Packs/Day Years Used Date Smoking Tobacco: Never Smokeless Tobacco: Never Alcohol Use Standard Drinks/Week Comments Yes 0 (1 standard drink = 0.6 oz pur e alcohol) rarely Sex and Gender Information Value Date Recorded Sex Assigned at Not on file 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 Gender Identity Male 06/02/2024 7:40 AM [...] PM CDT documented in this encounter Discharge Diagnoses Diagnosis Encounter for screening for malignant neoplasm of other sites - ENCOUNTER FOR SCREENING FOR MALIGNANT NEOPLASM OF OTHER SITES Henson's esophagus without dysplasia - HENSON'S ESOPHAGUS WITHOUT DYSPLASIA Diaphragmatic hernia without obstruction or gangrene - DIAPHRAGMATIC HERNIA WITHOUT OBSTRUCTION OR GANGRENE Diaphragmatic hernia without mention of obstruction or gangrene Gastro-esophageal reflux disease with esophagitis - GASTRO-ESOPHAGEAL REFLUX DISEASE WITH ESOPHAGITIS Reflux esophagitis documented in this encounter Discharge Instructions * [...] 1:17 PM CDT F/u per endo report TECHNICIAN documented in this encounter H&P Notes * [...] Male Attending MD: Derick Higuera M.D. Room: [place] [address] Note Status: Finalized Procedure: Upper GI endoscopy [...] and oxygen saturations were monitored continuously. The [id number] was introduced through the mouth, and advanced [...] changes classified as Henson's stage C0-M0 per Foley criteria. These changes involved the mucosa extending [...] changes classified as Henson's stage C0-M0 per Foley criteria. Biopsied. Recommendation: - Call my nurses in the GI office at [phone] ([phone]) for your final pathology results in 7 [...] - 10/01/2019 11:41 AM CDT Come to [facility] hospital entrance and register at the desk NPO after midnight. Leave jewelry & valuables at home. Please bring ID & insurance card. Wear comfortable clothing. You need to have a public transit trolley driver with you to take you home [...] biopsy) 10/02/2019 12:28 PM CDT Narrative PATHOLOGY [facility] - 10/05/2019 8:34 AM FILM TECHNICIAN EPIC results best viewed via link to PDF [facility] [place] [address] SURGICAL PATHOLOGY REPORT FINAL Patient Name: ?? MP WANEmory Gender: ??M : ??1970 (Age: 49) Address: ??[address] [place] [address] Hospital #: ??[id number] Taken:10/02/2019 Received:10/02/2019 Reported: 10/05/2019 Patient Type: WC SDS Client ?[facility] Service: Gastro Location: [facility] Physician(s): ??Laquita Luo M.D. Diagnosis: [...] determined by the Surgical Pathology Department at [facility] as part of an ongoing quality control clerk program and in compliance with federally mandated [...] determined by the Surgical Pathology Department of [facility]. ??It has not been cleared or approved by the U. S. Food and Drug Administration. IMAGES AND SCANNED DOCUMENTS, IF INCLUDED, ONLY VIEWABLE IN PDF VERSION OF REPORT Derick Higuera MD LAB PATHOLOGY [facility] [place] Final Result PATHOLOGY [facility] [phone] * EGD (10/02/2019 12:15 PM CDT) Anatomical Region Laterality Modality Other Narrative Procedure Note Derick Higuera MD - 10/02/2019 12:15 PM CDT ENDOSCOPY LAB Patient Name: Mp Wan Procedure Date: 10/02/2019 12:15 PM Date of : 1970 Admit Type: Outpatient Age: 49 Gender: Male Attending MD: Derick Higuera M.D. Room: [place] [address] Note Status: Finalized Procedure: Upper GI endoscopy Indications: Surveillance for malignancy due to personal history of Henson's esophagus Providers: Derick iHguera M.D. Referring MD: Amaury Bonner MD Medicines: Monitored Anesthesia Care Complications: No immediate complications. Estimated Blood Loss: Estimated blood loss: none. Procedure: Pre-Anesthesia Assessment: - Immediately prior to administration of medications,the patient was re-assessed for adequacy to receivesedatives. After obtaining informed consent, the endoscope waspassed under direct vision. Throughout the procedure, the patient's blood pressure, pulse, and oxygen saturations were monitored continuously. The [id number] was introduced through the mouth, and advanced [...] mucosal changes classified asBarrett's stage C0-M0 per Foley criteria. These changes involved the mucosa extending [...] mucosal changes classified as Henson'sstage C0-M0 per Foley criteria. Biopsied. Recommendation: - Call my nurses in the GI office at [phone] ([phone]) for your final pathology results in 7days. [...] reflux disease without esophagitis- Primary Esophageal reflux documented in this encounter Admitting [...] 12/2018 documented in this encounter Care Teams Toll Line Inspector Relationship Specialty Start Date End Date Amaury Bonner MD [address] [place] [address] PCP - General 02/27/08 documented as of this encounter
--- OUTSIDE RECORDS SUMMARY | 2024-11-23 03:12 | XMS_ITS | Encounter Summary ---
Author Organization [facility] Address [address] [place] [address] Phone Care Team Providers Care Cad Draftsman Name Role Phone Amaury Bonner MD Primary Care Provider [phone] Encounter Details Date Type Department Care Team (Late st Contact Info) Description 09/10/2019 Telephone [facility] Gastroenterology [address] [facility] Medical Office Building [address] [place] [address] Jemima Hinkle RN Social History Tobacco Use Types Packs/Day Years Used Date Smoking Tobacco: Never Smokeless Tobacco: Never Sex and Gender Information Value Date Recorded Sex Assigned at Not on file 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 She verbalized understanding. documented in this encounter Plan of Treatment Not on file documented as of this encounter Visit Diagnoses Not on filedocumented in this encounter Care Teams Cad Draftsman Relationship Specialty Start Date End Date Amaury Bonner MD [address] [place] [address] PCP - General 02/27/08 documented as of this encounter
--- OUTSIDE RECORDS SUMMARY | 2024-11-23 03:12 | XMS_ITS | Encounter Summary ---
Author Organization [facility] Address [address] [place] [address] Care Team Providers Care Milk Of Lime Slaker Name Role Phone Amaury Bonner MD Primary Care Provider + [phone] Reason for Visit * Reason Comments Syncope Encounter Details Date Type Department Care Team ([facility] st Contact Info) Description 02/25/2019 11:16 AM CDT - 02/25/2019 2:58 PM CDT Emergency [facility] Emergency Department [address] [place] [address] Warren Hassan MD [facility] 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 Gender Identity Male 06/02/2024 7:40 AM CDT Sexual Orientation Straight 06/02/2024 7: 40 AM CDT documented as of this encounter Last Filed Vital Signs Vital Sign Reading Time Taken Comments Blood Pressure 144/90 02/25/2019 2:00 PM CDT Pulse 91 02/25/2019 2:00 PM CDT Temperature 36.6 ??C (97.9 ??F) 02/25/2019 11:22 AM C DT Respiratory Rate 20 02/25/2019 2:00 PM CDT Oxygen Saturation 100% 02/25/2019 2:00 PM CDT Inhaled Oxygen Concentration - - Weight 108.9 kg (240 lb) 02/25/2019 11:19 AM CDT Height 182.9 cm (6') 02/25/2019 11:19 AM CDT Body Mass Index 32.55 02/25/2019 11:19 AM CDT documented in this encounter Discharge Instructions * Discharge Instructions* Jordan Ro MD - 02/25/2019 2:24 PM CDT At this point your laboratory workup is unremarkable. It is not include entirely clear what is causing your symptoms, but it does not seem like you're having an emergency medical condition right now. The emergency department is a place that can help rule out and treat emergency medical conditions, but for full treatment and evaluation of these symptoms that you are having, we recommend following up with your primary doctor. If you notice more events of loss of consciousness, confusion, changes the way you can move your arms or legs, palpitations, chest pain, shortness of breath, vision changes, or any other concerning symptoms, please get medical attention right away. * Attachments The following attachments cannot be sent through Care Everywhere. * Syncope (AfterCare(R) Instructions(ER/ED)) (Gambian) documented in this encounter Discharge Disposition Disposition Code Departure Means Destination Comment s Discharge to home or self care Patient was given medication and discharge instructions. He had no further questions and was escorted to the waiting room. documented in this encounter ED Notes * Jordan Ro MD - 02/25/2019 12:05 PM CDT HPI Chief Complaint Patient presents with ??? Syncope 48 yo M with PMH GERD p/w syncope. Merom dizzy/lightheaded lips/hands thingling. Went to car and then passed out for unknown time. No head injury. Similar symptoms when low sugar in past. Stuttered speech and lethargic when found by friend. Nausea and light vision during event. Ate this AM. Nofevers, chills, CP, palpitations, abd pain. History provided by: Patient Patient History Patient Active Problem List Diagnosis Date Noted ??? Gastroesophageal reflux disease 10/13/2013 Class: Chronic ??? Otto's esophagus 10/13/2013 Class: Chronic No past surgeries. No family history of neurologic conditions. Social History Tobacco Use ??? Smoking status: Never Smoker ??? Smokeless tobacco: Never Used Substance Use Topics ??? Alcohol use: Not on file ??? Drug use: Not on file Social History Social History Narrative Never Drank Alcohol : (Added by TW Conv) Review of Systems Review of Systems A full 10 point review of systems has been performed and is otherwise negative except as noted hereand in the HPI. Physical Exam ED Triage Vitals Temp Pulse Resp BP SpO2 02/25/19 1122 02/25/19 1122 02/25/19 1122 02/25/19 1122 02/25/19 1223 36.6 ??C (97.9 ??F) 80 16 156/96 99 % Temp src Heart Rate Source Patient Position BP Location FiO2 (%) 02/25/19 1122 -- -- 02/25/19 1223 -- Oral Left arm Physical Exam Constitutional: He is oriented to person, place, and time. He appears well- developed and well-nourished. HENT: Head: Normocephalic and atraumatic. Eyes: Conjunctivae are normal. Neck: Neck supple. Cardiovascular: Normal rate, regular rhythm and normal heart sounds. No murmur heard. Pulmonary/Chest: Effort normal and breath sounds normal. No respiratory distress. Abdominal: Soft. There is no tenderness. Musculoskeletal: He exhibits no edema. Neurological: He is alert and oriented to person, place, and time. Skin: Skin is warm and dry. Psychiatric: He has a normal mood and affect. Nursing note and vitals reviewed. MDM MDM Number of Diagnoses or Management Options Diagnosis management comments: 48 yo M with PMH GERD p/w syncope. Based on history exam, it is somewhat unclear although differential includes both neurogenic causes such as seizure, vasovagal, less likely cardiogenic/arrhythmogenic or pulmonary. At this point, he seems at his baseline and has no vital abnormalities or notable abnormalities on exam. We will obtain CBC, BMP, magnesium, phosphorus.Will perform orthostatic vitals. We will re- evaluate the patient and determine disposition and nextstep. Attending Summary of Care ED Course as of Feb 25 1427 Time: 02/25 1425 Comment: The patient is fully back to baseline. There are no signs of acute emergent medical condition. His event could still have represented hypoglycemia, vasovagal event, or even seizure. He is asking to leave to complete outpatient workup, and we feel this is reasonable and there is no indication to suggest he would require an inpatient workup. He has close contact with his primary doctor andwill be able to follow-up within the next several days. I explained the ED impression and plan of care to the patient and answered all questions. I have discussed the possibility of unevaluated nonemergent diagnoses that are best assessed in the primary care setting as well as worsening symptoms that could require further emergent care. The patient expressed understanding and will follow up with a primary doctor promptly, but will return to an emergency setting for symptoms suggestive of an unstable or more critical condition. By: Jordan Ro MD Syncope, unspecified syncope type Jordan Ro MD Resident 02/25/191426 Cosigned by Warren Hassan MD at 02/25/2019 2:42 PM CDT Associated attestation - Warren Hassan MD - 02/25/2019 2:42 PM CDT I have seen and examined the patient on 02/25/2019 . I agree with the findings and plan of care as documented in the resident's note. 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 He states he felt like his blood sugar was down and describes bilateral carpal tingling as well as circumoral tingling. His friend who was in the room states that when he found the patient had not passed out but was mumbling. The patient has several social stressors including young female children at home with anxiety and severe eczema. Physical examination is remarkable for stable vital signs and otherwise well- appearing male with exhibits like changing around the hairline. Our differential would include metabolic derangement, less likely hypokalemia, less likely ACS or malignant dysrhythmia as the patient did not appear to have true syncope. Our plan is to obtain lab work and an EKG. If this is normal we will consider discharge given his prior symptoms and history nonspecific syncope. * Chula Yeung RN - 02/25/2019 11:20 AM CDT Pt comes to Ed after being found in car passed out, denies ETOH or drugs. Pt reports feeling weak, tingling in lips and lethargic. Pt reports eating recently. GCS 15 documented in this encounter Miscellaneous Notes * ED Procedure Note - Warren Hassan MD - 02/25/2019 11:43 AM CDT Associated Order(s): ECG 12 lead Procedure ECG 12 lead Date/Time: 02/25/2019 11:43 AM Performed by: Warren Hassan MD Authorized by: Warren Hassan MD Rate: ECG rate: 75 ECG rate assessment: normal Rhythm: Rhythm: sinus rhythm Ectopy: Ectopy: none QRS: QRS axis: Normal QRS intervals: Normal Conduction: Conduction: abnormal Abnormal conduction: LAFB ST segments: ST segments: Normal T waves: T waves: normal Previous ECG: Previous ECG: Compared to current Date of previous EC08/30/2016 Similarity: No change Interpretation: Interpretation: No significant change Recommended Follow-up: Recommended follow up: further workup in the ED Warren Hassan MD 02/25/19 1144 documented in this encounter Plan of Treatment Not on file documented as of this encounter Procedures Procedure Name Priority Date/Time Associated Diagnosis Comments POCT GLUCOSE DEVICE Routine Gen Lab 02/25/2019 1 2:22 PM CDT DIFFERENTIAL AUTO STAT 02/25/2019 12: 10 PM CDT CBC WITH AUTO DIFFERENTIAL STAT 02/25/2019 12:10 PM CDT TROPONIN I STAT 02/25/2019 12:10 PM CDT PHOSPHORUS STAT 02/25/2019 12:10 PM CDT MAGNESIUM STAT 02/25/2019 12:10 PM CDT BASIC METABOLIC PANEL STAT 02/25/2019 12:10 PM CDT ECG 12-LEAD STAT 02/25/2019 11:43 AM CDT documented in this encounter Results * POCT glucose (02/25/2019 12:22 PM CDT) Pathologist [facility] Glucose, POC 134 70 - 199 mg/dL [facility] Blood specimen (specimen) 02/25/2019 12:22 PM CDT 02/25/2019 12:22 PM CDT Elen [facility] - 02/25/2019 12:40 PM CDT us Warren Hassan MD LAB POCT ORDERABLES - SANJAY CE Final Result [facility] [place] [address] * Magnesium (02/25/2019 12:10 PM CDT) [facility] Magnesium 2.0 1.4 - 2.5 mg/dL [facility] Blood specimen (specimen) 02/25/2019 12:10 PM CDT 02/25/2019 12:30 PM CDT Elen [facility] - 02/25/2019 1:07 PM CDT Warren Hassan MD LAB BLOOD ORDERABLES Final Result Performing Organization Address City/[facility] Co de Phone Number [facility] [place] [address] * (ABNORMAL) Phosphorus (02/25/2019 12:10 PM CDT) Phosphorus, pl 1.8(L) 2.3 - 4.5 mg/dL [facility] Blood specimen (specimen) 02/25/2019 12:10 PM CDT 02/25/2019 12:30 PM CDT Narrative [facility] - 02/25/2019 1:07 PM CDT Warren Hassan MD LAB BLOOD ORDERABLES Final Result Performing Organization Address [facility] de Phone Number [facility] [place] [address] * Troponin I (02/25/2019 12:10 PM CDT) [facility] Troponin I <0.03 0.00 - 0.03 ng/mL [facility] Comment: Interpretive Data: Normal plasma Troponin I concentrations can reach 1 ng/mL in the first two weeks of life and slowly decrease to adult levels (<0.03 ng/mL) by the age of 3 months. > 3 months ??<0.03 ng/mL > or = 18 years Serial determinations are recommended for the diagnosis of myocardial infarction. ??Temporal rise and fall are consistent with myocardial infarction when at least one value is above the 99th percentile upper reference limit for Troponin assay. References: 1. Clin Chem 2013;59:[id number] 2. Journal of the [place] [employer] 2012;60:1581-98 Current Interpretive Data Last Revised Date: 2018. Blood specimen (specimen) 02/25/2019 12:10 PM CDT 02/25/2019 12:25 PM CDT Narrative [facility] - 02/25/2019 1:07 PM CDT us Warren Hassan MD LAB BLOOD ORDERABLES Edite d Result - Final [facility] [place] [address] * Differential, auto (02/25/2019 12:10 PM CDT) Neutrophil abs 5.5 1.7 - 6.5 K/cumm [facility] Imm gran abs 0.1 0.0 - 0.1 K/cumm [facility] Lymphocyte abs 2.2 0.8 - 3.3 K/cumm [facility] Monocyte abs 0.7 0.2 - 0.8 K/cumm [facility] Eosinophil abs 0.2 0.0 - 0.5 K/cumm [facility] Basophil abs 0.1 0.0 - 0.1 K/cumm [facility] Neutrophil pct 62.5 % [facility] Comment: Interpretive Data Percent cell count reference ranges are not reported, since discordance with absolute values may lead to misinterpretation of CBC data. Current Interpretive Data was last revised on 2018. Imm gran pct 0.8 % [facility] Comment: Interpretive Data Percent cell count reference ranges are not reported, since discordance with absolute values may lead to misinterpretation of CBC data. Current Interpretive Data was last revised on 2018. Lymphocyte pct 25.5 % [facility] Comment: Interpretive Data Percent cell count reference ranges are not reported, since discordance with absolute values may lead to misinterpretation of CBC data. Current Interpretive Data was last revised on 2018. Monocyte pct 7.8 % [facility] Comment: Interpretive Data Percent cell count reference ranges are not reported, since discordance with absolute values may lead to misinterpretation of CBC data. Current Interpretive Data was last revised on 2018. Eosinophil pct 2.7 % [facility] Comment: Interpretive Data Percent cell count reference ranges are not reported, since discordance with absolute values may lead to misinterpretation of CBC data. Current Interpretive Data was last revised on 2018. Basophil pct 0.7 % [facility] Comment: Interpretive Data Percent cell count reference ranges are not reported, since discordance with absolute values may lead to misinterpretation of CBC data. Current Interpretive Data was last revised on 2018. Blood specimen (specimen) 02/25/2019 12:10 PM CDT 02/25/2019 12:29 PM CDT Narrative [facility] - 02/25/2019 12:37 PM CDT us Warren Hassan MD LAB BLOOD ORDERABLES Final Result [facility] [place] [address] * Basic metabolic panel (02/25/2019 12:10 PM CDT) Sodium 137 135 - 145 mmol/L [facility] Potassium, pl 4.1 3.3 - 4.9 mmol/L [facility] Comment:Hemolyzed; (+++); po tassium value may be falsely elevated by as much as 0.6 - 1.0 mmol/L. Suggest redraw and reanalysis. Chloride 101 97 - 110 mmol/L [facility] CO2 22 22 - 32 mmol/L [facility] Anion gap 14 2 - 15 mmol/L [facility] BUN 12 8 - 25 mg/dL [facility] Creatinine 0.99 0.80 - 1.30 mg/dL [facility] Glucose 100 70 - 199 mg/dL [facility] Comment: Interpretive Data Fasting glucose >/= 126 mg/dl is diagnostic for diabetes. ?? Fasting is defined as no caloric intake for at least 8 hours. Fasting glucose between 100 mg/dl to 125 mg/dl is diagnostic of prediabetes. In a patient with classic symptoms of hyperglycemia or hyperglycemic crisis, a random glucose >/= 200 mg/dl is diagnostic for diabetes. In the absence of unequivocal hyperglycemia, results should be confirmed by repeat testing. The classification and Diagnosis of Diabetes Diabetes Care 2017;40 (Suppl. 1):S11. Current interpretive data was last revised 2017. Calcium 9.5 8.5 - 10.3 mg/dL [facility] Blood specimen (specimen) 02/25/2019 12:10 PM CDT 02/25/2019 12:25 PM CDT Narrative [facility] - 02/25/2019 1:07 PM CDT THE [facility] COLLECTION LOCATION IS [facility] [id number] Warren Hassan MD LAB BLOOD ORDERABLES Final Result Performing Organization Address City/State/[facility] Co de Phone Number [facility] [place] [address] * (ABNORMAL) CBC with auto differential (02/25/2019 12:10 PM CDT) WBC 8.8 3.8 - 9.9 K/cumm [facility] Hgb 15.2 13.0 - 17.5 g/dL [facility] Hct 45.3 38.9 - 50.3 % [facility] Plt 409(H) 150 - 400 K/cumm [facility] MPV 9.5 9.1 - 12.3 fL [facility] RBC 5.40 4.30 - 5.80 M/cumm [facility] MCV 83.9 81.3 - 96.4 fL [facility] MCH 28.1 27.1 - 33.3 pg [facility] MCHC 33.6 32.3 - 35.7 g/dL [facility] RDW CV 12.4 11.1 - 14.9 % [facility] RDW SD 37.4 35.7 - 48.1 fL [facility] NRBC abs 0.00 0.00 - 0.01 K/cumm [facility] Blood specimen (specimen) 02/25/2019 12:10 PM CDT 02/25/2019 12:29 PM CDT Narrative [facility] - 02/25/2019 12:37 PM CDT THE [facility] COLLECTION LOCATION IS [place] [address] Warren Hassan MD LAB BLOOD ORDERABLES Final Result [facility] [place] [address] * ECG 12-LEAD (02/25/2019 11:43 AM CDT) Narrative [facility] - 02/25/2019 11:43 AM CDT Warren Hassan MD ? 02/25/2019 11:44 AM ECG 12 lead Date/Time: 02/25/2019 11:43 AM Performed by: Warren Hassan MD Authorized by: Warren Hassan MD Rate: ??ECG rate: ??75 ??ECG rate assessment: normal ?? Rhythm: ??Rhythm: sinus rhythm ?? Ectopy: ??Ectopy: none ?? QRS: ??QRS axis: ??Normal ??QRS intervals: ??Normal Conduction: ??Conduction: abnormal ?Abnormal conduction: LAFB ?? ST segments: ??ST segments: ??Normal T waves: ??T waves: normal ?? Previous ECG: ??Previous ECG: ??Compared to current ??Date of previous ECG: ??08/30/2016 ??Similarity: ??No change Interpretation: ??Interpretation: No significant change ?? Recommended Follow-up: ??Recommended follow up: further workup in the ED ?? Procedure Note Warren Hassan MD - 02/25/2019 11:43 AM CDT Procedure ECG 12 lead Date/Time: 02/25/2019 11:43 AM Performed by: Warren Hassan MD Authorized by: Warren Hassan MD Rate: ECG rate: 75 ECG rate assessment: normal Rhythm: Rhythm: sinus rhythm Ectopy: Ectopy: none QRS: QRS axis: Normal QRS intervals: Normal Conduction: Conduction: abnormal Abnormal conduction: LAFB ST segments: ST segments: Normal T waves: T waves: normal Previous ECG: Previous ECG: Compared to current Date of previous EC08/30/2016 Similarity: No change Interpretation: Interpretation: No significant change Recommended Follow-up: Recommended follow up: further workup in the ED Warren Hassan MD 02/25/19 1144 us Warren Hassan MD ECG ORDERABLES Final Resu lt [facility] documented in this encounter Visit Diagnoses Diagnosis Syncope, unspecified syncope type- Primary documented in this encounter Orders Lab Orders Without Results Count Last Ordered D ate First Ordered Date POCT GLUCOSE DEVICE 1 02/25/2019 Nursing Count Last Ordered Date First Orde red Date ORTHOSTATIC BLOOD PRESSURE 1 02/25/2019 documented in this encounter Care Teams Milk Of Lime Slaker Relationship Specialty Start Date End Date Amaury Bonner MD [address] [place] [place] [id number] PCP - General 02/27/08 documented as of this encounter
--- OUTSIDE RECORDS SUMMARY | 2024-11-23 03:12 | XMS_ITS | Encounter Summary ---
Author Organization [facility] Address [address] [place] [address] Phone Care Team Providers Care Cutter Operator Brick Name Role Phone Amaury Bonner MD Primary Care Provider + [phone] Encounter Details Date Type Department Care Team (Late st Contact Info) Description 09/01/2019 Orders Only [facility] Gastroenterology [address] 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 documented in this encounter Plan of Treatment Not on file documented as of this encounter Visit Diagnoses Diagnosis Gastroesophageal reflux disease without esophagitis- Primary Esophageal reflux documented in this encounter Orders Case Request Count Last Ordered Date First Orde red Date CASE REQUEST GI 1 09/01/2019 documented in this encounter Care Teams Cutter Operator Brick Relationship Specialty Start Date End Date Amaury Bonner MD [address] [place] [address] PCP - General 02/27/08 documented as of this encounter
--- OUTSIDE RECORDS SUMMARY | 2024-11-23 03:12 | XMS_ITS | Encounter Summary ---
Author Organization [facility] Address [address] [place] [address] Phone Care Team Providers Care Senior Policy Advisor Name Role Phone Amaury Bonner MD Primary Care Provider [phone] Encounter Details Date Type Department Care Team (Late st Contact Info) Description 10/01/2019 Telephone [facility] Gastroenterology [address] [facility] Medical Office Building [address] [place] [address] Jemima Hinkle RN Social History Tobacco Use Types Packs/Day Years Used Date Smoking Tobacco: Never Smokeless Tobacco: Never Alcohol Use Standard Drinks/Week Comments Yes 0 (1 standard drink = 0.6 oz pur e alcohol) rarely Sex and Gender Information Value Date Recorded Sex Assigned at Not on file 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 She verbalized understanding. documented in this encounter Plan of Treatment Not on file documented as of this encounter Visit Diagnoses Not on filedocumented in this encounter Care Teams Senior Policy Advisor Relationship Specialty Start Date End Date Amaury Bonner MD [address] [place] [address] PCP - General 02/27/08 documented as of this encounter
--- OUTSIDE RECORDS SUMMARY | 2024-11-23 03:12 | XMS_ITS | Encounter Summary ---
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 - 12/04/2013 1:30 PM PRODUCTION TRUCK DRIVER Hospital Encounter [facility] Derick Vogel MD [address] [place] [address] Otto's esophagus; Essential hypertension; Other and unspecified hyperlipidemia; Asthma; Esophageal reflux Social History Tobacco Use Types Packs/Day Years Used Date Smoking Tobacco: Never Sex and Gender Information Value Date Recorded Sex Assigned at Not on file 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 Historical Provider LAB PATHOLOGY ORDERABLES Final Result * UPPER GASTROINTESTINAL ENDOSCOPY REPORT (12/04/2013) Anatomical Region Laterality Modality Other Narrative 12/04/2013 Ordered by an unspecified provider. Historical Provider GI PROCEDURE ORDERABLES F inal Result documented in this encounter Visit Diagnoses Diagnosis Otto's esophagus Essential hypertension Unspecified essential hypertension Other and unspecified hyperlipidemia Asthma Unspecified asthma Esophageal reflux documented in this encounter Care Teams Environmental Services Coordinator Relationship Specialty Start Date End Date Amaury Bonner MD [address] [place] [address] PCP - General 02/27/08 documented as of this encounter
--- OUTSIDE RECORDS SUMMARY | 2024-11-23 03:12 | XMS_ITS | Encounter Summary ---
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; Nausea with vomiting; Gastro-esophageal reflux disease without esophagitis; Essential (primary) hypertension Social History Tobacco Use Types Packs/Day Years Used Date Smoking Tobacco: Never Sex and Gender Information Value Date Recorded Sex Assigned at Not on file Legal Sex Male 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 Historical Provider LAB PATHOLOGY ORDERABLES Final Result * UPPER GASTROINTESTINAL ENDOSCOPY REPORT (08/30/2016) Anatomical Region Laterality Modality Other Narrative 08/30/2016 Ordered by an unspecified provider. [facility] Provider GI PROCEDURE ORDERABLES F inal Result * ELECTROCARDIOGRAPHY (ECG) (08/30/2016) Narrative 08/30/2016 Ordered by an unspecified provider. 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
== END 2024-11-16 09:15 | disposition home or self-care (01) ==
PROVIDERS: PCP Internal Medicine; Visit Provider Internal Medicine
DX: R94.31 Abnormal electrocardiogram [ECG] [EKG] (principal)
CPT/HCPCS: 78452; 93017; A9502

== ENCOUNTER 2025-02-02 15:57 | Outpatient (CLI) | payer OTHER, SELFPAY ==
--- NOTE | 2025-02-02 16:01 | ECHO_ITS ---
Patient Info Name: Mp George Age: 54 years : 1970 Gender: Male Ht: 71 in Wt: 233 lbs BSA: 2.33 m2 HR: 74 bpm BP: 113 / 61 mmHg Heart Rhythm: Sinus Rhythm Technical Quality: Fair Exam Date: 02/02/2025 4:19 PM Exam Location: Echo Lab Patient Status: Outpatient Admit Date: 02/02/2025 Staff Ordering Physician: Amaury Bonner MD Head Teacher: Maliha Harman RDCS Attending Provider: Amaury Bonner MD Referring Physician: Ha MORENO; Exam Type: CA echo doppler color flow Study Info Indications - HTN, PVC'S R06.02 - Shortness of breath Complete two-dimensional, color flow and Doppler transthoracic echocardiogram is performed. History/Risk Factors Dyslipidemia: Yes Summary 1. Complete two-dimensional, color flow and Doppler transthoracic echocardiogram is performed. 2. Left ventricular chamber dimension is mildly enlarged. 3. Left ventricular systolic function is normal, estimated at 60-65%. 4. There is mild concentric increased left ventricular wall thickness. 5. The left ventricular diastolic function is normal. 6. E/e' 8 is minimally elevated. 7. Left atrial chamber dimension is moderately enlarged. 8. There is trace aortic valve regurgitation. 9. There is mild mitral valve regurgitation. 10. No pulmonary hypertension, estimated pulmonary arterial systolic pressure is 27 mmHg. 11. There is trace pulmonic regurgitation. Left Ventricle E/e' 8 is minimally elevated. Left ventricular chamber dimension is mildly enlarged. Left ventricular systolic function is normal, estimated at 60-65%. There is mild concentric increased left ventricular wall thickness. The left ventricular diastolic function is normal. Right Ventricle Right ventricular systolic function is normal and with normal TAPSE 2.3 cm. Right ventricular chamber dimension is normal. Left Atria Left atrial chamber dimension is moderately enlarged. Right Atria Right atrial chamber dimension is normal. Aortic Valve The aortic valve is trileaflet. There is no aortic valve stenosis. There is trace aortic valve regurgitation. Pulmonic Valve There is trace pulmonic regurgitation. Mitral Valve There is no mitral valve stenosis. There is mild mitral valve regurgitation. Tricuspid Valve There is no tricuspid valve regurgitation. No pulmonary hypertension, estimated pulmonary arterial systolic pressure is 27 mmHg. Pericardium/Pleural There is no pericardial effusion. Inferior Vena Cava Normal inferior vena cava with >50% collapse upon inspiration consistent with normal right atrial pressure, 5 mmHg. Aorta The aortic root size at the sinus of Valsalva is normal. Left Ventricular Outflow Tract Name Value Normal LVOT 2D LVOT Diameter 2.3 cm LVOT Doppler LVOT Peak Velocity 99 cm/s LVOT Peak Gradient 4 mmHg LVOT Mean Gradient 2 mmHg LVOT VTI 20 cm LVOT VTI/AV VTI Ratio 0.8 LVOT Stroke Volume 85 ml Pulmonic Valve Name Value Normal RVOT Doppler RVOT Peak Gradient 3 mmHg PV Doppler PV Peak Velocity 121 cm/s PV Peak Gradient 6 mmHg Mitral Valve Name Value Normal MV Doppler MV Decel Gaines 231 cm/s2 MV PHT 90 ms MV Area (PHT) 2.4 cm2 4.0-5.0 MV Diastolic Function MV E Peak Velocity 72 cm/s MV A Peak Velocity 70 cm/s MV E/A 1.0 MV Decel Time 311 ms Tricuspid Valve Name Value Normal TV Regurgitation Doppler TR Peak Velocity 237 cm/s TR Peak Gradient 22 mmHg Estimated PAP/RSVP RA Pressure 5 mmHg <=5 PA Systolic Pressure 27 mmHg <36 RV Systolic Pressure 27 mmHg <36 Aortic Valve Name Value Normal AV Doppler AV Peak Velocity 128 cm/s AV Peak Gradient 7 mmHg AV Mean Gradient 4 mmHg AV VTI 24 cm AV Area (Cont Eq VTI) 3.5 cm2 >=3.0 AV Area (Cont Eq Artis) 3.2 cm2 AV V1/V2 Ratio 0.77 AV Regurgitation 2D LVOT Area 4.2 cm2 AV Regurgitation Doppler AR Decel Time 3,081 ms AR Decel Gaines 124 cm/s2 AR PHT 894 ms Ventricles Name Value Normal LV Dimensions 2D/MM IVS Diastolic Thickness (2D) 1.3 cm 0.6-1.0 LVID Diastole (2D) 4.8 cm 4.2-5.8 LVIW Diastolic Thickness (2D) 1.3 cm 0.6-1.0 LVID Systole (2D) 3.3 cm 2.5-4.0 LVOT Diameter 2.3 cm LV Mass (2D Cubed) 243.91 g 88.00-224.00 LV Mass Index (2D Cubed) 105 g/m2 49-115 Relative Wall Thickness (2D) 0.53 LV Fractional Shortening/Ejection Fraction 2D/MM LV Fractional Shortening (2D) 32 % 25-43 LV EF (2D Teicholz) 60 % 52-72 LV Diastolic Volume (4C MOD) 186 ml LV EF (4C MOD) 59 % LV Diastolic Volume (2C MOD) 163 ml LV EF (2C MOD) 63 % LV Diastolic Volume (BP MOD) 170 ml 62-150 LV Diastolic Volume Index (BP MOD) 73 ml/m2 34-74 LV Systolic Volume (BP MOD) 67 ml 21-61 LV Systolic Volume Index (BP MOD) 29 ml/m2 11-31 LV EF (BP MOD) 60 % 52-72 LV Diastolic Length (4C) 9.4 cm LV Systolic Length (4C) 7.8 cm LV Stroke Volume (4C MOD) 109 ml Atria Name Value Normal LA Dimensions LA Volume (4C A-L) 60 ml LA Volume (BP A-L) 68 ml RA Dimensions RA Area (4C) 23.6 cm2 <=18.0 Report Signatures
--- OUTSIDE RECORDS SUMMARY | 2025-02-02 18:05 | XMS_ITS | Clinical Summary ---
Author Organization [facility] 2 Address [address] [facility] [place] [address] Care Team Providers Care Boat Joiner Name Role Phone Amaury Bonner MD Primary Care Provider [phone] Cady Urena Unavailable [phone] Allergies No known active allergies Medications atorvastatin (LIPITOR) 40 mg tablet Take 1 tablet (40 mg total) by mouth daily 12/19/19 22 Active clonazePAM (KlonoPIN) 1 mg tablet Take 1 tablet (1 mg total) by mouth nightly 09/01/20 24 Active ascorbic acid (VITAMIN C) 500 mg tablet,chewab le Take 1 tablet/chew tab (500 mg total) by mouth 2 (two) times a day 60 tablet/chew tab 09/29/20 24 Active cholecalcifer ol (VITAMIN D-3) 2000 unit capsule Take 1 capsule (2,000 Units total) by mouth daily 30 capsule 09/29/20 24 Active ondansetron (ZOFRAN) 4 mg tabletIndicat ions:Preventi on of Post-Operativ e Nausea and Vomiting Take 1 tablet (4 mg total) by mouth every 6 (six) hours as needed for nausea or vomiting 30 tablet 1 09/29/20 24 Active oxyCODONE-bambi taminophen (PERCOCET) 5-325 mg per tabletIndicat ions:Pain Take 1-2 tablets by mouth every 4 (four) hours as needed for pain 33 tablet 09/29/20 24 Active senna-docusat e (PERICOLACE) 8.6-50 mg Take 1 tablet by mouth 2 (two) times a day as needed for constipation 30 tablet 1 09/29/20 24 Active losartan-hydr oCHLOROthiazi de (HYZAAR) 50-12.5 mg per tablet Take 1 tablet by mouth daily Active pantoprazole DR (PROTONIX) 40 mg EC tablet Take 1 tablet (40 mg total) by mouth daily 90 tablet 3 02/02/[address] (PROTONIX) 40 mg EC tablet TAKE 1 TABLET (40 MG TOTAL) BY MOUTH DAILY 90 tablet 3 10/30/[address] (PROTONIX) 40 mg EC tablet TAKE 1 TABLET (40 MG TOTAL) BY MOUTH DAILY 90 tablet 3 02/02/20 25 025 Discontinued(R eorder) Active Problems Problem Noted Date Diagnosed Date [...] (12/05/2021): Added automatically from request for surgery [id number] Gastroesophageal reflux disease without esophagi tis 09/01/2019 Overview (09/01/2019): Added automatically from request for surgery [id number] Gastroesophageal reflux disease 10/13/2013 Otto's esophagus 10/13/2013 Encounters Date Type Department Care Team Description 01/22/2025 7:45 AM ART TRACER Therapy [facility] Physical Therapy [address] [place] [address] Floor [address] [place] [phone] Ryland Farris, DPT S/P right rotator cuff repair (Primary Dx); Right shoulder pain, unspecified chronicity 01/15/2025 7:45 AM ART TRACER Therapy [facility] Physical Therapy [address] [place] [address] [place] [phone] Ryland Farris, DPT S/P right rotator cuff repair (Primary Dx); Right shoulder pain, unspecified chronicity 01/08/2025 7:45 AM ART TRACER Therapy [facility] Physical [address] [place] [phone] Ryland Farris, DPT S/P right rotator cuff repair (Primary Dx); Right shoulder pain, unspecified chronicity 12/31/2024 8:30 AM ART TRACER Therapy [facility] Physical [address] [place] [phone] Ryland Farris, DPT S/P right rotator cuff repair (Primary Dx); Right shoulder pain, unspecified chronicity 12/25/2024 10:00 AM ART TRACER Office Visit [facility] Orthopedic and Sports Medicine [address] [place] [phone] Alexander Burden MD Traumatic incomplete tear of right rotator cuff, initial encounter (Primary Dx) 12/18/2024 Telephone [facility] Gastroenterology [facility] 12th [place] [address] [place] [address] Yara Feldman RN GI Preprocedure 12/14/2024 1:45 PM ART TRACER Therapy [facility] Physical [address] [place] [phone] Ryland Farris, DPT S/P right rotator cuff repair (Primary Dx); Right shoulder pain, unspecified chronicity 12/09/2024 10:00 AM ART TRACER Therapy [facility] Physical Therapy [address] [place] [address] 1st Floor [address] [place] [phone] Ryland Farris, CARITOT S/P right rotator cuff repair (Primary Dx); Right shoulder pain, unspecified chronicity 12/03/2024 1:00 PM ART TRACER Therapy [facility] Physical Therapy [address] [place] [address] Floor [address] [place] [phone] Sadi Caba DPT S/P right rotator cuff repair (Primary Dx); Right shoulder pain, unspecified chronicity 11/30/2024 11:09 AM ART TRACER - 11/30/2024 11:59 PM ART TRACER Hospital Encounter [facility] Radiology 1 [place] [address] Traumatic complete tear of right rotator cuff, initial encounter; S/P right rotator cuff repair Discharge Disposition: Discharge to home or self care 11/30/2024 11:09 AM ART TRACER - 11/30/2024 11:59 PM ART TRACER Hospital Encounter [facility] Radiology 1 [place] [address] Traumatic complete tear of right rotator cuff, initial encounter; S/P right rotator cuff repair Discharge Disposition: Discharge to home or self care 11/20/2024 11:00 AM ART TRACER Therapy [facility] Physical [address] [place] [phone] Rlyand Farris, DPT S/P right rotator cuff repair (Primary Dx); Right shoulder pain, unspecified chronicity 11/16/2024 Telephone [facility] Gastroenterology [address] [place] [address] Medical Office Building [address], [address] [place] [phone] Jemima Hinkle RN Scheduling 11/13/2024 11:00 AM ART TRACER Therapy [facility] Physical Therapy [address] [place] [address] Floor [address] [place] [phone] Ryland Farris, CARITOT S/P right rotator cuff repair (Primary Dx); Right shoulder pain, unspecified chronicity 11/13/2024 Telephone [facility] Orthopedic and Sports Medicine [address] [place] [phone] Cady Urena PA 11/13/2024 Orders Only [facility] Health Information Management 1 [place] [address] Scanning, Provider 11/13/2024 Orders Only [facility] Orthopedic and Sports Medicine [address] [place] [phone] Cady Urena PA Traumatic complete tear of right rotator cuff, initial encounter (Primary Dx); S/P right rotator cuff repair 11/12/2024 9:40 AM ART TRACER Ancillary Procedure [facility] Imaging at [address] [phone] 11/12/2024 8:45 AM ART TRACER Office Visit [facility] Orthopedic and Sports Medicine [address] [place] [phone] Cady Urena PA Traumatic complete tear of right rotator cuff, initial encounter (Primary Dx); S/P right rotator cuff repair 11/11/2024 8:30 AM ART TRACER Therapy [facility] Physical Therapy [address] [place] [address] [place] [phone] Sadi Caba DPT S/P right rotator cuff repair (Primary Dx); Right shoulder pain, unspecified chronicity 11/05/2024 Plan of Care Documentation [facility] Physical Therapy [address] [place] [address] Floor [address] [place] [phone] 11/04/2024 8:30 AM ART TRACER Therapy [facility] Physical Therapy [address] [place] [address] [place] [phone] Sadi Caba DPT S/P right rotator cuff repair (Primary Dx); Right shoulder pain, unspecified chronicity from Last 3 Months Surgical History Surgery [...] on file Legal Sex Male 7:48 PM ART TRACER Gender Identity Male 06/02/2024 7:40 AM CDT Sexual Orientation Straight 06/02/2024 7: 40 AM CDT Obstetrics History Last Filed Vital Signs Vital Sign Reading Time Taken Comments Blood Pressure 146/94 12/25/2024 11:11 AM ART TRACER Pulse 77 12/25/2024 11:11 AM ART TRACER Temperature 36.2 C (97.1 F) 09/29/2024 3:09 PM CDT Respiratory Rate 16 09/29/2024 3:09 PM CDT Oxygen Saturation 98% 09/29/2024 3: 09 PM CDT Inhaled Oxygen Concentration - - Weight 109.3 kg (240 lb 14.4 oz) 2024 11:11 AM ART TRACER Height 180.3 cm (5' 11 ) 12/25/2024 11: 11 AM ART TRACER Body Mass Index 33.6 12/25/2024 11:11 AM ART TRACER Plan of Treatment Upcoming Encounters Date Type Department Care Team (Late st Contact Info) Description 02/22/2025 10:00 AM CDT Hospital Encounter [facility] Endoscopy [id number] [place] [address] Derick Higuera MD [address] [place] [address] 02/22/2025 10:00 AM CDT - 02/22/2025 10:30 AM CDT Surgery [facility] Endoscopy [address] [place] [address] Derick Higuera MD [address] [place] [address] EGD Scheduled Procedures Name Priority Associated Diagnoses Date/Ti me ESOPHAGOGASTRODUODENOSCOPY Otto's esophagus with dysplasia 02/22/2025 10:00 AM CDT Health Maintenance Due Date Last Done Comments [...] 09/18/2024, 08/14/2017 Medical Devices Implanted Type Area Senior Paralegal Device Identifier Shelf Expiration Date Model / Serial / Lot [employer] Suture [place] Double Loaded Knotless Fibertak 2.6mm Ar-3632sp - [id number] Implanted:Qty : 1 on 09/29/2024 by Alexander Burden MD at [facility] Right: Shoulder [employer] [id number] 05/31/2028 AR-[id number] / / [id number] [employer] Swivelock C 4.75mm 19.1mm Closed Eyelet Vent [place] Suture Ar-2324bcc - [id number] Implanted:Qty : 1 on 09/29/2024 by Alexander Burden MD at [facility] Right: Shoulder [employer] 05/31/2028 AR-2324BCC / / [id number] [employer] Swivelock C 4.75mm 19.1mm Closed Eyelet Vent [place] Suture Ar-2324bcc - [id number] Implanted:Qty : 1 on 09/29/2024 by Alexander Burden MD at [facility] Right: Shoulder [employer] 03/31/2028 AR-[id number] / / [id number] Procedures Procedure Name Priority Date/Time Associated Diagnosis Comments MRI SHOULDER ARTHROGRAM RIGHT W CONTRAST Schedule Routine, Read Routine (OP Routine) 11/30/2024 12:39 PM ART TRACER Traumatic complete tear of right rotator cuff, initial encounter S/P right rotator cuff repair INJECTION SHOULDER RIGHT ARTHRO ONLY Schedule Routine, Read Routine (OP Routine) 11/30/2024 12:20 PM ART TRACER Traumatic complete tear of right rotator cuff, initial encounter S/P right rotator cuff repair SCAN - OTHER ORDERS 11/13/2024 XR SHOULDER RIGHT 2 OR MORE VIEWS Schedule Routine, Read Routine (OP Routine) 11/12/2024 9:46 AM ART TRACER Traumatic complete tear of right rotator cuff, initial encounter S/P right rotator cuff repair from Last 3 Months Results * MRI Shoulder Arthrogram Right W Contrast (11/30/2024 12:39 PM ART TRACER) Anatomical Region Laterality Modality Upper Extremities Right Magnetic Reson ance 11/30/2024 2:51 PM ART TRACER Impressions 11/30/2024 4:40 PM ART TRACER 1. Postoperative changes of a right posterior rotator cuff repair with recurrent progressive, recurrent articular sided tear of the supraspinatus extending into the junctional fibers and a new high-grade bursal sided tear of the more posterior junctional fibers and infraspinatus fibers measuring 14 x 16 mm. 2. New blunting of the superior labrum may represent postoperative changes or a nondisplaced tear. 3. Low-grade strain of the anterior deltoid muscle with adjacent earnestine-fascial fluid Dictated by: Ariel Xiao D.O. The radiology attending physician has personally reviewed this study, and had reviewed and/or edited this written report and agrees with it. Electronically signed by: Phong Sales MD Narrative 11/30/2024 4:40 PM ART TRACER EXAMINATION: MRI SHOULDER ARTHROGRAM RIGHT W CONTRAST HISTORY: History of right subacromial decompression, distal clavicle excision, biceps tenodesis and rotator cuff repair on 09/29/2024 with recent fall FINDINGS: Comparison radiographs dated 11/12/2024 and right shoulder MRI dated 07/21/2024. Injection arthrogram was performed prior to the MR, which will be dictated separately. MR examination of the right shoulder was performed with a local coil. Transverse, oblique coronal, and oblique sagittal short TR/TE and fast spin-echo images are obtained. Lastly, the arm was placed in the position of abduction and external rotation and oblique short TR/TE images were obtained. There is a type 1 acromion. The coracoacromial ligament is thin. There is no subacromial spur. There are postoperative changes of a distal clavicle excision and partial acromioplasty. There is there is fluid in the subacromial subdeltoid bursa. The rotator cuff muscle bulk is normal. The subscapularis is intact. There are postoperative changes of a posterior rotator cuff repair. There is irregularity of the undersurface of the supraspinatus with posterior extension into the junctional fibers which is compatible with progressive recurrent tear. Posterior to this, there is a new high-grade bursal sided tear of the junctional fibers and infraspinatus fibers measuring 14 mm in AP and 16 mm in TV dimensions. On this arthrographic evaluation, there is new blunting of the superior labrum which may represent postoperative changes or tear. There is mild glenohumeral chondrosis. There are postoperative changes of biceps tenodesis. No loose bodies are identified. The bone marrow signal is normal. There is a low-grade strain of the anterior deltoid muscle with adjacent earnestine-fascial fluid. Procedure Note Georgia Sales MD - 11/30/2024 EXAMINATION: MRI SHOULDER ARTHROGRAM RIGHT W CONTRAST HISTORY: History of right subacromial decompression, distal clavicle excision, biceps tenodesis and rotator cuff repair on 09/29/2024 with recent fall FINDINGS: Comparison radiographs dated 11/12/2024 and right shoulder MRI dated 07/21/2024. Injection arthrogram was performed prior to the MR, which will be dictated separately. MR examination of the right shoulder was performed with a local coil. Transverse, oblique coronal, and oblique sagittal short TR/TE and fast spin-echo images are obtained. Lastly, the arm was placed in the position of abduction and external rotation and oblique short TR/TE images were obtained. There is a type 1 acromion. The coracoacromial ligament is thin. There is no subacromial spur. There are postoperative changes of a distal clavicle excision and partial acromioplasty. There is there is fluid in the subacromial subdeltoid bursa. The rotator cuff muscle bulk is normal. The subscapularis is intact. There are postoperative changes of a posterior rotator cuff repair. There is irregularity of the undersurface of the supraspinatus with posterior extension into the junctional fibers which is compatible with progressive recurrent tear. Posterior to this, there is a new high-grade bursal sided tear of the junctional fibers and infraspinatus fibers measuring 14 mm in AP and 16 mm in TV dimensions. On this arthrographic evaluation, there is new blunting of the superior labrum which may represent postoperative changes or tear. There is mild glenohumeral chondrosis. There are postoperative changes of biceps tenodesis. No loose bodies are identified. The bone marrow signal is normal. There is a low-grade strain of the anterior deltoid muscle with adjacent earnestine-fascial fluid. IMPRESSION: 1. Postoperative changes of a right posterior rotator cuff repair with recurrent progressive, recurrent articular sided tear of the supraspinatus extending into the junctional fibers and a new high-grade bursal sided tear of the more posterior junctional fibers and infraspinatus fibers measuring 14 x 16 mm. 2. New blunting of the superior labrum may represent postoperative changes or a nondisplaced tear. 3. Low-grade strain of the anterior deltoid muscle with adjacent earnestine-fascial fluid Dictated by: Ariel Xiao D.O. The radiology attending physician has personally reviewed this study, and had reviewed and/or edited this written report and agrees with it. Electronically signed by: Phong Sales MD Cady FOX [facility] MRI PROCEDURES Daija l Result * Injection Shoulder Right Arthro Only (11/30/2024 12:20 PM ART TRACER) Anatomical Region Laterality Modality Shoulder Right Computed Radiogr aphy 11/30/2024 1:34 PM ART TRACER Impressions 11/30/2024 1:34 PM ART TRACER Right shoulder joint injection under fluoroscopic guidance for MR arthrography. Electronically signed by: David Ruelas D.O. Narrative 11/30/2024 1:34 PM ART TRACER EXAMINATION: 1. Right shoulder joint injection 2. Fluoroscopic guidance for needle placement HISTORY: Right shoulder pain, pre MR arthrogram TECHNIQUE: The risks, benefits and alternatives were discussed with the patient. Informed consent was obtained. Prior to beginning the procedure, [place] Protocol was performed to confirm the patient's identity and the planned procedure. The fluoroscopy time has been recorded in the electronic medical record. The patient was placed supine on the procedure table. The right shoulder joint was localized with fluoroscopic guidance. The skin was prepped and draped in a standard sterile fashion. Using sterile technique, a 20 mL solution was prepared consisting of 10 mL of a 1:100 dilution of Dotarem gadolinium contrast in sterile saline and 10 mL Optiray 350. Local anesthesia was achieved with subcutaneous injection of 1% lidocaine 3 mL. A needle was then introduced into the joint under fluoroscopic guidance. Subsequently, 13 mL of the 1:200 gadolinium contrast was injected with intermittent fluoroscopic visualization. Complication: None The patient was then transferred to the MR suite for MR arthrogram. Dr. David Ruelas D.O., the attending radiologist, was present from the beginning to the end of the procedure. FINDINGS: Fluoroscopic images confirm intra-articular position of the needle tip with subsequent filling of the joint space. The results of the MR arthrogram are reported separately. Procedure Note David Ruelas, - 11/30/2024 EXAMINATION: 1. Right shoulder joint injection 2. Fluoroscopic guidance for needle placement HISTORY: Right shoulder pain, pre MR arthrogram TECHNIQUE: The risks, benefits and alternatives were discussed with the patient. Informed consent was obtained. Prior to beginning the procedure, [place] Protocol was performed to confirm the patient's identity and the planned procedure. The fluoroscopy time has been recorded in the electronic medical record. The patient was placed supine on the procedure table. The right shoulder joint was localized with fluoroscopic guidance. The skin was prepped and draped in a standard sterile fashion. Using sterile technique, a 20 mL solution was prepared consisting of 10 mL of a 1:100 dilution of Dotarem gadolinium contrast in sterile saline and 10 mL Optiray 350. Local anesthesia was achieved with subcutaneous injection of 1% lidocaine 3 mL. A needle was then introduced into the joint under fluoroscopic guidance. Subsequently, 13 mL of the 1:200 gadolinium contrast was injected with intermittent fluoroscopic visualization. Complication: None The patient was then transferred to the MR suite for MR arthrogram. Dr. David Ruelas D.O., the attending radiologist, was present from the beginning to the end of the procedure. FINDINGS: Fluoroscopic images confirm intra-articular position of the needle tip with subsequent filling of the joint space. The results of the MR arthrogram are reported separately. IMPRESSION: Right shoulder joint injection under fluoroscopic guidance for MR arthrography. Electronically signed by: David Ruelas D.O. Result [facility] Cady FOX IM XR PROCEDURES Final Result * SCAN - OTHER ORDERS (11/13/2024) Result [facility] Provider Scanning Final Result * XR Shoulder Right 4 Views (11/12/2024 9:46 AM ART TRACER) Anatomical Region Laterality Modality Upper Extremities, Shoulder Right Digi misbah Radiography Narrative 11/17/2024 8:59 AM ART TRACER X-rays of the right shoulder are viewed and interpreted in clinic today and demonstrate no fracture, subluxation or destructive lesions. Status post subacromial decompression and distal clavicle excision changes noted. Result [facility] Cady FOX IM XR PROCEDURES Final Result from Last 3 Months Insurance [facility] [employer] [facility] [employer] [employer] H[employer]/PPO Address: [address] [address] [place] [address] CHOICE PLUS [employer] [facility] HMO/PPO Address: [facility] [address] [place] [address] [employer] [facility] [employer] [employer] H[employer]/PPO Address: [address] [address] [place] [address] Advance Directives For more information, please contact: [phone] * Full Code (Latest Code Status on File) Date Activated Date Inactivated Comments 10/02/2019 12:10 PM 10/02/2019 5:23 PM Care Teams Boat Joiner Relationship Specialty Start Date End Date Amaury Bonner MD [address] [place] [address] PCP - General 02/27/08 Cady Urena PA [address] [place] [address] DR JAMES [address] [place] [address] Physician Optical Mechanic Orthopedic Surgery 09/29/24
--- OUTSIDE RECORDS SUMMARY | 2025-02-02 18:05 | XMS_ITS | Referral Summary ---
Author Organization [facility] 2 Address [address] [facility] [place] [address] Care Team Providers Care Litigation Examiner Name Role Phone Amaury Bonner MD Primary Care Provider + [phone] Cady Urena Unavailable [phone] Encounters Date Type Department Care Team Description 01/22/2025 7:45 AM DIRECTOR OF MEDICARE Therapy [facility] [address] [place] [address] Floor [address] [place] [phone] Ryland Farris DPT S/P right rotator cuff repair (Primary Dx); Right shoulder pain, unspecified chronicity 01/15/2025 7:45 AM DIRECTOR OF MEDICARE Therapy [facility] [address] [place] [address] Floor [address] [place] [phone] Ryland Farris DPT S/P right rotator cuff repair (Primary Dx); Right shoulder pain, unspecified chronicity 01/08/2025 7:45 AM DIRECTOR OF MEDICARE Therapy [facility] [address] [place] [address] Floor [address] [place] [phone] Ryland Farris DPT S/P right rotator cuff repair (Primary Dx); Right shoulder pain, unspecified chronicity 12/31/2024 8:30 AM DIRECTOR OF MEDICARE Therapy [facility] [address] [place] [address] Floor [address] [place] [phone] Farris, Ryland Vincent, DPT S/P right rotator cuff repair (Primary Dx); Right shoulder pain, unspecified chronicity 12/25/2024 10:00 AM DIRECTOR OF MEDICARE Office Visit [facility] [address] [place] [phone] Alexander Burden MD Traumatic incomplete tear of right rotator cuff, initial encounter (Primary Dx) 12/18/2024 Telephone [facility] [address] [place] [address] 12th [place] [address] [place] [phone] Yara Feldman RN GI Preprocedure 12/14/2024 1:45 PM DIRECTOR OF MEDICARE Therapy [facility] [address] Floor [address] [place] [phone] Ryland Farris, DPT S/P right rotator cuff repair (Primary Dx); Right shoulder pain, unspecified chronicity 12/09/2024 10:00 AM DIRECTOR OF MEDICARE Therapy [facility] [address] Floor [address] [place] [phone] Ryland Farris DPT S/P right rotator cuff repair (Primary Dx); Right shoulder pain, unspecified chronicity 12/03/2024 1:00 PM DIRECTOR OF MEDICARE Therapy [facility] [address] [place] [phone] Sadi Caba DPT S/P right rotator cuff repair (Primary Dx); Right shoulder pain, unspecified chronicity 11/30/2024 11:09 AM DIRECTOR OF MEDICARE - 11/30/2024 11:59 PM DIRECTOR OF MEDICARE Hospital Encounter [facility] [address] [place] [address] Traumatic complete tear of right rotator cuff, initial encounter; S/P right rotator cuff repair Discharge Disposition: Discharge to home or self care 11/30/2024 11:09 AM DIRECTOR OF MEDICARE - 11/30/2024 11:59 PM DIRECTOR OF MEDICARE Hospital Encounter [facility] [address] [place] [address] Traumatic complete tear of right rotator cuff, initial encounter; S/P right rotator cuff repair Discharge Disposition: Discharge to home or self care 11/20/2024 11:00 AM DIRECTOR OF MEDICARE Therapy [facility] [address] [place] [address] Floor [address] [place] [phone] Ryland Farris DPT S/P right rotator cuff repair (Primary Dx); Right shoulder pain, unspecified chronicity 11/16/2024 Telephone [facility] Medical Office Building [address], [address] [place] [phone] Jemima Hinkle RN Scheduling 11/13/2024 Telephone [facility] [address] [place] [phone] Cady Urena PA 11/13/2024 Orders Only [facility] [address] [place] [address] Scanning, Provider 11/13/2024 Orders Only [facility] [address] [place] [phone] Cady Urena PA Traumatic complete tear of right rotator cuff, initial encounter (Primary Dx); S/P right rotator cuff repair 11/13/2024 11:00 AM DIRECTOR OF MEDICARE Therapy [facility] [address] [place] [address] [place] [phone] Ryland Farris DPT S/P right rotator cuff repair (Primary Dx); Right shoulder pain, unspecified chronicity 11/12/2024 9:40 AM DIRECTOR OF MEDICARE Ancillary Procedure [facility] Imaging at [address] [phone] 11/12/2024 8:45 AM DIRECTOR OF MEDICARE Office Visit [facility] [address] [place] [phone] Cady Urena PA Traumatic complete tear of right rotator cuff, initial encounter (Primary Dx); S/P right rotator cuff repair 11/11/2024 8:30 AM DIRECTOR OF MEDICARE Therapy [facility] [address] [place] [address] Floor [address] [place] [phone] Sadi Caba DPT S/P right rotator cuff repair (Primary Dx); Right shoulder pain, unspecified chronicity 11/05/2024 Plan of Care Documentation [facility] [address] [place] [phone] 11/04/2024 8:30 AM DIRECTOR OF MEDICARE Therapy [facility] [address] [place] [address] [place] [phone] Sadi Caba DPT S/P right rotator cuff repair (Primary Dx); Right shoulder pain, unspecified chronicity from Last 3 Months Allergies No known [...] BY MOUTH DAILY 90 tablet 3 10/30/[address] (PROTONIX) 40 mg [...] (12/05/2021): Added automatically from request for surgery [id number] Gastroesophageal reflux disease without esophagi tis 09/01/2019 Overview (09/01/2019): Added automatically from request for surgery [id number] Gastroesophageal reflux disease 10/13/2013 Otto's esophagus 10/13/2013 [...] on file Legal Sex Male 7:48 PM DIRECTOR OF MEDICARE Gender Identity Male 06/02/2024 7:40 AM CDT Sexual Orientation Straight 06/02/2024 7: 40 AM CDT Last Filed Vital Signs Vital Sign Reading Time Taken Comments Blood Pressure 146/94 12/25/2024 11:11 AM DIRECTOR OF MEDICARE Pulse 77 12/25/2024 11:11 AM DIRECTOR OF MEDICARE Temperature 36.2 C (97.1 F) 09/29/2024 3:09 PM CDT Respiratory Rate 16 09/29/2024 3:09 PM CDT Oxygen Saturation 98% 09/29/2024 3:09 PM CDT Inhaled Oxygen Concentration - - Weight 109.3 kg (240 lb 14.4 oz) 2024 11:11 AM DIRECTOR OF MEDICARE Height 180.3 cm (5' 11 ) 12/25/2024 11: 11 AM DIRECTOR OF MEDICARE Body Mass Index 33.6 12/25/2024 11:11 AM DIRECTOR OF MEDICARE Plan of Treatment Upcoming Encounters Date Type Department Care Team (Late st Contact Info) Description 02/22/2025 10:00 AM CDT Hospital Encounter [facility] [address] [place] [address] Derick Higuera MD [address] [place] [address] 02/22/2025 10:00 AM CDT - 02/22/2025 10:30 AM CDT Surgery [facility] [address] [place] [address] Derick Higuera MD [address] [place] [address] EGD Scheduled Procedures Name Priority Associated Diagnoses Date/Ti me ESOPHAGOGASTRODUODENOSCOPY Otto's esophagus with dysplasia 02/22/2025 10:00 AM CDT Medical Devices Implanted Type Area Manager Health Device Identifier Shelf Expiration Date Model / Serial / Lot [employer] Suture [place] Double Loaded Knotless Fibertak 2.6mm Ar-[id number] - [id number] Implanted:Qty : 1 on 09/29/2024 by Alexander Burden MD at [facility] Right: Shoulder [employer] [id number] 05/31/2028 AR-[id number] / / [id number] [employer] Swivelock C 4.75mm 19.1mm Closed Eyelet Vent [place] Suture Ar-2324bcc - [id number] Implanted:Qty : 1 on 09/29/2024 by Alexander Burden MD at [facility] Right: Shoulder [employer] 05/31/2028 AR-[id number] / / [id number] [employer] Swivelock C 4.75mm 19.1mm Closed Eyelet Vent [place] Suture Ar-2324bcc - [id number] Implanted:Qty : 1 on 09/29/2024 by Alexander Burden MD at [facility] Right: Shoulder [employer] 03/31/2028 AR-[id number] / / [id number] Procedures Procedure Name Priority Date/Time Associated Diagnosis Comments MRI SHOULDER ARTHROGRAM RIGHT W CONTRAST Schedule Routine, Read Routine (OP Routine) 11/30/2024 12:39 PM DIRECTOR OF MEDICARE Traumatic complete tear of right rotator cuff, initial encounter S/P right rotator cuff repair INJECTION SHOULDER RIGHT ARTHRO ONLY Schedule Routine, Read Routine (OP Routine) 11/30/2024 12:20 PM DIRECTOR OF MEDICARE Traumatic complete tear of right rotator cuff, initial encounter S/P right rotator cuff repair SCAN - OTHER ORDERS 11/13/2024 XR SHOULDER RIGHT 2 OR MORE VIEWS Schedule Routine, Read Routine (OP Routine) 11/12/2024 9:46 AM DIRECTOR OF MEDICARE Traumatic complete tear of right rotator cuff, initial encounter S/P right rotator cuff repair from Last 3 Months Results * MRI Shoulder Arthrogram Right W Contrast (11/30/2024 12:39 PM DIRECTOR OF MEDICARE) Anatomical Region Laterality Modality Upper Extremities Right Magnetic Reson ance 11/30/2024 2:51 PM DIRECTOR OF MEDICARE Impressions 11/30/2024 4:40 PM DIRECTOR OF MEDICARE 1. Postoperative changes of a right posterior [...] Phong Sales MD Narrative 11/30/2024 4:40 PM DIRECTOR OF MEDICARE EXAMINATION: MRI SHOULDER ARTHROGRAM RIGHT W CONTRAST [...] signed by: Phong Sales MD Cady FOX IM MRI PROCEDURES Daija l Result * Injection Shoulder Right Arthro Only (11/30/2024 12:20 PM DIRECTOR OF MEDICARE) Anatomical Region Laterality Modality Shoulder Right Computed Radiogr aphy 11/30/2024 1:34 PM DIRECTOR OF MEDICARE Impressions 11/30/2024 1:34 PM DIRECTOR OF MEDICARE Right shoulder joint injection under fluoroscopic guidance for MR arthrography. Electronically signed by: David Ruelas D.O. Narrative 11/30/2024 1:34 PM DIRECTOR OF MEDICARE EXAMINATION: 1. Right shoulder joint injection 2. Fluoroscopic guidance for needle placement HISTORY: Right shoulder pain, pre MR arthrogram TECHNIQUE: The risks, benefits and alternatives were discussed with the patient. Informed consent was obtained. Prior to beginning the procedure, [place] Protocol was performed to confirm the patient's [...] are reported separately. Procedure Note David Ruelas, DO - 11/30/2024 EXAMINATION: 1. Right shoulder joint injection 2. Fluoroscopic guidance for needle placement HISTORY: Right shoulder pain, pre MR arthrogram TECHNIQUE: The risks, benefits and alternatives were discussed with the patient. Informed consent was obtained. Prior to beginning the procedure, [place] Protocol was performed to confirm the patient's [...] for MR arthrography. Electronically signed by: David O'Kenji, D.O. us [facility] IMG XR PROCEDURES Final Result * SCAN - OTHER ORDERS (11/13/2024) Provider Scanning Final Result * XR Shoulder Right 4 Views (11/12/2024 9:46 AM DIRECTOR OF MEDICARE) Anatomical Region Laterality Modality Upper Extremities, Shoulder Right Digi misbah Radiography Narrative 11/17/2024 8:59 AM DIRECTOR OF MEDICARE X-rays of the right shoulder are viewed and interpreted in clinic today and demonstrate no fracture, subluxation or destructive lesions. Status post subacromial decompression and distal clavicle excision changes noted. Cady FOX IMG XR PROCEDURES Final Result from Last 3 Months Insurance [id number] [employer] CHOICE [employer] Advance Directives For more information, please contact: [phone] * Full Code (Latest Code Status on File) Date Activated Date Inactivated Comments 10/02/2019 12:10 PM 10/02/2019 5:23 PM Care Teams Litigation Examiner Relationship Specialty Start Date End Date Amaury Bonner MD [address] [place] [address] PCP - General 02/27/08 Cady Urena PA [address] [place] [address] DR JAMES [address] [place] [address] Physician Methods Examiner Orthopedic Surgery 09/29/24
--- OUTSIDE RECORDS SUMMARY | 2025-02-02 18:05 | XMS_ITS | Clinical Summary ---
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 Gender Identity Not on file Sexual Orientation Not on file 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 on file Last Filed Vital Signs Vital Sign Reading Time Taken Comments Blood Pressure 149/72 04/13/2022 8:22 PM CDT Pulse 81 04/13/2022 8:22 PM CDT Temperature 36.7 C (98.1 F) 04/13/2022 8:22 PM CDT Respiratory Rate 16 04/13/2022 8:22 PM CDT [...] - Td or Tdap) 04/13/2032 04/13/2022 Meningococcal B Vaccine Aged Out No l onger eligible based on patient's age to complete this topic Meningococcal Vaccine Aged Out No mandeep yfn [...] patient's age to complete this topic Insurance Advance Directives * Full Code (Latest Code Status on File) Date Activated Date Inactivated Comments 03/22/2021 3:59 AM 03/22/2021 4:36 PM Care Teams Avionics Electronics Technician Relationship Specialty Start Date End Date Amaury Bonner MD [address] [place] [phone] PCP - General INTERNAL MEDICINE 03/22/21
== END 2025-02-02 15:58 | disposition home or self-care (01) ==
PROVIDERS: PCP Internal Medicine; Visit Provider Internal Medicine
DX: R06.02 Shortness of breath (principal); I10 Essential (primary) hypertension; I49.3 Ventricular premature depolarization; I34.0 Nonrheumatic mitral (valve) insufficiency
CPT/HCPCS: 93306

== ENCOUNTER 2025-02-06 08:37 | Outpatient (CLI) | payer OTHER, SELFPAY ==
--- OUTSIDE RECORDS SUMMARY | 2025-02-06 08:40 | XMS_ITS | Referral Summary ---
Author Organization [facility] 2 Address [address] [facility] [place] [address] Care Team Providers Care Greenhouse Assistant Name Role Phone Amaury Bonner MD Primary Care Provider [phone] Cady Urena Unavailable [phone] Encounters Date Type Department Care Team Description 02/05/2025 Plan of Care Documentation [facility] Physical Therapy [address] [place] [address] Floor [address] [place] [address] [phone] 02/05/2025 7:45 AM DIRECTOR CLIENT SERVICES Therapy [facility] Physical Therapy [address] [place] [address] [place] [phone] Ryland Farris DPT S/P right rotator cuff repair (Primary Dx); Right shoulder pain, unspecified chronicity 01/22/2025 7:45 AM DIRECTOR CLIENT SERVICES Therapy [facility] Physical Therapy [address] [place] [address] Floor [address] [place] [phone] Ryland Farris DPT S/P right rotator cuff repair (Primary Dx); Right shoulder pain, unspecified chronicity 01/15/2025 7:45 AM DIRECTOR CLIENT SERVICES Therapy [facility] Physical Therapy [address] [place] [address] Floor [address] [place] [phone] Ryland Farris DPT S/P right rotator cuff repair (Primary Dx); Right shoulder pain, unspecified chronicity 01/08/2025 7:45 AM DIRECTOR CLIENT SERVICES Therapy [facility] Physical Therapy [address] [place] [address] Floor [address] [place] [phone] Ryland Farris DPT S/P right rotator cuff repair (Primary Dx); Right shoulder pain, unspecified chronicity 12/31/2024 8:30 AM DIRECTOR CLIENT SERVICES Therapy [facility] Physical Therapy [address] [place] [address] Floor [address] [place] [phone] Ryland Farris, DPT S/P right rotator cuff repair (Primary Dx); Right shoulder pain, unspecified chronicity 12/25/2024 10:00 AM DIRECTOR CLIENT SERVICES Office Visit [facility] Medical Group Orthopedic and Sports Medicine [address] [place] [phone] Alexander Burden MD Traumatic incomplete tear of right rotator cuff, initial encounter (Primary Dx) 12/18/2024 Telephone [facility] Gastroenterology [address] [place] [address] 12th [place] [address] [place] [phone] Yara Feldman RN GI Preprocedure 12/14/2024 1:45 PM DIRECTOR CLIENT SERVICES Therapy [facility] Physical [address] Floor [address] [place] [phone] Ryland Farris DPT S/P right rotator cuff repair (Primary Dx); Right shoulder pain, unspecified chronicity 12/09/2024 10:00 AM DIRECTOR CLIENT SERVICES Therapy [facility] Physical [address] Floor [address] [place] [phone] Ryland Farris DPT S/P right rotator cuff repair (Primary Dx); Right shoulder pain, unspecified chronicity 12/03/2024 1:00 PM DIRECTOR CLIENT SERVICES Therapy [facility] Physical [address] Floor [address] [place] [phone] Sadi Caba DPT S/P right rotator cuff repair (Primary Dx); Right shoulder pain, unspecified chronicity 11/30/2024 11:09 AM DIRECTOR CLIENT SERVICES - 11/30/2024 11:59 PM DIRECTOR CLIENT SERVICES Hospital Encounter [facility] Radiology [address] [place] [address] Traumatic complete tear of right rotator cuff, initial encounter; S/P right rotator cuff repair Discharge Disposition: Discharge to home or self care 11/30/2024 11:09 AM DIRECTOR CLIENT SERVICES - 11/30/2024 11:59 PM DIRECTOR CLIENT SERVICES Hospital Encounter [facility] Radiology [address] [place] [address] Traumatic complete tear of right rotator cuff, initial encounter; S/P right rotator cuff repair Discharge Disposition: Discharge to home or self care 11/20/2024 11:00 AM DIRECTOR CLIENT SERVICES Therapy [facility] Physical Therapy [address] [place] [address] Floor [address] [place] [phone] Ryland Farris DPT S/P right rotator cuff repair (Primary Dx); Right shoulder pain, unspecified chronicity 11/16/2024 Telephone [facility] Gastroenterology [address] [place] [address] Medical Office Building [address], [address] [place] [phone] Jemima Hinkle RN Scheduling 11/13/2024 Telephone [facility] Medical [facility] Orthopedic and Sports Medicine [address] [place] [phone] Cady Urena PA 11/13/2024 Orders Only [facility] Health Information Management 1 [place] [address] Scanning, Provider 11/13/2024 Orders Only [facility] Medical [facility] Orthopedic and Sports Medicine [address] [place] [phone] Cady Urena PA Traumatic complete tear of right rotator cuff, initial encounter (Primary Dx); S/P right rotator cuff repair 11/13/2024 11:00 AM DIRECTOR CLIENT SERVICES Therapy [facility] Physical Therapy [address] [place] [address] [address] [place] [phone] Ryland Farris DPT S/P right rotator cuff repair (Primary Dx); Right shoulder pain, unspecified chronicity 11/12/2024 9:40 AM DIRECTOR CLIENT SERVICES Ancillary Procedure [facility] Medical Group Imaging at [address] [phone] 11/12/2024 8:45 AM DIRECTOR CLIENT SERVICES Office Visit [facility] Medical [facility] Orthopedic and Sports Medicine [address] [place] [phone] Cady Urena PA Traumatic complete tear of right rotator cuff, initial encounter (Primary Dx); S/P right rotator cuff repair 11/11/2024 8:30 AM DIRECTOR CLIENT SERVICES Therapy [facility] Physical Therapy [address] [facility] [place] [address] Sadi Caba, LUIS ARMANDO S/P right rotator cuff repair (Primary Dx); [...] (12/05/2021): Added automatically from request for surgery [id number] Gastroesophageal reflux disease without esophagi tis 09/01/2019 Overview (09/01/2019): Added automatically from request for surgery [id number] Gastroesophageal reflux disease 10/13/2013 Otto's esophagus 10/13/2013 [...] file Legal Sex Male 7:48 PM DIRECTOR CLIENT SERVICES Gender Identity Male 06/02/2024 7:40 AM CDT Sexual Orientation Straight 06/02/2024 7: 40 AM CDT Last Filed Vital Signs Vital Sign Reading Time Taken Comments Blood Pressure 146/94 12/25/2024 11:11 AM DIRECTOR CLIENT SERVICES Pulse 77 12/25/2024 11:11 AM DIRECTOR CLIENT SERVICES Temperature 36.2 C (97.1 F) 09/29/2024 3:09 PM CDT Respiratory Rate 16 09/29/2024 3:09 PM CDT Oxygen Saturation 98% 09/29/2024 3:09 PM CDT Inhaled Oxygen Concentration - - Weight 109.3 kg (240 lb 14.4 oz) 2024 11:11 AM DIRECTOR CLIENT SERVICES Height 180.3 cm (5' 11 ) 12/25/2024 11: 11 AM DIRECTOR CLIENT SERVICES Body Mass Index 33.6 12/25/2024 11:11 AM DIRECTOR CLIENT SERVICES Plan of Treatment Upcoming Encounters Date Type Department Care Team (Late st Contact Info) Description 02/22/2025 10:00 AM CDT Hospital Encounter [facility] [address] [address] [address] Derick Higuera MD [address] [place] [address] 02/22/2025 10:00 AM CDT - 02/22/2025 10:30 AM CDT Surgery [facility] [address] [address] [place] [address] Derick Higuera MD [address] [place] [address] EGD Scheduled Procedures Name Priority Associated Diagnoses Date/Ti me ESOPHAGOGASTRODUODENOSCOPY Otto's esophagus with dysplasia 02/22/2025 10:00 AM CDT Medical Devices Implanted Type Area Surgical Garment Assembler Device Identifier Shelf Expiration Date Model / Serial / Lot [employer] Suture [facility] Double Loaded Knotless Fibertak 2.6mm Ar-3632sp - [id number] Implanted:Qty : 1 on 09/29/2024 by Alexander Burden MD at [facility] Right: Shoulder [employer] [id number] 05/31/2028 AR-[id number] / / [id number] [employer] Swivelock C 4.75mm 19.1mm Closed Eyelet Vent [facility] Suture Ar-2324bcc - [id number] Implanted:Qty : 1 on 09/29/2024 by Alexander Burden MD at [facility] Right: Shoulder [employer] 05/31/2028 AR-2324BCC / / [id number] [employer] Swivelock C 4.75mm 19.1mm Closed Eyelet Vent [facility] Suture Ar-2324bcc - [id number] Implanted:Qty : 1 on 09/29/2024 by Alexander Burden MD at [facility] Right: Shoulder [employer] 03/31/2028 AR-[id number] / / [id number] Procedures Procedure Name Priority Date/Time Associated Diagnosis Comments MRI SHOULDER ARTHROGRAM RIGHT W CONTRAST Schedule Routine, Read Routine (OP Routine) 11/30/2024 12:39 PM DIRECTOR CLIENT SERVICES Traumatic complete tear of right rotator cuff, initial encounter S/P right rotator cuff repair INJECTION SHOULDER RIGHT ARTHRO ONLY Schedule Routine, Read Routine (OP Routine) 11/30/2024 12:20 PM DIRECTOR CLIENT SERVICES Traumatic complete tear of right rotator cuff, initial encounter S/P right rotator cuff repair SCAN - OTHER ORDERS 11/13/2024 XR SHOULDER RIGHT 2 OR MORE VIEWS Schedule Routine, Read Routine (OP Routine) 11/12/2024 9:46 AM DIRECTOR CLIENT SERVICES Traumatic complete tear of right rotator cuff, initial encounter S/P right rotator cuff repair from Last 3 Months Results * MRI Shoulder Arthrogram Right W Contrast (11/30/2024 12:39 PM DIRECTOR CLIENT SERVICES) Anatomical Region Laterality Modality Upper Extremities Right Magnetic Reson ance 11/30/2024 2:51 PM DIRECTOR CLIENT SERVICES Impressions 11/30/2024 4:40 PM DIRECTOR CLIENT SERVICES 1. Postoperative changes of a right posterior [...] Sales MD Narrative 11/30/2024 4:40 PM DIRECTOR CLIENT SERVICES EXAMINATION: MRI SHOULDER ARTHROGRAM RIGHT W CONTRAST [...] Right Arthro Only (11/30/2024 12:20 PM DIRECTOR CLIENT SERVICES) Anatomical Region Laterality Modality Shoulder Right Computed Radiogr aphy 11/30/2024 1:34 PM DIRECTOR CLIENT SERVICES Impressions 11/30/2024 1:34 PM DIRECTOR CLIENT SERVICES Right shoulder joint injection under fluoroscopic guidance for MR arthrography. Electronically signed by: David Ruelas D.O. Narrative 11/30/2024 1:34 PM DIRECTOR CLIENT SERVICES EXAMINATION: 1. Right shoulder joint injection 2. Fluoroscopic guidance for needle placement HISTORY: Right shoulder pain, pre MR arthrogram TECHNIQUE: The risks, benefits and alternatives were discussed with the patient. Informed consent was obtained. Prior to beginning the procedure, [place] Protocol was performed to confirm the patient's [...] was obtained. Prior to beginning the procedure, [place] Protocol was performed to confirm the patient's [...] arthrography. Electronically signed by: David Ruelas D.O. Cady FOX IMG XR PROCEDURES Final Result * SCAN - OTHER ORDERS (11/13/2024) Provider Scanning Final Result * XR Shoulder Right 4 Views (11/12/2024 9:46 AM DIRECTOR CLIENT SERVICES) Anatomical Region Laterality Modality Upper Extremities, Shoulder Right Digi misbah Radiography Narrative 11/17/2024 8:59 AM DIRECTOR CLIENT SERVICES X-rays of the right shoulder are viewed and interpreted in clinic today and demonstrate no fracture, subluxation or destructive lesions. Status post subacromial decompression and distal clavicle excision changes noted. Cady FOX IMG XR PROCEDURES Final Result from Last 3 Months Insurance [facility] HMO/PPO Address: [facility] [id number] [place] [phone] [facility] [facility] H[facility]/PPO Address: [address] [address] [place] [address] [facility] H[facility]/PPO Address: [address] [address] [place] [address] Advance Directives For more information, please contact: [phone] * Full Code (Latest Code Status on File) Date Activated Date Inactivated Comments 10/02/2019 12:10 PM 10/02/2019 5:23 PM Care Teams Greenhouse Assistant Relationship Specialty Start Date End Date Amaury Bonner MD [address] [place] [address] PCP - General 02/27/08 Cady Urena PA [address] [place] [address] DR JAMES [address] [place] [id number] Physician Supervisor [facility] 09/29/24
--- OUTSIDE RECORDS SUMMARY | 2025-02-06 08:40 | XMS_ITS | Clinical Summary ---
Author Organization [facility] Medical [facility] 2 Address [address] [facility] [place] [address] Care Team Providers Care Lead Radiologic Technologist Name Role Phone Amaury Bonner MD Primary Care Provider [phone] Cady Urena Unavailable [phone] Allergies No known active allergies Medications atorvastatin [...] (12/05/2021): Added automatically from request for surgery [id number] Gastroesophageal reflux disease without esophagi tis 09/01/2019 Overview (09/01/2019): Added automatically from request for surgery [id number] Gastroesophageal reflux disease 10/13/2013 Otto's esophagus 10/13/2013 Encounters Date Type Department Care Team Description 02/05/2025 7:45 AM DEVICE PROCESSING ENGINEER Therapy [facility] [address] [place] [address] [place] [phone] Ryland Farris, DPT S/P right rotator cuff repair (Primary Dx); Right shoulder pain, unspecified chronicity 02/05/2025 Plan of Care Documentation [facility] [address] [place] [address] [place] [phone] 01/22/2025 7:45 AM DEVICE PROCESSING ENGINEER Therapy [facility] [address] [place] [address] [place] [phone] Ryland Farris, DPT S/P right rotator cuff repair (Primary Dx); Right shoulder pain, unspecified chronicity 01/15/2025 7:45 AM DEVICE PROCESSING ENGINEER Therapy [facility] [address] [place] [address] Floor [address] [place] [phone] Ryland Farris, DPT S/P right rotator cuff repair (Primary Dx); Right shoulder pain, unspecified chronicity 01/08/2025 7:45 AM DEVICE PROCESSING ENGINEER Therapy [facility] [address] [place] [address] [place] [phone] Ryland Farris, DPT S/P right rotator cuff repair (Primary Dx); Right shoulder pain, unspecified chronicity 12/31/2024 8:30 AM DEVICE PROCESSING ENGINEER Therapy [facility] [address] [place] [address] [place] [phone] Ryland Farris, DPT S/P right rotator cuff repair (Primary Dx); Right shoulder pain, unspecified chronicity 12/25/2024 10:00 AM DEVICE PROCESSING ENGINEER Office Visit [facility] [address] [place] [phone] Alexander Burden MD Traumatic incomplete tear of right rotator cuff, initial encounter (Primary Dx) 12/18/2024 Telephone [facility] [address] [place] [address] 12th [place] [address] [place] [address] Yara Feldman RN GI Preprocedure 12/14/2024 1:45 PM DEVICE PROCESSING ENGINEER Therapy [facility] [address] Floor [address] [place] [phone] Ryland Farris, DPT S/P right rotator cuff repair (Primary Dx); Right shoulder pain, unspecified chronicity 12/09/2024 10:00 AM DEVICE PROCESSING ENGINEER Therapy [facility] [address] [place] [address] Floor [address] [place] [phone] Ryland Farris, DPT S/P right rotator cuff repair (Primary Dx); Right shoulder pain, unspecified chronicity 12/03/2024 1:00 PM DEVICE PROCESSING ENGINEER Therapy [facility] [address] [place] [address] Floor [address] [place] [phone] Sadi Caba DPT S/P right rotator cuff repair (Primary Dx); Right shoulder pain, unspecified chronicity 11/30/2024 11:09 AM DEVICE PROCESSING ENGINEER - 11/30/2024 11:59 PM DEVICE PROCESSING ENGINEER Hospital Encounter [facility] Radiology [address] [place] [address] Traumatic complete tear of right rotator cuff, initial encounter; S/P right rotator cuff repair Discharge Disposition: Discharge to home or self care 11/30/2024 11:09 AM DEVICE PROCESSING ENGINEER - 11/30/2024 11:59 PM DEVICE PROCESSING ENGINEER Hospital Encounter [facility] Radiology 1 [place] [address] Traumatic complete tear of right rotator cuff, initial encounter; S/P right rotator cuff repair Discharge Disposition: Discharge to home or self care 11/20/2024 11:00 AM DEVICE PROCESSING ENGINEER Therapy [facility] [address] [place] [address] Floor [address] [place] [phone] Ryland Farris, DPT S/P right rotator cuff repair (Primary Dx); Right shoulder pain, unspecified chronicity 11/16/2024 Telephone [facility] Medical Office Building [address], [address] [place] [address] Jemima Hinkle, RN Scheduling 11/13/2024 11:00 AM DEVICE PROCESSING ENGINEER Therapy [facility] [address] [facility] 1st Floor [address] [place] [address] Ryland Farris DPT S/P right rotator cuff repair (Primary Dx); Right shoulder pain, unspecified chronicity 11/13/2024 Telephone [facility] Orthopedic and Sports Medicine [address] [place] [phone] Cady Urena PA 11/13/2024 Orders Only [facility] Health Information Management 1 [place] [address] Scanning, Provider 11/13/2024 Orders Only [facility]opedic [facility] Sports Medicine [address] [place] [phone] Cady Urena PA Traumatic complete tear of right rotator cuff, initial encounter (Primary Dx); S/P right rotator cuff repair 11/12/2024 9:40 AM DEVICE PROCESSING ENGINEER Ancillary Procedure [facility] Imaging at [address] [phone] 11/12/2024 8:45 AM DEVICE PROCESSING ENGINEER Office Visit [facility] Sports Medicine [address] [place] [phone] Cady Urena PA Traumatic complete tear of right rotator cuff, initial encounter (Primary Dx); S/P right rotator cuff repair 11/11/2024 8:30 AM DEVICE PROCESSING ENGINEER Therapy [facility] [address] [facility] 1st Floor [address] [place] [address] Sadi Caba DPT S/P right [...] on file Legal Sex Male 7:48 PM DEVICE PROCESSING ENGINEER Gender Identity Male 06/02/2024 7:40 AM CDT Sexual Orientation Straight 06/02/2024 7: 40 AM CDT Obstetrics History Last Filed Vital Signs Vital Sign Reading Time Taken Comments Blood Pressure 146/94 12/25/2024 11:11 AM DEVICE PROCESSING ENGINEER Pulse 77 12/25/2024 11:11 AM DEVICE PROCESSING ENGINEER Temperature 36.2 C (97.1 F) 09/29/2024 3:09 PM CDT Respiratory Rate 16 09/29/2024 3:09 PM CDT Oxygen Saturation 98% 09/29/2024 3:09 PM CDT Inhaled Oxygen Concentration - - Weight 109.3 kg (240 lb 14.4 oz) 2024 11:11 AM DEVICE PROCESSING ENGINEER Height 180.3 cm (5' 11 ) 12/25/2024 11: 11 AM DEVICE PROCESSING ENGINEER Body Mass Index 33.6 12/25/2024 11:11 AM DEVICE PROCESSING ENGINEER Plan of Treatment Upcoming Encounters Date Type Department Care Team (Late st Contact Info) Description 02/22/2025 10:00 AM CDT Hospital Encounter [facility] Endoscopy [address] [place] [address] Derick Higuera MD [address] [place] [address] 02/22/2025 10:00 AM CDT - 02/22/2025 10:30 AM CDT Surgery [facility] [address] [place] [address] Derick Higuera MD [address] [place] [address] EGD Scheduled Procedures Name Priority Associated Diagnoses [...] 09/18/2024, 08/14/2017 Medical Devices Implanted Type Area [employer]otive Service Porter Device Identifier Shelf Expiration Date Model / Serial / Lot [employer] Suture [place] Double Loaded Knotless Fibertak 2.6mm Ar-3632sp - [id number] Implanted:Qty : 1 on 09/29/2024 by Alexander Burden MD at [facility] Right: Shoulder [employer] [id number] 05/31/2028 AR-3632SP / / [id number] [employer] Swivelock C 4.75mm 19.1mm Closed Eyelet Vent [place] Suture Ar-2324bcc - [id number] Implanted:Qty : 1 on 09/29/2024 by Alexander Burden MD at [facility] Right: Shoulder [employer] 05/31/2028 AR-2324BCC / / [id number] [employer] Swivelock C 4.75mm 19.1mm Closed Eyelet Vent [place] Suture Ar-2324bcc - [id number] Implanted:Qty : 1 on 09/29/2024 by Alexander Burden MD at [facility] Right: Shoulder [employer] 03/31/2028 AR-2324BCC / / [id number] Procedures Procedure Name Priority Date/Time Associated Diagnosis Comments MRI SHOULDER ARTHROGRAM RIGHT W CONTRAST Schedule Routine, Read Routine (OP Routine) 11/30/2024 12:39 PM DEVICE PROCESSING ENGINEER Traumatic complete tear of right rotator cuff, initial encounter S/P right rotator cuff repair INJECTION SHOULDER RIGHT ARTHRO ONLY Schedule Routine, Read Routine (OP Routine) 11/30/2024 12:20 PM DEVICE PROCESSING ENGINEER Traumatic complete tear of right rotator cuff, initial encounter S/P right rotator cuff repair SCAN - OTHER ORDERS 11/13/2024 XR SHOULDER RIGHT 2 OR MORE VIEWS Schedule Routine, Read Routine (OP Routine) 11/12/2024 9:46 AM DEVICE PROCESSING ENGINEER Traumatic complete tear of right rotator cuff, initial encounter S/P right rotator cuff repair from Last 3 Months Results * MRI Shoulder Arthrogram Right W Contrast (11/30/2024 12:39 PM DEVICE PROCESSING ENGINEER) Anatomical Region Laterality Modality Upper Extremities Right Magnetic Reson ance 11/30/2024 2:51 PM DEVICE PROCESSING ENGINEER Impressions 11/30/2024 4:40 PM DEVICE PROCESSING ENGINEER 1. Postoperative changes of a right posterior [...] Phong Sales MD Narrative 11/30/2024 4:40 PM DEVICE PROCESSING ENGINEER EXAMINATION: MRI SHOULDER ARTHROGRAM RIGHT W CONTRAST [...] signed by: Phong Sales MD [facility]ED[facility] Daija breezy Result * Injection Shoulder Right Arthro Only (11/30/2024 12:20 PM DEVICE PROCESSING ENGINEER) Anatomical Region Laterality Modality Shoulder Right Computed Radiogr aphy 11/30/2024 1:34 PM DEVICE PROCESSING ENGINEER Impressions 11/30/2024 1:34 PM DEVICE PROCESSING ENGINEER Right shoulder joint injection under fluoroscopic guidance for MR arthrography. Electronically signed by: David Ruelas D.O. Narrative 11/30/2024 1:34 PM DEVICE PROCESSING ENGINEER EXAMINATION: 1. Right shoulder joint injection 2. Fluoroscopic guidance for needle placement HISTORY: Right shoulder pain, pre MR arthrogram TECHNIQUE: The risks, benefits and alternatives were discussed with the patient. Informed consent was obtained. Prior to beginning the procedure, Hyde Protocol was performed to confirm the patient's [...] was obtained. Prior to beginning the procedure, Hyde Protocol was performed to confirm the patient's [...] Electronically signed by: David Ruelas D.O. Result [facility] Cady FOX IM XR PROCEDURES Final Result * SCAN - OTHER ORDERS (11/13/2024) Result [facility] Provider Scanning Final Result * XR Shoulder Right 4 Views (11/12/2024 9:46 AM DEVICE PROCESSING ENGINEER) Anatomical Region Laterality Modality Upper Extremities, Shoulder Right Digi misbah Radiography Narrative 11/17/2024 8:59 AM DEVICE PROCESSING ENGINEER X-rays of the right shoulder are viewed and interpreted in clinic today and demonstrate no fracture, subluxation or destructive lesions. Status post subacromial decompression and distal clavicle excision changes noted. Result [facility] Cady FOX IM XR PROCEDURES Final Result from Last 3 Months Insurance [employer] CHO[employer]US EMPLOYEES Advance Directives For more information, please contact: [phone] * Full Code (Latest Code Status on File) Date Activated Date Inactivated Comments 10/02/2019 12:10 PM 10/02/2019 5:23 PM Care Teams Lead Radiologic Technologist Relationship Specialty Start Date End Date Amaury Bonner MD [address] [place] [address] PCP - General 02/27/08 Cady Urena PA [address] [place] [address] DR JAMES [address] [place] [phone] Physician Clerk [employer] Orthopedic Surgery 09/29/24
--- OUTSIDE RECORDS SUMMARY | 2025-02-06 08:41 | XMS_ITS | Encounter Summary ---
Author Organization [facility] Address [address] [place] [address] Phone Care Team Providers Care Publishing Manager Name Role Phone Amaury Bonner MD Primary Care Provider [phone] Cady Urena Unavailable [phone] Encounter Details Date Type Department Care Team (Late st Contact Info) Description 02/05/2025 Plan of Care Documentation [facility] Physical Therapy [address] [facility] 1st Floor [address] [place] [address] Social History Tobacco Use Types [...] on file Legal Sex Male 7:48 PM SANITATION ENGINEER Gender Identity Male 06/02/2024 7:40 AM CDT Sexual Orientation Straight 06/02/2024 7: 40 AM CDT documented as of this encounter Plan of Treatment Upcoming Encounters Date Type Department Care Team (Late st Contact Info) Description 02/22/2025 10:00 AM CDT Hospital Encounter [facility] Endoscopy [address] [place] [address] Derick Higuera MD [address] [place] [address] 02/22/2025 10:00 AM CDT - 02/22/2025 10:30 AM CDT Surgery [facility] Endoscopy [address] [place] [address] Derick Higuera MD [address] [place] [address] EGD Scheduled Procedures Name Priority Associated Diagnoses Date/Ti me ESOPHAGOGASTRODUODENOSCOPY Otto's esophagus with dysplasia 02/22/2025 10:00 AM CDT documented as of this encounter Visit Diagnoses Not on filedocumented in this encounter Care Teams Publishing Manager Relationship Specialty Start Date End Date Amaury Bonner MD [address] [place] [address] PCP - General 02/27/08 Cady Urena PA [address] [place] [place] [address] DR JAMES [address] [place] [address] Physician Content Development Specialist Orthopedic Surgery 09/29/24 documented as of this encounter
--- OUTSIDE RECORDS SUMMARY | 2025-02-06 08:41 | XMS_ITS | Clinical Summary ---
Author Organization [facility] Address [address] [place] [address] Care Team Providers Care Company Laundry Worker Name Role Phone Amaury Bonner MD Primary Care Provider [phone] Allergies No known active allergies Medications No known medications Active Problems No known active problems Resolved Problems Problem Noted Date Diagnosed Date Resolved Date Unstable angina (CMS/HCC [facility]) 03/22/2021 03/22/2021 Abdominal pain 03/22/2021 03/22/2021 [...] on file Legal Sex Male 11:12 PM DOSIMETRIST Gender Identity Not on file Sexual Orientation [...] 3:59 AM 03/22/2021 4:36 PM Care Teams Company Laundry Worker Relationship Specialty Start Date End Date Amaury Bonner MD [address] [place] [phone] PCP - General INTERNAL MEDICINE 03/22/21
--- OUTSIDE RECORDS SUMMARY | 2025-02-06 08:41 | XMS_ITS | Encounter Summary ---
Author Organization [facility] Address [address] [place] [address] Phone Care Team Providers Care Practicing Dermatologist Name Role Phone Amaury Bonner MD Primary Care Provider [phone] Cady Urena Unavailable [phone] Reason for Visit * Reason Comments PT Progress Note * Consultation (Routine) - Authorized Specialty Diagnoses / Procedures Referred By Contjames t Referred To Contact Physical Therapy Diagnoses S/P right rotator cuff repair Right shoulder pain, unspecified chronicity Cady Urena PA [address] [place] [address] Phone: tel: fax: [facility] (All Locations) Referral ID Status Reason Start Date Expiration Date Visits Requested Visits Authorized [id number] Authorized Evaluate and Treat 10/19/2024 10/19/2025 24 24 Encounter Details Date Type Department Care Team (Late st Contact Info) Description 02/05/2025 7:45 AM SYBASE DEVELOPER Therapy [facility] Physical Therapy [address] [place] [address] Ryland Farris, DPT [address] [facility] [address] [place] [address] S/P right rotator cuff repair [...] on file Legal Sex Male 7:48 PM SYBASE DEVELOPER Gender Identity Male 06/02/2024 7:40 AM CDT Sexual Orientation Straight 06/02/2024 7: 40 AM CDT documented as of this encounter Progress Notes * Ryland Farris, DPT - 02/05/2025 7:45 AM CST Physical Therapy Progress Note 02/05/2025 Mp George 1970 ICD-10-CM 1. S/P right rotator cuff repair Z98.890 2. Right shoulder pain, unspecified chronicity M25.511 Last PT Progress note: 02/05/2025 Patient was pre-screened in [facility] prior to entering clinic space and passed. Passed screening determines patient has no current fever, cough, SOB, loss of sense of taste or sense of smell, body aches, or sore throat. Patient has not been exposed to anyone suspected of having COVID-19 in the past 14days. Subjective: Pt reports that his shoulder feels great. He reports that top of the shoulder has less discomfort, reports that it does feel different on the R side compared to the L. Pt reports that motion and strength are coming along, and he is accurately throwing the football with the kids. Goals: Throw Football with Kids/Family, Go Fishing, Continue to Improve ROM and Strength. Current Pain: 0/10 Best Pain: 0/10 Worst: 3/10 HEP compliance Pertinent Information: Involved Side: right Dominant Side: right Date of surgery: 09/29/2024 Type of surgery: R RC repair supraspinatus, biceps tenodesis Precautions: limited duty, only computer work, no lifting, wean out of sling Right shoulder arthroscopy distal claviculectomy including distal articular surface, decompression of subacromial space with partial acromioplasty with coracoacromial release, rotator cuff repair andbiceps tenodesis ADDITIONAL INSTRUCTIONS: PHASE IV: (Mos 3- Month 12) GOALS: [...] is usually at 10 to 12 months Objective: MMT Shoulder Right Left Flexion 4/5 5/5 Abduction 4/5 5/5 Scaption 4-/5 5/5 External rotation @ 0 deg shoulder flexion, 90 deg elbow flexion (seated) 4/5 4+/5 Internal rotation @ 0 deg shoulder flexion, 90 deg elbow flexion (seated) 5/5 5/5 AROM in degrees Shoulder Right Left Flexion 122 145 Abduction 160 170 Functional Behind Back IR L3 T6 Supine Lateral Rotation Movement Pattern Symptoms Symptoms Modifable with Correction? ROM (degrees) Right normal no change N/A 53 Left normal no change N/A 90 Supine Medial Rotation Movement Pattern Symptoms Symptoms Modifable with Correction? ROM (degrees) Right humeral anterior glide no change N/A 30 (while monitoring for humeral anterior glide) Left humeral anterior glide no change N/A 50 (while monitoring for humeral anterior glide) Supine Medial Rotation post PROM: 42 deg (while monitoring for humeral anterior glide) Quick DASH: Disabilities of the Arm, Shoulder, & Hand (Quick DASH) Quick DASH Disability/Symptom Score:: 9.09 Treatment Provided: Shoulder MR PROM: 8 min AAROM Towel Slides on Wall: 3x10 ea, hold for 3-5 sec at end range. (VR) Wall Slides: 10 reps, hold for 3-5 sec Shoulder ER 90/90 position: 1# DB: 3x15 Perturbations (90 deg shoulder flexion) = 3x60 (Not performed today) Capital Alphabet: 2 rounds (Verbal Review) Supine Shoulder LR/MR Motor Control = 5# DB: 2x10; hold for 5 sec at end range S/L Shoulder ER: 1# DB: 3x10 (VR) Standing Shoulder ER: BTB: 3x15 (VR) Standing Shoulder IR: GTB 3x15 (VR) Standing Reverse T: 3x10 Standing resisted middle trap: YTB: 3x10 (VR) Shoulder Flexion with back against wall - 3# DB: 3x10; Yellow theraband: 3x12 Shoulder Abduction with ER - 5# DB ea: 3x10 Scapular Repositioning Against the Wall: 10 reps, hold for 5 sec (Verbal Review) Standing Rows: BTB: 0m42-11 reps, cues for scapular repositioning prior to performing (Verbal Review) KB DB curl: 3x12 - 15# KB PNF D1 and D2 - GTB: 3x15 ASSESSMENT: Assessment of progress performed. Pt has been seen for 12 PT visits since initial visiton 11/04/24. Good tolerance to treatment this date. Pt had no increase in symptoms this visit. Pt demonstrates improved symptoms, ROM, strength, movement patterns, and activity tolerance. Pt hasshown significant improvements in symptoms, with low irritability and severity of s/s. Pt has shownimprovements in strength, with continued deficits compared to uninvolved LUE. Pt does present with limitations in shoulder flexion, MR, and LR that limits ability to perform ADL's. Pt overall is progressing well from surgery date on 09/29/24. Pt would continue to benefit from skilled phyiscal therapy to improve ROM, strength, scapulohumeral mechanics, ability to perform ADL's, to decrease symptoms, improve functional mobility, progress towards goals, and increase independence. Short Term Goals: (6 weeks) Goal Description New Ongoing [...] report pain at worst to 2/10.. X Penitentiary Goals: (12 weeks) Goal Description New Ongoing Partially Met [...] for sustained correction of movement impairments. X PLAN: Continue PT per POC to progress toward goals per patient tolerance Plan to progress exercises as tolerated. Time-Based Code Calculator Minutes for Ther Ex/Ther Procedure (60591):: 15 minutes Minutes for Ther Act (69403):: 15 minutes Minutes for Manual Therapy (23778):: 8 minutes Timed Code Treatment Minutes:: 38 minutes Total Treatment Time: 45 Visit Start Time: 744 Visit Stop Time: 829 Ryland Farris DPT SE DEVELOPER documented in this encounter Plan of Treatment Upcoming Encounters Date Type Department Care Team (Late st Contact Info) Description 02/22/2025 10:00 AM CDT Hospital Encounter [facility] Endoscopy [address] [place] [address] Derick Higuera MD [address] [facility] [place] [address] 02/22/2025 10:00 AM CDT - 02/22/2025 10:30 AM CDT Surgery [facility] Endoscopy [address] [place] [address] Derick Higuera MD [address] [place], [place] [id number] EGD Scheduled Procedures Name Priority Associated Diagnoses Date/Ti co ESOPHAGOGASTRODUODENOSCOPY Otto's esophagus with dysplasia 02/22/2025 10:00 AM CDT documented as of this encounter Visit Diagnoses Diagnosis Otto's esophagus- Primary S/P right rotator cuff repair- Primary Right shoulder pain, unspecified chronicity Otto's esophagus with dysplasia documented in this encounter Care Teams Practicing Dermatologist Relationship Specialty Start Date End Date Amaury Bonner MD [address] [place] [address] PCP - General 02/27/08 Cady Urena PA [address] [place] [address] DR JAMES [address] [place] [address] Physician Poultry Killer Orthopedic Surgery 09/29/24 documented as of this encounter
[2025-02-06 09:22] LABS: Hemoglobin 14.7 g/dL (14.0-18.0); Mean Corpuscular HGB Conc 32.7 g/dL (32-36); Mean Corpuscular Hemoglobin 27.9 pg (27.0-31.0); Mean Corpuscular Volume 85.6 fL (78.0-102.0); Mean Platelet Volume 9.3 fl (8.7-11.0); Platelet Count Result 430 K/mm3 (150-420); Red Blood Count 5.26 M/mm3 (4.70-6.10); Red Cell Distribution Width 12.5 % (11.6-14.4); White Blood Count 8.5 K/mm3 (4.8-10.8)
[2025-02-06 09:25] LABS: Add Urine Microscopic? NO; Appearance Urine Clear (Clear); Bilirubin Urine Negative (Negative); Blood Urine Negative (Negative); Color Urine Yellow (Yellow); Glucose Urine UA Negative (Negative); Ketones Urine Negative (Negative); Leukocyte Esterase Ur Negative (Negative); Nitrate Urine Negative (Negative); Protein Urine Negative (Negative); Urobilinogen Urine 0.2 mg/dL (0.2-1.0)
[2025-02-06 09:54] LABS: Alanine Aminotransferase 64 U/L (16-63); Albumin Level 4.3 g/dL (3.4-5.0); Alkaline Phosphatase 109 U/L (46-116); Anion Gap 5 mmol/L (4-12); Aspartate Amino Transferase 19 U/L (15-37); Bilirubin,Total 0.7 mg/dL (0.00-1.00); Blood Urea Nitrogen 20 mg/dL (7-18); Calcium 9.3 mg/dL (8.5-10.1); Carbon Dioxide 32 mmol/L (21-32); Chloride 105 mmol/L (98-108); Cholesterol 143 mg/dL (0-200); Estimated Glomerular Filt Rate > 60; Free T4 Free Thyroxine 1.06 ng/dL (0.76-1.46); Glucose 102 mg/dL (70-99); HDL Direct 43 mg/dL (40-60); LDL Cholesterol Calculated 87 mg/dL (<130); Osmolality Calculated 296 mOsm/kg (285-295); Potassium 4.9 mmol/L (3.5-5.1); Prostate Specific Antigen 1.6 ng/mL (< OR = 4.0); Sodium 142 mmol/L (136-145); Thyroid Stimulating Hormone 1.56 uIU/mL (0.36-3.74); Total Protein 7.3 g/dL (6.4-8.2); Triglycerides 67 mg/dL (0-150)
== END 2025-02-06 08:38 | disposition home or self-care (01) ==
LOC: CHSLAB 08:38
PROVIDERS: PCP Internal Medicine; Visit Provider Internal Medicine
DX: Z00.00 Encounter for general adult medical examination without abnormal findings (principal); Z12.5 Encounter for screening for malignant neoplasm of prostate
CPT/HCPCS: 36415; 80053; 80061; 81003; 84153; 84439; 84443; 85027; G0103

== ENCOUNTER 2025-05-15 09:47 | Outpatient (CLI) | payer OTHER, SELFPAY ==
--- NOTE | ~2025-05-15 | MR_ITS ---
MRI of the right knee Clinical history: Pain Technique: Coronal proton density and proton density-weighted images, sagittal proton-density and T2 fat-sat images, and axial proton-density fat-saturated images were acquired. Findings: Anterior and posterior cruciate ligaments are intact. There is complete tear of the proxima l MCL, with fluid traversing the defect. Lateral collateral ligament complex is intact. Popliteus ten don is intact. Medial and lateral menisci are intact, without evidence of tear. There is grade I chondromalacia over the lateral patellar facet. Remaining articular cartilage is wel l preserved throughout the knee. Under signals are unremarkable. Extensor mechanism is intact. No joint effusion. No Keys's cyst. Impression: Complete tear of the proximal MCL. Reviewed, dictated and finalized at location M. Impression: Complete tear of the proximal MCL.
--- OUTSIDE RECORDS SUMMARY | 2025-05-15 09:50 | XMS_ITS | Referral Summary ---
Author Organization [facility] 2 Address [address] [place] [address] Care Team Providers Care Immunology Specialist Name Role Phone Amaury Bonner MD Primary Care Provider + [phone] Cady Urena Unavailable [phone] Encounters Date Type Department Care Team Description 5 11:30 AM CDT Therapy [facility] Physical Therapy [address] [place] [address] [place] [phone] Ryland Farris DPT S/P right rotator cuff repair (Primary Dx) 5 Plan of Care Documentation [facility] Physical Therapy [address] [place] [address] Floor [address] [place] [phone] 5 9:15 AM CDT Therapy [facility] Physical Therapy [address] [place] [address] Floor [address] [place] [phone] Ryland Farris DPT S/P right rotator cuff repair (Primary Dx); Right shoulder pain, unspecified chronicity 5 9:15 AM CDT Office Visit [facility] Medical [facility] Orthopedic and Sports Medicine [address] [place] [phone] Cady Urena PA Traumatic incomplete tear of right rotator cuff, subsequent encounter (Primary Dx) 5 11:00 AM CDT Therapy [facility] Physical Therapy [address] [facility] 1st Floor [address] [place] [phone] Isabelle Valdez PTA S/P right rotator cuff repair (Primary Dx) 5 7:45 AM CDT Therapy [facility] Physical Therapy [address] [place] [phone] Ryland Farris DPT S/P right rotator cuff repair (Primary Dx); Right shoulder pain, unspecified chronicity 5 Telephone [facility] Gastroenterolog y [address] [place] [address] Medical Office Building 4, [address] [place] [phone] Jemima Hinkle RN Return call 5 Results Follow-Up [facility] Gastroenterolog y [address] [place] [address] Office Building 4, [address] [place] [phone] Jemima Hinkle RN Surgical pathology 5 10:00 AM CDT - 5 10:30 AM CDT Surgery [facility] Endoscopy [address] [place] [address] Derick Higuera MD ESOPHAGOGASTRODUODENOSCOPY BIOPSY 5 9:34 AM CDT Anesthesia Event [facility] Endoscopy [address] [place] [address] Mikhail Cooley MD 5 8:56 AM CDT - 5 11:13 AM CDT Hospital Encounter [facility] Endoscopy [address] [place] [address] Derick Higuera MD Otto's esophagus with dysplasia Discharge Disposition: Discharge to home or self care 5 7:45 AM CDT Therapy [facility] Physical [place] [id number] [facility] 1st Floor [address] [place] [phone] Ryland Farris DPT S/P right rotator cuff repair (Primary Dx); Right shoulder pain, unspecified chronicity 5 7:45 AM CDT Therapy [facility] Physical Therapy [address] [facility] 1st Floor [address] [place] [address] Ryland Farris, LUIS ARMANDO S/P right rotator cuff repair (Primary Dx); Right shoulder pain, unspecified chronicity from Last 3 Months Allergies No known active allergies Medications atorvastatin (LIPITOR) 40 mg tablet Take 1 tablet (40 mg total) by mouth daily 2 Active clonazePAM (KlonoPIN) 1 mg tablet Take [...] for constipation 30 tablet 1 4 Active losartan-hydroC HLOROthiazide (HYZAAR) 50-12.5 mg per tablet Take 1 tablet by mouth daily Active albuterol HFA (PROVENTIL HFA,VENTOLIN HFA,PROAIR HFA) 90 mcg/actuation inhaler 5 Active omeprazole (PriLOSEC) 20 mg capsule Take 1 capsule (20 mg total) by mouth daily before breakfast 90 capsule 3 5 Active naproxen (NAPROSYN) 500 mg tablet Take 1 tablet (500 mg total) by mouth 2 (two) times a day with meals 60 tablet 5 Active Active Problems Problem Noted Date Diagnosed [...] (12/05/2021): Added automatically from request for surgery [id number] Gastroesophageal reflux disease without esophagi tis 09/01/2019 Overview (09/01/2019): Added automatically from request for surgery [id number] Gastroesophageal reflux disease 10/13/2013 Otto's esophagus 10/13/2013 Social History Tobacco Use Types Packs/Day Years Used Date Smoking Tobacco: Never Smokeless Tobacco: Never Tobacco Cessation:Counseling Given: Not Answered Alcohol Use Standard Drinks/Week Comments Yes 0 (1 standard drink = 0.6 oz pur e alcohol) rarely AUDIT-C Answer Date Recorded Q1: How often do you have a drink containing alc ohol? Monthly or less 02/22/2025 Q2: How many drinks containi ng alcohol do you have on a typical day when you are drinking? 1 or 2 02/22/2025 Q3: How often do you have si x or more drinks on one occasion? Never 02/22/2025 Personal Safety Answer Date Recorded Have you ever been in or are you currently in a harmful physical or emotional relationship or is someone making you feel afraid or unsafe? 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 BALER Gender Identity Male 06/02/2024 7:40 AM CDT Sexual Orientation Straight 06/02/2024 7: 40 AM CDT Last Filed Vital Signs Vital Sign Reading Time Taken Comments Blood Pressure 132/78 03/25/2025 9:07 AM CDT Pulse 75 03/25/2025 9:07 AM CDT Temperature 37.6 C (99.7 F) 02/22/2025 9:52 AM CDT Respiratory Rate 16 03/25/2025 9:07 AM CDT Oxygen Saturation 96% 02/22/2025 10:35 AM CDT Inhaled Oxygen Concentration - - Weight 108 kg (238 lb) 03/25/2025 9:07 AM CDT Height 180.3 cm (5' 11) 03/25/2025 9:07 AM CDT Body Mass Index 33.19 03/25/2025 9:07 AM CDT Plan of Treatment Not on file Medical Devices Implanted Type Area Advertising Agent Device Identifier Shelf Expiration Date Model / Serial / Lot [employer] Suture [place] Double Loaded Knotless Fibertak 2.6mm Ar-3632sp - [id number] Implanted:Qty : 1 on 09/29/2024 by Alexander Burden MD at [facility] Right: Shoulder [employer] [id number] 05/31/2028 AR-3632SP / / [id number] [employer] Swivelock C 4.75mm 19.1mm Closed Eyelet Vent [place] Suture Ar-2324bcc - [id number] Implanted:Qty : 1 on 09/29/2024 by Alexander Burden MD at [facility] Right: Shoulder [employer] 05/31/2028 AR-2324BCC / / [id number] [employer] Swivelock C 4.75mm 19.1mm Closed Eyelet Vent [place] Suture Ar-2324bcc - [id number] Implanted:Qty : 1 on 09/29/2024 by Alexander uBrden MD at [facility] Right: Shoulder [employer] 03/31/2028 AR-2324BCC / / [id number] Procedures Procedure Name Priority Date/Time Associated Diagnosis Comments SURGICAL PATHOLOGY Routine 02/22/2025 9:42 AM CDT Otto's esophagus with dysplasia ESOPHAGOGASTRODUODENOSCOPY BIOPSY 02/22/2025 9:34 AM CDT Otto's esophagus with dysplasia EGD 02/22/2025 9:33 AM CDT from Last 3 Months Results * Surgical pathology (02/22/2025 9:42 AM CDT) Tissue specimen (specimen) (Esophageal biopsy) 02/22/2025 9:42 AM CDT Narrative PATHOLOGY [facility] - 02/23/2025 9:35 AM CDT EPIC results best viewed via link to PDF [facility] [place] [address] Note to Patients: This report may contain [...] details. SURGICAL PATHOLOGY REPORT FINAL Patient Name: MP GEORGE Gender: Aria : 1970 (Age: 54) Address: [address] [place] [address] Hospital #: [id number] Taken:02/22/2025 Received:02/22/2025 Reported: 02/23/2025 Patient Type: [facility] EP SAME Client [facility] Service: Gastro Location: Physician(s): Laquita Luo M.D. Diagnosis: Esophagus, biopsy: - Squamous epithelium with no pathologic abnormality - No goblet cells characteristic of Otto mucosa are seen tcl/02/23/2025 09:35 By this signature, I attest that the above diagnosis is based upon my personal examination of the slides(and/or other material indicated in the diagnosis). Josiah Holt M.D., Ph.D. Report Electronically Reviewed and Signed Out By Josiah Holt M.D., Ph.D. 02/23/2025 09:35:56 History: The patient is a 54-year-old man with Barretts esophagus with dysplasia. Operative procedure: EGD. Specimen(s) Received: A: Biopsies barretts Gross Description: Received in formalin, labeled with the patient s identifiers and biopsies Barretts are multiple irregular tissue fragment(s) (measuring 0.6 x 0.2 x 0.1 cm in aggregate. Stained with eosin). Labeled A1. Jar 0. cnewho/02/22/2025 13:20 PA(s): DOMINIQUE Acevse By this signature, I attest that the above diagnosis is based upon my personal examination of the slides(and/or other material). Addenda/Procedures Microscopic slide review and interpretation for this case was performed at [facility], Department of Surgical Pathology, [address] [facility], [id number], [place] [address] CLIA # [id number] The performance characteristics of some immunohistochemical stains, fluorescence in-situ hybridization tests and immunophenotyping by flow cytometry cited in this report (if any) were determined by the Surgical Pathology and Flow Cytometry Departments at [facility] as part of an ongoing quality nurse program and in compliance with federally mandated regulations drawn from the Clinical Laboratory Improvement Act of 1988 (CLIA '88). Some of these tests rely on the use of analyte specific reagents and are subject to specific labeling requirements by the US Food and Drug Administration. Such diagnostic tests may only be performed in a facility that is certified by the Department of Health and Human Services as a high complexity laboratory under CLIA '88. The FDA has determined that such clearance or approval is not necessary. This test is used for clinical purposes. It should not be regarded as investigational or for research. Nevertheless, federal rules concerning the medical use of analyte specific reagents require that the following disclaimer be attached to the report: This test was developed and its performance characteristics determined by the Surgical Pathology and Flow Cytometry Departments of [facility]. It has not been cleared or approved by the U. S. Food and Drug Administration. IMAGES AND SCANNED DOCUMENTS, IF INCLUDED, ONLY VIEWABLE IN PDF VERSION OF REPORT us Derick Higuera MD LAB PATHOLOGY [facility] Final Result PATHOLOGY [facility] [phone] * EGD (02/22/2025 9:33 AM CDT) Anatomical Region Laterality Modality Other Narrative Procedure Note Derick Higuera MD - 02/22/2025 9:33 AM CDT ENDOSCOPY LAB Patient Name: Mp George Procedure Date: 02/22/2025 9:33 AM Date of : 1970 Admit Type: Outpatient Age: 54 Gender: Male Attending MD: Derick Higuera M.D. Room: [facility] ENDOSCOPY ROOM 04 Note Status: Finalized Procedure: Upper GI endoscopy Indications: Follow-up of Otto's esophagus Providers: Derick Higuera M.D. Referring MD: Amaury Bonner M.D. Medicines: Monitored Anesthesia Care Complications: No immediate complications. Estimated Blood Loss: Estimated blood loss: none. Procedure: Pre-Anesthesia Assessment: - Immediately prior to administration ofmedications, the patient was re-assessed for adequacy to receive sedatives. After obtaining informed consent, the endoscope was passed under direct vision. Throughout theprocedure, the patient's blood pressure, pulse, and oxygen saturations were monitored continuously. The [id number] was introduced through the mouth,and advanced to the second part of duodenum. The upperGI endoscopy was accomplished without difficulty. The patient tolerated the procedure well. Findings: The examined duodenum was normal. The stomach was normal. The esophagus and gastroesophageal junction were examined with white light and narrow band imaging (NBI) from a forward view andretroflexed position. There were esophageal mucosal changes classified asBarrett's stage C0-M0 per [place] criteria. These changes involved the mucosa at the upper extent of the gastric folds (42 cm from the incisors) extending to the Z-line. Islands of salmon-colored mucosa werepresent from 40 to 42 cm. Mucosa was biopsied with a cold forceps forhistology in a targeted manner in the lower third of the esophagus. Onespecimen bottle was sent to pathology. Impression: - Normal examined duodenum. - Normal stomach. - Esophageal mucosal changes classified asBarrett's stage C0-M0 per [place] criteria. Biopsied. Recommendation: - Call my nurses in the GI office at [phone] ([phone]) for your final pathology results in7 days. - Use a proton pump inhibitor PO daily. - Return to primary care physician as previously scheduled. - Repeat upper endoscopy in 3 years [facility]. - - Attending Participation: I personally performed the entire procedure. Electronically signed by Derick Higuera MD Derick Higuera M.D. 02/22/2025 9:45:57 AM Number of Addenda: 0 Note Initiated On: 02/22/2025 9:33 AM Derick Higuera MD ENDOSCOPY PROCEDUR ES Final Result from Last 3 Months Insurance [employer] Advance Directives For more information, please contact: [phone] * Full Code (Latest Code Status on File) Date Activated Date Inactivated Comments 02/22/2025 8:59 AM 02/22/2025 3:13 PM * Full Code Date Activated Date Inactivated Comments 10/02/2019 12:10 PM 10/02/2019 5:23 PM Care Teams Immunology Specialist Relationship Specialty Start Date End Date Amaury Bonner MD [address] [place] [address] PCP - General 02/27/08 Cady Urena PA [address] [place] [address] [place] [address] Physician Outside Operator Orthopedic Surgery 09/29/24
--- OUTSIDE RECORDS SUMMARY | 2025-05-15 09:50 | XMS_ITS | Clinical Summary ---
Author Organization [facility] Medical [facility] [address] [facility] [place] [address] Care Team Providers Care Drilling Inspector Name Role Phone Amaury Bonner MD Primary Care Provider [phone] Cady Urena Unavailable [phone] Allergies No known active allergies Medications atorvastatin [...] (12/05/2021): Added automatically from request for surgery [id number] Gastroesophageal reflux disease without esophagi tis 09/01/2019 Overview (09/01/2019): Added automatically from request for surgery [id number] Gastroesophageal reflux disease 10/13/2013 Otto's esophagus 10/13/2013 Encounters Date Type Department Care Team Description 5 11:30 AM CDT Therapy [facility] Physical Therapy [address] [place] [address] [place] [phone] Ryland Farris DPT S/P right rotator cuff repair (Primary Dx) 5 9:15 AM CDT Therapy [facility] Physical Therapy [address] [place] [address] [place] [phone] Ryland Farris DPT S/P right rotator cuff repair (Primary Dx); Right shoulder pain, unspecified chronicity 5 Plan of Care Documentation [facility] Physical Therapy [address] [place] [address] [place] [phone] 5 9:15 AM CDT Office Visit [facility] Medical Group Orthopedic and Sports Medicine [address] [place] [phone] Cady Urena PA Traumatic incomplete tear of right rotator cuff, subsequent encounter (Primary Dx) 5 11:00 AM CDT Therapy [facility] Physical Therapy [address] [place] [address] [place] [phone] Isabelle Valdez PTA S/P right rotator cuff repair (Primary Dx) 5 7:45 AM CDT Therapy [facility] Physical Therapy [address] [place] [address] [place] [phone] Ryland Farris DPT S/P right rotator cuff repair (Primary Dx); Right shoulder pain, unspecified chronicity 5 Telephone [facility] Gastroenterolog y [facility]4 [facility] Medical Office Building 4, [address] [place] [phone] Jemima Hinkle, RN Return call 5 Results Follow-Up [facility] Gastroenterolog y [address] [facility] Medical Office Building 4, [address] [place] [phone] Jemima Hinkle, hothouse worker pathology 5 10:00 AM CDT - 5 10:30 AM CDT Surgery [facility] Endoscopy [address] [place] [address] Derick Higuera MD ESOPHAGOGASTRODUODENOSCOPY BIOPSY 5 9:34 AM CDT Anesthesia Event [facility] Endoscopy [address] [place] [address] Mikhail Cooley MD 5 8:56 AM CDT - 5 11:13 AM CDT Hospital Encounter [facility] Endoscopy [address] [place] [address] Derick Higuera MD Otto's esophagus with dysplasia Discharge Disposition: Discharge to home or self care 5 7:45 AM CDT Therapy [facility] Physical Therapy [address] [place] [address] Floor [address] [place] [phone] Ryland Farris DPT S/P right rotator cuff repair (Primary Dx); Right shoulder pain, unspecified chronicity 5 7:45 AM CDT Therapy [facility] Physical Therapy [address] [place] [address] [address] [place] [phone] Ryland Farris DPT S/P right rotator cuff repair (Primary Dx); Right shoulder pain, unspecified chronicity from Last 3 Months Surgical History Surgery Date Site/Laterality Comments TOOTH EXTRACTION CHOLECYSTECTOMY ROTATOR CUFF REPAIR 09/29/2024 Right Medical History Medical History Date Comments HTN [...] on file Legal Sex Male 7:48 PM RELEASE COORDINATOR Gender Identity Male 06/02/2024 7:40 AM [...] 03/25/2025 9:07 AM CDT Plan of Treatment Health Maintenance Due [...] 09/18/2024, 08/14/2017 Medical Devices Implanted Type Area Heating Unit Mechanic Device Identifier Shelf Expiration Date Model / Serial / Lot [employer] Suture [place] Double Loaded Knotless Fibertak 2.6mm Ar-3632sp - [id number] Implanted:Qty : 1 on 09/29/2024 by Alexander Burden MD at [facility] Right: Shoulder [employer] [id number] 05/31/2028 AR-3632SP / / [id number] [employer] Swivelock C 4.75mm 19.1mm Closed Eyelet Vent [place] Suture Ar-2324bcc - [id number] Implanted:Qty : 1 on 09/29/2024 by Alexander Burden MD at [facility] Right: Shoulder [employer] 05/31/2028 AR-2324BCC / / [id number] [employer] Swivelock C 4.75mm 19.1mm Closed Eyelet Vent [place] Suture Ar-2324bcc - [id number] Implanted:Qty : 1 on 09/29/2024 by Alexander Burden MD at [facility] Right: Shoulder [employer] 03/31/2028 AR-2324BCC / / [id number] Procedures Procedure Name Priority Date/Time Associated Diagnosis [...] best viewed via link to PDF [facility]y Laboratory [place] [address] Note to Patients: This report may contain [...] SURGICAL PATHOLOGY REPORT FINAL Patient Name: MP WAN Gender: Aria : 1970 (Age: 54) Address: [address] [place], [place] [id number] Hospital #: [id number] Taken:02/22/2025 Received:02/22/2025 Reported: 02/23/2025 Patient Type: [facility] EP SAME [facility]: Gastro Location: Physician(s): Laquita Luo M.D. Diagnosis: Esophagus, biopsy: - Squamous epithelium with no pathologic abnormality - No goblet cells characteristic of Otto mucosa are seen tc/02/23/2025 09:35 By this signature, I attest that [...] Stained with eosin). Labeled A1. Jar 0. cnew/02/22/2025 13:20 PA(s): DOMINIQUE Aceves By this signature, I attest that the above diagnosis is based upon my personal examination of the slides(and/or other material). Addenda/Procedures Microscopic slide review and interpretation for this case was performed at [facility], Department of Surgical Pathology, [address] [facility], [id number], [place] [address] CLIA # [id number] The performance characteristics of some immunohistochemical stains, fluorescence in-situ hybridization tests and immunophenotyping by flow cytometry cited in this report (if any) were determined by the Surgical Pathology and Flow Cytometry Departments at [facility] as part of an ongoing software quality assurance engineer program and in compliance with federally mandated [...] Surgical Pathology and Flow Cytometry Departments of [facility]. It has not been cleared or approved by the U. S. Food and Drug Administration. IMAGES AND SCANNED DOCUMENTS, IF INCLUDED, ONLY VIEWABLE IN PDF VERSION OF REPORT Derick Higuera MD LAB PATHOLOGY [facility] Final Result PATHOLOGY [facility] [phone] * EGD (02/22/2025 9:33 AM CDT) Anatomical Region Laterality Modality Other Narrative Procedure Note Derick Higuera MD - 02/22/2025 9:33 AM CDT ENDOSCOPY LAB Patient Name: Mp Wan Procedure Date: 02/22/2025 9:33 AM Date of : 1970 Admit Type: Outpatient Age: 54 Gender: Male Attending MD: Derick Higuera M.D. Room: [facility] ENDOSCOPY ROOM 04 Note Status: Finalized [...] and oxygen saturations were monitored continuously. The [id number] was introduced through the mouth,and advanced to [...] mucosal changes classified asBarrett's stage C0-M0 per [place] criteria. These changes involved the mucosa at [...] mucosal changes classified asBarrett's stage C0-M0 per [place] criteria. Biopsied. Recommendation: - Call my nurses in the GI office at [phone] ([phone]) for your final pathology results in7 days. - Use a proton pump inhibitor PO daily. - Return to primary care physician as previously scheduled. - [facility] - - Attending Participation: I personally performed the entire procedure. Electronically signed by Derick Higuera MD Derick Higuera M.D. 02/22/2025 9:45:57 AM Number of Addenda: 0 Note Initiated On: 02/22/2025 9:33 AM Derick Higuera MD ENDOSCOPY PROCEDUR ES Final Result from Last 3 Months Insurance EMPLOYEES CHOICE PLUS [employer] Advance Directives For more information, please contact: [phone] * Full Code (Latest Code Status on File) Date Activated Date Inactivated Comments 02/22/2025 8:59 AM 02/22/2025 3:13 PM * Full Code Date Activated Date Inactivated Comments 10/02/2019 12:10 PM 10/02/2019 5:23 PM Care Teams Drilling Inspector Relationship Specialty Start Date End Date Amaury Bonner MD [address] [place] [address] PCP - General 02/27/08 Cady Urena PA [address] [place] [address] [address], [place] [address] Physician Help Desk Assistant Orthopedic Surgery 09/29/24
== END 2025-05-15 09:48 | disposition home or self-care (01) ==
LOC: CHSIMG 09:49
PROVIDERS: PCP Internal Medicine; Visit Provider Internal Medicine
DX: S83.411A Sprain of medial collateral ligament of right knee, initial encounter (principal)
CPT/HCPCS: 73721